=== PATIENT | male | born 1945 | race Caucasian/White ===

== ENCOUNTER → 2017-06-14 | Outpatient (CLI) | payer OTHER ==
[2016-04-10 12:03] VITALS: BP 137/71
--- NOTE | 2017-06-14 12:33 | RAD ---
HISTORY: Dyspnea Study: Chest two-view Comparison: April 10, 2016 Findings: The trachea is midline. The cardiac silhouette is unremarkable. The lungs are mildly hyperinflated but free of acute alveolar infiltrates. No pleural effusions are identified. The patient is status post median sternotomy and CABG.. The bony thorax is unremarkable. IMPRESSION: 1. Lungs mildly hyperinflated but clear Reported By:
--- NOTE | 2017-06-14 12:38 | RAD ---
HISTORY: Right hip pain, nontraumatic Study: Right hip two views, AP pelvis Comparison: None Findings: A single frontal view of the pelvis demonstrates the pelvic ring to be intact. No evidence for acut e cortical disruption or dislocation of the hip can be observed. Frog leg views of the hip fails to demonstrate evidence for fracture or significant joint abnormality. a penile prosthesis is incident ally noted. Impression: 1. Negative exam. Reported By:
== END ==
LOC: RAD 11:30
PROVIDERS: ATTEND Nurse Practitioner Family
DX: M25.551 Pain in right hip (principal); R06.09 Other forms of dyspnea; J44.9 Chronic obstructive pulmonary disease, unspecified; J43.8 Other emphysema
CPT/HCPCS: 71020; 73501

== ENCOUNTER → 2017-07-13 | Outpatient (CLI) | payer OTHER ==
[2016-04-10 12:03] VITALS: BP 137/71
--- NOTE | 2017-07-14 15:27 | MRI ---
HISTORY: Low back pain Study: MRI lumbar spine without contrast Comparison: January 25, 2016 Technique: Multiplanar multi-sequence MRI of the lumbar spine was obtained. Sagittal T1, sagittal T2 , and stir weighted images, axial T1, and axial T2 images were obtained. Findings: The lumbar spine demonstrates normal alignment with the expected signal characteristics of the bone m arrow. There is a compression fracture of L1 with signal characteristics suggesting that it is not r ecent. It is not significantly changed from the prior examination. No new compression fractures are i dentified. The conus of the cord terminates normally. T12 -- L1: No evidence for compressive disc disease. The neural foramina are patent. The joints are n ormal. L1 -- L2: No evidence for compressive disc disease. The neural foramina are patent. The joints are no rmal. L2 -- L3: No evidence for compressive disc disease. The neural foramina are patent. Mild facet arthro michael is present. L3 -- L4: There is some disc degeneration with minimal disc bulging which is not significantly compre ssive upon the thecal sac. There is mild foraminal narrowing on the right. The left neural foramen is patent. The joints are normal. L4 -- L5: There is disc degeneration with mild broad-based disc bulging which contributes along with pedicular shortening and spondylitic change and facet arthropathy to lateral recess narrowing bilater ally worse on the left than the right. L5 -- S1: There is disc degeneration with minimal disc bulging which contributes along with spondylit ic change to mild foraminal narrowing bilaterally. The joints are normal. IMPRESSION: as above Reported By:
== END | disposition home or self-care (01) ==
LOC: RAD 15:23
PROVIDERS: ATTEND Nurse Practitioner Family
DX: M54.5 Low back pain (principal); M62.81 Muscle weakness (generalized); G58.8 Other specified mononeuropathies; M51.37 Other intervertebral disc degeneration, lumbosacral region
CPT/HCPCS: 72148

== ENCOUNTER 2018-07-09 16:37 | Observation (INO) ==
[2018-07-09 17:40] LABS: ABG BASE EXCESS 1.8 mmol/L (-2.0-2.0); ABG HCO3 29.5 mmol/L (22-26)
[2018-07-09 17:42] LABS: ABG ALLEN TEST POS
--- NOTE | 2018-07-09 18:01 | RAD ---
Indication: Shortness of breath Exam: Portable chest Comparison: 06/14/2017 Findings: The heart is normal. The pulmonary vessels are normal. Postop changes are seen along the me diastinum and sternum. There is overlying EKG lead artifact. No consolidation or effusion is seen. Impression: Stable chronic changes with no acute abnormality seen. Reported By:
[2018-07-09 18:10] LABS: BASOPHILS % (AUTO) 0.4 % (0.2-1.0); EOSINOPHILS # (AUTO) 0.4 x10^3/uL (0.0-0.2); EOSINOPHILS % (AUTO) 4.9 % (0.9-2.9); HEMATOCRIT 35.3 % (42.0-54.0); LYMPHOCYTES # (AUTO) 1.9 X10^3/uL (1.3-2.9); LYMPHOCYTES % (AUTO) 21.2 % (21.0-51.0); MEAN CORPUSCULAR HEMOGLOBIN 31.9 pg (27.0-34.0); MEAN CORPUSCULAR HGB CONC 34.1 g/dL (33.0-35.0); MEAN CORPUSCULAR VOLUME 93.6 fL (80.0-100.0); MEAN PLATELET VOLUME 8.1 fL (7.4-11.0); MONOCYTES # (AUTO) 0.8 x10^3/uL (0.3-0.8); MONOCYTES % (AUTO) 9.4 % (0.0-13.0); NEUTROPHILS # (AUTO) 5.7 x10^3/uL (2.2-4.8); NEUTROPHILS % (AUTO) 64.1 % (42.0-75.0); PLATELET COUNT 236 X10^3/uL (150.0-450.0); RED BLOOD COUNT 3.77 X10^6/uL (4.7-6.0); RED CELL DISTRIBUTION WIDTH 13.8 % (11.6-16.5); WHITE BLOOD COUNT 8.9 X10^3/uL (3.6-10.0)
[2018-07-09 18:25] LABS: BLOOD UREA NITROGEN 22 mg/dL (7-18); CALCIUM 8.3 mg/dL (8.5-10.1); CARBON DIOXIDE 28.7 mmol/L (21-32); CHLORIDE 103 mmol/L (98-107); CREATININE 1.64 mg/dL (0.70-1.30); SODIUM 136 mmol/L (136-145); TROPONIN I < 0.02 ng/mL (0-1.5); eGFR NON BLACK RACES 44 (>60)
[2018-07-09 18:29] LABS: ALANINE AMINOTRANSFERASE 21 Units/L (12-78); ALBUMIN 3.4 g/dL (3.4-5.0); ALKALINE PHOSPHATASE 83 Units/L (46-116); ASPARTATE AMINO TRANSFERASE 19 Units/L (15-37); CKMB % 1.8 % (<4); CREATINE KINASE 94 Units/L (39-308); CREATINE KINASE MB 1.7 ng/mL (0-4.0); TOTAL PROTEIN 7.7 g/dL (6.4-8.2)
--- NOTE | 2018-07-09 18:44 | DR.H&P ---
H&P - History & Physical for Day of: H&P Date: 07/09/18 - Chief Complaint Chief Complaint: SOB, WEAKNESS - History of Present Illness History of Present Illness: 73 WM DIRECT ADMIT FROM DR SINGH OFFICE AFTER PRESENTING WITH CO INCREASED WEAKNESS AND SOB. PT VERY DIAPHORETIC IN OFFICE WITH AUDIBLE RALES. PT O2 AT 90%, UNSTEADY GAIT. PT HAD PMH OF CHF, COPD, CAD, HTN, OA, DAVID. PT HAS BEEN USING JET NEBS WITHOUT IMPROVEMENT. PT ADMITTED TO ICU FOR RESP DISTRESS. - Past Medical History Past Medical History: Anxiety, Arthritis, Asthma, COPD, Coronary Artery Disease , Migraines, GERD, Hypertension - Past Surgical History Surgical History: Appendectomy, CABG/Valve Surgery, Neurosurgery - Family History Family Medical History: DC, Coronary Artery Disease, Heart Failure, Hypertension - Social History Does patient currently use any type of tobacco product: No Have you used tobacco products in the last 12 months: No Type of Tobacco Use: None Does any household member use tobacco: No Alcohol Use: None Drug Use: None - Medications Home Medications: cortisone Allergy (Verified 07/09/18 18:01) CONTINUE taking the following medications alprazolam [Xanax] 1 mg PO BID 07/09/18 [History] aspirin 325 mg PO QDAY 07/09/18 [History] atorvastatin 40 mg PO QDAY 07/09/18 [History] budesonide-formoterol [Symbicort] 2 puff INHALATION BID 07/09/18 [History] cyclobenzaprine 10 mg PO TID 07/09/18 [History] fentanyl 1 patch TRANSDERMAL Q72H 07/09/18 [History] gabapentin 800 mg PO TID 07/09/18 [History] linaclotide [Linzess] 145 mg PO DAILY 07/09/18 [History] lisinopril 5 mg PO QDAY 07/09/18 [History] memantine 5 mg PO BID 07/09/18 [History] metoprolol succinate 25 mg PO BID 07/09/18 [History] olanzapine 5 mg PO QDAY 07/09/18 [History] oxybutynin chloride 10 mg PO QDAY 07/09/18 [History] oxycodone-acetaminophen 1 tab PO Q4-6H PRN 07/09/18 [History] pantoprazole [Protonix] 40 mg PO QDAY 07/09/18 [History] tamsulosin 0.4 mg PO QDAY 07/09/18 [History] trazodone 100 mg PO QHS 07/09/18 [History] venlafaxine 150 mg PO QDAY 07/09/18 [History] - Review of Systems Constitutional: Weakness Eyes: No Symptoms Reported Respiratory: Shortness of Breath, SOB with Excertion, Wheezing Cardiovascular: Palpitations, Edema, Light Headedness Gastrointestinal: Nausea, Constipation Genitourinary: Retention Musculoskeletal: Back Pain, Leg Pain Neurological: Weakness - Physical Exam Vital Signs: Temperature 98.2 F Pulse Rate [Right Brachial] 85 Respiratory Rate 12 Blood Pressure [Left Arm] 121/62 Blood Pressure [Right Arm] 124/67 Blood Pressure 137/71 O2 Sat by Pulse Oximetry 96 Oriented: Normal Eyes: Normal Ear: Normal Nose: Normal Throat: Normal Respiratory: Rales Throughout (FINE RALES ), RLL Diminished, LLL Diminished Cardiovascular: Tachycardia, Edema : Normal Auscultation: Bowel Sounds: Normal Palpation: Normal Tenderness: Normal Skin: Diaphoresis Musculoskeletal: Right, Left, Leg, Back:Lumbar, Swelling, Sensory Deficit, Instability Psychiatric: Anxiety Affect: Anxious Speech Pattern: Delayed, Slurred - Assessment/Plan (1) Respiratory distress Status: Acute Plan: ADMIT, ICU. ADMISSION LABS CE, EKG, CXR. ABD ON ADMISSION, RESP CONSULT , SUPPLEMENTAL O2. VERIFY HOME MEDS, GENTLE HYDRATION, SINGH CATH STRICT I & OS (2) CHF exacerbation Status: Acute (3) COPD exacerbation Status: Acute (4) CAD (coronary artery disease) Status: Chronic (5) DDD (degenerative disc disease) Status: Chronic (6) Anxiety Status: Chronic - Allergies Allergies/Adverse Reactions: Allergies Allergy/AdvReac Type Severity Reaction Status Date / Time cortisone Allergy Verified 07/09/18 18:01
[2018-07-09 19:36] LABS: BILIRUBIN,URINE NEGATIVE (NEGATIVE); BLOOD/HEMOGLOBIN,URINE 3+ (NEGATIVE); GLUCOSE, URINE NEGATIVE (NEGATIVE); KETONES,URINE NEGATIVE (NEGATIVE); LEUKOCYTE ESTERASE ,URINE 1+ (NEGATIVE); NITRITES,URINE NEGATIVE (NEGATIVE); PROTEIN,URINE 1+ (NEGATIVE); UROBILINOGEN,URINE NORMAL (NORMAL)
[2018-07-09 19:40] LABS: APPEARANCE,URINE CLOUDY (CLEAR); COLOR,URINE YELLOW (YELLOW)
[2018-07-09 19:45] LABS: RBC,URINE 30-50 /HPF (NONE SEEN); SQUAMOUS EPITHELIAL CELL,UR FEW /HPF (NEGATIVE)
[2018-07-09 19:46] LABS: BACTERIA,URINE 2+ /HPF (NEGATIVE)
[2018-07-09] MEDS: PULMICORT NEB TX 0.5 MG NEB SCH (20:12)
[2018-07-09] MEDS: SOLU-Medrol 125 MG VIAL IVP SCH (20:44)
[2018-07-09] MEDS: NS 1000 ML 1,000 ML IV SCH (20:49)
[2018-07-09] MEDS: ROCEPHIN VIAL 1 GRAM 1 G in NS 100 ML IV + SPIKE MINIBAG* 100 ML IV SCH (23:00)
[2018-07-10] MEDS: COLACE CAP 100 MG PO SCH ×2 (02:01→21:08)
[2018-07-10] MEDS: MILK OF MAGNESIA PO SCH ×4 (02:02→21:24)
[2018-07-10] MEDS: SOLU-Medrol 125 MG VIAL IVP SCH ×2 (02:03→05:09)
[2018-07-10 06:31] LABS: BASOPHILS # (AUTO) 0.1 X10^3/uL (0.0-0.1); BASOPHILS % (AUTO) 0.9 % (0.2-1.0); EOSINOPHILS # (AUTO) 0.3 x10^3/uL (0.0-0.2); EOSINOPHILS % (AUTO) 3.9 % (0.9-2.9); HEMATOCRIT 34.2 % (42.0-54.0); HEMOGLOBIN 11.9 g/dL (13.5-18.0); LYMPHOCYTES # (AUTO) 1.4 X10^3/uL (1.3-2.9); LYMPHOCYTES % (AUTO) 16.5 % (21.0-51.0); MEAN CORPUSCULAR HEMOGLOBIN 32.4 pg (27.0-34.0); MEAN CORPUSCULAR HGB CONC 34.8 g/dL (33.0-35.0); MEAN PLATELET VOLUME 8.1 fL (7.4-11.0); MONOCYTES # (AUTO) 0.7 x10^3/uL (0.3-0.8); MONOCYTES % (AUTO) 7.9 % (0.0-13.0); NEUTROPHILS # (AUTO) 6.1 x10^3/uL (2.2-4.8); NEUTROPHILS % (AUTO) 70.8 % (42.0-75.0); PLATELET COUNT 217 X10^3/uL (150.0-450.0); RED BLOOD COUNT 3.68 X10^6/uL (4.7-6.0); RED CELL DISTRIBUTION WIDTH 13.6 % (11.6-16.5); WHITE BLOOD COUNT 8.7 X10^3/uL (3.6-10.0)
[2018-07-10 06:52] LABS: ALANINE AMINOTRANSFERASE 19 Units/L (12-78); ALBUMIN 3.2 g/dL (3.4-5.0); ALKALINE PHOSPHATASE 78 Units/L (46-116); ASPARTATE AMINO TRANSFERASE 20 Units/L (15-37); BLOOD UREA NITROGEN 21 mg/dL (7-18); CALCIUM 8.2 mg/dL (8.5-10.1); CARBON DIOXIDE 31.7 mmol/L (21-32); CHLORIDE 102 mmol/L (98-107); COR CA(FOR HYPOALB) 8.8 mg/dL (8.5-10.1); SODIUM 139 mmol/L (136-145); TOTAL PROTEIN 7.6 g/dL (6.4-8.2); eGFR NON BLACK RACES > 60 (>60)
[2018-07-10] MEDS ORDERED: PATIENT'S HOME MEDICATION (Oxycodone-Acetaminophen [Oxycodone-Acetaminophen] 1 TAB) PO PRN (08:38)
[2018-07-10] MEDS: PULMICORT NEB TX 0.5 MG NEB SCH (08:55)
[2018-07-10] MEDS ORDERED: PATIENT'S HOME MEDICATION (Memantine [Memantine] 5 MG) PO SCH (09:00)
[2018-07-10 09:04] LABS: ABG BASE EXCESS 3.9 mmol/L (-2.0-2.0)
[2018-07-10 09:06] LABS: ABG ALLEN TEST POS; ABG HCO3 30.5 mmol/L (22-26)
[2018-07-10] MEDS ORDERED: PERCOCET TAB 5/325 MG PO PRN (09:36)
[2018-07-10] MEDS: ECOTRIN TAB 325 MG PO SCH (09:54)
[2018-07-10] MEDS: FLOMAX PO SCH (09:54)
[2018-07-10] MEDS: XANAX PO SCH ×2 (09:55→21:09)
[2018-07-10] MEDS: PROTONIX TAB 40 MG PO SCH (09:55)
[2018-07-10] MEDS: ZyPREXA TAB 5 MG PO SCH (09:55)
[2018-07-10] MEDS: TOPROL XL PO SCH ×2 (09:55→21:09)
[2018-07-10] MEDS: ZESTRIL TAB 5 MG PO SCH ×2 (09:55→09:56)
[2018-07-10] MEDS: EFFEXOR XR 150 MG CAP PO SCH (09:55)
[2018-07-10] MEDS: NAMENDA TAB 10 MG PO SCH ×2 (09:59→21:09)
[2018-07-10] MEDS: NEURONTIN CAP 400 MG PO SCH ×3 (09:59→21:09)
[2018-07-10] MEDS: DESYREL PO SCH ×2 (09:59→21:08)
[2018-07-10] MEDS: LIPITOR TAB 40 MG PO SCH ×2 (10:00→21:08)
[2018-07-10] MEDS: XOPENEX 1.25 MG/3 ML NEBULE NEB SCH (14:00)
[2018-07-10 14:43] VITALS: BMI 40.6
--- NOTE | 2018-07-10 17:39 | PCM.PROG ---
Progress Note - Progress Note for Day of Date of Exam: 07/10/18 - Subjective Subjective: 73 wm admitted on 07/09 with resp distress. Pt placed on bipap after admission. pt currently on nasal canula sating in 90's. pt reports feeling some better this am. pt asking for diet tray. Pt currently receiving Iv atbx and resp therapy, sputum culture ordered. pt encouraged to increase po fluid intake for sputum production. pt co lower back pain, BP stable. Plan to continue resp therapy. - Past Medical Family Social History Past Med/Fam/Surg Hx: No changes since H&P Allergies: Allergies cortisone Allergy (Verified 07/09/18 18:01) - Review of Systems ROS: No change since H&P - Vital Signs and I&O's Vital Signs: Temperature 98.9 F Pulse Rate [Right Brachial] 86 Pulse Rate 100 Respiratory Rate 22 Blood Pressure [Left Arm] 121/62 Blood Pressure [Right Arm] 108/53 Blood Pressure 137/71 O2 Sat by Pulse Oximetry 100 Intake and Output: Intake & Output 07/08/18 07/09/18 07/10/18 07/11/18 11:59 11:59 11:59 11:59 Intake Total 305 / 305 Output Total 1175 / 1175 800 / 800 Balance -870 / -870 -800 / -800 - Physical Exam Oriented: Normal Eyes: Normal Ear: Normal Nose: Normal Throat: Normal Respiratory: Diminished, Wheezes Cardiovascular: Tachycardia, Edema : Normal Auscultation: Bowel Sounds: Normal Tenderness: Normal Skin: Diaphoresis Musculoskeletal: Right, Left, Leg, Back:Lumbar, Swelling, Sensory Deficit, Instability Psychiatric: Anxiety Affect: Anxious Speech Pattern: Clear, Appropriate - Laboratory and Diagnostics Result Diagrams: 07/10/18 05:22 07/10/18 05:22 Labs: 07/10/18 14:13 Sputum - Expectorated Sputum - Final 07/09/18 18:30 Urine,Catheterized Urine Culture - Preliminary Laboratory WBC 8.7 X10^3/uL (3.6-10.0) 07/10/18 05:22 RBC 3.68 X10^6/uL (4.7-6.0) L 07/10/18 05:22 Hgb 11.9 g/dL (13.5-18.0) L 07/10/18 05:22 Hct 34.2 % (42.0-54.0) L 07/10/18 05:22 MCV 93.0 fL (80.0-100.0) 07/10/18 05:22 MCH 32.4 pg (27.0-34.0) 07/10/18 05:22 MCHC 34.8 g/dL (33.0-35.0) 07/10/18 05:22 RDW 13.6 % (11.6-16.5) 07/10/18 05:22 Plt Count 217 X10^3/uL (150.0-450.0) 07/10/18 05:22 MPV 8.1 fL (7.4-11.0) 07/10/18 05:22 Neut % (Auto) 70.8 % (42.0-75.0) 07/10/18 05:22 Lymph % (Auto) 16.5 % (21.0-51.0) L 07/10/18 05:22 Parke % (Auto) 7.9 % (0.0-13.0) 07/10/18 05:22 Eos % (Auto) 3.9 % (0.9-2.9) H 07/10/18 05:22 Baso % (Auto) 0.9 % (0.2-1.0) 07/10/18 05:22 Neut # (Auto) 6.1 x10^3/uL (2.2-4.8) H 07/10/18 05:22 Lymph # (Auto) 1.4 X10^3/uL (1.3-2.9) 07/10/18 05:22 [place]ke # (Auto) 0.7 x10^3/uL (0.3-0.8) 07/10/18 05:22 Eos # (Auto) 0.3 x10^3/uL (0.0-0.2) H 07/10/18 05:22 Baso # (Auto) 0.1 X10^3/uL (0.0-0.1) 07/10/18 05:22 Absolute Nucleated RBC 0.1 /100WBC 07/10/18 05:22 Sample Site Lr 07/10/18 08:55 ABG pH 7.360 (7.35-7.45) 07/10/18 08:55 ABG pCO2 54.0 mmHg (35.0-45.0) H* 07/10/18 08:55 ABG pO2 82.0 mmHg (80.0-100.0) 07/10/18 08:55 ABG HCO3 30.5 mmol/L (22-26) H* 07/10/18 08:55 ABG O2 Saturation 96.0 % (90-100) 07/10/18 08:55 ABG Base Excess 3.9 mmol/L (-2.0-2.0) H 07/10/18 08:55 Abdirashid Test Pos 07/10/18 08:55 A-a Gradient 50.0 mmHg 07/10/18 08:55 FiO2 28.000 07/10/18 08:55 Blood Gas Comments Pt darrel rx well 07/10/18 08:55 Sodium 139 mmol/L (136-145) 07/10/18 05:22 Corrected Sodium TNP 07/10/18 05:22 Potassium 4.6 mmol/L (3.5-5.1) 07/10/18 05:22 Chloride 102 mmol/L (98-107) 07/10/18 05:22 Carbon Dioxide 31.7 mmol/L (21-32) 07/10/18 05:22 BUN 21 mg/dL (7-18) H 07/10/18 05:22 Creatinine 1.20 mg/dL (0.70-1.30) 07/10/18 05:22 Est GFR (MDRD) Af Amer > 60 (>60) 07/10/18 05:22 Est GFR (MDRD) Non-Af > 60 (>60) 07/10/18 05:22 Glucose 79 mg/dL (65-99) 07/10/18 05:22 Calcium 8.2 mg/dL (8.5-10.1) L 07/10/18 05:22 Corrected Calcium 8.8 mg/dL (8.5-10.1) 07/10/18 05:22 Magnesium 2.4 mg/dL (1.7-2.9) 07/09/18 17:45 Total Bilirubin 0.50 mg/dL (0.2-1.0) 07/10/18 05:22 AST 20 Units/L (15-37) 07/10/18 05:22 ALT 19 Units/L (12-78) 07/10/18 05:22 Alkaline Phosphatase 78 Units/L (46-116) 07/10/18 05:22 Creatine Kinase 94 Units/L (39-308) 07/09/18 17:45 CK-MB (CK-2) 1.7 ng/mL (0-4.0) 07/09/18 17:45 CK/CKMB % Calc 1.8 % (<4) 07/09/18 17:45 Troponin I < 0.02 ng/mL (0-1.5) 07/09/18 17:45 Total Protein 7.6 g/dL (6.4-8.2) 07/10/18 05:22 Albumin 3.2 g/dL (3.4-5.0) L 07/10/18 05:22 Globulin 4.4 g/dL (2.5-4.5) 07/10/18 05:22 Albumin/Globulin Ratio 0.7 Ratio (1.1-2.1) L 07/10/18 05:22 Specimen Type Catherized urine 07/09/18 18:30 Urine Color Yellow (YELLOW) 07/09/18 18:30 Urine Appearance Cloudy (CLEAR) 07/09/18 18:30 Urine pH 6.0 (5.0 - 8.0) 07/09/18 18:30 Ur Specific [place] 1.015 (1.000-1.030) 07/09/18 18:30 Urine Protein 1+ (NEGATIVE) 07/09/18 18:30 Urine Glucose (UA) Negative (NEGATIVE) 07/09/18 18:30 Urine Ketones Negative (NEGATIVE) 07/09/18 18:30 Urine Occult Blood 3+ (NEGATIVE) 07/09/18 18:30 Urine Nitrite Negative (NEGATIVE) 07/09/18 18:30 Urine Bilirubin Negative (NEGATIVE) 07/09/18 18:30 Urine Urobilinogen Normal (NORMAL) 07/09/18 18:30 Ur Leukocyte Esterase 1+ (NEGATIVE) 07/09/18 18:30 Urine RBC 30-50 /HPF (NONE SEEN) 07/09/18 18:30 Urine WBC 10-20 /HPF (NONE SEEN) 07/09/18 18:30 Ur Squamous Epith Cells Few /HPF (NEGATIVE) 08/20/18 18:30 Urine Bacteria 2+ /HPF (NEGATIVE) 07/09/18 18:30 Ur Culture Indicated? Yes/culture set up 07/09/18 18:30 - Plan (1) Respiratory distress Status: Acute Plan: AM LABS CE, EKG, CXR. ABg ON ADMISSION AND REPEAT ABG THIS AM. RESP CONSULT FOR SPUTUM SPECIMEN, SUPPLEMENTAL O2. IV ATBX, GENTLE HYDRATION, SINGH CATH STRICT I & OS (2) CHF exacerbation Status: Acute (3) COPD exacerbation Status: Acute (4) CAD (coronary artery disease) Status: Chronic (5) DDD (degenerative disc disease) Status: Chronic (6) Anxiety Status: Chronic
[2018-07-10] MEDS: NS 1000 ML 1,000 ML IV SCH (18:02)
[2018-07-10] MEDS: LOVENOX INJ 40 MG SYR SC SCH (18:55)
[2018-07-10] MEDS: ROCEPHIN VIAL 1 GRAM 1 G in NS 100 ML IV + SPIKE MINIBAG* 100 ML IV SCH (21:09)
[2018-07-11] MEDS: XOPENEX 1.25 MG/3 ML NEBULE NEB SCH ×3 (02:10→14:35)
[2018-07-11] MEDS: PULMICORT NEB TX 0.5 MG NEB SCH ×2 (02:10→09:00)
[2018-07-11] MEDS: NEURONTIN CAP 400 MG PO SCH ×2 (06:01→14:41)
[2018-07-11 06:21] LABS: BASOPHILS % (AUTO) 0.4 % (0.2-1.0); EOSINOPHILS # (AUTO) 0.2 x10^3/uL (0.0-0.2); HEMATOCRIT 34.5 % (42.0-54.0); HEMOGLOBIN 11.9 g/dL (13.5-18.0); LYMPHOCYTES % (AUTO) 17.9 % (21.0-51.0); MEAN CORPUSCULAR HEMOGLOBIN 32.2 pg (27.0-34.0); MEAN CORPUSCULAR HGB CONC 34.6 g/dL (33.0-35.0); MEAN CORPUSCULAR VOLUME 93.2 fL (80.0-100.0); MONOCYTES # (AUTO) 0.5 x10^3/uL (0.3-0.8); MONOCYTES % (AUTO) 9.8 % (0.0-13.0); NEUTROPHILS # (AUTO) 3.8 x10^3/uL (2.2-4.8); NEUTROPHILS % (AUTO) 68.9 % (42.0-75.0); PLATELET COUNT 197 X10^3/uL (150.0-450.0); RED CELL DISTRIBUTION WIDTH 13.6 % (11.6-16.5); WHITE BLOOD COUNT 5.5 X10^3/uL (3.6-10.0)
[2018-07-11 06:58] LABS: ALANINE AMINOTRANSFERASE 10 Units/L (12-78); ALKALINE PHOSPHATASE 74 Units/L (46-116); ASPARTATE AMINO TRANSFERASE 21 Units/L (15-37); BLOOD UREA NITROGEN 16 mg/dL (7-18); CALCIUM 8.2 mg/dL (8.5-10.1); CARBON DIOXIDE 27.6 mmol/L (21-32); CHLORIDE 100 mmol/L (98-107); CREATININE 0.97 mg/dL (0.70-1.30); SODIUM 134 mmol/L (136-145); TOTAL PROTEIN 7.5 g/dL (6.4-8.2); eGFR NON BLACK RACES > 60 (>60)
[2018-07-11] MEDS: FLOMAX PO SCH (08:44)
[2018-07-11] MEDS: NAMENDA TAB 10 MG PO SCH (08:45)
[2018-07-11] MEDS: XANAX PO SCH (08:45)
[2018-07-11] MEDS: EFFEXOR XR 150 MG CAP PO SCH (08:45)
[2018-07-11] MEDS: ECOTRIN TAB 325 MG PO SCH (08:45)
[2018-07-11] MEDS: TOPROL XL PO SCH (08:45)
[2018-07-11] MEDS: ZyPREXA TAB 5 MG PO SCH (08:45)
[2018-07-11] MEDS: PROTONIX TAB 40 MG PO SCH (08:45)
[2018-07-11] MEDS: ZESTRIL TAB 5 MG PO SCH (08:45)
[2018-07-11] MEDS: LOVENOX INJ 40 MG SYR SC SCH (08:46)
[2018-07-11] MEDS: MILK OF MAGNESIA PO SCH (09:54)
[2018-07-11 17:45] VITALS: BP 109/55
--- NOTE | 2018-07-29 17:42 | PCM.DCPLAN ---
Discharge Summary - Admission Date Date of Admission: 07/09/18 - Discharge Date Discharge Date: 07/11/18 - Admission Diagnoses (1) COPD exacerbation Status: Acute (2) Chest pain Status: Acute (3) DDD (degenerative disc disease) Status: Chronic (4) Fibromyalgia Status: Chronic - Discharge Diagnoses Discharge Diagnosis: SAME ADMISSION DIAGNOSIS - Discharge Medications Discharge Medications: Home Medication List alprazolam [Xanax] 1 mg PO BID 07/09/18 [History] aspirin 325 mg PO QDAY 07/09/18 [History] atorvastatin 40 mg PO QDAY 07/09/18 [History] budesonide-formoterol [Symbicort] 2 puff INHALATION BID 07/09/18 [History] cyclobenzaprine 10 mg PO TID 07/09/18 [History] fentanyl 1 patch TRANSDERMAL Q72H 07/09/18 [History] gabapentin 800 mg PO TID 07/09/18 [History] linaclotide [Linzess] 145 mg PO DAILY 07/09/18 [History] lisinopril 5 mg PO QDAY 07/09/18 [History] memantine 5 mg PO BID 07/09/18 [History] metoprolol succinate 25 mg PO BID 07/09/18 [History] olanzapine 5 mg PO QDAY 07/09/18 [History] oxybutynin chloride 10 mg PO QDAY 07/09/18 [History] oxycodone-acetaminophen 1 tab PO Q4-6H PRN 07/09/18 [History] pantoprazole [Protonix] 40 mg PO QDAY 07/09/18 [History] tamsulosin 0.4 mg PO QDAY 07/09/18 [History] trazodone 100 mg PO QHS 07/09/18 [History] venlafaxine 150 mg PO QDAY 07/09/18 [History] levofloxacin [Levaquin] 500 mg PO QDAY #7 tab 07/11/18 [Rx] Prescriptions: levofloxacin [Levaquin] [facility]ONNELL - Hospital Course Vital Signs: Temperature 97.8 F Pulse Rate [Right Brachial] 72 Pulse Rate 68 Respiratory Rate 17 Blood Pressure [Left Arm] 121/62 Blood Pressure [Right Arm] 109/55 Blood Pressure 137/71 O2 Sat by Pulse Oximetry 98 Latest Lab Results: Laboratory Last Values WBC 5.5 X10^3/uL (3.6-10.0) 07/11/18 05:30 RBC 3.70 X10^6/uL (4.7-6.0) L 07/11/18 05:30 Hgb 11.9 g/dL (13.5-18.0) L 07/11/18 05:30 Hct 34.5 % (42.0-54.0) L 07/11/18 05:30 MCV 93.2 fL (80.0-100.0) 07/11/18 05:30 MCH 32.2 pg (27.0-34.0) 07/11/18 05:30 MCHC 34.6 g/dL (33.0-35.0) 07/11/18 05:30 RDW 13.6 % (11.6-16.5) 07/11/18 05:30 Plt Count 197 X10^3/uL (150.0-450.0) 07/11/18 05:30 MPV 8.0 fL (7.4-11.0) 07/11/18 05:30 Neut % (Auto) 68.9 % (42.0-75.0) 07/11/18 05:30 Lymph % (Auto) 17.9 % (21.0-51.0) L 07/11/18 05:30 [place] % (Auto) 9.8 % (0.0-13.0) 07/11/18 05:30 Eos % (Auto) 3.0 % (0.9-2.9) H 07/11/18 05:30 Baso % (Auto) 0.4 % (0.2-1.0) 07/11/18 05:30 Neut # (Auto) 3.8 x10^3/uL (2.2-4.8) 07/11/18 05:30 Lymph # (Auto) 1.0 X10^3/uL (1.3-2.9) L 07/11/18 05:30 Bond # (Auto) 0.5 x10^3/uL (0.3-0.8) 07/11/18 05:30 Eos # (Auto) 0.2 x10^3/uL (0.0-0.2) 07/11/18 05:30 Baso # (Auto) 0.0 X10^3/uL (0.0-0.1) 07/11/18 05:30 Absolute Nucleated RBC 0.0 /100WBC 07/11/18 05:30 Sample Site Lr 07/10/18 08:55 ABG pH 7.360 (7.35-7.45) 07/10/18 08:55 ABG pCO2 54.0 mmHg (35.0-45.0) H* 07/10/18 08:55 ABG pO2 82.0 mmHg (80.0-100.0) 07/10/18 08:55 ABG HCO3 30.5 mmol/L (22-26) H* 07/10/18 08:55 ABG O2 Saturation 96.0 % (90-100) 07/10/18 08:55 ABG Base Excess 3.9 mmol/L (-2.0-2.0) H 07/10/18 08:55 Abdirashid Test Pos 07/10/18 08:55 A-a Gradient 50.0 mmHg 07/10/18 08:55 FiO2 28.000 07/10/18 08:55 Blood Gas Comments Pt darrel rx well 07/10/18 08:55 Sodium 134 mmol/L (136-145) L 07/11/18 05:30 Corrected Sodium TNP 07/11/18 05:30 Potassium 4.4 mmol/L (3.5-5.1) 07/11/18 05:30 Chloride 100 mmol/L (98-107) 07/11/18 05:30 Carbon Dioxide 27.6 mmol/L (21-32) 07/11/18 05:30 BUN 16 mg/dL (7-18) 07/11/18 05:30 Creatinine 0.97 mg/dL (0.70-1.30) 07/11/18 05:30 Est GFR (MDRD) Af Amer > 60 (>60) 07/11/18 05:30 Est GFR (MDRD) Non-Af > 60 (>60) 07/11/18 05:30 Glucose 105 mg/dL (65-99) H 07/11/18 05:30 Calcium 8.2 mg/dL (8.5-10.1) L 07/11/18 05:30 Corrected Calcium 9.0 mg/dL (8.5-10.1) 07/11/18 05:30 Magnesium 2.4 mg/dL (1.7-2.9) 07/09/18 17:45 Total Bilirubin 0.50 mg/dL (0.2-1.0) 07/11/18 05:30 AST 21 Units/L (15-37) 07/11/18 05:30 ALT 10 Units/L (12-78) L 07/11/18 05:30 Alkaline Phosphatase 74 Units/L (46-116) 07/11/18 05:30 Creatine Kinase 94 Units/L (39-308) 07/09/18 17:45 CK-MB (CK-2) 1.7 ng/mL (0-4.0) 07/09/18 17:45 CK/CKMB % Calc 1.8 % (<4) 07/09/18 17:45 Troponin I < 0.02 ng/mL (0-1.5) 07/09/18 17:45 Total Protein 7.5 g/dL (6.4-8.2) 07/11/18 05:30 Albumin 3.0 g/dL (3.4-5.0) L 07/11/18 05:30 Globulin 4.5 g/dL (2.5-4.5) 07/11/18 05:30 Albumin/Globulin Ratio 0.7 Ratio (1.1-2.1) L 07/11/18 05:30 Specimen Type Catherized urine 07/09/18 18:30 Urine Color Yellow (YELLOW) 07/09/18 18:30 Urine Appearance Cloudy (CLEAR) 07/09/18 18:30 Urine pH 6.0 (5.0 - 8.0) 07/09/18 18:30 Ur Specific [place] 1.015 (1.000-1.030) 07/09/18 18:30 Urine Protein 1+ (NEGATIVE) 07/09/18 18:30 Urine Glucose (UA) Negative (NEGATIVE) 07/09/18 18:30 Urine Ketones Negative (NEGATIVE) 07/09/18 18:30 Urine Occult Blood 3+ (NEGATIVE) 07/09/18 18:30 Urine Nitrite Negative (NEGATIVE) 07/09/18 18:30 Urine Bilirubin Negative (NEGATIVE) 07/09/18 18:30 Urine Urobilinogen Normal (NORMAL) 07/09/18 18:30 Ur Leukocyte Esterase 1+ (NEGATIVE) 07/09/18 18:30 Urine RBC 30-50 /HPF (NONE SEEN) 07/09/18 18:30 Urine WBC 10-20 /HPF (NONE SEEN) 07/09/18 18:30 Ur Squamous Epith Cells Few /HPF (NEGATIVE) 07/09/18 18:30 Urine Bacteria 2+ /HPF (NEGATIVE) 07/09/18 18:30 Ur Culture Indicated? Yes/culture set up 07/09/18 18:30 Hospital Course: 73 wm admitted on 07/09 with resp distress. Pt placed on bipap after admission. JPatient was successfully weaned off. OI2 sats maintained. Patient ddid receive steroids, antibiotics, neb treatments. Did have improvement of symptoms. Had complaint of back pain which improved as well. patient was discharged home to be followed on op basis. - Discharge Plan Disposition: 01 HOME, SELF-CARE Condition: Stable Prescriptions: levofloxacin [Levaquin] 500 mg PO QDAY #7 tab - Follow ups/Referrals Follow ups/Referrals: LUIS GARCIA [Primary Care Provider] - 07/17/18 1:15 pm - Instructions Instructions: Chronic Obstructive Pulmonary Disease Exacerbation, [id number] , Urinary Tract Infection, Adult, [id number], Nonspecific Chest Pain, Easy-to- Read, Hypertension, [id number] Additional Instructions: resume home meds increase po hydration rest, continue supplemental o2 and resp therapy levaquin 500mg po daily x 7 days f/u dr garcia in one week Forms: Patient Portal
== END 2018-07-11 16:30 | disposition home or self-care (01) ==
LOC: MED/SURG → ICU 18:50
PROVIDERS: ADMIT Internal Medicine; ATTEND Internal Medicine
DX: I25.10 Atherosclerotic heart disease of native coronary artery without angina pectoris; R94.4 Abnormal results of kidney function studies; M54.5 Low back pain; R53.1 Weakness; I50.9 Heart failure, unspecified; B95.62 Methicillin resistant Staphylococcus aureus infection as the cause of diseases classified elsewhere; F41.8 Other specified anxiety disorders; B96.29 Other Escherichia coli [E. coli] as the cause of diseases classified elsewhere; E87.5 Hyperkalemia; N39.0 Urinary tract infection, site not specified; R26.89 Other abnormalities of gait and mobility; K21.9 Gastro-esophageal reflux disease without esophagitis; R06.02 Shortness of breath; J44.1 Chronic obstructive pulmonary disease with (acute) exacerbation
CPT/HCPCS: 36415; 36600; 71010; 71045; 80053; 81001; 82550; 82553; 82803; 83735; 84484; 85025; 87070; 87077; 87086; 87088; 87186; 87205; 93005; 93010; 94640; 94660; 94760; A4222; A4618; A7030; G0378; J0696; J1650; J7030; J7050; J7626

== ENCOUNTER 2018-08-29 11:16 | Inpatient (IN) ==
--- NOTE | 2018-08-29 12:13 | DR.GENAD ---
HPI Time Seen Time Seen by Provider: 08/29/18 11:54 PCP Primary Care Physician: garcia Complaint/Symptoms Chief Complaint Doctors Comments: Frequent falls today x two, shortness of breath, history of COPD. Chief Complaint:: family stated he has been forgetting things since last week, dizzy for 4 days and for the past 3 days he has been running a fever. pt stated he wears o2 at home but has been out for a long time cause they cant get anymore Source History Provided: Patient Mode of Arrival Mode of Arrival: Ambulatory Timing Onset of Chief Complaint: 08/20/18 PMH PMH Past Medical History: Yes Past Medical History: Anxiety, Arthritis, Asthma, COPD, Coronary Artery Disease, Migraines, GERD and Hypertension Past Surgical History: Yes Surgical History: Appendectomy, CABG/Valve Surgery and Neurosurgery Family History History of Family Medical Conditions: Yes Family Medical History: [place], Coronary Artery Disease, Heart Failure and Hypertension Social History Does patient currently use any type of tobacco product: No Have you used tobacco products in the last 12 months: No Type of Tobacco Use: None Does any household member use tobacco: No Alcohol Use: None Do you use any recreational Drugs:: No Lives With: Family Lives Where: Home infectious screening In the last 2 months have you had wt loss of >10#?: NO Have you had fever, night sweats or hemotysis?: No Have you traveled outside the country in the last 6 months?: No Isolation: Standard PE Vital Signs Vitals: Temperature 99.6 F Pulse Rate 100 Respiratory Rate 18 Blood Pressure [Left Arm] 121/62 Blood Pressure [Right Arm] 109/55 Blood Pressure 165/125 O2 Sat by Pulse Oximetry 92 General Limitations: No Limitations General Appearance: Alert and In No Apparent Distress Eyes Eye exam: Normal Appearance, PERRL and EOMI ENT ENT Exam: Normal Exam and Normal Oropharynx External Ear Exam: Normal External Inspection and Auricular Hematoma TM/Canal Exam: Bilateral: Normal Nose Exam: Normal Nose Exam and Sinus Tenderness Mouth Exam: Normal Inspection Throat Exam: Normal Inspection Neck Neck Exam: Normal Inspection and Full ROM Respiratory Respiratory Exam: Normal Lung Sounds Bilat; negative Accessory Muscle Use Respiratory Exam: Bilateral: Clear to Auscultation Cardiovascular Cardiovascular Exam: Regular Rate and Normal Rhythm Abdominal Exam Abdominal Exam: Normal Inspection, Normal Bowel Sounds and Hypoactive Bowel Sounds; negative Hyperactive Bowel Sounds Psychiatric Psychiatric Exam: Normal Affect and Normal Mood COURSE Treatment Treatment: NS, CT Chest no PE Consultation Called: 16:35 Consultation Comments: Patient discussed with who agreed to admit for observation Dx hyponatremia, UTI ROR Labs Reviewed Laboratory Results Reviewed?: Yes Result Diagrams: 08/29/18 12:15 08/29/18 12:15 Laboratory: WBC 15.4 X10^3/uL (3.6-10.0) H 08/29/18 12:15 RBC 4.16 X10^6/uL (4.7-6.0) L 08/29/18 12:15 Hgb 13.0 g/dL (13.5-18.0) L 08/29/18 12:15 Hct 38.0 % (42.0-54.0) L 08/29/18 12:15 MCV 91.3 fL (80.0-100.0) 08/29/18 12:15 MCH 31.2 pg (27.0-34.0) 08/29/18 12:15 MCHC 34.2 g/dL (33.0-35.0) 08/29/18 12:15 RDW 13.0 % (11.6-16.5) 08/29/18 12:15 Plt Count 199 X10^3/uL (150.0-450.0) 08/29/18 12:15 MPV 7.8 fL (7.4-11.0) 08/29/18 12:15 Neut % (Auto) 82.3 % (42.0-75.0) H 08/29/18 12:15 Lymph % (Auto) 7.5 % (21.0-51.0) L 08/29/18 12:15 [place] % (Auto) 9.7 % (0.0-13.0) 08/29/18 12:15 Eos % (Auto) 0.2 % (0.9-2.9) L 08/29/18 12:15 Baso % (Auto) 0.3 % (0.2-1.0) 08/29/18 12:15 Neut # (Auto) 12.6 x10^3/uL (2.2-4.8) H 08/29/18 12:15 Lymph # (Auto) 1.2 X10^3/uL (1.3-2.9) L 08/29/18 12:15 [place] # (Auto) 1.5 x10^3/uL (0.3-0.8) H 08/29/18 12:15 Eos # (Auto) 0.0 x10^3/uL (0.0-0.2) 08/29/18 12:15 Baso # (Auto) 0.1 X10^3/uL (0.0-0.1) 08/29/18 12:15 Absolute Nucleated RBC 0.1 /100WBC 08/29/18 12:15 D-Dimer 1740 ng/mL (0-400) H* 08/29/18 12:15 Sodium 131 mmol/L (136-145) L 08/29/18 12:15 Corrected Sodium TNP 08/29/18 12:15 Potassium 4.7 mmol/L (3.5-5.1) 08/29/18 12:15 Chloride 96 mmol/L (98-107) L 08/29/18 12:15 Carbon Dioxide 27.2 mmol/L (21-32) 08/29/18 12:15 BUN 23 mg/dL (7-18) H 08/29/18 12:15 Creatinine 1.76 mg/dL (0.70-1.30) H 08/29/18 12:15 Est GFR (MDRD) Af Amer 49 (>60) L 08/29/18 12:15 Est GFR (MDRD) Non-Af 41 (>60) L 08/29/18 12:15 Glucose 94 mg/dL (65-99) 08/29/18 12:15 Calcium 8.2 mg/dL (8.5-10.1) L 08/29/18 12:15 Corrected Calcium 8.8 mg/dL (8.5-10.1) 08/29/18 12:15 Total Bilirubin 1.10 mg/dL (0.2-1.0) H 08/29/18 12:15 AST 15 Units/L (15-37) 08/29/18 12:15 ALT 13 Units/L (12-78) 08/29/18 12:15 Alkaline Phosphatase 97 Units/L (46-116) 08/29/18 12:15 C-Reactive Protein 156.40 mg/L (0-3.0) H 08/29/18 12:15 Total Protein 8.2 g/dL (6.4-8.2) 08/29/18 12:15 Albumin 3.2 g/dL (3.4-5.0) L 08/29/18 12:15 Globulin 5.0 g/dL (2.5-4.5) H 08/29/18 12:15 Albumin/Globulin Ratio 0.6 Ratio (1.1-2.1) L 08/29/18 12:15 Specimen Type Clean catch urine 08/29/18 14:28 Urine Color Dark yellow (YELLOW) 08/29/18 14:28 Urine Appearance Cloudy (CLEAR) 08/29/18 14:28 Urine pH 6.0 (5.0 - 8.0) 08/29/18 14:28 Ur Specific [place] 1.015 (1.000-1.030) 08/29/18 14:28 Urine Protein 2+ (NEGATIVE) 08/29/18 14:28 Urine Glucose (UA) Negative (NEGATIVE) 08/29/18 14:28 Urine Ketones Negative (NEGATIVE) 08/29/18 14:28 Urine Occult Blood 2+ (NEGATIVE) 08/29/18 14:28 Urine Nitrite Negative (NEGATIVE) 08/29/18 14:28 Urine Bilirubin Negative (NEGATIVE) 08/29/18 14:28 Urine Urobilinogen 1+ (NORMAL) 08/29/18 14:28 Ur Leukocyte Esterase 3+ (NEGATIVE) 08/29/18 14:28 Urine RBC 3-5 /HPF (NONE SEEN) 08/29/18 14:28 Urine WBC Tntc /HPF (NONE SEEN) 08/29/18 14:28 Ur Squamous Epith Cells Rare /HPF (NEGATIVE) 08/29/18 14:28 Urine Bacteria 2+ /HPF (NEGATIVE) 08/29/18 14:28 Ur Culture Indicated? Yes/culture set up 08/29/18 14:28 Other Results Comments: CTA: No evidence of thoracic aortic aneurysm or pulmonary embolus. Therre are changes of CABG. Mild cylindrical bronchiectasis without consolidation,pleural fluid, adenopathy or pulmonary nodule. Tiny calcified gallstone.
[2018-08-29] MEDS: NS 1000 ML 1,000 ML IV SCH (12:26)
[2018-08-29 12:27] LABS: BASOPHILS # (AUTO) 0.1 X10^3/uL (0.0-0.1); BASOPHILS % (AUTO) 0.3 % (0.2-1.0); EOSINOPHILS % (AUTO) 0.2 % (0.9-2.9); LYMPHOCYTES # (AUTO) 1.2 X10^3/uL (1.3-2.9); LYMPHOCYTES % (AUTO) 7.5 % (21.0-51.0); MEAN CORPUSCULAR HEMOGLOBIN 31.2 pg (27.0-34.0); MEAN CORPUSCULAR HGB CONC 34.2 g/dL (33.0-35.0); MEAN CORPUSCULAR VOLUME 91.3 fL (80.0-100.0); MEAN PLATELET VOLUME 7.8 fL (7.4-11.0); MONOCYTES # (AUTO) 1.5 x10^3/uL (0.3-0.8); MONOCYTES % (AUTO) 9.7 % (0.0-13.0); NEUTROPHILS # (AUTO) 12.6 x10^3/uL (2.2-4.8); NEUTROPHILS % (AUTO) 82.3 % (42.0-75.0); PLATELET COUNT 199 X10^3/uL (150.0-450.0); RED BLOOD COUNT 4.16 X10^6/uL (4.7-6.0); WHITE BLOOD COUNT 15.4 X10^3/uL (3.6-10.0)
[2018-08-29 12:35] LABS: ALANINE AMINOTRANSFERASE 13 Units/L (12-78); ALBUMIN 3.2 g/dL (3.4-5.0); ALKALINE PHOSPHATASE 97 Units/L (46-116); ASPARTATE AMINO TRANSFERASE 15 Units/L (15-37); BLOOD UREA NITROGEN 23 mg/dL (7-18); CALCIUM 8.2 mg/dL (8.5-10.1); CARBON DIOXIDE 27.2 mmol/L (21-32); CHLORIDE 96 mmol/L (98-107); COR CA(FOR HYPOALB) 8.8 mg/dL (8.5-10.1); CREATININE 1.76 mg/dL (0.70-1.30); SODIUM 131 mmol/L (136-145); TOTAL PROTEIN 8.2 g/dL (6.4-8.2); eGFR NON BLACK RACES 41 (>60)
--- NOTE | 2018-08-29 13:22 | CT ---
HISTORY: Dizziness, frequent falls Study: CT head without contrast Comparison: 03/28/2014 Findings: the ventricles are normal in size shape and position. There is decreased attenuation in the perivent ricular white matter suggestive of small vessel vascular disease. Mild age-related cortical atrophy i s present. There is no evidence for recent or remote CVA, hemorrhage, mass lesion, or extra-axial flu id collection. The visualized sinuses are clear. The calvarium is intact. IMPRESSION: No acute intracranial abnormality Small vessel disease Mild age-related cortical atrophy Reported By:
--- NOTE | 2018-08-29 15:22 | CT ---
HISTORY: Dyspnea with elevated D-dimer. Study: CTA chest Comparison: Chest x-ray done 07/09/2018. No prior chest CTs available for comparison. Technique: Multiple axial images of the chest were obtained from the thoracic inlet to the upper abdo men during the administration of IV contrast. In addition to standard multi planar reconstructions, M IP reconstructions were performed in axial, coronal and sagittal planes. Dose reduction techniques ut ilized automatic exposure control. Findings: The mediastinum does not demonstrate significant pathological lymphadenopathy. There is no pericardi al effusion observed. The thoracic aorta is normal in its contour without evidence for aneurysmal di latation. There are changes of CABG. There is opacification of the left atrial appendage which is sma ll. The central pulmonary arterial system does not demonstrate central filling defects to suggest pu lmonary emboli. Evaluation of the lung parenchyma reveals mild bilateral cylindrical bronchiectasis. There is no cons olidation or pleural fluid seen.. No pulmonary nodule or mass can be identified. The bony thorax is unremarkable in its appearance. A tiny calcified gallstone is present. Liver and adrenal glands are normal.. IMPRESSION: Evidence of thoracic aortic aneurysm or pulmonary embolus. There are changes of CABG. Mild cylindrical bronchiectasis without consolidation, pleural fluid, adenopathy or pulmonary nodule. Tiny calcified gallstone. Reported By:
[2018-08-29 15:31] LABS: BILIRUBIN,URINE NEGATIVE (NEGATIVE); BLOOD/HEMOGLOBIN,URINE 2+ (NEGATIVE); GLUCOSE, URINE NEGATIVE (NEGATIVE); KETONES,URINE NEGATIVE (NEGATIVE); LEUKOCYTE ESTERASE ,URINE 3+ (NEGATIVE); NITRITES,URINE NEGATIVE (NEGATIVE); PROTEIN,URINE 2+ (NEGATIVE); UROBILINOGEN,URINE 1+ (NORMAL)
[2018-08-29 15:47] LABS: APPEARANCE,URINE CLOUDY (CLEAR); BACTERIA,URINE 2+ /HPF (NEGATIVE); COLOR,URINE DARK YELLOW (YELLOW); SQUAMOUS EPITHELIAL CELL,UR RARE /HPF (NEGATIVE)
--- NOTE | 2018-08-29 16:50 | DR.GENAD ---
HPI Time Seen Time Seen by Provider: 08/29/18 11:54 PCP Primary Care Physician: jose Complaint/Symptoms Chief Complaint:: family stated he has been forgetting things since last week, dizzy for 4 days and for the past 3 days he has been running a fever. pt stated he wears o2 at home but has been out for a long time cause they cant get anymore Source History Provided: Patient Mode of Arrival Mode of Arrival: Ambulatory Timing Onset of Chief Complaint: 08/20/18 PMH PMH Past Medical History: Yes Past Medical History: Anxiety, Arthritis, Asthma, COPD, Coronary Artery Disease, Migraines, GERD and Hypertension Past Surgical History: Yes Surgical History: Appendectomy, CABG/Valve Surgery and Neurosurgery Family History History of Family Medical Conditions: Yes Family Medical History: [place], Coronary Artery Disease, Heart Failure and Hypertension Social History Does patient currently use any type of tobacco product: No Have you used tobacco products in the last 12 months: No Type of Tobacco Use: None Does any household member use tobacco: No Alcohol Use: None Do you use any recreational Drugs:: No Lives With: Family Lives Where: Home infectious screening In the last 2 months have you had wt loss of >10#?: NO Have you had fever, night sweats or hemotysis?: No Have you traveled outside the country in the last 6 months?: No Isolation: Standard ROS Review of Systems Neurological: Depressed PE Vital Signs Vitals: Temperature 98.4 F Pulse Rate [Right Brachial] 82 Pulse Rate 92 Respiratory Rate 20 Blood Pressure [Left Arm] 121/62 Blood Pressure [Right Arm] 102/56 Blood Pressure 165/125 O2 Sat by Pulse Oximetry 94 General General Appearance: Alert and In No Apparent Distress Head Head Exam: Normal Inspection, Atraumatic and Normocephalic Eyes Eye exam: Normal Appearance, PERRL and EOMI ENT ENT Exam: Normal Exam, Normal Oropharynx and Normal External Ear Exam External Ear Exam: Normal External Inspection and Auricular Hematoma TM/Canal Exam: Bilateral: Normal Nose Exam: Normal Nose Exam Mouth Exam: Normal Inspection Throat Exam: Normal Inspection Neck Neck Exam: Normal Inspection Chest Chest Inspection: Normal Inspection and Symmetric Chest Wall Rise Respiratory Respiratory Exam: Normal Lung Sounds Bilat Respiratory Exam: Bilateral: Clear to Auscultation Cardiovascular Cardiovascular Exam: Regular Rate and Normal Rhythm Abdominal Exam Abdominal Exam: Normal Inspection, Normal Bowel Sounds and Soft Abdominal Tenderness: RUQ Extremities Extremities Exam: Normal Inspection and Full ROM Back Back Exam: Normal Inspection; negative (R) CVA Tenderness and (L) CVA Tenderness Neurologic Neurological Exam: Alert, Oriented X3 and CN II-XII Intact Psychiatric Psychiatric Exam: Normal Affect and Normal Mood Skin Skin Exam: Warm, Dry, Intact and Normal Color ROR Labs Reviewed Laboratory Results Reviewed?: Yes Result Diagrams: 08/31/18 04:15 08/31/18 04:15 Laboratory: 08/30/18 17:55 Urine,Catheterized Urine Culture - Preliminary 08/29/18 14:28 Urine,Clean Catch Urine Culture - Final Enterococcus Faecalis WBC 9.4 X10^3/uL (3.6-10.0) 08/31/18 04:15 RBC 3.77 X10^6/uL (4.7-6.0) L 08/31/18 04:15 Hgb 11.8 g/dL (13.5-18.0) L 08/31/18 04:15 Hct 34.7 % (42.0-54.0) L 08/31/18 04:15 MCV 92.0 fL (80.0-100.0) 08/31/18 04:15 MCH 31.4 pg (27.0-34.0) 08/31/18 04:15 MCHC 34.1 g/dL (33.0-35.0) 08/31/18 04:15 RDW 12.8 % (11.6-16.5) 08/31/18 04:15 Plt Count 135 X10^3/uL (150.0-450.0) L 08/31/18 04:15 MPV 9.4 fL (7.4-11.0) 08/31/18 04:15 Neut % (Auto) 62.7 % (42.0-75.0) 08/31/18 04:15 Lymph % (Auto) 15.7 % (21.0-51.0) L 08/31/18 04:15 [place] % (Auto) 17.8 % (0.0-13.0) H 08/31/18 04:15 Eos % (Auto) 3.2 % (0.9-2.9) H 08/31/18 04:15 Baso % (Auto) 0.6 % (0.2-1.0) 08/31/18 04:15 Neut # (Auto) 5.9 x10^3/uL (2.2-4.8) H 08/31/18 04:15 Lymph # (Auto) 1.5 X10^3/uL (1.3-2.9) 08/31/18 04:15 [place] # (Auto) 1.7 x10^3/uL (0.3-0.8) H 08/31/18 04:15 Eos # (Auto) 0.3 x10^3/uL (0.0-0.2) H 08/31/18 04:15 Baso # (Auto) 0.1 X10^3/uL (0.0-0.1) 08/31/18 04:15 Absolute Nucleated RBC 0.3 /100WBC 08/31/18 04:15 D-Dimer 1740 ng/mL (0-400) H* 08/29/18 12:15 Sodium 134 mmol/L (136-145) L 08/31/18 04:15 Corrected Sodium TNP 08/31/18 04:15 Potassium 3.8 mmol/L (3.5-5.1) 08/31/18 04:15 Chloride 102 mmol/L (98-107) 08/31/18 04:15 Carbon Dioxide 25.4 mmol/L (21-32) 08/31/18 04:15 BUN 21 mg/dL (7-18) H 08/31/18 04:15 Creatinine 1.38 mg/dL (0.70-1.30) H 08/31/18 04:15 Est GFR (MDRD) Af Amer > 60 (>60) 08/31/18 04:15 Est GFR (MDRD) Non-Af 54 (>60) L 08/31/18 04:15 Glucose 105 mg/dL (65-99) H 08/31/18 04:15 Calcium 7.5 mg/dL (8.5-10.1) L 08/31/18 04:15 Corrected Calcium 8.9 mg/dL (8.5-10.1) 08/31/18 04:15 Total Bilirubin 0.40 mg/dL (0.2-1.0) 08/31/18 04:15 AST 29 Units/L (15-37) 08/31/18 04:15 ALT 15 Units/L (12-78) 08/31/18 04:15 Alkaline Phosphatase 85 Units/L (46-116) 08/31/18 04:15 C-Reactive Protein 156.40 mg/L (0-3.0) H 08/29/18 12:15 Total Protein 6.9 g/dL (6.4-8.2) 08/31/18 04:15 Albumin 2.3 g/dL (3.4-5.0) L 08/31/18 04:15 Globulin 4.6 g/dL (2.5-4.5) H 08/31/18 04:15 Albumin/Globulin Ratio 0.5 Ratio (1.1-2.1) L 08/31/18 04:15 Specimen Type Catherized urine 08/30/18 17:55 Urine Color Dark yellow (YELLOW) 08/30/18 17:55 Urine Appearance Cloudy (CLEAR) 08/30/18 17:55 Urine pH 5.0 (5.0 - 8.0) 08/30/18 17:55 Ur Specific [place] 1.020 (1.000-1.030) 08/30/18 17:55 Urine Protein 2+ (NEGATIVE) 08/30/18 17:55 Urine Glucose (UA) Negative (NEGATIVE) 08/30/18 17:55 Urine Ketones Negative (NEGATIVE) 08/30/18 17:55 Urine Occult Blood 2+ (NEGATIVE) 08/30/18 17:55 Urine Nitrite Negative (NEGATIVE) 08/30/18 17:55 Urine Bilirubin Negative (NEGATIVE) 08/30/18 17:55 Urine Urobilinogen 1+ (NORMAL) 08/30/18 17:55 Ur Leukocyte Esterase 3+ (NEGATIVE) 08/30/18 17:55 Urine RBC 5-10 /HPF (NONE SEEN) 08/30/18 17:55 Urine WBC Tntc /HPF (NONE SEEN) 08/30/18 17:55 Ur Squamous Epith Cells Few /HPF (NEGATIVE) 08/30/18 17:55 Urine Bacteria 1+ /HPF (NEGATIVE) 08/30/18 17:55 Ur Culture Indicated? Yes/culture set up 08/30/18 17:55 Influenza Type A (PCR) Negative (NEGATIVE) 08/29/18 19:33 Influenza Type B (PCR) Negative (NEGATIVE) 08/29/18 19:33 Other Results Comments: CTA: No evidence of thoracic aortic aneurysm or pulmonary embolus. There are changes of CABG. Mild cylindrical bronchiectasis without consolidation, pleural fluid, adenopathy or pulmonary nodule. Tiny calcified gallstone. Diagnosis Discharge Problem: Acute hyponatremia, Acute UTI ADDITIONAL NOTES Additional Notes Additional Notes: Patient admitted to hospital.
[2018-08-29] MEDS ORDERED: ROBITUSSIN DM PO PRN (16:55)
[2018-08-29] MEDS ORDERED: ZOFRAN TAB 4 MG SL PRN (16:55)
[2018-08-29] MEDS ORDERED: PATIENT'S HOME MEDICATION (Oxycodone-Acetaminophen [Oxycodone-Acetaminophen] 1 TAB) PO PRN (18:28)
[2018-08-29] MEDS ORDERED: LEVAQUIN TAB 500 MG PO SCH (18:28)
[2018-08-29] MEDS ORDERED: SYMBICORT INH 160/4.5 mcg IN SCH (21:00)
[2018-08-29] MEDS: PULMICORT NEB TX 0.5 MG NEB SCH (21:14)
[2018-08-29] MEDS: PROVENTIL NEB TX 0.083% 2.5MG/ 3ML NEB SCH (21:14)
[2018-08-29] MEDS: DESYREL PO SCH ×2 (21:42→21:45)
[2018-08-29] MEDS: ECOTRIN TAB 325 MG PO SCH (21:42)
[2018-08-29] MEDS: EFFEXOR XR 150 MG CAP PO SCH (21:43)
[2018-08-29] MEDS: FLOMAX PO SCH (21:43)
[2018-08-29] MEDS: PROTONIX TAB 40 MG PO SCH (21:43)
[2018-08-29] MEDS: ZyPREXA TAB 5 MG PO SCH (21:44)
[2018-08-29] MEDS: ZESTRIL TAB 5 MG PO SCH ×2 (21:44→21:48)
[2018-08-29] MEDS: XANAX PO SCH ×2 (21:45→21:47)
[2018-08-29] MEDS: CIPRO IV 400 MG PREMIX* 400 MG/200 ML IV.SOLN. IV SCH (21:45)
[2018-08-29] MEDS: TOPROL XL PO SCH (21:46)
[2018-08-29] MEDS: PEPCID TAB 20 MG PO SCH (21:46)
[2018-08-29] MEDS: NAMENDA TAB 10 MG PO SCH (21:46)
[2018-08-29] MEDS: NEURONTIN CAP 400 MG PO SCH (21:47)
[2018-08-29] MEDS: FLEXERIL TAB 10 MG PO SCH (21:47)
[2018-08-30] MEDS: NS 1000 ML 1,000 ML IV SCH ×4 (04:44→22:22)
[2018-08-30] MEDS: FLEXERIL TAB 10 MG PO SCH ×3 (05:17→21:21)
[2018-08-30] MEDS: NEURONTIN CAP 400 MG PO SCH ×3 (05:17→21:21)
--- NOTE | 2018-08-30 05:59 | RAD ---
HISTORY: Shortness of breath Study: Chest AP portable Comparison: 07/09/18, CTA chest 08/29/2018 Findings: The patient is status post median sternotomy and CABG. The heart is within normal limits in size. The alfa are normal. The lung kemp are clear. No pleural effusions are identified. The bony thorax is unremarkable. IMPRESSION: No significant abnormality identified Reported By:
[2018-08-30 06:59] VITALS: BMI 37.5
[2018-08-30 07:00] LABS: BASOPHILS % (AUTO) 0.3 % (0.2-1.0); EOSINOPHILS # (AUTO) 0.1 x10^3/uL (0.0-0.2); EOSINOPHILS % (AUTO) 0.4 % (0.9-2.9); HEMATOCRIT 34.2 % (42.0-54.0); HEMOGLOBIN 11.8 g/dL (13.5-18.0); LYMPHOCYTES # (AUTO) 1.2 X10^3/uL (1.3-2.9); LYMPHOCYTES % (AUTO) 8.1 % (21.0-51.0); MEAN CORPUSCULAR HEMOGLOBIN 31.5 pg (27.0-34.0); MEAN CORPUSCULAR HGB CONC 34.4 g/dL (33.0-35.0); MEAN CORPUSCULAR VOLUME 91.6 fL (80.0-100.0); MEAN PLATELET VOLUME 8.7 fL (7.4-11.0); MONOCYTES # (AUTO) 1.5 x10^3/uL (0.3-0.8); MONOCYTES % (AUTO) 10.5 % (0.0-13.0); NEUTROPHILS # (AUTO) 11.7 x10^3/uL (2.2-4.8); NEUTROPHILS % (AUTO) 80.7 % (42.0-75.0); PLATELET COUNT 170 X10^3/uL (150.0-450.0); RED BLOOD COUNT 3.73 X10^6/uL (4.7-6.0); WHITE BLOOD COUNT 14.5 X10^3/uL (3.6-10.0)
[2018-08-30 07:11] LABS: ALANINE AMINOTRANSFERASE 13 Units/L (12-78); ALBUMIN 2.7 g/dL (3.4-5.0); ALKALINE PHOSPHATASE 85 Units/L (46-116); ASPARTATE AMINO TRANSFERASE 18 Units/L (15-37); BLOOD UREA NITROGEN 21 mg/dL (7-18); CALCIUM 7.9 mg/dL (8.5-10.1); CARBON DIOXIDE 24.9 mmol/L (21-32); CHLORIDE 98 mmol/L (98-107); COR CA(FOR HYPOALB) 8.9 mg/dL (8.5-10.1); CREATININE 1.52 mg/dL (0.70-1.30); SODIUM 132 mmol/L (136-145); TOTAL PROTEIN 7.5 g/dL (6.4-8.2); eGFR NON BLACK RACES 48 (>60)
[2018-08-30] MEDS: CIPRO IV 400 MG PREMIX* 400 MG/200 ML IV.SOLN. IV SCH (08:35)
[2018-08-30] MEDS: XANAX PO SCH ×2 (08:35→20:42)
[2018-08-30] MEDS: FLOMAX PO SCH (08:36)
[2018-08-30] MEDS: OXYBUTYNIN CHLORIDE ER PO SCH (08:36)
[2018-08-30] MEDS: PROTONIX TAB 40 MG PO SCH (08:36)
[2018-08-30] MEDS: TOPROL XL PO SCH ×2 (08:36→21:31)
[2018-08-30] MEDS: NAMENDA TAB 10 MG PO SCH ×2 (08:36→20:32)
[2018-08-30] MEDS: ZyPREXA TAB 5 MG PO SCH (08:37)
[2018-08-30] MEDS: LINZESS PO SCH (08:37)
[2018-08-30] MEDS: EFFEXOR XR 150 MG CAP PO SCH (08:37)
[2018-08-30] MEDS: PEPCID TAB 20 MG PO SCH ×2 (08:37→20:42)
[2018-08-30] MEDS: ZESTRIL TAB 5 MG PO SCH (08:37)
[2018-08-30] MEDS: ECOTRIN TAB 325 MG PO SCH (08:37)
[2018-08-30] MEDS: PULMICORT NEB TX 0.5 MG NEB SCH ×2 (09:25→20:55)
[2018-08-30] MEDS: PROVENTIL NEB TX 0.083% 2.5MG/ 3ML NEB SCH ×2 (09:25→20:55)
[2018-08-30] MEDS: ROCEPHIN VIAL 1 GRAM IVP SCH (12:58)
[2018-08-30] MEDS: LOVENOX INJ 40 MG SYR SC SCH (15:39)
--- NOTE | 2018-08-30 17:32 | DR.H&P ---
H&P - History & Physical for Day of: H&P Date: 08/29/18 - Chief Complaint Chief Complaint: WEAKNESS, FEVER, FALLS - History of Present Illness History of Present Illness: PT IS 73WM ER ADMISSION WITH CO GENERALIZED WEAKNESS, MULTIPLE FALLS THIS WEEK DUE TO "LEGS GIVING OUT" LOW GRADE FEVER. PT HAS BEEN ON ANTIBIOTICS FOR UTI, BACTRIM DS FOR OVER A WEEK. PT HAD LOW NA IN ER 131 BUN 23, CREAT 1.76. PT HAS PMH OF CAD, CHF, COPD, OA, BPH, HTN. PT ADMITTED ADMITTED OR HYDRATION, ELECTROLYTE REPLACEMENT, IV ATBX FOR UTI, RESP THERAPY - Past Medical History Past Medical History: Coronary Artery Disease, Hypertension, Anxiety, COPD, Asthma, GERD, Arthritis, Migraines - Past Surgical History Surgical History: Appendectomy, CABG/Valve Surgery, Neurosurgery - Family History Family Medical History: [place], Coronary Artery Disease, Heart Failure, Hypertension - Social History Does patient currently use any type of tobacco product: No Have you used tobacco products in the last 12 months: No Type of Tobacco Use: None Does any household member use tobacco: No Alcohol Use: None Drug Use: None - Medications Home Medications: cortisone Allergy (Verified 08/29/18 11:17) CONTINUE taking the following medications cephalexin 500 mg PO BID 08/29/18 [History] - Review of Systems Constitutional: Fever, Weakness ENT: No Symptoms Reported Respiratory: Shortness of Breath Cardiovascular: Edema Gastrointestinal: Nausea Genitourinary: Incontinence, Retention Musculoskeletal: Back Pain, Leg Pain Skin: No Symptoms Reported Neurological: Weakness - Physical Exam Vital Signs: Temperature 99.8 F Pulse Rate [Right Brachial] 82 Pulse Rate 92 Respiratory Rate 20 Blood Pressure [Left Arm] 121/62 Blood Pressure [Right Arm] 129/91 Blood Pressure 165/125 O2 Sat by Pulse Oximetry 97 Oriented: Normal Eyes: Normal Ear: Normal Nose: Normal Throat: Normal Respiratory: RLL Diminished, LLL Diminished Cardiovascular: Normal, Edema : Normal Auscultation: Bowel Sounds: Normal Palpation: Normal Tenderness: Suprapubic, Moderate Skin: Normal Musculoskeletal: Right, Left, Hip, Back:Thoracic, Back:Lumbar, Motor Deficit, Sensory Deficit, Instability Psychiatric: Normal Mood Description: Calm Speech Pattern: Clear, Appropriate - Assessment/Plan (1) Acute UTI Status: Acute Plan: ADMIT, URINE CULTURE. IV ATBX, ELECTROLYTE REPLACEMENT. VERIFY HOME MEDS, REPEAT AM LABS. CT CHEST ON ADMISSION SEE EMR FOR REPORT. SUPPLEMENTAL O2, BP AND CARDIAC MONITORING. STRICT I & OS, URINE AND BLOOD CULTURE (2) Acute hyponatremia Status: Acute (3) History of CVA (cerebrovascular accident) Status: Chronic (4) CAD (coronary artery disease) Status: Chronic (5) BPH (benign prostatic hyperplasia) Status: Chronic (6) COPD (chronic obstructive pulmonary disease) Status: Chronic - Allergies Allergies/Adverse Reactions: Allergies Allergy/AdvReac Type Severity Reaction Status Date / Time cortisone Allergy Verified 08/29/18 11:17
--- NOTE | 2018-08-30 17:41 | PCM.PROG ---
Progress Note - Progress Note for Day of Date of Exam: 08/30/18 - Subjective Subjective: 73 WM ER ADMISSION WITH UTI HYPONATREMIA AND WEAKNESS WITH REPORTED MULTIPLE FALLS THIS WEEK. PT CO BILATERAL HIP PAIN AND "KNOTS" ON HIPS POST FALL, LBP. PT CO DECREASED URINE OUTPT. PT CURRENTLY ON IV ATBX, RESUMED HOME MEDICATION AND RESP THERAPY. NA 132 THIS AM, BUN IMPROVING 21, CREAT 1.52 - Past Medical Family Social History Past Med/Fam/Surg Hx: No changes since H&P Allergies: Allergies cortisone Allergy (Verified 08/29/18 11:17) - Review of Systems ROS: No change since H&P - Vital Signs and I&O's Vital Signs: Temperature 99.8 F Pulse Rate [Right Brachial] 82 Pulse Rate 92 Respiratory Rate 20 Blood Pressure [Left Arm] 121/62 Blood Pressure [Right Arm] 129/91 Blood Pressure 165/125 O2 Sat by Pulse Oximetry 97 Intake and Output: Intake & Output 08/28/18 08/29/18 08/30/18 08/31/18 11:59 11:59 11:59 11:59 Intake Total 1240 / 1240 1929 1930 Output Total 200 / 200 Balance 1040 / 1040 1929 - Physical Exam Oriented: Normal Eyes: Normal Ear: Normal Nose: Normal Throat: Normal Respiratory: Diminished Cardiovascular: Normal, Edema : Normal Auscultation: Bowel Sounds: Normal Tenderness: Suprapubic, Moderate Skin: Normal Musculoskeletal: Right, Left, Hip, Back:Thoracic, Back:Lumbar, Motor Deficit, Sensory Deficit, Instability Psychiatric: Normal Mood Description: Calm Speech Pattern: Clear, Appropriate - Laboratory and Diagnostics Result Diagrams: 08/30/18 05:21 08/30/18 05:21 Labs: 08/29/18 14:28 Urine,Clean Catch Urine Culture - Preliminary Laboratory WBC 14.5 X10^3/uL (3.6-10.0) H 08/30/18 05:21 RBC 3.73 X10^6/uL (4.7-6.0) L 08/30/18 05:21 Hgb 11.8 g/dL (13.5-18.0) L 08/30/18 05:21 Hct 34.2 % (42.0-54.0) L 08/30/18 05:21 MCV 91.6 fL (80.0-100.0) 08/30/18 05:21 MCH 31.5 pg (27.0-34.0) 08/30/18 05:21 MCHC 34.4 g/dL (33.0-35.0) 08/30/18 05:21 RDW 13.0 % (11.6-16.5) 08/30/18 05:21 Plt Count 170 X10^3/uL (150.0-450.0) 08/30/18 05:21 MPV 8.7 fL (7.4-11.0) 08/30/18 05:21 Neut % (Auto) 80.7 % (42.0-75.0) H 08/30/18 05:21 Lymph % (Auto) 8.1 % (21.0-51.0) L 08/30/18 05:21 [place] % (Auto) 10.5 % (0.0-13.0) 08/30/18 05:21 Eos % (Auto) 0.4 % (0.9-2.9) L 08/30/18 05:21 Baso % (Auto) 0.3 % (0.2-1.0) 08/30/18 05:21 Neut # (Auto) 11.7 x10^3/uL (2.2-4.8) H 08/30/18 05:21 Lymph # (Auto) 1.2 X10^3/uL (1.3-2.9) L 08/30/18 05:21 [place] # (Auto) 1.5 x10^3/uL (0.3-0.8) H 08/30/18 05:21 Eos # (Auto) 0.1 x10^3/uL (0.0-0.2) 08/30/18 05:21 Baso # (Auto) 0.0 X10^3/uL (0.0-0.1) 08/30/18 05:21 Absolute Nucleated RBC 0.0 /100WBC 08/30/18 05:21 D-Dimer 1740 ng/mL (0-400) H* 08/29/18 12:15 Sodium 132 mmol/L (136-145) L 08/30/18 05:21 Corrected Sodium TNP 08/30/18 05:21 Potassium 4.2 mmol/L (3.5-5.1) 08/30/18 05:21 Chloride 98 mmol/L (98-107) 08/30/18 05:21 Carbon Dioxide 24.9 mmol/L (21-32) 08/30/18 05:21 BUN 21 mg/dL (7-18) H 08/30/18 05:21 Creatinine 1.52 mg/dL (0.70-1.30) H 08/30/18 05:21 Est GFR (MDRD) Af Amer 58 (>60) L 08/30/18 05:21 Est GFR (MDRD) Non-Af 48 (>60) L 08/30/18 05:21 Glucose 86 mg/dL (65-99) 08/30/18 05:21 Calcium 7.9 mg/dL (8.5-10.1) L 08/30/18 05:21 Corrected Calcium 8.9 mg/dL (8.5-10.1) 08/30/18 05:21 Total Bilirubin 1.20 mg/dL (0.2-1.0) H 08/30/18 05:21 AST 18 Units/L (15-37) 08/30/18 05:21 ALT 13 Units/L (12-78) 08/30/18 05:21 Alkaline Phosphatase 85 Units/L (46-116) 08/30/18 05:21 C-Reactive Protein 156.40 mg/L (0-3.0) H 08/29/18 12:15 Total Protein 7.5 g/dL (6.4-8.2) 08/30/18 05:21 Albumin 2.7 g/dL (3.4-5.0) L 08/30/18 05:21 Globulin 4.8 g/dL (2.5-4.5) H 08/30/18 05:21 Albumin/Globulin Ratio 0.6 Ratio (1.1-2.1) L 08/30/18 05:21 Specimen Type Clean catch urine 08/29/18 14:28 Urine Color Dark yellow (YELLOW) 08/29/18 14:28 Urine Appearance Cloudy (CLEAR) 08/29/18 14:28 Urine pH 6.0 (5.0 - 8.0) 08/29/18 14:28 Ur Specific [place] 1.015 (1.000-1.030) 08/29/18 14:28 Urine Protein 2+ (NEGATIVE) 08/29/18 14:28 Urine Glucose (UA) Negative (NEGATIVE) 08/29/18 14:28 Urine Ketones Negative (NEGATIVE) 08/29/18 14:28 Urine Occult Blood 2+ (NEGATIVE) 08/29/18 14:28 Urine Nitrite Negative (NEGATIVE) 08/29/18 14:28 Urine Bilirubin Negative (NEGATIVE) 08/29/18 14:28 Urine Urobilinogen 1+ (NORMAL) 08/29/18 14:28 Ur Leukocyte Esterase 3+ (NEGATIVE) 08/29/18 14:28 Urine RBC 3-5 /HPF (NONE SEEN) 08/29/18 14:28 Urine WBC Tntc /HPF (NONE SEEN) 08/29/18 14:28 Ur Squamous Epith Cells Rare /HPF (NEGATIVE) 08/29/18 14:28 Urine Bacteria 2+ /HPF (NEGATIVE) 08/29/18 14:28 Ur Culture Indicated? Yes/culture set up 08/29/18 14:28 Influenza Type A (PCR) Negative (NEGATIVE) 08/29/18 19:33 Influenza Type B (PCR) Negative (NEGATIVE) 08/29/18 19:33 - Plan (1) Acute UTI Status: Acute Plan: URINE CULTURE COLLECTED ON ADMISSION. IV ATBX, ELECTROLYTE REPLACEMENT. REPEAT AM LABS, BLOOD CULTURES X2. CT CHEST ON ADMISSION SEE EMR FOR REPORT. SUPPLEMENTAL O2, BP AND CARDIAC MONITORING. STRICT I & OS, URINE AND BLOOD CULTURE (2) Acute hyponatremia Status: Acute (3) History of CVA (cerebrovascular accident) Status: Chronic (4) CAD (coronary artery disease) Status: Chronic (5) BPH (benign prostatic hyperplasia) Status: Chronic (6) COPD (chronic obstructive pulmonary disease) Status: Chronic (7) Hip pain Status: Acute Plan: HX RECENT FALLS, BILATERAL HIP XRAY, L SPINE XRAY. PT CURRENTLY ON PAIN CONTROL, PT CONSULT
[2018-08-30 18:17] LABS: BILIRUBIN,URINE NEGATIVE (NEGATIVE); BLOOD/HEMOGLOBIN,URINE 2+ (NEGATIVE); GLUCOSE, URINE NEGATIVE (NEGATIVE); KETONES,URINE NEGATIVE (NEGATIVE); LEUKOCYTE ESTERASE ,URINE 3+ (NEGATIVE); NITRITES,URINE NEGATIVE (NEGATIVE); PROTEIN,URINE 2+ (NEGATIVE); UROBILINOGEN,URINE 1+ (NORMAL)
[2018-08-30 18:25] LABS: APPEARANCE,URINE CLOUDY (CLEAR); COLOR,URINE DARK YELLOW (YELLOW)
[2018-08-30 18:26] LABS: BACTERIA,URINE 1+ /HPF (NEGATIVE); SQUAMOUS EPITHELIAL CELL,UR FEW /HPF (NEGATIVE)
[2018-08-30] MEDS: DESYREL PO SCH (20:31)
[2018-08-31 05:58] LABS: BASOPHILS # (AUTO) 0.1 X10^3/uL (0.0-0.1); BASOPHILS % (AUTO) 0.6 % (0.2-1.0); EOSINOPHILS # (AUTO) 0.3 x10^3/uL (0.0-0.2); EOSINOPHILS % (AUTO) 3.2 % (0.9-2.9); HEMATOCRIT 34.7 % (42.0-54.0); HEMOGLOBIN 11.8 g/dL (13.5-18.0); LYMPHOCYTES # (AUTO) 1.5 X10^3/uL (1.3-2.9); LYMPHOCYTES % (AUTO) 15.7 % (21.0-51.0); MEAN CORPUSCULAR HEMOGLOBIN 31.4 pg (27.0-34.0); MEAN CORPUSCULAR HGB CONC 34.1 g/dL (33.0-35.0); MEAN PLATELET VOLUME 9.4 fL (7.4-11.0); MONOCYTES # (AUTO) 1.7 x10^3/uL (0.3-0.8); MONOCYTES % (AUTO) 17.8 % (0.0-13.0); NEUTROPHILS # (AUTO) 5.9 x10^3/uL (2.2-4.8); NEUTROPHILS % (AUTO) 62.7 % (42.0-75.0); PLATELET COUNT 135 X10^3/uL (150.0-450.0); RED BLOOD COUNT 3.77 X10^6/uL (4.7-6.0); RED CELL DISTRIBUTION WIDTH 12.8 % (11.6-16.5); WHITE BLOOD COUNT 9.4 X10^3/uL (3.6-10.0)
[2018-08-31] MEDS: NEURONTIN CAP 400 MG PO SCH ×3 (05:58→21:12)
[2018-08-31] MEDS: FLEXERIL TAB 10 MG PO SCH ×3 (05:58→21:11)
[2018-08-31 06:18] LABS: ALANINE AMINOTRANSFERASE 15 Units/L (12-78); ALBUMIN 2.3 g/dL (3.4-5.0); ALKALINE PHOSPHATASE 85 Units/L (46-116); ASPARTATE AMINO TRANSFERASE 29 Units/L (15-37); BLOOD UREA NITROGEN 21 mg/dL (7-18); CALCIUM 7.5 mg/dL (8.5-10.1); CARBON DIOXIDE 25.4 mmol/L (21-32); CHLORIDE 102 mmol/L (98-107); COR CA(FOR HYPOALB) 8.9 mg/dL (8.5-10.1); CREATININE 1.38 mg/dL (0.70-1.30); SODIUM 134 mmol/L (136-145); TOTAL PROTEIN 6.9 g/dL (6.4-8.2); eGFR NON BLACK RACES 54 (>60)
--- NOTE | 2018-08-31 07:36 | RAD ---
HISTORY: Bilateral hip pain. No trauma. Study: Bilateral two-view hips Comparison: 06/14/2017. Technique: AP pelvis and bilateral frogleg lateral images of the hips are provided. Findings: No evidence fracture or dislocation is seen. Both femoral heads are well seen within the acetabular r egions bilaterally. No radiographic AVN is seen. IMPRESSION: Normal bilateral hips. Reported By:
--- NOTE | 2018-08-31 07:37 | RAD ---
Examination: Lumbar spine, two views History: Back pain, no history trauma Findings: AP and cross-table lateral views demonstrate normal curvature and segmentation. Disc narrow ing is noted at multiple levels. There is depression of the superior endplate of L1. No bone destruct ion or sacroiliac pathology is identified. Impression: 1. Multilevel degenerative disc disease. 2. Contour deformity of superior endplate of L1 consistent with fracture, age and cause undetermined. Reported By:
[2018-08-31] MEDS: EFFEXOR XR 150 MG CAP PO SCH (08:47)
[2018-08-31] MEDS: TOPROL XL PO SCH ×2 (08:47→21:12)
[2018-08-31] MEDS: XANAX PO SCH ×2 (08:47→21:11)
[2018-08-31] MEDS: ECOTRIN TAB 325 MG PO SCH (08:47)
[2018-08-31] MEDS: NAMENDA TAB 10 MG PO SCH ×2 (08:48→21:11)
[2018-08-31] MEDS: LOVENOX INJ 40 MG SYR SC SCH (08:48)
[2018-08-31] MEDS: LINZESS PO SCH (08:48)
[2018-08-31] MEDS: FLOMAX PO SCH (08:48)
[2018-08-31] MEDS: OXYBUTYNIN CHLORIDE ER PO SCH (08:48)
[2018-08-31] MEDS: ZESTRIL TAB 5 MG PO SCH (08:48)
[2018-08-31] MEDS: ZyPREXA TAB 5 MG PO SCH (08:48)
[2018-08-31] MEDS: PROTONIX TAB 40 MG PO SCH (08:48)
[2018-08-31] MEDS: PEPCID TAB 20 MG PO SCH ×2 (08:48→21:11)
[2018-08-31] MEDS: ROCEPHIN VIAL 1 GRAM IVP SCH (08:49)
[2018-08-31] MEDS: PROVENTIL NEB TX 0.083% 2.5MG/ 3ML NEB SCH ×2 (09:50→22:10)
[2018-08-31] MEDS: PULMICORT NEB TX 0.5 MG NEB SCH ×2 (09:50→22:10)
[2018-08-31] MEDS: VIBRAMYCIN 100 MG in D5W 250 ML IV 250 ML IV SCH ×2 (10:47→21:13)
--- NOTE | 2018-08-31 15:00 | PCM.PROG ---
Progress Note - Progress Note for Day of Date of Exam: 08/31/18 - Subjective Subjective: 73 WM ER ADMISSION WITH UTI HYPONATREMIA AND WEAKNESS WITH REPORTED MULTIPLE FALLS THIS WEEK. PT CO BILATERAL HIP PAIN AND "KNOTS" ON HIPS POST FALL, LBP. L SPINE SERIES REVEALED COMPRESSION FRACTURE, PT CONSULTED, PAIN CONTROL. PT NA 134 THIS, PT REPORTS BM WITH CONSTIPATION, SINGH PLACED YESTERDAY EVENING DUE TO URINARY RETENTION WITH 400CC AFTER VOIDING WITH SINGH PLACEMENT. WBC IMPROVED TO 9.4, URINE CULTURE ENTEROCOCCUS. BUN 21, CREAT 1.38. WILL CONTINUE IV ATBX, REPEAT AM LABS, PT, HYDRATION - Past Medical Family Social History Past Med/Fam/Surg Hx: No changes since H&P Allergies: Allergies cortisone Allergy (Verified 08/29/18 11:17) - Review of Systems ROS: No change since H&P - Vital Signs and I&O's Vital Signs: Temperature 98.2 F Pulse Rate [Right Brachial] 88 Pulse Rate 92 Respiratory Rate 20 Blood Pressure [Left Arm] 121/62 Blood Pressure [Right Arm] 116/59 Blood Pressure 165/125 O2 Sat by Pulse Oximetry 97 Intake and Output: Intake & Output 08/29/18 08/30/18 08/31/18 09/01/18 11:59 11:59 11:59 11:59 Intake Total 1240 / 1240 3250 / 3250 Output Total 200 / 200 1550 / 1550 Balance 1040 / 1040 1700 / 1700 - Physical Exam Oriented: Normal Eyes: Normal Ear: Normal Nose: Normal Throat: Normal Respiratory: Diminished Cardiovascular: Normal, Edema : Normal Auscultation: Bowel Sounds: Normal Tenderness: Suprapubic, Moderate Skin: Normal Musculoskeletal: Right, Left, Hip, Back:Thoracic, Back:Lumbar, Motor Deficit, Sensory Deficit, Instability Psychiatric: Normal Mood Description: Calm Speech Pattern: Clear, Appropriate - Laboratory and Diagnostics Result Diagrams: 08/31/18 04:15 08/31/18 04:15 Labs: 08/30/18 17:55 Urine,Catheterized Urine Culture - Preliminary 08/29/18 14:28 Urine,Clean Catch Urine Culture - Final Enterococcus Faecalis Laboratory WBC 9.4 X10^3/uL (3.6-10.0) 08/31/18 04:15 RBC 3.77 X10^6/uL (4.7-6.0) L 08/31/18 04:15 Hgb 11.8 g/dL (13.5-18.0) L 08/31/18 04:15 Hct 34.7 % (42.0-54.0) L 08/31/18 04:15 MCV 92.0 fL (80.0-100.0) 08/31/18 04:15 MCH 31.4 pg (27.0-34.0) 08/31/18 04:15 MCHC 34.1 g/dL (33.0-35.0) 08/31/18 04:15 RDW 12.8 % (11.6-16.5) 08/31/18 04:15 Plt Count 135 X10^3/uL (150.0-450.0) L 08/31/18 04:15 MPV 9.4 fL (7.4-11.0) 08/31/18 04:15 Neut % (Auto) 62.7 % (42.0-75.0) 08/31/18 04:15 Lymph % (Auto) 15.7 % (21.0-51.0) L 08/31/18 04:15 [place] % (Auto) 17.8 % (0.0-13.0) H 08/31/18 04:15 Eos % (Auto) 3.2 % (0.9-2.9) H 08/31/18 04:15 Baso % (Auto) 0.6 % (0.2-1.0) 08/31/18 04:15 Neut # (Auto) 5.9 x10^3/uL (2.2-4.8) H 08/31/18 04:15 Lymph # (Auto) 1.5 X10^3/uL (1.3-2.9) 08/31/18 04:15 [place] # (Auto) 1.7 x10^3/uL (0.3-0.8) H 08/31/18 04:15 Eos # (Auto) 0.3 x10^3/uL (0.0-0.2) H 08/31/18 04:15 Baso # (Auto) 0.1 X10^3/uL (0.0-0.1) 08/31/18 04:15 Absolute Nucleated RBC 0.3 /100WBC 08/31/18 04:15 D-Dimer 1740 ng/mL (0-400) H* 08/29/18 12:15 Sodium 134 mmol/L (136-145) L 08/31/18 04:15 Corrected Sodium TNP 08/31/18 04:15 Potassium 3.8 mmol/L (3.5-5.1) 08/31/18 04:15 Chloride 102 mmol/L (98-107) 08/31/18 04:15 Carbon Dioxide 25.4 mmol/L (21-32) 08/31/18 04:15 BUN 21 mg/dL (7-18) H 08/31/18 04:15 Creatinine 1.38 mg/dL (0.70-1.30) H 08/31/18 04:15 Est GFR (MDRD) Af Amer > 60 (>60) 08/31/18 04:15 Est GFR (MDRD) Non-Af 54 (>60) L 08/31/18 04:15 Glucose 105 mg/dL (65-99) H 08/31/18 04:15 Calcium 7.5 mg/dL (8.5-10.1) L 08/31/18 04:15 Corrected Calcium 8.9 mg/dL (8.5-10.1) 08/31/18 04:15 Total Bilirubin 0.40 mg/dL (0.2-1.0) 08/31/18 04:15 AST 29 Units/L (15-37) 08/31/18 04:15 ALT 15 Units/L (12-78) 08/31/18 04:15 Alkaline Phosphatase 85 Units/L (46-116) 08/31/18 04:15 C-Reactive Protein 156.40 mg/L (0-3.0) H 08/29/18 12:15 Total Protein 6.9 g/dL (6.4-8.2) 08/31/18 04:15 Albumin 2.3 g/dL (3.4-5.0) L 08/31/18 04:15 Globulin 4.6 g/dL (2.5-4.5) H 08/31/18 04:15 Albumin/Globulin Ratio 0.5 Ratio (1.1-2.1) L 08/31/18 04:15 Specimen Type Catherized urine 08/30/18 17:55 Urine Color Dark yellow (YELLOW) 08/30/18 17:55 Urine Appearance Cloudy (CLEAR) 08/30/18 17:55 Urine pH 5.0 (5.0 - 8.0) 08/30/18 17:55 Ur Specific [place] 1.020 (1.000-1.030) 08/30/18 17:55 Urine Protein 2+ (NEGATIVE) 08/30/18 17:55 Urine Glucose (UA) Negative (NEGATIVE) 08/30/18 17:55 Urine Ketones Negative (NEGATIVE) 08/30/18 17:55 Urine Occult Blood 2+ (NEGATIVE) 08/30/18 17:55 Urine Nitrite Negative (NEGATIVE) 08/30/18 17:55 Urine Bilirubin Negative (NEGATIVE) 08/30/18 17:55 Urine Urobilinogen 1+ (NORMAL) 08/30/18 17:55 Ur Leukocyte Esterase 3+ (NEGATIVE) 08/30/18 17:55 Urine RBC 5-10 /HPF (NONE SEEN) 08/30/18 17:55 Urine WBC Tntc /HPF (NONE SEEN) 08/30/18 17:55 Ur Squamous Epith Cells Few /HPF (NEGATIVE) 08/30/18 17:55 Urine Bacteria 1+ /HPF (NEGATIVE) 08/30/18 17:55 Ur Culture Indicated? Yes/culture set up 08/30/18 17:55 Influenza Type A (PCR) Negative (NEGATIVE) 08/29/18 19:33 Influenza Type B (PCR) Negative (NEGATIVE) 08/29/18 19:33 - Plan (1) Acute UTI Status: Acute Plan: URINE CULTURE COLLECTED ON ADMISSION +ENTEROCOCCUS. IV ATBX, ELECTROLYTE REPLACEMENT. REPEAT AM LABS, BLOOD CULTURES X2 NEGATIVE AT THIS TIME. CT CHEST ON ADMISSION SEE EMR FOR REPORT. SUPPLEMENTAL O2, BP AND CARDIAC MONITORING. STRICT I & OS, SINGH CATH CARE (2) Acute hyponatremia Status: Acute (3) History of CVA (cerebrovascular accident) Status: Chronic (4) CAD (coronary artery disease) Status: Chronic (5) BPH (benign prostatic hyperplasia) Status: Chronic (6) COPD (chronic obstructive pulmonary disease) Status: Chronic (7) Hip pain Status: Acute Plan: HX RECENT FALLS, BILATERAL HIP XRAY, L SPINE XRAY. PT CURRENTLY ON PAIN CONTROL, PT CONSULT (8) Lumbar compression fracture Status: Acute Plan: PT, PAIN CONTROL
[2018-08-31] MEDS: NS 1000 ML 1,000 ML IV SCH (20:00)
[2018-08-31] MEDS: DESYREL PO SCH (21:14)
[2018-09-01] MEDS: FLEXERIL TAB 10 MG PO SCH ×3 (05:52→21:18)
[2018-09-01] MEDS: NEURONTIN CAP 400 MG PO SCH ×2 (05:52→21:18)
[2018-09-01 06:07] LABS: BASOPHILS % (AUTO) 0.4 % (0.2-1.0); EOSINOPHILS # (AUTO) 0.4 x10^3/uL (0.0-0.2); EOSINOPHILS % (AUTO) 7.6 % (0.9-2.9); HEMOGLOBIN 10.6 g/dL (13.5-18.0); MEAN CORPUSCULAR HEMOGLOBIN 31.2 pg (27.0-34.0); MEAN CORPUSCULAR HGB CONC 34.1 g/dL (33.0-35.0); MEAN CORPUSCULAR VOLUME 91.5 fL (80.0-100.0); MEAN PLATELET VOLUME 8.5 fL (7.4-11.0); MONOCYTES # (AUTO) 0.7 x10^3/uL (0.3-0.8); MONOCYTES % (AUTO) 12.3 % (0.0-13.0); NEUTROPHILS # (AUTO) 3.3 x10^3/uL (2.2-4.8); NEUTROPHILS % (AUTO) 61.7 % (42.0-75.0); PLATELET COUNT 174 X10^3/uL (150.0-450.0); RED BLOOD COUNT 3.39 X10^6/uL (4.7-6.0); RED CELL DISTRIBUTION WIDTH 13.1 % (11.6-16.5); WHITE BLOOD COUNT 5.3 X10^3/uL (3.6-10.0)
[2018-09-01 06:21] LABS: ALANINE AMINOTRANSFERASE 19 Units/L (12-78); ALBUMIN 2.2 g/dL (3.4-5.0); ALKALINE PHOSPHATASE 86 Units/L (46-116); ASPARTATE AMINO TRANSFERASE 27 Units/L (15-37); BLOOD UREA NITROGEN 14 mg/dL (7-18); CALCIUM 7.5 mg/dL (8.5-10.1); CARBON DIOXIDE 24.2 mmol/L (21-32); CHLORIDE 105 mmol/L (98-107); COR CA(FOR HYPOALB) 8.9 mg/dL (8.5-10.1); CREATININE 1.02 mg/dL (0.70-1.30); SODIUM 136 mmol/L (136-145); TOTAL PROTEIN 6.6 g/dL (6.4-8.2); eGFR NON BLACK RACES > 60 (>60)
[2018-09-01] MEDS: VIBRAMYCIN 100 MG in D5W 250 ML IV 250 ML IV SCH ×2 (08:59→21:19)
[2018-09-01] MEDS: PEPCID TAB 20 MG PO SCH ×2 (09:00→21:18)
[2018-09-01] MEDS: EFFEXOR XR 150 MG CAP PO SCH (09:00)
[2018-09-01] MEDS: NAMENDA TAB 10 MG PO SCH ×2 (09:00→21:18)
[2018-09-01] MEDS: ROCEPHIN VIAL 1 GRAM IVP SCH (09:01)
[2018-09-01] MEDS: PROTONIX TAB 40 MG PO SCH (09:01)
[2018-09-01] MEDS: LINZESS PO SCH (09:01)
[2018-09-01] MEDS: ZyPREXA TAB 5 MG PO SCH (09:01)
[2018-09-01] MEDS: ZESTRIL TAB 5 MG PO SCH (09:01)
[2018-09-01] MEDS: TOPROL XL PO SCH ×2 (09:01→21:18)
[2018-09-01] MEDS: XANAX PO SCH (09:01)
[2018-09-01] MEDS: FLOMAX PO SCH (09:01)
[2018-09-01] MEDS: ECOTRIN TAB 325 MG PO SCH (09:01)
[2018-09-01] MEDS: LOVENOX INJ 40 MG SYR SC SCH (09:11)
[2018-09-01] MEDS: PULMICORT NEB TX 0.5 MG NEB SCH ×2 (09:53→21:00)
[2018-09-01] MEDS: PROVENTIL NEB TX 0.083% 2.5MG/ 3ML NEB SCH ×2 (09:53→21:00)
--- NOTE | 2018-09-01 11:51 | PCM.PROG ---
Progress Note - Progress Note for Day of Date of Exam: 09/01/18 - Subjective Subjective: 73 WM ER ADMISSION WITH UTI HYPONATREMIA AND WEAKNESS WITH REPORTED MULTIPLE FALLS THIS WEEK. L SPINE SERIES REVEALED COMPRESSUION [place], URINE CULTURE ENTEROCOCCUS. BUN 14, CREAT 1.02. SPOUSE REPORTS PT TALKING "OUT OF HIS HEAD AT NIGHT" SPOUSE CONCERNED SHE CANNOT CARE FOR HIM RIGHT NOW DUE TO HIS INCREASED WEAKNESS AND FALLS ASKING FOR REHAB PLACEMENT. WILL CONTINUE IV ATBX, REPEAT AM LABS, PT, HYDRATION, DECREASE GABAPENTIN AND XANAX PRN ONLY - Past Medical Family Social History Past Med/Fam/Surg Hx: No changes since H&P Allergies: Allergies cortisone Allergy (Verified 08/29/18 11:17) - Review of Systems ROS: No change since H&P - Vital Signs and I&O's Vital Signs: Temperature 97.6 F Pulse Rate [Right Brachial] 66 Pulse Rate 87 Respiratory Rate 20 Blood Pressure [Left Arm] 118/57 Blood Pressure [Right Arm] 100/49 Blood Pressure 165/125 O2 Sat by Pulse Oximetry 92 Intake and Output: Intake & Output 08/29/18 08/30/18 08/31/18 09/01/18 11:59 11:59 11:59 11:59 Intake Total 1240 / 1240 3250 / 3250 1740 / 1740 Output Total 200 / 200 1550 / 1550 2175 / 2175 Balance 1040 / 1040 1700 / 1700 -435 / -435 - Physical Exam Oriented: Normal Eyes: Normal Ear: Normal Nose: Normal Throat: Normal Respiratory: Diminished Cardiovascular: Normal, Edema : Normal Auscultation: Bowel Sounds: Normal Tenderness: Suprapubic, Moderate Skin: Normal Musculoskeletal: Right, Left, Hip, Back:Thoracic, Back:Lumbar, Motor Deficit, Sensory Deficit, Instability Psychiatric: Normal Mood Description: Calm Speech Pattern: Clear, Appropriate - Laboratory and Diagnostics Result Diagrams: 09/01/18 05:33 09/01/18 05:33 Labs: 08/30/18 17:55 Urine,Catheterized Urine Culture - Final Enterococcus Faecalis 08/30/18 18:07 Blood Blood Culture - Preliminary 08/30/18 17:57 Blood Blood Culture - Preliminary 08/29/18 14:28 Urine,Clean Catch Urine Culture - Final Enterococcus Faecalis Laboratory WBC 5.3 X10^3/uL (3.6-10.0) 09/01/18 05:33 RBC 3.39 X10^6/uL (4.7-6.0) L 09/01/18 05:33 Hgb 10.6 g/dL (13.5-18.0) L 09/01/18 05:33 Hct 31.0 % (42.0-54.0) L 09/01/18 05:33 MCV 91.5 fL (80.0-100.0) 09/01/18 05:33 MCH 31.2 pg (27.0-34.0) 09/01/18 05:33 MCHC 34.1 g/dL (33.0-35.0) 09/01/18 05:33 RDW 13.1 % (11.6-16.5) 09/01/18 05:33 Plt Count 174 X10^3/uL (150.0-450.0) 09/01/18 05:33 MPV 8.5 fL (7.4-11.0) 09/01/18 05:33 Neut % (Auto) 61.7 % (42.0-75.0) 09/01/18 05:33 Lymph % (Auto) 18.0 % (21.0-51.0) L 09/01/18 05:33 [place] % (Auto) 12.3 % (0.0-13.0) 09/01/18 05:33 Eos % (Auto) 7.6 % (0.9-2.9) H 09/01/18 05:33 Baso % (Auto) 0.4 % (0.2-1.0) 09/01/18 05:33 Neut # (Auto) 3.3 x10^3/uL (2.2-4.8) 09/01/18 05:33 Lymph # (Auto) 1.0 X10^3/uL (1.3-2.9) L 09/01/18 05:33 [place] # (Auto) 0.7 x10^3/uL (0.3-0.8) 09/01/18 05:33 Eos # (Auto) 0.4 x10^3/uL (0.0-0.2) H 09/01/18 05:33 Baso # (Auto) 0.0 X10^3/uL (0.0-0.1) 09/01/18 05:33 Absolute Nucleated RBC 0.0 /100WBC 09/01/18 05:33 D-Dimer 1740 ng/mL (0-400) H* 08/29/18 12:15 Sodium 136 mmol/L (136-145) 09/01/18 05:33 Corrected Sodium TNP 09/01/18 05:33 Potassium 4.0 mmol/L (3.5-5.1) 09/01/18 05:33 Chloride 105 mmol/L (98-107) 09/01/18 05:33 Carbon Dioxide 24.2 mmol/L (21-32) 09/01/18 05:33 BUN 14 mg/dL (7-18) 09/01/18 05:33 Creatinine 1.02 mg/dL (0.70-1.30) 09/01/18 05:33 Est GFR (MDRD) Af Amer > 60 (>60) 09/01/18 05:33 Est GFR (MDRD) Non-Af > 60 (>60) 09/01/18 05:33 Glucose 96 mg/dL (65-99) 09/01/18 05:33 Calcium 7.5 mg/dL (8.5-10.1) L 09/01/18 05:33 Corrected Calcium 8.9 mg/dL (8.5-10.1) 09/01/18 05:33 Total Bilirubin 0.30 mg/dL (0.2-1.0) 09/01/18 05:33 AST 27 Units/L (15-37) 09/01/18 05:33 ALT 19 Units/L (12-78) 09/01/18 05:33 Alkaline Phosphatase 86 Units/L (46-116) 09/01/18 05:33 C-Reactive Protein 156.40 mg/L (0-3.0) H 08/29/18 12:15 Total Protein 6.6 g/dL (6.4-8.2) 09/01/18 05:33 Albumin 2.2 g/dL (3.4-5.0) L 09/01/18 05:33 Globulin 4.4 g/dL (2.5-4.5) 09/01/18 05:33 Albumin/Globulin Ratio 0.5 Ratio (1.1-2.1) L 09/01/18 05:33 Specimen Type Catherized urine 08/30/18 17:55 Urine Color Dark yellow (YELLOW) 08/30/18 17:55 Urine Appearance Cloudy (CLEAR) 08/30/18 17:55 Urine pH 5.0 (5.0 - 8.0) 08/30/18 17:55 Ur Specific [place] 1.020 (1.000-1.030) 08/30/18 17:55 Urine Protein 2+ (NEGATIVE) 08/30/18 17:55 Urine Glucose (UA) Negative (NEGATIVE) 08/30/18 17:55 Urine Ketones Negative (NEGATIVE) 08/30/18 17:55 Urine Occult Blood 2+ (NEGATIVE) 08/30/18 17:55 Urine Nitrite Negative (NEGATIVE) 08/30/18 17:55 Urine Bilirubin Negative (NEGATIVE) 08/30/18 17:55 Urine Urobilinogen 1+ (NORMAL) 08/30/18 17:55 Ur Leukocyte Esterase 3+ (NEGATIVE) 08/30/18 17:55 Urine RBC 5-10 /HPF (NONE SEEN) 08/30/18 17:55 Urine WBC Tntc /HPF (NONE SEEN) 08/30/18 17:55 Ur Squamous Epith Cells Few /HPF (NEGATIVE) 08/30/18 17:55 Urine Bacteria 1+ /HPF (NEGATIVE) 08/30/18 17:55 Ur Culture Indicated? Yes/culture set up 08/30/18 17:55 Influenza Type A (PCR) Negative (NEGATIVE) 08/29/18 19:33 Influenza Type B (PCR) Negative (NEGATIVE) 08/29/18 19:33 - Plan (1) Acute UTI Status: Acute Plan: URINE CULTURE COLLECTED ON ADMISSION +ENTEROCOCCUS. IV ATBX, ELECTROLYTE REPLACEMENT. REPEAT AM LABS, BLOOD CULTURES X2 NEGATIVE AT THIS TIME. CT CHEST ON ADMISSION SEE EMR FOR REPORT. SUPPLEMENTAL O2, BP AND CARDIAC MONITORING. STRICT I & OS, SINGH CATH CARE (2) Acute hyponatremia Status: Acute (3) History of CVA (cerebrovascular accident) Status: Chronic (4) CAD (coronary artery disease) Status: Chronic (5) BPH (benign prostatic hyperplasia) Status: Chronic (6) COPD (chronic obstructive pulmonary disease) Status: Chronic (7) Hip pain Status: Acute Plan: HX RECENT FALLS, BILATERAL HIP XRAY, L SPINE XRAY. PT CURRENTLY ON PAIN CONTROL, PT CONSULT (8) Lumbar compression fracture Status: Acute Plan: PT, PAIN CONTROL (9) Weakness Status: Acute Plan: CT HEAD ON ADMISSION W/O ACUTE FINDINGS. ADJUST SEDATIVE MEDICATION, PHYSICAL THERAPY. TREAT ACUTE UTI, CONSULT CASE MANAGEMENT FOR REHAB PLACEMENT
[2018-09-01] MEDS: DESYREL PO SCH (21:17)
[2018-09-01] MEDS: XANAX PO PRN (21:17)
[2018-09-01] MEDS ORDERED: HALDOL INJ IVP ONE (22:23)
[2018-09-02] MEDS: FLEXERIL TAB 10 MG PO SCH ×3 (06:00→21:19)
[2018-09-02] MEDS: PERCOCET TAB 5/325 MG PO PRN (06:00)
[2018-09-02] MEDS: NEURONTIN CAP 400 MG PO SCH ×2 (08:08→21:19)
[2018-09-02] MEDS: FLOMAX PO SCH (08:08)
[2018-09-02] MEDS: VIBRAMYCIN 100 MG in D5W 250 ML IV 250 ML IV SCH ×2 (08:08→21:20)
[2018-09-02] MEDS: TOPROL XL PO SCH ×2 (08:08→21:20)
[2018-09-02] MEDS: EFFEXOR XR 150 MG CAP PO SCH (08:08)
[2018-09-02] MEDS: PROTONIX TAB 40 MG PO SCH (08:08)
[2018-09-02] MEDS: PEPCID TAB 20 MG PO SCH ×2 (08:08→21:18)
[2018-09-02] MEDS: NAMENDA TAB 10 MG PO SCH ×2 (08:08→21:19)
[2018-09-02] MEDS: ZyPREXA TAB 5 MG PO SCH (08:09)
[2018-09-02] MEDS: XANAX PO PRN (08:09)
[2018-09-02] MEDS: ZESTRIL TAB 5 MG PO SCH (08:09)
[2018-09-02] MEDS: LINZESS PO SCH (08:09)
[2018-09-02] MEDS: ROCEPHIN VIAL 1 GRAM IVP SCH (08:09)
[2018-09-02] MEDS: ECOTRIN TAB 325 MG PO SCH (08:09)
[2018-09-02] MEDS: LOVENOX INJ 40 MG SYR SC SCH (08:10)
[2018-09-02] MEDS: PROVENTIL NEB TX 0.083% 2.5MG/ 3ML NEB SCH ×2 (08:19→20:30)
[2018-09-02] MEDS: PULMICORT NEB TX 0.5 MG NEB SCH ×2 (08:19→20:30)
--- NOTE | 2018-09-02 12:43 | CT ---
Exam: Head CT without contrast History: 73-year-old male with dizziness. Frequent falls Comparison: Previous head CT from 08/29/2018 Technique: Axial imaging was performed from the vertex to the base the skull without intravenous cont rast being administered. Sagittal and coronal reformations were generated. Automated exposure control techniques were used for this exam. Findings: Mild age related atrophic changes are present. However there is no evidence of intracranial hemorrhag e, extracerebral fluid collections, or intracranial mass. Ventricles are symmetric in size and positi on with no mass effect seen. Patchy low density is present in a periventricular deep white matter dis tribution, most likely related to chronic small vessel ischemia. On the bone windows, no acute abnorm ality is seen. Visualized aspect of the paranasal sinuses and mastoid air cells are clear Impression: No acute intracranial abnormality is seen on this exam. Chronic changes as noted above Reported By:
[2018-09-02] MEDS ORDERED: BUTT CREAM (COMPOUND) TOP PRN (16:20)
[2018-09-02] MEDS: DESYREL PO SCH (21:20)
[2018-09-03 05:21] LABS: BASOPHILS % (AUTO) 0.4 % (0.2-1.0); EOSINOPHILS # (AUTO) 0.4 x10^3/uL (0.0-0.2); EOSINOPHILS % (AUTO) 6.1 % (0.9-2.9); HEMATOCRIT 34.3 % (42.0-54.0); HEMOGLOBIN 11.6 g/dL (13.5-18.0); LYMPHOCYTES # (AUTO) 1.3 X10^3/uL (1.3-2.9); LYMPHOCYTES % (AUTO) 17.7 % (21.0-51.0); MEAN CORPUSCULAR HEMOGLOBIN 30.9 pg (27.0-34.0); MEAN CORPUSCULAR HGB CONC 33.9 g/dL (33.0-35.0); MONOCYTES # (AUTO) 0.6 x10^3/uL (0.3-0.8); MONOCYTES % (AUTO) 8.2 % (0.0-13.0); NEUTROPHILS # (AUTO) 4.8 x10^3/uL (2.2-4.8); NEUTROPHILS % (AUTO) 67.6 % (42.0-75.0); PLATELET COUNT 240 X10^3/uL (150.0-450.0); RED BLOOD COUNT 3.77 X10^6/uL (4.7-6.0); WHITE BLOOD COUNT 7.1 X10^3/uL (3.6-10.0)
[2018-09-03 05:30] LABS: ALANINE AMINOTRANSFERASE 19 Units/L (12-78); ALBUMIN 2.5 g/dL (3.4-5.0); ALKALINE PHOSPHATASE 85 Units/L (46-116); ASPARTATE AMINO TRANSFERASE 21 Units/L (15-37); BLOOD UREA NITROGEN 17 mg/dL (7-18); CALCIUM 8.2 mg/dL (8.5-10.1); CARBON DIOXIDE 26.7 mmol/L (21-32); CHLORIDE 105 mmol/L (98-107); COR CA(FOR HYPOALB) 9.4 mg/dL (8.5-10.1); CREATININE 0.99 mg/dL (0.70-1.30); SODIUM 141 mmol/L (136-145); TOTAL PROTEIN 7.3 g/dL (6.4-8.2); eGFR NON BLACK RACES > 60 (>60)
[2018-09-03] MEDS: FLEXERIL TAB 10 MG PO SCH ×3 (05:53→21:24)
[2018-09-03 06:13] LABS: ERYTHROCYTE SEDIMENTATION RATE 104 MM/HOUR (0-15)
[2018-09-03] MEDS: PROVENTIL NEB TX 0.083% 2.5MG/ 3ML NEB SCH ×2 (08:33→20:36)
[2018-09-03] MEDS: PULMICORT NEB TX 0.5 MG NEB SCH ×2 (08:33→20:36)
[2018-09-03] MEDS: LOVENOX INJ 40 MG SYR SC SCH (09:26)
[2018-09-03] MEDS: VIBRAMYCIN 100 MG in D5W 250 ML IV 250 ML IV SCH ×2 (09:27→20:20)
[2018-09-03] MEDS: EFFEXOR XR 150 MG CAP PO SCH (09:27)
[2018-09-03] MEDS: PEPCID TAB 20 MG PO SCH ×2 (09:28→20:20)
[2018-09-03] MEDS: NAMENDA TAB 10 MG PO SCH ×2 (09:28→20:24)
[2018-09-03] MEDS: LINZESS PO SCH (09:28)
[2018-09-03] MEDS: PROTONIX TAB 40 MG PO SCH (09:28)
[2018-09-03] MEDS: TOPROL XL PO SCH ×2 (09:28→20:20)
[2018-09-03] MEDS: FLOMAX PO SCH (09:28)
[2018-09-03] MEDS: ZESTRIL TAB 5 MG PO SCH (09:28)
[2018-09-03] MEDS: NEURONTIN CAP 400 MG PO SCH ×2 (09:28→20:20)
[2018-09-03] MEDS: ZyPREXA TAB 5 MG PO SCH (09:29)
[2018-09-03] MEDS: ECOTRIN TAB 325 MG PO SCH (09:29)
[2018-09-03] MEDS: ROCEPHIN VIAL 1 GRAM IVP SCH (09:29)
[2018-09-03] MEDS: PERCOCET TAB 5/325 MG PO PRN ×2 (10:23→19:04)
[2018-09-03 10:34] LABS: BILIRUBIN,URINE NEGATIVE (NEGATIVE); BLOOD/HEMOGLOBIN,URINE NEGATIVE (NEGATIVE); GLUCOSE, URINE NEGATIVE (NEGATIVE); KETONES,URINE NEGATIVE (NEGATIVE); LEUKOCYTE ESTERASE ,URINE NEGATIVE (NEGATIVE); NITRITES,URINE NEGATIVE (NEGATIVE); PROTEIN,URINE NEGATIVE (NEGATIVE); UROBILINOGEN,URINE 2+ (NORMAL)
[2018-09-03 11:03] LABS: COLOR,URINE YELLOW (YELLOW)
[2018-09-03 11:04] LABS: AMORPHOUS SEDIMENT,UR TRACE /HPF (NEGATIVE); APPEARANCE,URINE CLEAR (CLEAR); BACTERIA,URINE NEGATIVE /HPF (NEGATIVE); RBC,URINE NONE SEEN /HPF (NONE SEEN); SQUAMOUS EPITHELIAL CELL,UR RARE /HPF (NEGATIVE)
--- NOTE | 2018-09-03 17:25 | PCM.PROG ---
Progress Note - Progress Note for Day of Date of Exam: 09/03/18 - Subjective Subjective: 73 WM ER ADMISSION WITH UTI HYPONATREMIA AND WEAKNESS WITH REPORTED MULTIPLE FALLS THIS WEEK. L SPINE SERIES REVEALED COMPRESSUION FRACTURE, URINE CULTURE ENTEROCOCCUS. SPOUSE REPORTS PT TALKING "OUT OF HIS HEAD AT NIGHT" SPOUSE CONCERNED SHE CANNOT CARE FOR HIM RIGHT NOW DUE TO HIS INCREASED WEAKNESS AND FALLS ASKING FOR REHAB PLACEMENT. REPEAT CT HEAD W/O ACUTE FINDINGS. CASE MANAGEMENT CONSULT FOR REHAB. WILL CONTINUE IV ATBX, REPEAT AM LABS, PHYSICAL THERAPY. PT AWAKE AND ALERT THIS AM, PT STATES HE FEELS BETTER, "I FEEL LIKE CAN GO HOME" - Past Medical Family Social History Past Med/Fam/Surg Hx: No changes since H&P Allergies: Allergies cortisone Allergy (Verified 08/29/18 11:17) - Review of Systems ROS: No change since H&P - Vital Signs and I&O's Vital Signs: Temperature 97.9 F Pulse Rate [Right Brachial] 75 Pulse Rate 63 Respiratory Rate 18 Blood Pressure [Left Arm] 119/64 Blood Pressure [Right Arm] 100/49 Blood Pressure 165/125 O2 Sat by Pulse Oximetry 95 Intake and Output: Intake & Output 09/01/18 09/02/18 09/03/18 09/04/18 11:59 11:59 11:59 11:59 Intake Total 1740 / 1740 1317 / 1317 590 / 590 1040 / 1040 Output Total 2175 / 2175 1425 / 1425 400 / 400 600 / 600 Balance -435 / -435 -108 / -108 190 / 190 440 / 440 - Physical Exam Oriented: Normal Eyes: Normal Ear: Normal Nose: Normal Throat: Normal Respiratory: Diminished Cardiovascular: Normal, Edema : Normal Auscultation: Bowel Sounds: Normal Tenderness: Suprapubic, Moderate Skin: Normal Musculoskeletal: Right, Left, Hip, Back:Thoracic, Back:Lumbar, Motor Deficit, Sensory Deficit, Instability Psychiatric: Normal Mood Description: Calm Speech Pattern: Unclear - Laboratory and Diagnostics Result Diagrams: 09/03/18 04:10 09/03/18 04:10 Labs: 08/30/18 17:55 Urine,Catheterized Urine Culture - Final Enterococcus Faecalis 08/30/18 18:07 Blood Blood Culture - Preliminary 08/30/18 17:57 Blood Blood Culture - Preliminary 08/29/18 14:28 Urine,Clean Catch Urine Culture - Final Enterococcus Faecalis Laboratory WBC 7.1 X10^3/uL (3.6-10.0) 09/03/18 04:10 RBC 3.77 X10^6/uL (4.7-6.0) L 09/03/18 04:10 Hgb 11.6 g/dL (13.5-18.0) L 09/03/18 04:10 Hct 34.3 % (42.0-54.0) L 09/03/18 04:10 MCV 91.0 fL (80.0-100.0) 09/03/18 04:10 MCH 30.9 pg (27.0-34.0) 09/03/18 04:10 MCHC 33.9 g/dL (33.0-35.0) 09/03/18 04:10 RDW 13.0 % (11.6-16.5) 09/03/18 04:10 Plt Count 240 X10^3/uL (150.0-450.0) 09/03/18 04:10 MPV 8.0 fL (7.4-11.0) 09/03/18 04:10 Neut % (Auto) 67.6 % (42.0-75.0) 09/03/18 04:10 Lymph % (Auto) 17.7 % (21.0-51.0) L 09/03/18 04:10 [place] % (Auto) 8.2 % (0.0-13.0) 09/03/18 04:10 Eos % (Auto) 6.1 % (0.9-2.9) H 09/03/18 04:10 Baso % (Auto) 0.4 % (0.2-1.0) 09/03/18 04:10 Neut # (Auto) 4.8 x10^3/uL (2.2-4.8) 09/03/18 04:10 Lymph # (Auto) 1.3 X10^3/uL (1.3-2.9) 09/03/18 04:10 [place] # (Auto) 0.6 x10^3/uL (0.3-0.8) 09/03/18 04:10 Eos # (Auto) 0.4 x10^3/uL (0.0-0.2) H 09/03/18 04:10 Baso # (Auto) 0.0 X10^3/uL (0.0-0.1) 09/03/18 04:10 Absolute Nucleated RBC 0.1 /100WBC 09/03/18 04:10 ESR 104 MM/HOUR (0-15) H 09/03/18 04:10 D-Dimer 1740 ng/mL (0-400) H* 08/29/18 12:15 Sodium 141 mmol/L (136-145) 09/03/18 04:10 Corrected Sodium TNP 09/03/18 04:10 Potassium 4.5 mmol/L (3.5-5.1) 09/03/18 04:10 Chloride 105 mmol/L (98-107) 09/03/18 04:10 Carbon Dioxide 26.7 mmol/L (21-32) 09/03/18 04:10 BUN 17 mg/dL (7-18) 09/03/18 04:10 Creatinine 0.99 mg/dL (0.70-1.30) 09/03/18 04:10 Est GFR (MDRD) Af Amer > 60 (>60) 09/03/18 04:10 Est GFR (MDRD) Non-Af > 60 (>60) 09/03/18 04:10 Glucose 85 mg/dL (65-99) 09/03/18 04:10 Calcium 8.2 mg/dL (8.5-10.1) L 09/03/18 04:10 Corrected Calcium 9.4 mg/dL (8.5-10.1) 09/03/18 04:10 Total Bilirubin 0.30 mg/dL (0.2-1.0) 09/03/18 04:10 AST 21 Units/L (15-37) 09/03/18 04:10 ALT 19 Units/L (12-78) 09/03/18 04:10 Alkaline Phosphatase 85 Units/L (46-116) 09/03/18 04:10 C-Reactive Protein 76.90 mg/L (0-3.0) H 09/03/18 04:10 Total Protein 7.3 g/dL (6.4-8.2) 09/03/18 04:10 Albumin 2.5 g/dL (3.4-5.0) L 09/03/18 04:10 Globulin 4.8 g/dL (2.5-4.5) H 09/03/18 04:10 Albumin/Globulin Ratio 0.5 Ratio (1.1-2.1) L 09/03/18 04:10 Specimen Type Clean catch urine 09/03/18 10:22 Urine Color Yellow (YELLOW) 09/03/18 10:22 Urine Appearance Clear (CLEAR) 09/03/18 10:22 Urine pH 7.0 (5.0 - 8.0) 09/03/18 10:22 Ur Specific [place] 1.010 (1.000-1.030) 09/03/18 10:22 Urine Protein Negative (NEGATIVE) 09/03/18 10:22 Urine Glucose (UA) Negative (NEGATIVE) 09/03/18 10: Urine Ketones Negative (NEGATIVE) 09/03/18 10: Urine Occult Blood Negative (NEGATIVE) 09/03/18 10:22 Urine Nitrite Negative (NEGATIVE) 09/03/18 10:22 Urine Bilirubin Negative (NEGATIVE) 09/03/18 10:22 Urine Urobilinogen 2+ (NORMAL) 09/03/18 10:22 Ur Leukocyte Esterase Negative (NEGATIVE) 09/03/18 10:22 Urine RBC None seen /HPF (NONE SEEN) 09/03/18 10:22 Urine WBC None seen /HPF (NONE SEEN) 09/03/18 10:22 Ur Squamous Epith Cells Rare /HPF (NEGATIVE) 09/03/18 10:22 Amorphous Sediment Trace /HPF (NEGATIVE) 09/03/18 10:22 Urine Bacteria Negative /HPF (NEGATIVE) 09/03/18 10:22 Ur Culture Indicated? No/not indicated 09/03/18 10:22 Influenza Type A (PCR) Negative (NEGATIVE) 08/29/18 19:33 Influenza Type B (PCR) Negative (NEGATIVE) 08/29/18 19:33 - Plan (1) Acute UTI Status: Acute Plan: URINE CULTURE COLLECTED ON ADMISSION +ENTEROCOCCUS. IV ATBX, ELECTROLYTE REPLACEMENT. REPEAT AM LABS, BLOOD CULTURES X2 NEGATIVE AT THIS TIME. CT CHEST ON ADMISSION SEE EMR FOR REPORT. SUPPLEMENTAL O2, BP AND CARDIAC MONITORING. STRICT I & OS, SINGH CATH CARE (2) Acute hyponatremia Status: Acute (3) History of CVA (cerebrovascular accident) Status: Chronic (4) CAD (coronary artery disease) Status: Chronic (5) BPH (benign prostatic hyperplasia) Status: Chronic (6) COPD (chronic obstructive pulmonary disease) Status: Chronic (7) Hip pain Status: Acute Plan: HX RECENT FALLS, BILATERAL HIP XRAY, L SPINE XRAY. PT CURRENTLY ON PAIN CONTROL, PT CONSULT (8) Lumbar compression fracture Status: Acute Plan: PT, PAIN CONTROL (9) Weakness Status: Acute Plan: CT HEAD ON ADMISSION W/O ACUTE FINDINGS. ADJUST SEDATIVE MEDICATION, PHYSICAL THERAPY. TREAT ACUTE UTI, CONSULT CASE MANAGEMENT FOR REHAB PLACEMENT
[2018-09-03] MEDS: NS 1000 ML 1,000 ML IV SCH (19:03)
[2018-09-03] MEDS: DESYREL PO SCH (20:20)
[2018-09-04 05:05] LABS: BASOPHILS % (AUTO) 0.5 % (0.2-1.0); EOSINOPHILS # (AUTO) 0.4 x10^3/uL (0.0-0.2); HEMATOCRIT 34.4 % (42.0-54.0); HEMOGLOBIN 11.5 g/dL (13.5-18.0); LYMPHOCYTES # (AUTO) 1.2 X10^3/uL (1.3-2.9); LYMPHOCYTES % (AUTO) 14.1 % (21.0-51.0); MEAN CORPUSCULAR HEMOGLOBIN 30.6 pg (27.0-34.0); MEAN CORPUSCULAR HGB CONC 33.6 g/dL (33.0-35.0); MEAN PLATELET VOLUME 7.6 fL (7.4-11.0); MONOCYTES # (AUTO) 0.7 x10^3/uL (0.3-0.8); MONOCYTES % (AUTO) 8.5 % (0.0-13.0); NEUTROPHILS # (AUTO) 6.3 x10^3/uL (2.2-4.8); NEUTROPHILS % (AUTO) 71.9 % (42.0-75.0); PLATELET COUNT 257 X10^3/uL (150.0-450.0); RED BLOOD COUNT 3.78 X10^6/uL (4.7-6.0); RED CELL DISTRIBUTION WIDTH 13.1 % (11.6-16.5); WHITE BLOOD COUNT 8.8 X10^3/uL (3.6-10.0)
[2018-09-04] MEDS: FLEXERIL TAB 10 MG PO SCH (05:11)
[2018-09-04 05:18] LABS: ALANINE AMINOTRANSFERASE 19 Units/L (12-78); ALBUMIN 2.5 g/dL (3.4-5.0); ALKALINE PHOSPHATASE 82 Units/L (46-116); ASPARTATE AMINO TRANSFERASE 18 Units/L (15-37); BLOOD UREA NITROGEN 15 mg/dL (7-18); CALCIUM 8.5 mg/dL (8.5-10.1); CARBON DIOXIDE 27.5 mmol/L (21-32); CHLORIDE 105 mmol/L (98-107); COR CA(FOR HYPOALB) 9.7 mg/dL (8.5-10.1); CREATININE 0.96 mg/dL (0.70-1.30); SODIUM 140 mmol/L (136-145); TOTAL PROTEIN 7.5 g/dL (6.4-8.2); eGFR NON BLACK RACES > 60 (>60)
[2018-09-04] MEDS: LOVENOX INJ 40 MG SYR SC SCH (08:35)
[2018-09-04] MEDS: VIBRAMYCIN 100 MG in D5W 250 ML IV 250 ML IV SCH (08:35)
[2018-09-04] MEDS: NEURONTIN CAP 400 MG PO SCH (08:36)
[2018-09-04] MEDS: NAMENDA TAB 10 MG PO SCH (08:36)
[2018-09-04] MEDS: ZyPREXA TAB 5 MG PO SCH (08:36)
[2018-09-04] MEDS: LINZESS PO SCH (08:36)
[2018-09-04] MEDS: PEPCID TAB 20 MG PO SCH (08:36)
[2018-09-04] MEDS: FLOMAX PO SCH (08:36)
[2018-09-04] MEDS: ZESTRIL TAB 5 MG PO SCH (08:36)
[2018-09-04] MEDS: PROTONIX TAB 40 MG PO SCH (08:36)
[2018-09-04] MEDS: EFFEXOR XR 150 MG CAP PO SCH (08:36)
[2018-09-04] MEDS: ECOTRIN TAB 325 MG PO SCH (08:37)
[2018-09-04] MEDS: TOPROL XL PO SCH (08:37)
[2018-09-04] MEDS: ROCEPHIN VIAL 1 GRAM IVP SCH (08:38)
[2018-09-04] MEDS: PULMICORT NEB TX 0.5 MG NEB SCH (08:54)
[2018-09-04] MEDS: PROVENTIL NEB TX 0.083% 2.5MG/ 3ML NEB SCH (08:54)
[2018-09-04] MEDS ORDERED: MILK OF MAGNESIA PO SCH ×2 (11:00→21:00)
[2018-09-04] MEDS: PERCOCET TAB 5/325 MG PO PRN (12:33)
[2018-09-04 12:50] VITALS: BP 138/65
[2018-09-04] MEDS ORDERED: COLACE CAP 100 MG PO SCH (21:00)
[2018-09-04] MEDS ORDERED: MIRALAX POWDER (1 DOSE 17 G) PO SCH (21:00)
--- NOTE | 2018-09-19 13:20 | PCM.DCPLAN ---
Discharge Summary - Admission Date Date of Admission: 08/31/18 - Discharge Date Discharge Date: 09/04/18 - Admission Diagnoses (1) Acute UTI Status: Acute (2) Acute hyponatremia Status: Acute (3) CHF exacerbation Status: Acute (4) COPD exacerbation Status: Acute (5) Lumbar compression fracture Status: Acute (6) BPH (benign prostatic hyperplasia) Status: Chronic - Discharge Diagnoses Discharge Diagnosis: same as admission diagnosis - Discharge Medications Discharge Medications: Home Medication List cephalexin 500 mg PO BID 08/29/18 [History] Prescriptions: - Hospital Course Vital Signs: Temperature 97.5 F Pulse Rate [Right Brachial] 96 Pulse Rate 87 Respiratory Rate 20 Blood Pressure [Left Arm] 138/65 Blood Pressure [Right Arm] 100/49 Blood Pressure 165/125 O2 Sat by Pulse Oximetry 90 Latest Lab Results: Laboratory Last Values WBC 8.8 X10^3/uL (3.6-10.0) 09/04/18 04:14 RBC 3.78 X10^6/uL (4.7-6.0) L 09/04/18 04:14 Hgb 11.5 g/dL (13.5-18.0) L 09/04/18 04:14 Hct 34.4 % (42.0-54.0) L 09/04/18 04:14 MCV 91.0 fL (80.0-100.0) 09/04/18 04:14 MCH 30.6 pg (27.0-34.0) 09/04/18 04:14 MCHC 33.6 g/dL (33.0-35.0) 09/04/18 04:14 RDW 13.1 % (11.6-16.5) 09/04/18 04:14 Plt Count 257 X10^3/uL (150.0-450.0) 09/04/18 04:14 MPV 7.6 fL (7.4-11.0) 09/04/18 04:14 Neut % (Auto) 71.9 % (42.0-75.0) 09/04/18 04:14 Lymph % (Auto) 14.1 % (21.0-51.0) L 09/04/18 04:14 [place] % (Auto) 8.5 % (0.0-13.0) 09/04/18 04:14 Eos % (Auto) 5.0 % (0.9-2.9) H 09/04/18 04:14 Baso % (Auto) 0.5 % (0.2-1.0) 09/04/18 04:14 Neut # (Auto) 6.3 x10^3/uL (2.2-4.8) H 09/04/18 04:14 Lymph # (Auto) 1.2 X10^3/uL (1.3-2.9) L 09/04/18 04:14 [place] # (Auto) 0.7 x10^3/uL (0.3-0.8) 09/04/18 04:14 Eos # (Auto) 0.4 x10^3/uL (0.0-0.2) H 09/04/18 04:14 Baso # (Auto) 0.0 X10^3/uL (0.0-0.1) 09/04/18 04:14 Absolute Nucleated RBC 0.0 /100WBC 09/04/18 04:14 ESR 104 MM/HOUR (0-15) H 09/03/18 04:10 D-Dimer 1740 ng/mL (0-400) H* 08/29/18 12:15 Sodium 140 mmol/L (136-145) 09/04/18 04:14 Corrected Sodium TNP 09/04/18 04:14 Potassium 4.2 mmol/L (3.5-5.1) 09/04/18 04:14 Chloride 105 mmol/L (98-107) 09/04/18 04:14 Carbon Dioxide 27.5 mmol/L (21-32) 09/04/18 04:14 BUN 15 mg/dL (7-18) 09/04/18 04:14 Creatinine 0.96 mg/dL (0.70-1.30) 09/04/18 04:14 Est GFR (MDRD) Af Amer > 60 (>60) 09/04/18 04:14 Est GFR (MDRD) Non-Af > 60 (>60) 09/04/18 04:14 Glucose 91 mg/dL (65-99) 09/04/18 04:14 Calcium 8.5 mg/dL (8.5-10.1) 09/04/18 04:14 Corrected Calcium 9.7 mg/dL (8.5-10.1) 09/04/18 04:14 Total Bilirubin 0.30 mg/dL (0.2-1.0) 09/04/18 04:14 AST 18 Units/L (15-37) 09/04/18 04:14 ALT 19 Units/L (12-78) 09/04/18 04:14 Alkaline Phosphatase 82 Units/L (46-116) 09/04/18 04:14 C-Reactive Protein 76.90 mg/L (0-3.0) H 09/03/18 04:10 Total Protein 7.5 g/dL (6.4-8.2) 09/04/18 04:14 Albumin 2.5 g/dL (3.4-5.0) L 09/04/18 04:14 Globulin 5.0 g/dL (2.5-4.5) H 09/04/18 04:14 Albumin/Globulin Ratio 0.5 Ratio (1.1-2.1) L 09/04/18 04:14 Specimen Type Clean catch urine 09/03/18 10:22 Urine Color Yellow (YELLOW) 09/03/18 10:22 Urine Appearance Clear (CLEAR) 09/03/18 10:22 Urine pH 7.0 (5.0 - 8.0) 09/03/18 10:22 Ur Specific [place] 1.010 (1.000-1.030) 09/03/18 10:22 Urine Protein Negative (NEGATIVE) 09/03/18 10:22 Urine Glucose (UA) Negative (NEGATIVE) 09/03/18 10:22 Urine Ketones Negative (NEGATIVE) 09/03/18 10:22 Urine Occult Blood Negative (NEGATIVE) 09/03/18 10:22 Urine Nitrite Negative (NEGATIVE) 09/03/18 10:22 Urine Bilirubin Negative (NEGATIVE) 09/03/18 10:22 Urine Urobilinogen 2+ (NORMAL) 09/03/18 10:22 Ur Leukocyte Esterase Negative (NEGATIVE) 09/03/18 10:22 Urine RBC None seen /HPF (NONE SEEN) 09/03/18 10:22 Urine WBC None seen /HPF (NONE SEEN) 09/03/18 10:22 Ur Squamous Epith Cells Rare /HPF (NEGATIVE) 09/03/18 10:22 Amorphous Sediment Trace /HPF (NEGATIVE) 09/03/18 10:22 Urine Bacteria Negative /HPF (NEGATIVE) 09/03/18 10:22 Ur Culture Indicated? No/not indicated 09/03/18 10:22 Influenza Type A (PCR) Negative (NEGATIVE) 08/29/18 19:33 Influenza Type B (PCR) Negative (NEGATIVE) 08/29/18 19:33 Hospital Course: 73 WM ER ADMISSION WITH UTI, HYPONATREMIA AND WEAKNESS WITH REPORTED MULTIPLE FALLS. L SPINE SERIES REVEALED COMPRESSION FRACTURE, URINE CULTURE ENTEROCOCCUS. SPOUSE REPORTS PT TALKING "OUT OF HIS HEAD AT NIGHT" SPOUSE CONCERNED SHE CANNOT CARE FOR HIM RIGHT NOW DUE TO HIS INCREASED WEAKNESS AND FALLS ASKING FOR REHAB PLACEMENT. REPEAT CT HEAD W/O ACUTE FINDINGS. PATIENT WAS GIVEN IV ANTIBIOTICS. PATIENT WAS DISCHARGED TO SWING BED FOR CONTINUED PHYSICAL THERAPY. - Discharge Plan Disposition: 62 XFER/DISC TO [facility] Condition: Stable - Follow ups/Referrals Follow ups/Referrals: LUIS MEDRANO [Primary Care Provider] - 1 WEEK - Instructions
== END 2018-09-04 11:30 | disposition swing bed (61) | DRG 690 ==
LOC: MED/SURG 11:16 → ER 11:16 → MED/SURG 18:10
PROVIDERS: ADMIT Internal Medicine; ATTEND Internal Medicine
DX: J44.9 Chronic obstructive pulmonary disease, unspecified; I10 Essential (primary) hypertension; N39.0 Urinary tract infection, site not specified; B95.2 Enterococcus as the cause of diseases classified elsewhere; M25.552 Pain in left hip; R79.82 Elevated C-reactive protein (CRP); F41.8 Other specified anxiety disorders; N40.1 Benign prostatic hyperplasia with lower urinary tract symptoms; I25.10 Atherosclerotic heart disease of native coronary artery without angina pectoris; M25.551 Pain in right hip; E87.1 Hypo-osmolality and hyponatremia; I25.2 Old myocardial infarction; K21.9 Gastro-esophageal reflux disease without esophagitis; R26.89 Other abnormalities of gait and mobility; W18.39XA Other fall on same level, initial encounter; R06.02 Shortness of breath; M48.56XA Collapsed vertebra, not elsewhere classified, lumbar region, initial encounter for fracture
CPT/HCPCS: 36415; 70450; 71010; 71045; 71275; 72100; 73521; 80053; 81001; 85025; 85378; 85652; 86140; 87040; 87086; 87088; 87186; 87502; 92507; 92523; 94640; 94669; 94760; 96365; 96367; 96374; 97110; 97116; 97163; 97166; 97530; 97535; 99231; 99283; 99284; A4222; G0378; J0696; J0744; J1630; J1650; J3490; J7030; J7060; J7613; J7626

== ENCOUNTER 2018-09-04 11:30 | Inpatient (IN) ==
[2018-09-04] MEDS ORDERED: BUTT CREAM (COMPOUND) TOP PRN (13:27)
[2018-09-04] MEDS ORDERED: XANAX PO PRN (13:27)
[2018-09-04] MEDS ORDERED: ZOFRAN TAB 4 MG SL PRN (13:27)
[2018-09-04] MEDS: FLEXERIL TAB 10 MG PO SCH ×2 (14:17→21:23)
[2018-09-04 15:17] VITALS: BMI 36.9
--- NOTE | 2018-09-04 17:21 | DR.UPDATE ---
H&P Update History and Physical Update: History and Physical reviewed and patient examined. 08/31/2018 Changes noted: NO
[2018-09-04] MEDS: MIRALAX POWDER (1 DOSE 17 G) PO SCH (20:41)
[2018-09-04] MEDS: NEURONTIN CAP 400 MG PO SCH (20:42)
[2018-09-04] MEDS: PEPCID TAB 20 MG PO SCH (20:42)
[2018-09-04] MEDS: MILK OF MAGNESIA PO SCH (20:42)
[2018-09-04] MEDS: NAMENDA TAB 10 MG PO SCH (20:42)
[2018-09-04] MEDS: COLACE CAP 100 MG PO SCH (20:42)
[2018-09-04] MEDS: TOPROL XL PO SCH (20:43)
[2018-09-04] MEDS: DESYREL PO SCH (20:43)
[2018-09-04] MEDS: PULMICORT NEB TX 0.5 MG NEB SCH (21:08)
[2018-09-04] MEDS: PROVENTIL NEB TX 0.083% 2.5MG/ 3ML NEB SCH (21:09)
[2018-09-05] MEDS: FLEXERIL TAB 10 MG PO SCH ×3 (05:15→22:07)
[2018-09-05] MEDS: MILK OF MAGNESIA PO SCH ×2 (08:23→20:48)
[2018-09-05] MEDS: PEPCID TAB 20 MG PO SCH ×2 (08:23→20:48)
[2018-09-05] MEDS: ZyPREXA TAB 5 MG PO SCH (08:24)
[2018-09-05] MEDS: FLOMAX PO SCH (08:24)
[2018-09-05] MEDS: ROCEPHIN VIAL 1 GRAM IVP SCH ×2 (08:24→11:20)
[2018-09-05] MEDS: TOPROL XL PO SCH ×2 (08:25→20:48)
[2018-09-05] MEDS: ECOTRIN TAB 325 MG PO SCH (08:25)
[2018-09-05] MEDS: LINZESS PO SCH (08:25)
[2018-09-05] MEDS: NAMENDA TAB 10 MG PO SCH ×2 (08:25→20:47)
[2018-09-05] MEDS: ZESTRIL TAB 5 MG PO SCH (08:25)
[2018-09-05] MEDS: LOVENOX INJ 40 MG SYR SC SCH (08:26)
[2018-09-05] MEDS: NEURONTIN CAP 400 MG PO SCH ×2 (08:26→20:57)
[2018-09-05] MEDS: EFFEXOR XR 150 MG CAP PO SCH (08:26)
[2018-09-05] MEDS: PROTONIX TAB 40 MG PO SCH (08:26)
[2018-09-05] MEDS: PROVENTIL NEB TX 0.083% 2.5MG/ 3ML NEB SCH ×2 (09:07→20:22)
[2018-09-05] MEDS: PULMICORT NEB TX 0.5 MG NEB SCH ×2 (09:07→20:22)
[2018-09-05] MEDS: VIBRAMYCIN 100 MG in D5W 250 ML IV 250 ML IV SCH ×2 (11:06→20:49)
[2018-09-05] MEDS: PERCOCET TAB 5/325 MG PO PRN ×2 (15:11→20:56)
[2018-09-05] MEDS: COLACE CAP 100 MG PO SCH (20:46)
[2018-09-05] MEDS: DESYREL PO SCH (20:48)
[2018-09-05] MEDS: MIRALAX POWDER (1 DOSE 17 G) PO SCH (20:48)
[2018-09-06] MEDS: FLEXERIL TAB 10 MG PO SCH ×3 (05:44→21:59)
[2018-09-06] MEDS: MILK OF MAGNESIA PO SCH ×2 (08:10→21:58)
[2018-09-06] MEDS: EFFEXOR XR 150 MG CAP PO SCH (08:10)
[2018-09-06] MEDS: ZESTRIL TAB 5 MG PO SCH (08:10)
[2018-09-06] MEDS: ECOTRIN TAB 325 MG PO SCH (08:11)
[2018-09-06] MEDS: TOPROL XL PO SCH ×2 (08:11→21:59)
[2018-09-06] MEDS: FLOMAX PO SCH (08:11)
[2018-09-06] MEDS: PEPCID TAB 20 MG PO SCH ×2 (08:11→21:58)
[2018-09-06] MEDS: ZyPREXA TAB 5 MG PO SCH (08:11)
[2018-09-06] MEDS: NEURONTIN CAP 400 MG PO SCH ×2 (08:11→21:58)
[2018-09-06] MEDS: NAMENDA TAB 10 MG PO SCH ×2 (08:11→21:58)
[2018-09-06] MEDS: LINZESS PO SCH (08:11)
[2018-09-06] MEDS: PROTONIX TAB 40 MG PO SCH (08:11)
[2018-09-06] MEDS: VIBRAMYCIN 100 MG in D5W 250 ML IV 250 ML IV SCH ×2 (08:12→21:59)
[2018-09-06] MEDS: LOVENOX INJ 40 MG SYR SC SCH (08:16)
[2018-09-06] MEDS: PROVENTIL NEB TX 0.083% 2.5MG/ 3ML NEB SCH ×2 (09:50→20:30)
[2018-09-06] MEDS: PULMICORT NEB TX 0.5 MG NEB SCH ×2 (09:50→20:30)
[2018-09-06] MEDS: COLACE CAP 100 MG PO SCH (21:57)
[2018-09-06] MEDS: DESYREL PO SCH (21:57)
[2018-09-06] MEDS: MIRALAX POWDER (1 DOSE 17 G) PO SCH (21:58)
[2018-09-07] MEDS: PERCOCET TAB 5/325 MG PO PRN ×3 (00:28→17:08)
[2018-09-07] MEDS: FLEXERIL TAB 10 MG PO SCH ×3 (05:32→21:00)
[2018-09-07 05:49] LABS: BASOPHILS % (AUTO) 0.6 % (0.2-1.0); EOSINOPHILS # (AUTO) 0.4 x10^3/uL (0.0-0.2); HEMATOCRIT 35.2 % (42.0-54.0); LYMPHOCYTES # (AUTO) 1.6 X10^3/uL (1.3-2.9); LYMPHOCYTES % (AUTO) 22.7 % (21.0-51.0); MEAN CORPUSCULAR HEMOGLOBIN 31.2 pg (27.0-34.0); MEAN CORPUSCULAR VOLUME 91.8 fL (80.0-100.0); MEAN PLATELET VOLUME 7.8 fL (7.4-11.0); MONOCYTES # (AUTO) 0.8 x10^3/uL (0.3-0.8); MONOCYTES % (AUTO) 10.7 % (0.0-13.0); NEUTROPHILS # (AUTO) 4.3 x10^3/uL (2.2-4.8); PLATELET COUNT 333 X10^3/uL (150.0-450.0); RED BLOOD COUNT 3.84 X10^6/uL (4.7-6.0); RED CELL DISTRIBUTION WIDTH 12.9 % (11.6-16.5); WHITE BLOOD COUNT 7.1 X10^3/uL (3.6-10.0)
[2018-09-07 06:11] LABS: ALANINE AMINOTRANSFERASE 23 Units/L (12-78); ALBUMIN 2.8 g/dL (3.4-5.0); ALKALINE PHOSPHATASE 90 Units/L (46-116); ASPARTATE AMINO TRANSFERASE 19 Units/L (15-37); BLOOD UREA NITROGEN 18 mg/dL (7-18); CALCIUM 8.5 mg/dL (8.5-10.1); CHLORIDE 100 mmol/L (98-107); COR CA(FOR HYPOALB) 9.5 mg/dL (8.5-10.1); CREATININE 1.07 mg/dL (0.70-1.30); SODIUM 136 mmol/L (136-145); TOTAL PROTEIN 8.2 g/dL (6.4-8.2); eGFR NON BLACK RACES > 60 (>60)
[2018-09-07] MEDS: VIBRAMYCIN 100 MG in D5W 250 ML IV 250 ML IV SCH ×2 (08:44→20:55)
[2018-09-07] MEDS: LOVENOX INJ 40 MG SYR SC SCH (08:45)
[2018-09-07] MEDS: MILK OF MAGNESIA PO SCH ×2 (08:45→20:50)
[2018-09-07] MEDS: PEPCID TAB 20 MG PO SCH ×2 (08:45→20:51)
[2018-09-07] MEDS: PROTONIX TAB 40 MG PO SCH (08:45)
[2018-09-07] MEDS: ZESTRIL TAB 5 MG PO SCH (08:45)
[2018-09-07] MEDS: NEURONTIN CAP 400 MG PO SCH ×2 (08:45→20:51)
[2018-09-07] MEDS: ECOTRIN TAB 325 MG PO SCH (08:45)
[2018-09-07] MEDS: ZyPREXA TAB 5 MG PO SCH (08:45)
[2018-09-07] MEDS: TOPROL XL PO SCH ×2 (08:45→20:51)
[2018-09-07] MEDS: FLOMAX PO SCH (08:45)
[2018-09-07] MEDS: NAMENDA TAB 10 MG PO SCH ×2 (08:45→20:50)
[2018-09-07] MEDS: EFFEXOR XR 150 MG CAP PO SCH (08:45)
[2018-09-07] MEDS: LINZESS PO SCH (08:46)
[2018-09-07] MEDS: PULMICORT NEB TX 0.5 MG NEB SCH ×2 (09:25→21:26)
[2018-09-07] MEDS: PROVENTIL NEB TX 0.083% 2.5MG/ 3ML NEB SCH ×2 (09:25→21:26)
--- NOTE | 2018-09-07 14:18 | PCM.PROG ---
Progress Note - Progress Note for Day of Date of Exam: 09/07/18 - Subjective Subjective: 73 WM SWING BED STATUS ON 09/04 FOR REHAB THERAPY FOLLOWING ACUTE ILLNESS AND NEW ONSET FALLS RESULTING IN L SPINE COMPRESSION FRACTURE. PT CURRENTLY ON IV ATBX FOR UTI, WILL D/C AFTER 10 DAYS. PT COOPERATING WELL WITH PHYSICAL THERAPY, WILL CONTINUE CURRENT MEDICAITON REGIMEN - Past Medical Family Social History Past Med/Fam/Surg Hx: No changes since H&P Allergies: Allergies cortisone Allergy (Verified 08/29/18 11:17) - Review of Systems ROS: No change since H&P - Vital Signs and I&O's Vital Signs: Temperature 99.1 F Pulse Rate [Left Radial] 76 Pulse Rate 84 Respiratory Rate 20 Blood Pressure [Left Arm] 130/65 Blood Pressure [Right Arm] 126/77 Blood Pressure 138/65 O2 Sat by Pulse Oximetry 94 Intake and Output: Intake & Output 09/05/18 09/06/18 09/07/18 09/08/18 11:59 11:59 11:59 11:59 Intake Total 1060 / 1060 1270 / 1270 1680 / 1680 Output Total 1375 / 1375 1550 / 1550 Balance -315 / -315 -280 / -280 1680 / 1680 - Physical Exam Oriented: Normal Eyes: Normal Ear: Normal Nose: Normal Throat: Normal Respiratory: Diminished, Wheezes Cardiovascular: Normal : Normal Auscultation: Bowel Sounds: Normal Palpation: Normal Tenderness: Normal Skin: Normal Musculoskeletal: Right, Left, Back:Thoracic, Back:Lumbar, Instability, Crepitance Psychiatric: Anxiety Affect: Anxious Speech Pattern: Clear, Appropriate - Laboratory and Diagnostics Result Diagrams: 09/07/18 04:37 09/07/18 04:37 Labs: Laboratory WBC 7.1 X10^3/uL (3.6-10.0) 09/07/18 04:37 RBC 3.84 X10^6/uL (4.7-6.0) L 09/07/18 04:37 Hgb 12.0 g/dL (13.5-18.0) L 09/07/18 04:37 Hct 35.2 % (42.0-54.0) L 09/07/18 04:37 MCV 91.8 fL (80.0-100.0) 09/07/18 04:37 MCH 31.2 pg (27.0-34.0) 09/07/18 04:37 MCHC 34.0 g/dL (33.0-35.0) 09/07/18 04:37 RDW 12.9 % (11.6-16.5) 09/07/18 04:37 Plt Count 333 X10^3/uL (150.0-450.0) 09/07/18 04:37 MPV 7.8 fL (7.4-11.0) 09/07/18 04:37 Neut % (Auto) 61.0 % (42.0-75.0) 09/07/18 04:37 Lymph % (Auto) 22.7 % (21.0-51.0) 09/07/18 04:37 [place] % (Auto) 10.7 % (0.0-13.0) 09/07/18 04:37 Eos % (Auto) 5.0 % (0.9-2.9) H 09/07/18 04:37 Baso % (Auto) 0.6 % (0.2-1.0) 09/07/18 04:37 Neut # (Auto) 4.3 x10^3/uL (2.2-4.8) 09/07/18 04:37 Lymph # (Auto) 1.6 X10^3/uL (1.3-2.9) 09/07/18 04:37 [place] # (Auto) 0.8 x10^3/uL (0.3-0.8) 09/07/18 04:37 Eos # (Auto) 0.4 x10^3/uL (0.0-0.2) H 09/07/18 04:37 Baso # (Auto) 0.0 X10^3/uL (0.0-0.1) 09/07/18 04:37 Absolute Nucleated RBC 0.0 /100WBC 09/07/18 04:37 Sodium 136 mmol/L (136-145) 09/07/18 04:37 Corrected Sodium TNP 09/07/18 04:37 Potassium 4.3 mmol/L (3.5-5.1) 09/07/18 04:37 Chloride 100 mmol/L (98-107) 09/07/18 04:37 Carbon Dioxide 28.0 mmol/L (21-32) 09/07/18 04:37 BUN 18 mg/dL (7-18) 09/07/18 04:37 Creatinine 1.07 mg/dL (0.70-1.30) 09/07/18 04:37 Est GFR (MDRD) Af Amer > 60 (>60) 09/07/18 04:37 Est GFR (MDRD) Non-Af > 60 (>60) 09/07/18 04:37 Glucose 106 mg/dL (65-99) H 09/07/18 04:37 Calcium 8.5 mg/dL (8.5-10.1) 09/07/18 04:37 Corrected Calcium 9.5 mg/dL (8.5-10.1) 09/07/18 04:37 Total Bilirubin 0.30 mg/dL (0.2-1.0) 09/07/18 04:37 AST 19 Units/L (15-37) 09/07/18 04:37 ALT 23 Units/L (12-78) 09/07/18 04:37 Alkaline Phosphatase 90 Units/L (46-116) 09/07/18 04:37 Total Protein 8.2 g/dL (6.4-8.2) 09/07/18 04:37 Albumin 2.8 g/dL (3.4-5.0) L 09/07/18 04:37 Globulin 5.4 g/dL (2.5-4.5) H 09/07/18 04:37 Albumin/Globulin Ratio 0.5 Ratio (1.1-2.1) L 09/07/18 04:37 - Plan (1) Weakness Status: Acute Plan: CONTINUE PT. REPEAT LABS ON ROUTINE BASIS. BP CONTROL (2) CAD (coronary artery disease) Status: Chronic (3) BPH (benign prostatic hyperplasia) Status: Chronic (4) DDD (degenerative disc disease) Status: Chronic (5) Anxiety Status: Chronic (6) COPD (chronic obstructive pulmonary disease) Status: Chronic (7) Acute UTI Status: Acute (8) Lumbar compression fracture Status: Acute
[2018-09-07] MEDS: COLACE CAP 100 MG PO SCH (20:49)
[2018-09-07] MEDS: DESYREL PO SCH (20:49)
[2018-09-07] MEDS: MIRALAX POWDER (1 DOSE 17 G) PO SCH (20:50)
[2018-09-08] MEDS: FLEXERIL TAB 10 MG PO SCH ×3 (05:45→21:31)
[2018-09-08] MEDS: PROVENTIL NEB TX 0.083% 2.5MG/ 3ML NEB SCH ×2 (09:33→20:46)
[2018-09-08] MEDS: PULMICORT NEB TX 0.5 MG NEB SCH ×2 (09:33→20:46)
[2018-09-08] MEDS: MILK OF MAGNESIA PO SCH ×2 (10:29→20:37)
[2018-09-08] MEDS: PERCOCET TAB 5/325 MG PO PRN ×2 (10:29→17:25)
[2018-09-08] MEDS: NAMENDA TAB 10 MG PO SCH ×2 (10:30→20:38)
[2018-09-08] MEDS: ZESTRIL TAB 5 MG PO SCH (10:30)
[2018-09-08] MEDS: NEURONTIN CAP 400 MG PO SCH ×2 (10:31→20:38)
[2018-09-08] MEDS: EFFEXOR XR 150 MG CAP PO SCH (10:31)
[2018-09-08] MEDS: ECOTRIN TAB 325 MG PO SCH (10:31)
[2018-09-08] MEDS: VIBRAMYCIN 100 MG in D5W 250 ML IV 250 ML IV SCH ×2 (10:31→21:31)
[2018-09-08] MEDS: PROTONIX TAB 40 MG PO SCH (10:31)
[2018-09-08] MEDS: FLOMAX PO SCH (10:31)
[2018-09-08] MEDS: LINZESS PO SCH (10:31)
[2018-09-08] MEDS: PEPCID TAB 20 MG PO SCH ×2 (10:31→20:38)
[2018-09-08] MEDS: TOPROL XL PO SCH ×2 (10:31→20:38)
[2018-09-08] MEDS: ZyPREXA TAB 5 MG PO SCH (10:31)
[2018-09-08] MEDS: LOVENOX INJ 40 MG SYR SC SCH (10:32)
[2018-09-08] MEDS: COLACE CAP 100 MG PO SCH (20:37)
[2018-09-08] MEDS: DESYREL PO SCH (20:38)
[2018-09-08] MEDS: MIRALAX POWDER (1 DOSE 17 G) PO SCH (20:44)
[2018-09-09] MEDS: FLEXERIL TAB 10 MG PO SCH ×3 (05:25→21:09)
[2018-09-09] MEDS: MILK OF MAGNESIA PO SCH ×2 (09:11→20:43)
[2018-09-09] MEDS: LOVENOX INJ 40 MG SYR SC SCH (09:11)
[2018-09-09] MEDS: VIBRAMYCIN 100 MG in D5W 250 ML IV 250 ML IV SCH ×2 (09:11→20:43)
[2018-09-09] MEDS: PEPCID TAB 20 MG PO SCH ×2 (09:12→20:43)
[2018-09-09] MEDS: TOPROL XL PO SCH ×2 (09:12→20:44)
[2018-09-09] MEDS: ZyPREXA TAB 5 MG PO SCH (09:12)
[2018-09-09] MEDS: NAMENDA TAB 10 MG PO SCH ×2 (09:12→20:44)
[2018-09-09] MEDS: NEURONTIN CAP 400 MG PO SCH ×2 (09:12→21:09)
[2018-09-09] MEDS: FLOMAX PO SCH (09:12)
[2018-09-09] MEDS: ECOTRIN TAB 325 MG PO SCH (09:13)
[2018-09-09] MEDS: ZESTRIL TAB 5 MG PO SCH (09:13)
[2018-09-09] MEDS: EFFEXOR XR 150 MG CAP PO SCH (09:13)
[2018-09-09] MEDS: LINZESS PO SCH (09:13)
[2018-09-09] MEDS: PROTONIX TAB 40 MG PO SCH (09:13)
[2018-09-09] MEDS: PROVENTIL NEB TX 0.083% 2.5MG/ 3ML NEB SCH ×2 (09:32→20:08)
[2018-09-09] MEDS: PULMICORT NEB TX 0.5 MG NEB SCH ×2 (09:32→20:08)
[2018-09-09] MEDS: PERCOCET TAB 5/325 MG PO PRN ×2 (10:32→20:51)
[2018-09-09] MEDS: COLACE CAP 100 MG PO SCH (20:43)
[2018-09-09] MEDS: DESYREL PO SCH (20:44)
[2018-09-09] MEDS: MIRALAX POWDER (1 DOSE 17 G) PO SCH (21:09)
[2018-09-10 05:20] LABS: BASOPHILS % (AUTO) 0.4 % (0.2-1.0); EOSINOPHILS # (AUTO) 0.4 x10^3/uL (0.0-0.2); EOSINOPHILS % (AUTO) 4.9 % (0.9-2.9); HEMATOCRIT 32.9 % (42.0-54.0); HEMOGLOBIN 11.2 g/dL (13.5-18.0); LYMPHOCYTES # (AUTO) 1.8 X10^3/uL (1.3-2.9); LYMPHOCYTES % (AUTO) 23.7 % (21.0-51.0); MEAN CORPUSCULAR HEMOGLOBIN 30.8 pg (27.0-34.0); MEAN CORPUSCULAR HGB CONC 34.2 g/dL (33.0-35.0); MEAN CORPUSCULAR VOLUME 90.3 fL (80.0-100.0); MEAN PLATELET VOLUME 7.7 fL (7.4-11.0); MONOCYTES # (AUTO) 0.6 x10^3/uL (0.3-0.8); MONOCYTES % (AUTO) 8.3 % (0.0-13.0); NEUTROPHILS # (AUTO) 4.6 x10^3/uL (2.2-4.8); NEUTROPHILS % (AUTO) 62.7 % (42.0-75.0); PLATELET COUNT 312 X10^3/uL (150.0-450.0); RED BLOOD COUNT 3.65 X10^6/uL (4.7-6.0); WHITE BLOOD COUNT 7.4 X10^3/uL (3.6-10.0)
[2018-09-10] MEDS: FLEXERIL TAB 10 MG PO SCH ×3 (05:27→21:05)
[2018-09-10 05:31] LABS: ALANINE AMINOTRANSFERASE 25 Units/L (12-78); ALBUMIN 2.8 g/dL (3.4-5.0); ALKALINE PHOSPHATASE 97 Units/L (46-116); ASPARTATE AMINO TRANSFERASE 17 Units/L (15-37); BLOOD UREA NITROGEN 21 mg/dL (7-18); CALCIUM 8.5 mg/dL (8.5-10.1); CARBON DIOXIDE 31.7 mmol/L (21-32); CHLORIDE 101 mmol/L (98-107); COR CA(FOR HYPOALB) 9.5 mg/dL (8.5-10.1); CREATININE 1.18 mg/dL (0.70-1.30); SODIUM 138 mmol/L (136-145); TOTAL PROTEIN 7.7 g/dL (6.4-8.2); eGFR NON BLACK RACES > 60 (>60)
--- NOTE | 2018-09-10 08:52 | PCM.PROG ---
Progress Note - Progress Note for Day of Date of Exam: 09/10/18 - Subjective Subjective: 73 WM SWING BED STATUS ON 09/04 FOR REHAB THERAPY FOLLOWING ACUTE ILLNESS AND NEW ONSET FALLS RESULTING IN L SPINE COMPRESSION FRACTURE. ROUTINE LABS. PT COOPERATING WELL WITH PHYSICAL THERAPY, WILL CONTINUE CURRENT MEDICAITON REGIMEN - Past Medical Family Social History Past Med/Fam/Surg Hx: No changes since H&P Allergies: Allergies cortisone Allergy (Verified 08/29/18 11:17) - Review of Systems ROS: No change since H&P - Vital Signs and I&O's Vital Signs: Temperature 98.1 F Pulse Rate [Left Radial] 80 Pulse Rate 79 Respiratory Rate 18 Blood Pressure [Left Arm] 114/54 Blood Pressure [Right Arm] 126/77 Blood Pressure 138/65 O2 Sat by Pulse Oximetry 94 Intake and Output: Intake & Output 09/07/18 09/08/18 09/09/18 09/10/18 11:59 11:59 11:59 11:59 Intake Total 1680 / 1680 2230 / 2230 2099 / 2099 2130 / 2130 Output Total 1999 757 / 757 Balance 1680 / 1680 230 / 230 2099 / 2099 1373 / 1373 - Physical Exam Oriented: Normal Eyes: Normal Ear: Normal Nose: Normal Throat: Normal Respiratory: Diminished, Wheezes Cardiovascular: Normal : Normal Auscultation: Bowel Sounds: Normal Tenderness: Normal Skin: Normal Musculoskeletal: Right, Left, Back:Thoracic, Back:Lumbar, Instability, Crepitance Psychiatric: Anxiety Affect: Anxious Speech Pattern: Clear, Appropriate - Laboratory and Diagnostics Result Diagrams: 09/10/18 04:35 09/10/18 04:35 Labs: Laboratory WBC 7.4 X10^3/uL (3.6-10.0) 09/10/18 04:35 RBC 3.65 X10^6/uL (4.7-6.0) L 09/10/18 04:35 Hgb 11.2 g/dL (13.5-18.0) L 09/10/18 04:35 Hct 32.9 % (42.0-54.0) L 09/10/18 04:35 MCV 90.3 fL (80.0-100.0) 09/10/18 04:35 MCH 30.8 pg (27.0-34.0) 09/10/18 04:35 MCHC 34.2 g/dL (33.0-35.0) 09/10/18 04:35 RDW 13.0 % (11.6-16.5) 09/10/18 04:35 Plt Count 312 X10^3/uL (150.0-450.0) 09/10/18 04:35 MPV 7.7 fL (7.4-11.0) 09/10/18 04:35 Neut % (Auto) 62.7 % (42.0-75.0) 09/10/18 04:35 Lymph % (Auto) 23.7 % (21.0-51.0) 09/10/18 04:35 [place] % (Auto) 8.3 % (0.0-13.0) 09/10/18 04:35 Eos % (Auto) 4.9 % (0.9-2.9) H 09/10/18 04:35 Baso % (Auto) 0.4 % (0.2-1.0) 09/10/18 04:35 Neut # (Auto) 4.6 x10^3/uL (2.2-4.8) 09/10/18 04:35 Lymph # (Auto) 1.8 X10^3/uL (1.3-2.9) 09/10/18 04:35 [place] # (Auto) 0.6 x10^3/uL (0.3-0.8) 09/10/18 04:35 Eos # (Auto) 0.4 x10^3/uL (0.0-0.2) H 09/10/18 04:35 Baso # (Auto) 0.0 X10^3/uL (0.0-0.1) 09/10/18 04:35 Absolute Nucleated RBC 0.1 /100WBC 09/10/18 04:35 Sodium 138 mmol/L (136-145) 09/10/18 04:35 Corrected Sodium TNP 09/10/18 04:35 Potassium 4.8 mmol/L (3.5-5.1) 09/10/18 04:35 Chloride 101 mmol/L (98-107) 09/10/18 04:35 Carbon Dioxide 31.7 mmol/L (21-32) 09/10/18 04:35 BUN 21 mg/dL (7-18) H 09/10/18 04:35 Creatinine 1.18 mg/dL (0.70-1.30) 09/10/18 04:35 Est GFR (MDRD) Af Amer > 60 (>60) 09/10/18 04:35 Est GFR (MDRD) Non-Af > 60 (>60) 09/10/18 04:35 Glucose 96 mg/dL (65-99) 09/10/18 04:35 Calcium 8.5 mg/dL (8.5-10.1) 09/10/18 04:35 Corrected Calcium 9.5 mg/dL (8.5-10.1) 09/10/18 04:35 Total Bilirubin 0.20 mg/dL (0.2-1.0) 09/10/18 04:35 AST 17 Units/L (15-37) 09/10/18 04:35 ALT 25 Units/L (12-78) 09/10/18 04:35 Alkaline Phosphatase 97 Units/L (46-116) 09/10/18 04:35 Total Protein 7.7 g/dL (6.4-8.2) 09/10/18 04:35 Albumin 2.8 g/dL (3.4-5.0) L 09/10/18 04:35 Globulin 4.9 g/dL (2.5-4.5) H 09/10/18 04:35 Albumin/Globulin Ratio 0.6 Ratio (1.1-2.1) L 09/10/18 04:35 - Plan (1) Weakness Status: Acute Plan: CONTINUE PT. REPEAT LABS ON ROUTINE BASIS. BP CONTROL (2) CAD (coronary artery disease) Status: Chronic (3) BPH (benign prostatic hyperplasia) Status: Chronic (4) DDD (degenerative disc disease) Status: Chronic (5) Anxiety Status: Chronic (6) COPD (chronic obstructive pulmonary disease) Status: Chronic (7) Acute UTI Status: Acute Plan: COMPLETED ROUND IV ATBX (8) Lumbar compression fracture Status: Acute
[2018-09-10] MEDS: PEPCID TAB 20 MG PO SCH ×2 (09:38→21:06)
[2018-09-10] MEDS: ZyPREXA TAB 5 MG PO SCH (09:38)
[2018-09-10] MEDS: VIBRAMYCIN 100 MG in D5W 250 ML IV 250 ML IV SCH ×2 (09:38→21:05)
[2018-09-10] MEDS: ZESTRIL TAB 5 MG PO SCH (09:38)
[2018-09-10] MEDS: NEURONTIN CAP 400 MG PO SCH ×2 (09:39→21:06)
[2018-09-10] MEDS: FLOMAX PO SCH (09:39)
[2018-09-10] MEDS: EFFEXOR XR 150 MG CAP PO SCH (09:39)
[2018-09-10] MEDS: ECOTRIN TAB 325 MG PO SCH (09:39)
[2018-09-10] MEDS: PROTONIX TAB 40 MG PO SCH (09:39)
[2018-09-10] MEDS: LINZESS PO SCH (09:39)
[2018-09-10] MEDS: NAMENDA TAB 10 MG PO SCH ×2 (09:39→21:06)
[2018-09-10] MEDS: TOPROL XL PO SCH ×2 (09:39→21:06)
[2018-09-10] MEDS: MILK OF MAGNESIA PO SCH ×2 (09:40→21:06)
[2018-09-10] MEDS: PERCOCET TAB 5/325 MG PO PRN ×2 (09:46→14:12)
[2018-09-10] MEDS: PULMICORT NEB TX 0.5 MG NEB SCH ×2 (10:00→20:10)
[2018-09-10] MEDS: PROVENTIL NEB TX 0.083% 2.5MG/ 3ML NEB SCH ×2 (10:00→20:10)
[2018-09-10] MEDS: LOVENOX INJ 40 MG SYR SC SCH (10:27)
[2018-09-10] MEDS: COLACE CAP 100 MG PO SCH (21:05)
[2018-09-10] MEDS: DESYREL PO SCH (21:06)
[2018-09-10] MEDS: MIRALAX POWDER (1 DOSE 17 G) PO SCH (21:09)
[2018-09-11] MEDS: FLEXERIL TAB 10 MG PO SCH ×3 (05:19→21:04)
[2018-09-11] MEDS: LOVENOX INJ 40 MG SYR SC SCH (08:44)
[2018-09-11] MEDS: PEPCID TAB 20 MG PO SCH ×2 (08:45→20:42)
[2018-09-11] MEDS: FLOMAX PO SCH (08:45)
[2018-09-11] MEDS: NAMENDA TAB 10 MG PO SCH ×2 (08:45→20:41)
[2018-09-11] MEDS: TOPROL XL PO SCH ×2 (08:45→20:43)
[2018-09-11] MEDS: MILK OF MAGNESIA PO SCH ×2 (08:45→20:41)
[2018-09-11] MEDS: EFFEXOR XR 150 MG CAP PO SCH (08:45)
[2018-09-11] MEDS: NEURONTIN CAP 400 MG PO SCH ×2 (08:45→20:46)
[2018-09-11] MEDS: ECOTRIN TAB 325 MG PO SCH (08:45)
[2018-09-11] MEDS: ZESTRIL TAB 5 MG PO SCH (08:45)
[2018-09-11] MEDS: PROTONIX TAB 40 MG PO SCH (08:45)
[2018-09-11] MEDS: ZyPREXA TAB 5 MG PO SCH (08:46)
[2018-09-11] MEDS: LINZESS PO SCH (08:46)
[2018-09-11] MEDS: PERCOCET TAB 5/325 MG PO PRN ×2 (08:46→13:22)
[2018-09-11] MEDS ORDERED: CONSULT PHARMACY - ANTIBIOTIC XX SCH (09:00)
[2018-09-11] MEDS: PULMICORT NEB TX 0.5 MG NEB SCH ×2 (09:45→20:20)
[2018-09-11] MEDS: PROVENTIL NEB TX 0.083% 2.5MG/ 3ML NEB SCH ×2 (09:45→20:20)
[2018-09-11] MEDS: VIBRAMYCIN 100 MG in D5W 250 ML IV 250 ML IV SCH (10:12)
[2018-09-11] MEDS: VIBRAMYCIN PO SCH ×2 (10:17→20:41)
[2018-09-11] MEDS: COLACE CAP 100 MG PO SCH (20:41)
[2018-09-11] MEDS: DESYREL PO SCH (20:42)
[2018-09-11] MEDS: MIRALAX POWDER (1 DOSE 17 G) PO SCH (20:46)
[2018-09-12] MEDS: FLEXERIL TAB 10 MG PO SCH ×3 (05:22→21:09)
[2018-09-12] MEDS: PROVENTIL NEB TX 0.083% 2.5MG/ 3ML NEB SCH ×2 (08:36→20:46)
[2018-09-12] MEDS: PULMICORT NEB TX 0.5 MG NEB SCH ×2 (08:37→20:46)
[2018-09-12] MEDS: NAMENDA TAB 10 MG PO SCH ×2 (09:16→21:10)
[2018-09-12] MEDS: EFFEXOR XR 150 MG CAP PO SCH (09:16)
[2018-09-12] MEDS: MILK OF MAGNESIA PO SCH ×2 (09:16→21:09)
[2018-09-12] MEDS: PERCOCET TAB 5/325 MG PO PRN ×2 (09:16→14:32)
[2018-09-12] MEDS: NEURONTIN CAP 400 MG PO SCH ×2 (09:16→21:09)
[2018-09-12] MEDS: PEPCID TAB 20 MG PO SCH ×2 (09:16→21:09)
[2018-09-12] MEDS: PROTONIX TAB 40 MG PO SCH (09:17)
[2018-09-12] MEDS: ECOTRIN TAB 325 MG PO SCH (09:17)
[2018-09-12] MEDS: LOVENOX INJ 40 MG SYR SC SCH (09:17)
[2018-09-12] MEDS: FLOMAX PO SCH (09:17)
[2018-09-12] MEDS: LINZESS PO SCH (09:17)
[2018-09-12] MEDS: ZyPREXA TAB 5 MG PO SCH (09:17)
[2018-09-12] MEDS: VIBRAMYCIN PO SCH ×2 (09:17→21:09)
[2018-09-12] MEDS: TOPROL XL PO SCH ×2 (09:20→21:09)
[2018-09-12] MEDS: ZESTRIL TAB 5 MG PO SCH (09:20)
[2018-09-12] MEDS: COLACE CAP 100 MG PO SCH (21:09)
[2018-09-12] MEDS: MIRALAX POWDER (1 DOSE 17 G) PO SCH (21:09)
[2018-09-12] MEDS: DESYREL PO SCH (21:10)
[2018-09-13] MEDS: PERCOCET TAB 5/325 MG PO PRN ×2 (05:15→09:05)
[2018-09-13] MEDS: FLEXERIL TAB 10 MG PO SCH (05:15)
[2018-09-13 06:51] LABS: BASOPHILS % (AUTO) 0.5 % (0.2-1.0); EOSINOPHILS # (AUTO) 0.3 x10^3/uL (0.0-0.2); EOSINOPHILS % (AUTO) 3.5 % (0.9-2.9); HEMATOCRIT 33.5 % (42.0-54.0); HEMOGLOBIN 11.5 g/dL (13.5-18.0); LYMPHOCYTES # (AUTO) 1.4 X10^3/uL (1.3-2.9); LYMPHOCYTES % (AUTO) 15.9 % (21.0-51.0); MEAN CORPUSCULAR HEMOGLOBIN 31.2 pg (27.0-34.0); MEAN CORPUSCULAR HGB CONC 34.3 g/dL (33.0-35.0); MEAN CORPUSCULAR VOLUME 91.2 fL (80.0-100.0); MEAN PLATELET VOLUME 7.8 fL (7.4-11.0); MONOCYTES # (AUTO) 0.7 x10^3/uL (0.3-0.8); MONOCYTES % (AUTO) 7.8 % (0.0-13.0); NEUTROPHILS # (AUTO) 6.2 x10^3/uL (2.2-4.8); NEUTROPHILS % (AUTO) 72.3 % (42.0-75.0); PLATELET COUNT 310 X10^3/uL (150.0-450.0); RED BLOOD COUNT 3.67 X10^6/uL (4.7-6.0); RED CELL DISTRIBUTION WIDTH 13.1 % (11.6-16.5); WHITE BLOOD COUNT 8.6 X10^3/uL (3.6-10.0)
[2018-09-13 07:04] LABS: ALANINE AMINOTRANSFERASE 23 Units/L (12-78); ALKALINE PHOSPHATASE 105 Units/L (46-116); ASPARTATE AMINO TRANSFERASE 18 Units/L (15-37); BLOOD UREA NITROGEN 22 mg/dL (7-18); CALCIUM 8.4 mg/dL (8.5-10.1); CARBON DIOXIDE 28.1 mmol/L (21-32); CHLORIDE 101 mmol/L (98-107); COR CA(FOR HYPOALB) 9.2 mg/dL (8.5-10.1); COR NA(FOR HYPERGLY) 138 mmol/L (136-145); CREATININE 1.08 mg/dL (0.70-1.30); SODIUM 137 mmol/L (136-145); TOTAL PROTEIN 7.8 g/dL (6.4-8.2); eGFR NON BLACK RACES > 60 (>60)
[2018-09-13 08:54] VITALS: BP 132/60
[2018-09-13] MEDS: LOVENOX INJ 40 MG SYR SC SCH (09:03)
[2018-09-13] MEDS: LINZESS PO SCH (09:03)
[2018-09-13] MEDS: ECOTRIN TAB 325 MG PO SCH (09:03)
[2018-09-13] MEDS: EFFEXOR XR 150 MG CAP PO SCH (09:03)
[2018-09-13] MEDS: FLOMAX PO SCH (09:03)
[2018-09-13] MEDS: PROTONIX TAB 40 MG PO SCH (09:04)
[2018-09-13] MEDS: NEURONTIN CAP 400 MG PO SCH (09:04)
[2018-09-13] MEDS: MILK OF MAGNESIA PO SCH (09:04)
[2018-09-13] MEDS: TOPROL XL PO SCH (09:04)
[2018-09-13] MEDS: VIBRAMYCIN PO SCH (09:04)
[2018-09-13] MEDS: PEPCID TAB 20 MG PO SCH (09:04)
[2018-09-13] MEDS: NAMENDA TAB 10 MG PO SCH (09:04)
[2018-09-13] MEDS: ZESTRIL TAB 5 MG PO SCH (09:05)
[2018-09-13] MEDS: ZyPREXA TAB 5 MG PO SCH (09:05)
--- NOTE | 2018-09-21 05:48 | PCM.DCPLAN ---
Discharge Summary - Admission Date Date of Admission: 09/04/18 - Discharge Date Discharge Date: 09/13/18 - Admission Diagnoses (1) Acute UTI Status: Acute (2) Acute hyponatremia Status: Acute (3) Lumbar compression fracture Status: Acute (4) Weakness Status: Acute (5) BPH (benign prostatic hyperplasia) Status: Chronic (6) CAD (coronary artery disease) Status: Chronic (7) COPD (chronic obstructive pulmonary disease) Status: Chronic (8) DDD (degenerative disc disease) Status: Chronic - Discharge Diagnoses Discharge Diagnosis: SAME ADMISSION DIAGNOSIS - Discharge Medications Discharge Medications: Home Medication List doxycycline hyclate [Vibramycin] 100 mg PO BID 10 Days #20 cap 09/13/18 [Rx] Prescriptions: doxycycline hyclate [Vibramycin] LUIS MEDRANO - Hospital Course Vital Signs: Temperature 98.5 F Pulse Rate [Left Radial] 96 Pulse Rate 88 Respiratory Rate 18 Blood Pressure [Left Arm] 132/60 Blood Pressure [Right Arm] 139/78 Blood Pressure 138/65 O2 Sat by Pulse Oximetry 94 Latest Lab Results: Laboratory Last Values WBC 8.6 X10^3/uL (3.6-10.0) 09/13/18 06:25 RBC 3.67 X10^6/uL (4.7-6.0) L 09/13/18 06:25 Hgb 11.5 g/dL (13.5-18.0) L 09/13/18 06:25 Hct 33.5 % (42.0-54.0) L 09/13/18 06:25 MCV 91.2 fL (80.0-100.0) 09/13/18 06:25 MCH 31.2 pg (27.0-34.0) 09/13/18 06:25 MCHC 34.3 g/dL (33.0-35.0) 09/13/18 06:25 RDW 13.1 % (11.6-16.5) 09/13/18 06:25 Plt Count 310 X10^3/uL (150.0-450.0) 09/13/18 06:25 MPV 7.8 fL (7.4-11.0) 09/13/18 06:25 Neut % (Auto) 72.3 % (42.0-75.0) 09/13/18 06:25 Lymph % (Auto) 15.9 % (21.0-51.0) L 09/13/18 06:25 [place] % (Auto) 7.8 % (0.0-13.0) 09/13/18 06:25 Eos % (Auto) 3.5 % (0.9-2.9) H 09/13/18 06:25 Baso % (Auto) 0.5 % (0.2-1.0) 09/13/18 06:25 Neut # (Auto) 6.2 x10^3/uL (2.2-4.8) H 09/13/18 06:25 Lymph # (Auto) 1.4 X10^3/uL (1.3-2.9) 09/13/18 06:25 [place] # (Auto) 0.7 x10^3/uL (0.3-0.8) 09/13/18 06:25 Eos # (Auto) 0.3 x10^3/uL (0.0-0.2) H 09/13/18 06:25 Baso # (Auto) 0.0 X10^3/uL (0.0-0.1) 09/13/18 06:25 Absolute Nucleated RBC 0.1 /100WBC 09/13/18 06:25 Sodium 137 mmol/L (136-145) 09/13/18 06:25 Corrected Sodium 138 mmol/L (136-145) 09/13/18 06:25 Potassium 4.6 mmol/L (3.5-5.1) 09/13/18 06:25 Chloride 101 mmol/L (98-107) 09/13/18 06:25 Carbon Dioxide 28.1 mmol/L (21-32) 09/13/18 06:25 BUN 22 mg/dL (7-18) H 09/13/18 06:25 Creatinine 1.08 mg/dL (0.70-1.30) 09/13/18 06:25 Est GFR (MDRD) Af Amer > 60 (>60) 09/13/18 06:25 Est GFR (MDRD) Non-Af > 60 (>60) 09/13/18 06:25 Glucose 130 mg/dL (65-99) H 09/13/18 06:25 Calcium 8.4 mg/dL (8.5-10.1) L 09/13/18 06:25 Corrected Calcium 9.2 mg/dL (8.5-10.1) 09/13/18 06:25 Total Bilirubin 0.20 mg/dL (0.2-1.0) 09/13/18 06:25 AST 18 Units/L (15-37) 09/13/18 06:25 ALT 23 Units/L (12-78) 09/13/18 06:25 Alkaline Phosphatase 105 Units/L (46-116) 09/13/18 06:25 Total Protein 7.8 g/dL (6.4-8.2) 09/13/18 06:25 Albumin 3.0 g/dL (3.4-5.0) L 09/13/18 06:25 Globulin 4.8 g/dL (2.5-4.5) H 09/13/18 06:25 Albumin/Globulin Ratio 0.6 Ratio (1.1-2.1) L 09/13/18 06:25 Hospital Course: 73 WM ADMITTED TO SWING BED STATUS ON 09/04 FOR REHAB THERAPY FOLLOWING ACUTE ILLNESS AND NEW ONSET FALLS RESULTING IN L SPINE COMPRESSION FRACTURE. ROUTINE LABS WERE MONITORED. PT COOPERATED WELL WITH PHYSICAL THERAPY. PATIENT HAD IMPROVEMENT IN WEAKNESS AND SYMPTOMS AND WAS DISCHARGED HOME TO BE FOLLOWED ON AN OP BASIS. - Discharge Plan Disposition: HOME HEALTH SERVICE Condition: Stable Prescriptions: doxycycline hyclate [Vibramycin] 100 mg PO BID 10 Days #20 cap - Follow ups/Referrals Follow ups/Referrals: [facility] [Other] LUIS MEDRANO [Primary Care Provider] - 09/19/18 10:45 am - Instructions Instructions: Stroke Prevention, [id number], Chronic Obstructive Pulmonary Disease, [id number], Hypertension, [id number], Asthma, Adult, [id number], Heart Failure, [id number] Forms: Patient Portal
== END 2018-09-13 12:42 | disposition home health service (06) | DRG 949 ==
LOC: MED/SURG 11:30
PROVIDERS: ADMIT Internal Medicine; ATTEND Internal Medicine
DX: K21.9 Gastro-esophageal reflux disease without esophagitis; J44.9 Chronic obstructive pulmonary disease, unspecified; R26.89 Other abnormalities of gait and mobility; F41.8 Other specified anxiety disorders; R79.82 Elevated C-reactive protein (CRP); I10 Essential (primary) hypertension; E87.1 Hypo-osmolality and hyponatremia; I25.2 Old myocardial infarction; M48.56XA Collapsed vertebra, not elsewhere classified, lumbar region, initial encounter for fracture; N40.1 Benign prostatic hyperplasia with lower urinary tract symptoms; W18.39XA Other fall on same level, initial encounter; N39.0 Urinary tract infection, site not specified; B95.2 Enterococcus as the cause of diseases classified elsewhere; R48.8 Other symbolic dysfunctions; R06.2 Wheezing; Z51.89 Encounter for other specified aftercare; M25.552 Pain in left hip; M25.551 Pain in right hip; I25.10 Atherosclerotic heart disease of native coronary artery without angina pectoris
CPT/HCPCS: 36415; 80053; 85025; 92507; 92523; 94640; 94669; 97110; 97116; 97162; 97166; 97530; 97535; A4222; J0696; J1650; J3490; J7060; J7613; J7626

== ENCOUNTER 2019-05-30 17:15 | Observation (INO) ==
[2019-05-30 18:06] LABS: BASOPHILS # (AUTO) 0.1 X10^3/uL (0.0-0.1); EOSINOPHILS # (AUTO) 0.3 x10^3/uL (0.0-0.2); EOSINOPHILS % (AUTO) 2.2 % (0.9-2.9); HEMATOCRIT 44.5 % (42.0-54.0); LYMPHOCYTES # (AUTO) 1.8 X10^3/uL (1.3-2.9); LYMPHOCYTES % (AUTO) 15.3 % (21.0-51.0); MEAN CORPUSCULAR HGB CONC 33.7 g/dL (33.0-35.0); MEAN CORPUSCULAR VOLUME 91.9 fL (80.0-100.0); MEAN PLATELET VOLUME 7.6 fL (7.4-11.0); MONOCYTES % (AUTO) 8.5 % (0.0-13.0); NEUTROPHILS # (AUTO) 8.8 x10^3/uL (2.2-4.8); PLATELET COUNT 274 X10^3/uL (150.0-450.0); RED BLOOD COUNT 4.84 X10^6/uL (4.7-6.0); RED CELL DISTRIBUTION WIDTH 14.2 % (11.6-16.5)
--- NOTE | 2019-05-30 18:13 | RAD ---
Chest PA and lateral Indication: Dyspnea. CHF. Findings: Heart size is prominent sternotomy change noted. There is no pneumothorax or effusion. No consolidation seen. Impression: Cardiomegaly and COPD change without other acute chest process. Reported By:
[2019-05-30 18:22] LABS: BLOOD UREA NITROGEN 15 mg/dL (7-18); CALCIUM 8.5 mg/dL (8.5-10.1); CARBON DIOXIDE 20.5 mmol/L (21-32); CHLORIDE 98 mmol/L (98-107); CREATININE 1.14 mg/dL (0.70-1.30); SODIUM 130 mmol/L (136-145); TROPONIN I < 0.02 ng/mL (0-1.5); eGFR NON BLACK RACES > 60 (>60)
--- NOTE | 2019-05-30 18:22 | DR.H&P ---
H&P - History & Physical for Day of: H&P Date: 05/30/19 - Chief Complaint Chief Complaint: PALPITATIONS, WEAKNESS, SOB - History of Present Illness History of Present Illness: 74 WM DIRECT ADMIT FROM DR SINGH OFFICE AFTER PRESENTING WITH CO HEAR RACING FOR SEVERAL DAYS, INCREASED SOB, WEAKNESS AND MUSCLE CRAMPS. PT HAD EKG IN OFFICE HEART RATE 140'S. PT HAS PMH OF CHF, COPD, CVD, OA, DAVID, BPH. PT ADMITTED FOR EVALUATION AND TREATMENT OF ACUTE ILLNESS - Past Medical History Past Medical History: Coronary Artery Disease, Hypertension, Anxiety, COPD, Asthma, GERD, Arthritis, Migraines - Past Surgical History Surgical History: Appendectomy, CABG/Valve Surgery, Neurosurgery - Family History Family Medical History: [place], Coronary Artery Disease, Heart Failure, Hypertension - Social History Does patient currently use any type of tobacco product: No Have you used tobacco products in the last 12 months: No Type of Tobacco Use: None Does any household member use tobacco: No Alcohol Use: None Drug Use: None - Medications Home Medications: cortisone Allergy (Verified 08/29/18 11:17) - Review of Systems Constitutional: Weakness Eyes: No Symptoms Reported ENT: No Symptoms Reported Respiratory: Shortness of Breath, SOB with Excertion Cardiovascular: Palpitations, Edema, Light Headedness Gastrointestinal: Constipation Genitourinary: No Symptoms Reported Musculoskeletal: Back Pain, Leg Pain Skin: No Symptoms Reported Neurological: Weakness - Physical Exam Vital Signs: Blood Pressure [Left Arm] 132/60 Blood Pressure [Right Arm] 139/78 Blood Pressure 132/60 Oriented: Normal Eyes: Normal Ear: Normal Nose: Normal Throat: Dry Respiratory: RLL Diminished, LLL Diminished Cardiovascular: Tachycardia, Edema Auscultation: Bowel Sounds: Normal Palpation: Normal Tenderness: Normal Skin: Decreased Turgur Musculoskeletal: Back:Lumbar Psychiatric: Anxiety Affect: Anxious Speech Pattern: Clear, Appropriate - Assessment/Plan (1) Tachycardia Status: Acute Plan: ADMIT ICU. SERIAL CE AND EKG, ADMISSION LABS. CBC CMP UA MAG, CXR ON ADMISSION. ABG, RESP CONSULT, RESUME HOME MEDICATION, BB THERAPY. SUPPLEMENTAL O2, SINGH CATH FOR STRICT I & OS (2) SOB (shortness of breath) Status: Acute (3) History of CVA (cerebrovascular accident) Status: Chronic (4) CAD (coronary artery disease) Status: Chronic (5) BPH (benign prostatic hyperplasia) Status: Chronic (6) DDD (degenerative disc disease) Status: Chronic (7) Anxiety Status: Chronic (8) Weakness Status: Acute - Allergies Allergies/Adverse Reactions: Allergies Allergy/AdvReac Type Severity Reaction Status Date / Time cortisone Allergy Verified 08/29/18 11:17
[2019-05-30 18:24] LABS: ABG BASE EXCESS 2.1 mmol/L (-2.0-2.0); ABG HCO3 27.3 mmol/L (22-26)
[2019-05-30 18:25] LABS: ABG ALLEN TEST POS
[2019-05-30 18:35] LABS: BILIRUBIN,URINE NEGATIVE (NEGATIVE); BLOOD/HEMOGLOBIN,URINE 1+ (NEGATIVE); GLUCOSE, URINE NEGATIVE (NEGATIVE); KETONES,URINE NEGATIVE (NEGATIVE); LEUKOCYTE ESTERASE ,URINE 1+ (NEGATIVE); NITRITES,URINE NEGATIVE (NEGATIVE); PROTEIN,URINE NEGATIVE (NEGATIVE); UROBILINOGEN,URINE NORMAL (NORMAL)
[2019-05-30 18:36] LABS: ALANINE AMINOTRANSFERASE 23 Units/L (12-78); ALBUMIN 3.5 g/dL (3.4-5.0); ALKALINE PHOSPHATASE 99 Units/L (46-116); ASPARTATE AMINO TRANSFERASE 22 Units/L (15-37); CREATINE KINASE 134 Units/L (39-308); MAGNESIUM 1.8 mg/dL (1.7-2.9); TOTAL PROTEIN 8.2 g/dL (6.4-8.2)
[2019-05-30 18:43] LABS: AMORPHOUS SEDIMENT,UR 1+ /HPF (NEGATIVE); APPEARANCE,URINE HAZY (CLEAR); BACTERIA,URINE TRACE /HPF (NEGATIVE); COLOR,URINE PALE YELLOW (YELLOW); RBC,URINE 0-2 /HPF (NONE SEEN); SQUAMOUS EPITHELIAL CELL,UR RARE /HPF (NEGATIVE)
[2019-05-30 18:44] VITALS: BMI 42.5
[2019-05-30] MEDS ORDERED: LOPRESSOR INJ 5 MG AMP IVP ONE (18:44)
[2019-05-30 18:57] LABS: CKMB % 0.5 % (<4); CREATINE KINASE MB 0.6 ng/mL (0-4.0)
[2019-05-30 19:10] LABS: FREE T4 (FREE THYROXINE) 0.91 ng/dL (0.76-1.46); TSH (3RD GENERATION) 2.02 uIU/mL (0.358-3.74)
[2019-05-30] MEDS: PULMICORT NEB TX 0.5 MG NEB SCH (20:10)
[2019-05-30] MEDS: DESYREL PO SCH (21:08)
[2019-05-30] MEDS: TOPROL XL PO SCH (21:11)
[2019-05-30] MEDS: NAMENDA TAB 10 MG PO SCH (21:11)
[2019-05-30] MEDS: XANAX PO SCH (21:12)
[2019-05-31 00:27] LABS: CKMB % 1.4 % (<4); CREATINE KINASE 113 Units/L (39-308); CREATINE KINASE MB 1.6 ng/mL (0-4.0); TROPONIN I < 0.02 ng/mL (0-1.5)
[2019-05-31] MEDS: XOPENEX 1.25 MG/3 ML NEBULE NEB SCH ×4 (00:42→16:50)
[2019-05-31 05:45] LABS: BASOPHILS % (AUTO) 0.6 % (0.2-1.0); EOSINOPHILS # (AUTO) 0.3 x10^3/uL (0.0-0.2); EOSINOPHILS % (AUTO) 4.2 % (0.9-2.9); HEMATOCRIT 41.4 % (42.0-54.0); LYMPHOCYTES # (AUTO) 1.6 X10^3/uL (1.3-2.9); LYMPHOCYTES % (AUTO) 23.3 % (21.0-51.0); MEAN CORPUSCULAR HEMOGLOBIN 31.4 pg (27.0-34.0); MEAN CORPUSCULAR HGB CONC 33.8 g/dL (33.0-35.0); MEAN CORPUSCULAR VOLUME 92.9 fL (80.0-100.0); MEAN PLATELET VOLUME 7.9 fL (7.4-11.0); MONOCYTES # (AUTO) 0.7 x10^3/uL (0.3-0.8); MONOCYTES % (AUTO) 9.8 % (0.0-13.0); NEUTROPHILS # (AUTO) 4.3 x10^3/uL (2.2-4.8); NEUTROPHILS % (AUTO) 62.1 % (42.0-75.0); PLATELET COUNT 224 X10^3/uL (150.0-450.0); RED BLOOD COUNT 4.46 X10^6/uL (4.7-6.0); RED CELL DISTRIBUTION WIDTH 13.8 % (11.6-16.5); WHITE BLOOD COUNT 6.9 X10^3/uL (3.6-10.0)
[2019-05-31 06:22] LABS: ALANINE AMINOTRANSFERASE 23 Units/L (12-78); ALBUMIN 3.1 g/dL (3.4-5.0); ALKALINE PHOSPHATASE 82 Units/L (46-116); ASPARTATE AMINO TRANSFERASE 19 Units/L (15-37); BLOOD UREA NITROGEN 14 mg/dL (7-18); CALCIUM 8.3 mg/dL (8.5-10.1); CARBON DIOXIDE 31.3 mmol/L (21-32); CHLORIDE 101 mmol/L (98-107); CKMB % 1.2 % (<4); COR NA(FOR HYPERGLY) 138 mmol/L (136-145); CREATINE KINASE 100 Units/L (39-308); CREATINE KINASE MB 1.2 ng/mL (0-4.0); CREATININE 1.08 mg/dL (0.70-1.30); SODIUM 138 mmol/L (136-145); TOTAL PROTEIN 7.5 g/dL (6.4-8.2); TROPONIN I < 0.02 ng/mL (0-1.5); eGFR NON BLACK RACES > 60 (>60)
[2019-05-31] MEDS: PULMICORT NEB TX 0.5 MG NEB SCH ×2 (08:28→20:55)
[2019-05-31] MEDS ORDERED: PHARMACY CONSULT - DOSE _____ XX SCH (09:00)
[2019-05-31] MEDS: LIPITOR TAB 40 MG PO SCH (09:17)
[2019-05-31] MEDS: PROTONIX TAB 40 MG PO SCH (09:17)
[2019-05-31] MEDS: NAMENDA TAB 10 MG PO SCH ×2 (09:17→20:24)
[2019-05-31] MEDS: FLOMAX PO SCH (09:17)
[2019-05-31] MEDS: ZESTRIL TAB 5 MG PO SCH (09:18)
[2019-05-31] MEDS: XANAX PO SCH ×2 (09:18→20:25)
[2019-05-31] MEDS: TOPROL XL PO SCH ×2 (09:18→20:25)
[2019-05-31] MEDS: LOVENOX INJ 40 MG SYR SC SCH (10:01)
[2019-05-31] MEDS: PERCOCET TAB 5/325 MG PO PRN ×3 (10:01→22:39)
[2019-05-31] MEDS: SOLU-Medrol 125 MG VIAL IVP SCH ×3 (11:28→22:41)
--- NOTE | 2019-05-31 12:32 | CT ---
CT ANGIOGRAPHY OF THE CHEST Clinical indication: Shortness of breath, CHF Technique: Contrast-enhanced CT angiogram of the chest is performed in the axial plane from the thoracic inlet through the upper abdomen. The axial sequences are reconstructed with multi planer reformats. Volume rendered MIP reconstructions are also generated. Comparison: Chest x-ray 05/30/2019 Findings: The pulmonary artery tree appears well opacified with no central intraluminal filling defects fulfilling criteria for an acute pulmonary thromboembolism. Mild atherosclerotic changes are associated with the thoracic aorta, without dissection. The ascending segment of the thoracic aorta is ectatic measuring up to 3.94 cm. There are dense calcifications of the [place] coronary arteries, in a patient who is status post coronary bypass. There is evidence of left ventricular hypertrophy. There is no pericardial effusion. No pleural effusions are identified. There are no enlarged lymph nodes of the mediastinum, hilar, or axillary regions of the chest. The lungs are well expanded. There are no consolidating pulmonary infiltrates. There is no evidence of pulmonary edema. Scattered array of parenchymal and pleural based nodules measuring 1-4 mm are seen throughout the right and left lung, the majority of which appear calcified and most likely indicate prior granulomatous disease. No suspicious spiculated pulmonary nodules or lung masses are demonstrated. Upper lobe predominant paraseptal and centrilobular emphysematous changes are observed. There is, in the right apex, a sub solid ground-glass opacity which surrounds a more solid-appearing nodular scar-like opacity which measures 4.6 mm on image 18 series 4, with the entire ground-glass focus measuring up to 0.8 x 1.8 cm. The imaged portions of the upper abdomen demonstrate no emergent findings. Fatty infiltration of the pancreas is observed. Review of bone windows demonstrates no aggressive lytic or blastic bony lesions or acute osseous abnormalities. Impression: Moderate emphysema No acute pulmonary infiltrates, edema or pleural effusions identified Scattered array of parenchymal and pleural based sub cm nodules, the majority of which are calcified, most likely attributable to old granulomatous disease A separate sub solid ground-glass opacity encompassing a nodular scar component is seen within the right upper lobe measuring 1.8 cm. A follow-up CT of the chest is recommended within 3 months to confirm stability. Ectatic ascending thoracic aorta measuring up to 3.9 cm. Attention on this finding on follow-up is suggested. Other chronic postsurgical and incidental findings as discussed above. Reported By:
--- NOTE | 2019-05-31 13:56 | PCM.PROG ---
Progress Note - Progress Note for Day of Date of Exam: 05/31/19 - Subjective Subjective: 74 WM DIRECT ADMIT ON 05/30 WITH TACHYCARDIA AND INCREASED LOWER EXTREMITY EDEMA AND SOB. PT HAS PMH OF CHF. CHEST XRAY WITHOUT ACUTE CHF FINDINGS, HOWEVER PT HAS CONTINUES SOB THIS AM WITH BILATERAL DIFFUSE LE EDEMA. 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 CE NEGATIVE. 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 PLAN TO OBTAIN CTA CHEST R/O PE, ADD SOLU MEDROL IV FOR COPD MANAGEMENT. REPEAT AM LABS, CONTINUE STRICT I & OS, DUO NEBS AND SUPPLEMENTAL O2 - Past Medical Family Social History Past Med/Fam/Surg Hx: No changes since H&P Allergies: Allergies cortisone Allergy (Verified 08/29/18 11:17) - Review of Systems ROS: No change since H&P - Vital Signs and I&O's Vital Signs: Temperature 98.4 F Pulse Rate 93 Respiratory Rate 26 Blood Pressure [Left Arm] 132/60 Blood Pressure [Right Arm] 139/78 Blood Pressure 145/66 O2 Sat by Pulse Oximetry 97 Intake and Output: Intake & Output 05/29/19 05/30/19 05/31/19 06/01/19 11:59 11:59 11:59 11:59 Intake Total 1173 / 1173 Output Total 2600 / 2600 Balance -1427 / -1427 - Physical Exam Oriented: Normal Eyes: Normal Ear: Normal Nose: Normal Throat: Dry Respiratory: Diminished, Wheezes Cardiovascular: Tachycardia, Edema Auscultation: Bowel Sounds: Normal Tenderness: Normal Skin: Decreased Turgur Musculoskeletal: Back:Lumbar Psychiatric: Anxiety Affect: Anxious Speech Pattern: Clear, Appropriate - Laboratory and Diagnostics Result Diagrams: 05/31/19 05:25 05/31/19 05:25 Labs: 05/30/19 18:26 Urine,Catheterized Urine Culture - Preliminary Laboratory WBC 6.9 X10^3/uL (3.6-10.0) 05/31/19 05:25 RBC 4.46 X10^6/uL (4.7-6.0) L 05/31/19 05:25 Hgb 14.0 g/dL (13.5-18.0) 05/31/19 05:25 Hct 41.4 % (42.0-54.0) L 05/31/19 05:25 MCV 92.9 fL (80.0-100.0) 05/31/19 05:25 MCH 31.4 pg (27.0-34.0) 05/31/19 05:25 MCHC 33.8 g/dL (33.0-35.0) 05/31/19 05:25 RDW 13.8 % (11.6-16.5) 05/31/19 05:25 Plt Count 224 X10^3/uL (150.0-450.0) 05/31/19 05:25 MPV 7.9 fL (7.4-11.0) 05/31/19 05:25 Neut % (Auto) 62.1 % (42.0-75.0) 05/31/19 05:25 Lymph % (Auto) 23.3 % (21.0-51.0) 05/31/19 05:25 [place] % (Auto) 9.8 % (0.0-13.0) 05/31/19 05:25 Eos % (Auto) 4.2 % (0.9-2.9) H 05/31/19 05:25 Baso % (Auto) 0.6 % (0.2-1.0) 05/31/19 05:25 Neut # (Auto) 4.3 x10^3/uL (2.2-4.8) 05/31/19 05:25 Lymph # (Auto) 1.6 X10^3/uL (1.3-2.9) 05/31/19 05:25 [place] # (Auto) 0.7 x10^3/uL (0.3-0.8) 05/31/19 05:25 Eos # (Auto) 0.3 x10^3/uL (0.0-0.2) H 05/31/19 05:25 Baso # (Auto) 0.0 X10^3/uL (0.0-0.1) 05/31/19 05:25 Absolute Nucleated RBC 0.1 /100WBC 05/31/19 05:25 Sample Site Rr 05/30/19 18:15 ABG pH 7.400 (7.35-7.45) 05/30/19 18:15 ABG pCO2 44.0 mmHg (35.0-45.0) 05/30/19 18:15 ABG pO2 79.0 mmHg (80.0-100.0) L 05/30/19 18:15 ABG HCO3 27.3 mmol/L (22-26) H 05/30/19 18:15 ABG O2 Saturation 96.0 % (90-100) 05/30/19 18:15 ABG Base Excess 2.1 mmol/L (-2.0-2.0) H 05/30/19 18:15 Abdirashid Test Pos 05/30/19 18:15 A-a Gradient 16.0 mmHg 05/30/19 18:15 FiO2 21.0 05/30/19 18:15 Blood Gas Comments Pt darrel [email or web address] 05/30/19 18:15 Sodium 138 mmol/L (136-145) 05/31/19 05:25 Corrected Sodium 138 mmol/L (136-145) 05/31/19 05:25 Potassium 4.7 mmol/L (3.5-5.1) 05/31/19 05:25 Chloride 101 mmol/L (98-107) 05/31/19 05:25 Carbon Dioxide 31.3 mmol/L (21-32) 05/31/19 05:25 BUN 14 mg/dL (7-18) 05/31/19 05:25 Creatinine 1.08 mg/dL (0.70-1.30) 05/31/19 05:25 Est GFR (MDRD) Af Amer > 60 (>60) 05/31/19 05:25 Est GFR (MDRD) Non-Af > 60 (>60) 05/31/19 05:25 Glucose 113 mg/dL (65-99) H 05/31/19 05:25 Calcium 8.3 mg/dL (8.5-10.1) L 05/31/19 05:25 Corrected Calcium 9.0 mg/dL (8.5-10.1) 05/31/19 05:25 Magnesium 1.8 mg/dL (1.7-2.9) 05/30/19 17:56 Total Bilirubin 0.40 mg/dL (0.2-1.0) 05/31/19 05:25 AST 19 Units/L (15-37) 05/31/19 05:25 ALT 23 Units/L (12-78) 05/31/19 05:25 Alkaline Phosphatase 82 Units/L (46-116) 05/31/19 05:25 Creatine Kinase 100 Units/L (39-308) 05/31/19 05:25 CK-MB (CK-2) 1.2 ng/mL (0-4.0) 05/31/19 05:25 CK/CKMB % Calc 1.2 % (<4) 05/31/19 05:25 Troponin I < 0.02 ng/mL (0-1.5) 05/31/19 05:25 B-Natriuretic Peptide 21.2 pg/mL (0-79) 05/30/19 17:56 Total Protein 7.5 g/dL (6.4-8.2) 05/31/19 05:25 Albumin 3.1 g/dL (3.4-5.0) L 05/31/19 05:25 Globulin 4.4 g/dL (2.5-4.5) 05/31/19 05:25 Albumin/Globulin Ratio 0.7 Ratio (1.1-2.1) L 05/31/19 05:25 Free T4 0.91 ng/dL (0.76-1.46) 05/30/19 17:56 TSH 3rd Generation 2.020 uIU/mL (0.358-3.74) 05/30/19 17:56 Specimen Type Catherized urine 05/30/19 18:26 Urine Color Pale yellow (YELLOW) 05/30/19 18:26 Urine Appearance Hazy (CLEAR) 05/30/19 18:26 Urine pH 5.0 (5.0 - 8.0) 05/30/19 18:26 Ur Specific [place] 1.015 (1.000-1.030) 05/30/19 18:26 Urine Protein Negative (NEGATIVE) 05/30/19 18:26 Urine Glucose (UA) Negative (NEGATIVE) 05/30/19 18:26 Urine Ketones Negative (NEGATIVE) 05/30/19 18:26 Urine Occult Blood 1+ (NEGATIVE) 05/30/19 18:26 Urine Nitrite Negative (NEGATIVE) 05/30/19 18:26 Urine Bilirubin Negative (NEGATIVE) 05/30/19 18:26 Urine Urobilinogen Normal (NORMAL) 05/30/19 18:26 Ur Leukocyte Esterase 1+ (NEGATIVE) 05/30/19 18:26 Urine RBC 0-2 /HPF (NONE SEEN) 05/30/19 18:26 Urine WBC 10-20 /HPF (NONE SEEN) 05/30/19 18:26 Ur Squamous Epith Cells Rare /HPF (NEGATIVE) 05/30/19 18:26 Amorphous Sediment 1+ /HPF (NEGATIVE) 05/30/19 18:26 Urine Bacteria Trace /HPF (NEGATIVE) 05/30/19 18:26 Ur Culture Indicated? Yes/culture set up 05/30/19 18:26 - Plan (1) COPD exacerbation Status: Acute Plan: DUE NEBS. SUPPLEMENTAL O2. IV SOLU MEDROL. IV ROCEPHIN (2) Tachycardia Status: Acute Plan: ICU. SERIAL CE AND EKG ON ADMISION. ABG, RESP CONSULT, RESUME HOME MEDICATION, BB THERAPY. SUPPLEMENTAL O2, SINGH CATH FOR STRICT I & OS (3) SOB (shortness of breath) Status: Acute Plan: CTA CHEST R/O PE. LOVENOX PROPHALAXIS THERAPY (4) History of CVA (cerebrovascular accident) Status: Chronic (5) CAD (coronary artery disease) Status: Chronic (6) BPH (benign prostatic hyperplasia) Status: Chronic (7) DDD (degenerative disc disease) Status: Chronic (8) Anxiety Status: Chronic (9) Weakness Status: Acute
[2019-05-31] MEDS ORDERED: SALINE 3% 15 ML NEB TX NEB ONE (14:35)
[2019-05-31] MEDS: ROCEPHIN VIAL 1 GRAM IVP SCH (14:44)
[2019-05-31] MEDS: NS 1000 ML 1,000 ML IV SCH (14:45)
[2019-05-31] MEDS: DESYREL PO SCH (20:24)
[2019-05-31] MEDS: NEURONTIN CAP 400 MG PO PRN (20:28)
[2019-05-31] MEDS: COLACE CAP 100 MG PO SCH (22:44)
[2019-06-01] MEDS: XOPENEX 1.25 MG/3 ML NEBULE NEB SCH ×4 (00:25→17:27)
[2019-06-01 05:06] LABS: BASOPHILS % (AUTO) 0.2 % (0.2-1.0); HEMATOCRIT 40.7 % (42.0-54.0); HEMOGLOBIN 13.6 g/dL (13.5-18.0); LYMPHOCYTES # (AUTO) 0.6 X10^3/uL (1.3-2.9); LYMPHOCYTES % (AUTO) 5.7 % (21.0-51.0); MEAN CORPUSCULAR HGB CONC 33.4 g/dL (33.0-35.0); MEAN CORPUSCULAR VOLUME 92.9 fL (80.0-100.0); MEAN PLATELET VOLUME 8.3 fL (7.4-11.0); MONOCYTES # (AUTO) 0.1 x10^3/uL (0.3-0.8); MONOCYTES % (AUTO) 1.2 % (0.0-13.0); NEUTROPHILS % (AUTO) 92.9 % (42.0-75.0); PLATELET COUNT 243 X10^3/uL (150.0-450.0); RED BLOOD COUNT 4.38 X10^6/uL (4.7-6.0); RED CELL DISTRIBUTION WIDTH 13.4 % (11.6-16.5); WHITE BLOOD COUNT 10.8 X10^3/uL (3.6-10.0)
[2019-06-01 05:29] LABS: ALANINE AMINOTRANSFERASE 21 Units/L (12-78); ALBUMIN 3.1 g/dL (3.4-5.0); ALKALINE PHOSPHATASE 83 Units/L (46-116); ASPARTATE AMINO TRANSFERASE 15 Units/L (15-37); BLOOD UREA NITROGEN 18 mg/dL (7-18); CALCIUM 8.9 mg/dL (8.5-10.1); CARBON DIOXIDE 27.2 mmol/L (21-32); CHLORIDE 98 mmol/L (98-107); COR CA(FOR HYPOALB) 9.6 mg/dL (8.5-10.1); COR NA(FOR HYPERGLY) 136 mmol/L (136-145); CREATININE 1.18 mg/dL (0.70-1.30); SODIUM 133 mmol/L (136-145); TOTAL PROTEIN 7.6 g/dL (6.4-8.2); eGFR NON BLACK RACES > 60 (>60)
[2019-06-01 06:39] LABS: BAND NEUTROPHILS % 8 % (0-10); PLATELET MORPHOLOGY COMMENT NORMAL (NORMAL)
[2019-06-01] MEDS: ZESTRIL TAB 5 MG PO SCH (08:57)
[2019-06-01] MEDS: XANAX PO SCH ×2 (08:57→21:32)
[2019-06-01] MEDS: FLOMAX PO SCH (08:57)
[2019-06-01] MEDS: LIPITOR TAB 40 MG PO SCH (08:57)
[2019-06-01] MEDS: PROTONIX TAB 40 MG PO SCH (08:57)
[2019-06-01] MEDS: NAMENDA TAB 10 MG PO SCH ×2 (08:58→21:32)
[2019-06-01] MEDS: ROCEPHIN VIAL 1 GRAM IVP SCH (08:59)
[2019-06-01] MEDS: LOVENOX INJ 40 MG SYR SC SCH (08:59)
[2019-06-01] MEDS: TOPROL XL PO SCH ×2 (09:06→21:32)
[2019-06-01] MEDS: NEURONTIN CAP 400 MG PO PRN (09:10)
[2019-06-01] MEDS: PULMICORT NEB TX 0.5 MG NEB SCH ×2 (09:54→20:14)
--- NOTE | 2019-06-01 11:13 | PCM.PROG ---
Progress Note - Progress Note for Day of Date of Exam: 06/01/19 - Subjective Subjective: 74 WM DIRECT ADMIT ON 05/30 WITH TACHYCARDIA AND INCREASED LOWER EXTREMITY EDEMA AND SOB. PT IS CURRENTLY ON RESP THERAPY, SUPPLEMENTAL O2, ADDED SOLU MEDROL ON 05/31 WITH REPORTS OF IMPROVING SOB THIS AM. PT CONTINUES WITH BILATERAL PITTING LOWER EXTREMITY EDEMA. LASIX IV BID X 2 DOSE STARTED THIS AM. PT GLUCOSE ELEVATED ON CMP THIS W/O HX DM. A1C ORDERED WITH SSI, INFORMED PT STEROIDS IS PROBABLE CAUSE OF ELEVATION IN BLOOD SUGAR. PT DENIES BM SINCE ADMISSION, ENCOURAGED PO HYDRATION AND BOWEL REGIMEN. WILL REPEAT AM LABS AND CXR - Past Medical Family Social History Past Med/Fam/Surg Hx: No changes since H&P Allergies: Allergies cortisone Allergy (Verified 08/29/18 11:17) - Review of Systems ROS: No change since H&P - Vital Signs and I&O's Vital Signs: Temperature 98.6 F Pulse Rate 86 Respiratory Rate 20 Blood Pressure [Left Arm] 132/60 Blood Pressure [Right Arm] 139/78 Blood Pressure 143/67 O2 Sat by Pulse Oximetry 98 Intake and Output: Intake & Output 05/29/19 05/30/19 05/31/19 06/01/19 11:59 11:59 11:59 11:59 Intake Total 1972 / 1972 1712 / 1712 Output Total 2600 / 2600 4600 / 4600 Balance -627 / -627 -2888 / -2888 - Physical Exam Oriented: Normal Eyes: Normal Ear: Normal Nose: Normal Throat: Dry Respiratory: Diminished, Wheezes Cardiovascular: Tachycardia, Edema Auscultation: Bowel Sounds: Normal Tenderness: Normal Skin: Decreased Turgur Musculoskeletal: Back:Lumbar Psychiatric: Anxiety Affect: Anxious Speech Pattern: Clear, Appropriate - Laboratory and Diagnostics Result Diagrams: 06/01/19 04:15 06/01/19 04:15 Labs: 05/30/19 18:26 Urine,Catheterized Urine Culture - Preliminary Laboratory WBC 10.8 X10^3/uL (3.6-10.0) H 06/01/19 04:15 RBC 4.38 X10^6/uL (4.7-6.0) L 06/01/19 04:15 Hgb 13.6 g/dL (13.5-18.0) 06/01/19 04:15 Hct 40.7 % (42.0-54.0) L 06/01/19 04:15 MCV 92.9 fL (80.0-100.0) 06/01/19 04:15 MCH 31.0 pg (27.0-34.0) 06/01/19 04:15 MCHC 33.4 g/dL (33.0-35.0) 06/01/19 04:15 RDW 13.4 % (11.6-16.5) 06/01/19 04:15 Plt Count 243 X10^3/uL (150.0-450.0) 06/01/19 04:15 Plt Count Comment Adequate (ADEQUATE) 06/01/19 04:15 MPV 8.3 fL (7.4-11.0) 06/01/19 04:15 Neut % (Auto) 92.9 % (42.0-75.0) H 06/01/19 04:15 Lymph % (Auto) 5.7 % (21.0-51.0) L 06/01/19 04:15 [place] % (Auto) 1.2 % (0.0-13.0) 06/01/19 04:15 Eos % (Auto) 0.0 % (0.9-2.9) L 06/01/19 04:15 Baso % (Auto) 0.2 % (0.2-1.0) 06/01/19 04:15 Neut # (Auto) 10.0 x10^3/uL (2.2-4.8) H 06/01/19 04:15 Lymph # (Auto) 0.6 X10^3/uL (1.3-2.9) L 06/01/19 04:15 [place] # (Auto) 0.1 x10^3/uL (0.3-0.8) L 06/01/19 04:15 Eos # (Auto) 0.0 x10^3/uL (0.0-0.2) 06/01/19 04:15 Baso # (Auto) 0.0 X10^3/uL (0.0-0.1) 06/01/19 04:15 Absolute Nucleated RBC 0.0 /100WBC 06/01/19 04:15 Total Counted 100 06/01/19 04:15 Neutrophils % (Manual) 82 % (39-76) H 06/01/19 04:15 Band Neutrophils % 8 % (0-10) 06/01/19 04:15 Lymphocytes % (Manual) 9 % (13-43) L 06/01/19 04:15 Monocytes % (Manual) 1 % (4-9) L 06/01/19 04:15 Plt Morphology Comment Normal (NORMAL) 06/01/19 04:15 RBC Morphology Normal (NORMAL) 06/01/19 04:15 Sample Site Rr 05/30/19 18:15 ABG pH 7.400 (7.35-7.45) 05/30/19 18:15 ABG pCO2 44.0 mmHg (35.0-45.0) 05/30/19 18:15 ABG pO2 79.0 mmHg (80.0-100.0) L 05/30/19 18:15 ABG HCO3 27.3 mmol/L (22-26) H 05/30/19 18:15 ABG O2 Saturation 96.0 % (90-100) 05/30/19 18:15 ABG Base Excess 2.1 mmol/L (-2.0-2.0) H 05/30/19 18:15 Abdirashid Test Pos 05/30/19 18:15 A-a Gradient 16.0 mmHg 05/30/19 18:15 FiO2 21.0 05/30/19 18:15 Blood Gas Comments Pt darrel well.cdn 05/30/19 18:15 Sodium 133 mmol/L (136-145) L 06/01/19 04:15 Corrected Sodium 136 mmol/L (136-145) 06/01/19 04:15 Potassium 4.7 mmol/L (3.5-5.1) 06/01/19 04:15 Chloride 98 mmol/L (98-107) 06/01/19 04:15 Carbon Dioxide 27.2 mmol/L (21-32) 06/01/19 04:15 BUN 18 mg/dL (7-18) 06/01/19 04:15 Creatinine 1.18 mg/dL (0.70-1.30) 06/01/19 04:15 Est GFR (MDRD) Af Amer > 60 (>60) 06/01/19 04:15 Est GFR (MDRD) Non-Af > 60 (>60) 06/01/19 04:15 Glucose 235 mg/dL (65-99) H 06/01/19 04:15 Hemoglobin A1c 5.6 % 06/01/19 10:25 Calcium 8.9 mg/dL (8.5-10.1) 06/01/19 04:15 Corrected Calcium 9.6 mg/dL (8.5-10.1) 06/01/19 04:15 Magnesium 1.8 mg/dL (1.7-2.9) 05/30/19 17:56 Total Bilirubin 0.30 mg/dL (0.2-1.0) 06/01/19 04:15 AST 15 Units/L (15-37) 06/01/19 04:15 ALT 21 Units/L (12-78) 06/01/19 04:15 Alkaline Phosphatase 83 Units/L (46-116) 06/01/19 04:15 Creatine Kinase 100 Units/L (39-308) 05/31/19 05:25 CK-MB (CK-2) 1.2 ng/mL (0-4.0) 05/31/19 05:25 CK/CKMB % Calc 1.2 % (<4) 05/31/19 05:25 Troponin I < 0.02 ng/mL (0-1.5) 05/31/19 05:25 B-Natriuretic Peptide 21.2 pg/mL (0-79) 05/30/19 17:56 Total Protein 7.6 g/dL (6.4-8.2) 06/01/19 04:15 Albumin 3.1 g/dL (3.4-5.0) L 06/01/19 04:15 Globulin 4.5 g/dL (2.5-4.5) 06/01/19 04:15 Albumin/Globulin Ratio 0.7 Ratio (1.1-2.1) L 06/01/19 04:15 Free T4 0.91 ng/dL (0.76-1.46) 05/30/19 17:56 TSH 3rd Generation 2.020 uIU/mL (0.358-3.74) 05/30/19 17:56 Specimen Type Catherized urine 05/30/19 18:26 Urine Color Pale yellow (YELLOW) 05/30/19 18:26 Urine Appearance Hazy (CLEAR) 05/30/19 18:26 Urine pH 5.0 (5.0 - 8.0) 05/30/19 18:26 Ur Specific [place] 1.015 (1.000-1.030) 05/30/19 18:26 Urine Protein Negative (NEGATIVE) 05/30/19 18:26 Urine Glucose (UA) Negative (NEGATIVE) 05/30/19 18:26 Urine Ketones Negative (NEGATIVE) 05/30/19 18:26 Urine Occult Blood 1+ (NEGATIVE) 05/30/19 18:26 Urine Nitrite Negative (NEGATIVE) 05/30/19 18:26 Urine Bilirubin Negative (NEGATIVE) 05/30/19 18:26 Urine Urobilinogen Normal (NORMAL) 05/30/19 18:26 Ur Leukocyte Esterase 1+ (NEGATIVE) 05/30/19 18:26 Urine RBC 0-2 /HPF (NONE SEEN) 05/30/19 18:26 Urine WBC 10-20 /HPF (NONE SEEN) 05/30/19 18:26 Ur Squamous Epith Cells Rare /HPF (NEGATIVE) 05/30/19 18:26 Amorphous Sediment 1+ /HPF (NEGATIVE) 05/30/19 18:26 Urine Bacteria Trace /HPF (NEGATIVE) 05/30/19 18:26 Ur Culture Indicated? Yes/culture set up 05/30/19 18:26 - Plan (1) COPD exacerbation Status: Acute Plan: DUE NEBS. SUPPLEMENTAL O2. IV SOLU MEDROL. IV ROCEPHIN (2) Tachycardia Status: Acute Plan: ICU. SERIAL CE AND EKG ON ADMISION. ABG, RESP CONSULT, RESUME HOME MEDICATION, BB THERAPY. SUPPLEMENTAL O2, SINGH CATH FOR STRICT I & OS (3) SOB (shortness of breath) Status: Acute Plan: CTA CHEST R/O PE NEGATIVE, RESULTS REVIEWED WITH PT. LOVENOX PROPHALAXIS THERAPY (4) History of CVA (cerebrovascular accident) Status: Chronic (5) CAD (coronary artery disease) Status: Chronic (6) BPH (benign prostatic hyperplasia) Status: Chronic (7) DDD (degenerative disc disease) Status: Chronic (8) Anxiety Status: Chronic (9) Weakness Status: Acute (10) CHF exacerbation Status: Acute Plan: IV LASIX, STRICT I & OS. AM CXR, CARDIAC MONITORING
[2019-06-01] MEDS: HumuLIN R SUBCUT PRN ×4 (12:10→21:40)
[2019-06-01] MEDS ORDERED: LASIX IVP ONE (12:12)
[2019-06-01] MEDS: MILK OF MAGNESIA PO SCH ×2 (12:16→21:32)
[2019-06-01] MEDS: LASIX IVP SCH ×2 (12:16→21:34)
[2019-06-01] MEDS: PERCOCET TAB 5/325 MG PO PRN ×2 (12:23→22:13)
[2019-06-01] MEDS ORDERED: SNACK - Diabetic Appropriate PO SCH (20:00)
[2019-06-01] MEDS: COLACE CAP 100 MG PO SCH (21:30)
[2019-06-01] MEDS: DESYREL PO SCH (21:31)
[2019-06-02] MEDS: XOPENEX 1.25 MG/3 ML NEBULE NEB SCH ×4 (00:36→17:00)
[2019-06-02 05:27] LABS: BASOPHILS % (AUTO) 0.2 % (0.2-1.0); EOSINOPHILS # (AUTO) 0.1 x10^3/uL (0.0-0.2); EOSINOPHILS % (AUTO) 0.4 % (0.9-2.9); HEMATOCRIT 41.9 % (42.0-54.0); HEMOGLOBIN 14.1 g/dL (13.5-18.0); LYMPHOCYTES # (AUTO) 1.3 X10^3/uL (1.3-2.9); LYMPHOCYTES % (AUTO) 10.9 % (21.0-51.0); MEAN CORPUSCULAR HEMOGLOBIN 30.9 pg (27.0-34.0); MEAN CORPUSCULAR HGB CONC 33.7 g/dL (33.0-35.0); MEAN CORPUSCULAR VOLUME 91.6 fL (80.0-100.0); MEAN PLATELET VOLUME 7.7 fL (7.4-11.0); MONOCYTES # (AUTO) 0.9 x10^3/uL (0.3-0.8); MONOCYTES % (AUTO) 7.9 % (0.0-13.0); NEUTROPHILS # (AUTO) 9.7 x10^3/uL (2.2-4.8); NEUTROPHILS % (AUTO) 80.6 % (42.0-75.0); PLATELET COUNT 269 X10^3/uL (150.0-450.0); RED BLOOD COUNT 4.58 X10^6/uL (4.7-6.0); RED CELL DISTRIBUTION WIDTH 13.5 % (11.6-16.5)
[2019-06-02 05:45] LABS: ALANINE AMINOTRANSFERASE 20 Units/L (12-78); ALBUMIN 3.1 g/dL (3.4-5.0); ALKALINE PHOSPHATASE 88 Units/L (46-116); ASPARTATE AMINO TRANSFERASE 14 Units/L (15-37); BLOOD UREA NITROGEN 30 mg/dL (7-18); CALCIUM 8.8 mg/dL (8.5-10.1); CARBON DIOXIDE 35.3 mmol/L (21-32); CHLORIDE 97 mmol/L (98-107); COR CA(FOR HYPOALB) 9.5 mg/dL (8.5-10.1); COR NA(FOR HYPERGLY) 136 mmol/L (136-145); CREATININE 1.23 mg/dL (0.70-1.30); SODIUM 135 mmol/L (136-145); TOTAL PROTEIN 7.7 g/dL (6.4-8.2); eGFR NON BLACK RACES > 60 (>60)
[2019-06-02] MEDS: NS 1000 ML 1,000 ML IV SCH (07:24)
[2019-06-02] MEDS: PULMICORT NEB TX 0.5 MG NEB SCH (08:55)
[2019-06-02] MEDS: TOPROL XL PO SCH (09:26)
[2019-06-02] MEDS: ROCEPHIN VIAL 1 GRAM IVP SCH (09:26)
[2019-06-02] MEDS: MILK OF MAGNESIA PO SCH (09:26)
[2019-06-02] MEDS: NEURONTIN CAP 400 MG PO PRN (09:26)
[2019-06-02] MEDS: PROTONIX TAB 40 MG PO SCH (09:27)
[2019-06-02] MEDS: XANAX PO SCH (09:27)
[2019-06-02] MEDS: FLOMAX PO SCH (09:27)
[2019-06-02] MEDS: ZESTRIL TAB 5 MG PO SCH (09:27)
[2019-06-02] MEDS: NAMENDA TAB 10 MG PO SCH (09:27)
[2019-06-02] MEDS: LIPITOR TAB 40 MG PO SCH (09:27)
[2019-06-02] MEDS: LOVENOX INJ 40 MG SYR SC SCH (09:30)
[2019-06-02 16:48] VITALS: BP 126/58
== END 2019-06-02 18:00 | disposition home or self-care (01) ==
LOC: ICU → MED/SURG 06-01 17:04
PROVIDERS: ADMIT Internal Medicine; ATTEND Internal Medicine
DX: R00.0 Tachycardia, unspecified; K21.9 Gastro-esophageal reflux disease without esophagitis; I25.10 Atherosclerotic heart disease of native coronary artery without angina pectoris; R53.1 Weakness; Z86.73 Personal history of transient ischemic attack (TIA), and cerebral infarction without residual deficits; R60.0 Localized edema; I50.9 Heart failure, unspecified; F41.8 Other specified anxiety disorders; J44.1 Chronic obstructive pulmonary disease with (acute) exacerbation; R25.2 Cramp and spasm; N40.0 Benign prostatic hyperplasia without lower urinary tract symptoms; R73.09 Other abnormal glucose; R06.02 Shortness of breath; R26.89 Other abnormalities of gait and mobility
CPT/HCPCS: 36415; 36600; 71020; 71046; 71275; 80053; 81001; 82550; 82553; 82803; 83036; 83735; 83880; 84439; 84443; 84484; 85025; 87086; 93005; 94640; 96367; 96372; 96374; 97162; A4222; G0378; J0696; J1650; J1815; J1940; J2930; J3490; J7030; J7626

== ENCOUNTER 2020-07-30 14:48 | Observation (INO) ==
--- NOTE | 2020-07-30 18:14 | DR.H&P ---
H&P - History & Physical for Day of: H&P Date: 07/30/20 - Chief Complaint Chief Complaint: syncope, legs swelling, weakness - History of Present Illness History of Present Illness: PT IS 75 WM DIRECT ADMIT FROM DR SINGH OFFICE WITH CO MULTIPLE FALLS DUE TO SYNCOPE. PT STATES HE HAS "BLACKED OUT" FELL AND HIT KNEE, HAS SCATTERED BRUISES TO ARMS AND LEGS. PT HAD INCREASED LOWER LEG SWELLING AND SOB EVEN AT REST. PT DENIES ANY CCC, FEVER, OR FLU LIKE SYMPTOMS. PT HAS PMH OF HTN, HX CVA, COPD, CHF, OA, BPH. PT ADMITTED FOR TREATMENT OF ACUTE ILLNESS. - Past Medical History Past Medical History: Coronary Artery Disease, Hypertension, Anxiety, COPD, Asthma, GERD, Arthritis, Migraines - Past Surgical History Surgical History: Appendectomy, CABG/Valve Surgery, Neurosurgery, Other - Family History Family Medical History: [place], Coronary Artery Disease, Heart Failure, Hypertension - Social History Does patient currently use any type of tobacco product: No Have you used tobacco products in the last 12 months: No Type of Tobacco Use: None Does any household member use tobacco: No Alcohol Use: None Drug Use: None - Medications Home Medications: cortisone Allergy (Verified 08/29/18 11:17) - Review of Systems Constitutional: Fever, Weakness, Malaise Eyes: No Symptoms Reported Respiratory: SOB with Excertion. denies: Cough Cardiovascular: Edema. denies: Chest Pain Genitourinary: Frequency, Retention Musculoskeletal: Back Pain, Leg Pain Skin: Bruising Neurological: Weakness - Physical Exam Vital Signs: Temperature 99.7 F Pulse Rate [Left Brachial] 121 Respiratory Rate 20 Blood Pressure [Left Arm] 132/60 Blood Pressure [Right Arm] 144/69 Blood Pressure 126/58 O2 Sat by Pulse Oximetry 90 Oriented: Normal Eyes: Normal Ear: Normal Nose: Normal Throat: Normal Respiratory: Diminished Throughout Cardiovascular: Edema : Normal Auscultation: Bowel Sounds: Normal Palpation: Normal Tenderness: Normal Skin: Decreased Turgur Musculoskeletal: Right, Left, Leg, Swelling, Tender Psychiatric: Anxiety Affect: Anxious Speech Pattern: Clear, Appropriate - Assessment/Plan (1) Syncope Status: Acute Plan: ADMIT, CT HEAD. ADMISSION LABS CBC CMP UA, CARDIAC ENZYMES, EKG ON ADMISSION. SINGH CATH, STRICT I&OS. RESP CONSULT, DUO NEBS. IV LASIX (2) CHF exacerbation Status: Acute (3) BPH (benign prostatic hyperplasia) Status: Chronic (4) CAD (coronary artery disease) Status: Chronic (5) DDD (degenerative disc disease) Status: Chronic (6) History of CVA (cerebrovascular accident) Status: Chronic - Allergies Allergies/Adverse Reactions: Allergies Allergy/AdvReac Type Severity Reaction Status Date / Time cortisone Allergy Verified 08/29/18 11:17
[2020-07-30] MEDS: XANAX PO SCH (18:15)
[2020-07-30 18:39] LABS: BASOPHILS # (AUTO) 0.1 X10^3/uL (0.0-0.1); BASOPHILS % (AUTO) 0.4 % (0.2-1.0); EOSINOPHILS # (AUTO) 0.4 x10^3/uL (0.0-0.2); EOSINOPHILS % (AUTO) 2.7 % (0.9-2.9); HEMATOCRIT 35.5 % (42.0-54.0); HEMOGLOBIN 11.8 g/dL (13.5-18.0); LYMPHOCYTES # (AUTO) 1.8 X10^3/uL (1.3-2.9); LYMPHOCYTES % (AUTO) 12.2 % (21.0-51.0); MEAN CORPUSCULAR HEMOGLOBIN 28.6 pg (27.0-34.0); MEAN CORPUSCULAR HGB CONC 33.4 g/dL (33.0-35.0); MEAN CORPUSCULAR VOLUME 85.5 fL (80.0-100.0); MEAN PLATELET VOLUME 8.1 fL (7.4-11.0); MONOCYTES # (AUTO) 0.9 x10^3/uL (0.3-0.8); NEUTROPHILS # (AUTO) 11.5 x10^3/uL (2.2-4.8); NEUTROPHILS % (AUTO) 78.7 % (42.0-75.0); PLATELET COUNT 231 X10^3/uL (150.0-450.0); RED BLOOD COUNT 4.15 X10^6/uL (4.7-6.0); RED CELL DISTRIBUTION WIDTH 14.1 % (11.6-16.5); WHITE BLOOD COUNT 14.6 X10^3/uL (3.6-10.0)
[2020-07-30 18:53] LABS: BLOOD UREA NITROGEN 23 mg/dL (7-18); CALCIUM 8.5 mg/dL (8.5-10.1); CARBON DIOXIDE 29.9 mmol/L (21-32); CHLORIDE 99 mmol/L (98-107); CREATININE 1.08 mg/dL (0.70-1.30); SODIUM 134 mmol/L (136-145); TROPONIN I < 0.02 ng/mL (0-1.5); eGFR NON BLACK RACES > 60 (>60)
[2020-07-30 18:58] LABS: ALANINE AMINOTRANSFERASE 18 Units/L (12-78); ALBUMIN 3.2 g/dL (3.4-5.0); ALKALINE PHOSPHATASE 123 Units/L (46-116); ASPARTATE AMINO TRANSFERASE 16 Units/L (15-37); CKMB % 2.9 % (<4); COR CA(FOR HYPOALB) 9.1 mg/dL (8.5-10.1); CREATINE KINASE 35 Units/L (39-308); CREATINE KINASE MB < 1.0 ng/mL (0-4.0); TOTAL PROTEIN 7.9 g/dL (6.4-8.2)
[2020-07-30 19:56] LABS: BILIRUBIN,URINE NEGATIVE (NEGATIVE); BLOOD/HEMOGLOBIN,URINE 2+ (NEGATIVE); GLUCOSE, URINE NEGATIVE (NEGATIVE); KETONES,URINE NEGATIVE (NEGATIVE); LEUKOCYTE ESTERASE ,URINE 3+ (NEGATIVE); NITRITES,URINE POSITIVE (NEGATIVE); PROTEIN,URINE NEGATIVE (NEGATIVE); UROBILINOGEN,URINE NORMAL (NORMAL)
[2020-07-30 20:02] LABS: APPEARANCE,URINE HAZY (CLEAR); COLOR,URINE YELLOW (YELLOW)
[2020-07-30 20:03] LABS: BACTERIA,URINE 2+ /HPF (NEGATIVE); RBC,URINE 0-2 /HPF (0-3); SQUAMOUS EPITHELIAL CELL,UR FEW /HPF (NEGATIVE)
[2020-07-30] MEDS: COREG TAB 3.125 MG PO SCH (20:41)
[2020-07-30] MEDS: CHECK PATCH XX SCH (20:41)
[2020-07-30] MEDS: DESYREL PO SCH (20:41)
[2020-07-30] MEDS: PERCOCET TAB 5/325 MG PO PRN (20:42)
[2020-07-30] MEDS: PROVENTIL NEB TX 0.083% 2.5MG/ 3ML NEB SCH (21:30)
[2020-07-31] MEDS: PROVENTIL NEB TX 0.083% 2.5MG/ 3ML NEB SCH ×6 (01:30→21:05)
[2020-07-31 06:17] LABS: BASOPHILS # (AUTO) 0.1 X10^3/uL (0.0-0.1); BASOPHILS % (AUTO) 1.2 % (0.2-1.0); EOSINOPHILS # (AUTO) 0.5 x10^3/uL (0.0-0.2); HEMOGLOBIN 11.9 g/dL (13.5-18.0); LYMPHOCYTES # (AUTO) 1.9 X10^3/uL (1.3-2.9); LYMPHOCYTES % (AUTO) 22.3 % (21.0-51.0); MEAN CORPUSCULAR HEMOGLOBIN 28.8 pg (27.0-34.0); MEAN CORPUSCULAR HGB CONC 33.1 g/dL (33.0-35.0); MEAN CORPUSCULAR VOLUME 86.9 fL (80.0-100.0); MONOCYTES # (AUTO) 0.9 x10^3/uL (0.3-0.8); MONOCYTES % (AUTO) 10.4 % (0.0-13.0); NEUTROPHILS # (AUTO) 5.2 x10^3/uL (2.2-4.8); NEUTROPHILS % (AUTO) 60.1 % (42.0-75.0); PLATELET COUNT 202 X10^3/uL (150.0-450.0); RED BLOOD COUNT 4.14 X10^6/uL (4.7-6.0); RED CELL DISTRIBUTION WIDTH 14.3 % (11.6-16.5); WHITE BLOOD COUNT 8.6 X10^3/uL (3.6-10.0)
[2020-07-31 06:24] LABS: ALANINE AMINOTRANSFERASE 17 Units/L (12-78); ALBUMIN 2.9 g/dL (3.4-5.0); ALKALINE PHOSPHATASE 121 Units/L (46-116); ASPARTATE AMINO TRANSFERASE 20 Units/L (15-37); BLOOD UREA NITROGEN 21 mg/dL (7-18); CALCIUM 8.7 mg/dL (8.5-10.1); CARBON DIOXIDE 30.6 mmol/L (21-32); CHLORIDE 103 mmol/L (98-107); CHOL/HDL RATIO 2.1 (0.0-5.0); CHOLESTEROL 74 mg/dL (0-200); COR CA(FOR HYPOALB) 9.6 mg/dL (8.5-10.1); COR NA(FOR HYPERGLY) 139 mmol/L (136-145); HDL CHOLESTEROL 35 mg/dL (40-60); SODIUM 138 mmol/L (136-145); TOTAL PROTEIN 7.5 g/dL (6.4-8.2); TRIGLYCERIDES 79 mg/dL (0-150); eGFR NON BLACK RACES > 60 (>60)
--- NOTE | 2020-07-31 06:30 | RAD ---
HISTORYCOPD, CHFSTUDYCHEST, 1 [id number] view of the chestFINDINGSCardiac and mediastinal contours within normal limits. Status post median sternotomy and CABG. The lungs appear clear. No pleural effusion or pneumothorax.IMPRESSIONNo acute pulmonary process.Electronically signed by: Gregory aWlter (Jul 31, 2020 06:29:23)
[2020-07-31 08:38] VITALS: BMI 39.9
[2020-07-31] MEDS: LASIX IVP SCH ×2 (08:44→20:00)
[2020-07-31] MEDS: EFFEXOR XR 150 MG CAP 24-HR PO SCH (08:45)
[2020-07-31] MEDS: COREG TAB 3.125 MG PO SCH ×2 (08:45→21:09)
[2020-07-31] MEDS: XANAX PO SCH (08:47)
[2020-07-31] MEDS: LIPITOR TAB 40 MG PO SCH (08:47)
[2020-07-31] MEDS: FLOMAX PO SCH (08:47)
[2020-07-31] MEDS: PROTONIX TAB 40 MG PO SCH (08:48)
[2020-07-31] MEDS: ZESTRIL TAB 5 MG PO SCH (08:48)
[2020-07-31] MEDS ORDERED: NS 500 ML IV 500 ML IV ONE (09:50)
[2020-07-31] MEDS: ROCEPHIN VIAL 1 GRAM 1 G in NS 100 ML IV + SPIKE MINIBAG* 100 ML IV SCH (10:00)
[2020-07-31] MEDS: NS 500 ML IV 500 ML IV SCH (10:00)
[2020-07-31] MEDS: CHECK PATCH XX SCH ×2 (10:05→21:07)
[2020-07-31 10:36] LABS: BILIRUBIN,URINE NEGATIVE (NEGATIVE); BLOOD/HEMOGLOBIN,URINE 1+ (NEGATIVE); GLUCOSE, URINE NEGATIVE (NEGATIVE); KETONES,URINE NEGATIVE (NEGATIVE); LEUKOCYTE ESTERASE ,URINE 3+ (NEGATIVE); NITRITES,URINE POSITIVE (NEGATIVE); PROTEIN,URINE NEGATIVE (NEGATIVE); UROBILINOGEN,URINE NORMAL (NORMAL)
[2020-07-31 10:45] LABS: APPEARANCE,URINE HAZY (CLEAR); COLOR,URINE PALE YELLOW (YELLOW)
[2020-07-31 10:46] LABS: BACTERIA,URINE 1+ /HPF (NEGATIVE); SQUAMOUS EPITHELIAL CELL,UR NEGATIVE /HPF (NEGATIVE)
--- NOTE | 2020-07-31 11:22 | RAD ---
HISTORYABD DISTENTION, CONSTIPATION Relevant Clinical InformationSTUDYKUBCOMPARISONNoneFINDINGSThere is a large amount of colonic and rectal stool no obstr uction or ileus is seen. Evaluation for renal calcifications is suboptimal due to the degree of overl meera stool.IMPRESSIONLarge amount of colonic stool without evidence of ileus.Electronically signed by : JASON ANNE (Jul 31, 2020 11:21:48)
[2020-07-31] MEDS: LOVENOX INJ 40 MG SYR SC SCH (11:30)
[2020-07-31 11:38] LABS: CKMB % 2.6 % (<4); CREATINE KINASE 39 Units/L (39-308); CREATINE KINASE MB < 1.0 ng/mL (0-4.0); TROPONIN I < 0.02 ng/mL (0-1.5)
--- NOTE | 2020-07-31 12:01 | CT ---
HISTORYSYNCOPESTUDYBRAIN W/O CONCOMPARISONCT brain from 09/02/18TECHNIQUEMultiple axial images of the head were performed from the skullbase to the vertex using standard departmental protocol. Sagittal and coronal reformatted images were performed. Dose reduction techniques including Automated Exposure Control (AEC) and adjustment of mA and kV were utilized.FINDINGSThe lateral ventricles and basilar cisterns are patent. No parenchymal mass or hematoma. No extra-axial collection. Leary-white differentiation appears acutely preserved. The globes are intact. Paranasal sinuses and mastoid air cells are clear. The calvarium is intact. Age-appropriate volume loss.IMPRESSIONNo acute intracranial abnormality.Electronically signed by: Gregory Walter (Jul 31, 2020 12:01:32)
[2020-07-31] MEDS: NYSTATIN POWDER TOP SCH ×2 (16:14→21:09)
[2020-07-31] MEDS: COLACE CAP 100 MG PO SCH (16:15)
[2020-07-31] MEDS: MILK OF MAGNESIA PO SCH (16:15)
[2020-07-31 17:37] LABS: CKMB % 2.6 % (<4); CREATINE KINASE 38 Units/L (39-308); CREATINE KINASE MB < 1.0 ng/mL (0-4.0); TROPONIN I < 0.02 ng/mL (0-1.5)
[2020-07-31] MEDS: PERCOCET TAB 5/325 MG PO PRN (19:19)
[2020-07-31] MEDS: NEURONTIN CAP 400 MG PO PRN (21:00)
[2020-07-31] MEDS: DESYREL PO SCH (21:09)
[2020-07-31 23:34] LABS: CKMB % 2.4 % (<4); CREATINE KINASE 42 Units/L (39-308); CREATINE KINASE MB < 1.0 ng/mL (0-4.0); TROPONIN I < 0.02 ng/mL (0-1.5)
[2020-08-01] MEDS: PROVENTIL NEB TX 0.083% 2.5MG/ 3ML NEB SCH ×3 (01:15→08:50)
[2020-08-01] MEDS: MILK OF MAGNESIA PO SCH (03:35)
[2020-08-01] MEDS: COLACE CAP 100 MG PO SCH (03:35)
[2020-08-01] MEDS: NEURONTIN CAP 400 MG PO PRN ×2 (05:09→13:04)
[2020-08-01 07:02] LABS: BASOPHILS % (AUTO) 0.5 % (0.2-1.0); EOSINOPHILS # (AUTO) 0.6 x10^3/uL (0.0-0.2); EOSINOPHILS % (AUTO) 7.5 % (0.9-2.9); HEMATOCRIT 37.6 % (42.0-54.0); HEMOGLOBIN 12.6 g/dL (13.5-18.0); LYMPHOCYTES # (AUTO) 1.9 X10^3/uL (1.3-2.9); LYMPHOCYTES % (AUTO) 23.6 % (21.0-51.0); MEAN CORPUSCULAR HEMOGLOBIN 29.5 pg (27.0-34.0); MEAN CORPUSCULAR HGB CONC 33.6 g/dL (33.0-35.0); MEAN CORPUSCULAR VOLUME 87.9 fL (80.0-100.0); MEAN PLATELET VOLUME 8.4 fL (7.4-11.0); MONOCYTES # (AUTO) 0.7 x10^3/uL (0.3-0.8); NEUTROPHILS # (AUTO) 4.8 x10^3/uL (2.2-4.8); NEUTROPHILS % (AUTO) 59.4 % (42.0-75.0); PLATELET COUNT 233 X10^3/uL (150.0-450.0); RED BLOOD COUNT 4.28 X10^6/uL (4.7-6.0); RED CELL DISTRIBUTION WIDTH 14.2 % (11.6-16.5); WHITE BLOOD COUNT 8.1 X10^3/uL (3.6-10.0)
[2020-08-01 07:18] LABS: ALANINE AMINOTRANSFERASE 21 Units/L (12-78); ALBUMIN 3.1 g/dL (3.4-5.0); ALKALINE PHOSPHATASE 137 Units/L (46-116); ASPARTATE AMINO TRANSFERASE 19 Units/L (15-37); BLOOD UREA NITROGEN 18 mg/dL (7-18); CALCIUM 8.7 mg/dL (8.5-10.1); CARBON DIOXIDE 35.1 mmol/L (21-32); CHLORIDE 99 mmol/L (98-107); COR CA(FOR HYPOALB) 9.4 mg/dL (8.5-10.1); COR NA(FOR HYPERGLY) 140 mmol/L (136-145); CREATININE 1.18 mg/dL (0.70-1.30); SODIUM 138 mmol/L (136-145); TOTAL PROTEIN 8.1 g/dL (6.4-8.2); eGFR NON BLACK RACES > 60 (>60)
[2020-08-01] MEDS: COREG TAB 3.125 MG PO SCH (08:50)
[2020-08-01] MEDS: EFFEXOR XR 150 MG CAP 24-HR PO SCH (08:50)
[2020-08-01] MEDS: NYSTATIN POWDER TOP SCH (08:51)
[2020-08-01] MEDS: LIPITOR TAB 40 MG PO SCH (08:51)
[2020-08-01] MEDS: FLOMAX PO SCH (08:51)
[2020-08-01] MEDS: ZESTRIL TAB 5 MG PO SCH (08:51)
[2020-08-01] MEDS: XANAX PO SCH (08:52)
[2020-08-01] MEDS: PROTONIX TAB 40 MG PO SCH (08:53)
[2020-08-01] MEDS: LOVENOX INJ 40 MG SYR SC SCH (08:53)
[2020-08-01] MEDS: ROCEPHIN VIAL 1 GRAM 1 G in NS 100 ML IV + SPIKE MINIBAG* 100 ML IV SCH (08:53)
[2020-08-01] MEDS: CHECK PATCH XX SCH (09:12)
[2020-08-01] MEDS: LASIX IVP SCH (09:13)
[2020-08-01] MEDS: NS 500 ML IV 500 ML IV SCH (10:54)
[2020-08-01 14:28] VITALS: BP 106/76
== END 2020-08-01 14:27 | disposition home or self-care (01) ==
LOC: MED/SURG
PROVIDERS: ADMIT Internal Medicine; ATTEND Internal Medicine
DX: M50.30 Other cervical disc degeneration, unspecified cervical region; R53.1 Weakness; I25.10 Atherosclerotic heart disease of native coronary artery without angina pectoris; R55 Syncope and collapse; K21.9 Gastro-esophageal reflux disease without esophagitis; I50.9 Heart failure, unspecified; N39.0 Urinary tract infection, site not specified; M51.36 Other intervertebral disc degeneration, lumbar region; B96.4 Proteus (mirabilis) (morganii) as the cause of diseases classified elsewhere; J44.9 Chronic obstructive pulmonary disease, unspecified; R06.02 Shortness of breath; R29.6 Repeated falls; N40.0 Benign prostatic hyperplasia without lower urinary tract symptoms; R94.31 Abnormal electrocardiogram [ECG] [EKG]; I11.0 Hypertensive heart disease with heart failure; R26.89 Other abnormalities of gait and mobility; R60.0 Localized edema; Z86.73 Personal history of transient ischemic attack (TIA), and cerebral infarction without residual deficits

== ENCOUNTER 2021-08-05 18:28 | Observation (INO) ==
[2021-08-05 19:05] VITALS: BMI 36.4
[2021-08-05] MEDS ORDERED: TYLENOL 500 MG TAB EXTRA STRENGTH PO ONE ×2 (19:08→19:19)
[2021-08-05] MEDS ORDERED: NS 1000 ML 1,000 ML IV ONE (19:14)
[2021-08-05] MEDS ORDERED: NS 1000 ML 1,000 ML ONE ×2 (19:23→23:52)
--- NOTE | 2021-08-05 19:34 | DR.GENAD ---
HPI <Nathan Mandujano - Last Filed: 08/05/21 19:49> Time Seen Time Seen by Provider: 08/05/21 18:44 PCP Primary Care Physician: MARCELA Complaint/Symptoms Chief Complaint Doctors Comments: 76 y/o male brought in for evaluation by EMS. Pt was fine yesterday, in his usual state of health, had his chronic Lacey changed by RN. Developed a fever today, with increased weakness (usually wheelchair bound), with degree of confusion. Not a good historian. Pt "not sure" of what is going on. Per daughter, he was coughing a bit while they were awaiting EMS to show up. Denies any pain, dyspnea, N/V/D. + some discomfort of the bladder region, Lacey burning ore than usual. Did receive Covid vaccinations. Chief Complaint:: AMS, FEVER, BLADDER PAIN Self Treatment fo Chief Complaint: PER EMS, PT SLEEPING MOST OF DAY, HAS FEVER, NOW 89, HE IS CONFUSED AT TIMES, C/O BLADDER PAIN, BURNING. COVID-19 Coronavirus risk:travel/contact w/high risk person: No Has patient experienced Coronavirus symptoms: Yes Coronavirus symptoms experienced: Fever and Coughing Nurses notes reviewed Nurses Notes Review: Yes Source History Provided: Patient and EMS Mode of Arrival Mode of Arrival: Stretcher Timing Onset of Chief Complaint: 08/05/21 Came on: Gradually Duration Duration: Constant How lon Duration: Days Severity Severity: Moderate Modifying Factors Worsens:: nothing Improves:: nothing PMH <Nathan Boylevivi - Last Filed: 08/05/21 19:49> PMH Past Medical History: Yes Past Medical History: COPD and Coronary Artery Disease Past Medical History Comment: BACK PROBLEMS. NON AMBULATORY Past Surgical History: Yes Surgical History: CABG/Valve Surgery Past Surgical History Comment: BACK SURGERY, HERNIA Family History History of Family Medical Conditions: Yes Family Medical History: [place], Coronary Artery Disease, Heart Failure and Hypertension Social History Does patient currently use any type of tobacco product: No Have you used tobacco products in the last 12 months: No Type of Tobacco Use: None Alcohol Use: None Do you use any recreational Drugs:: No Lives With: Family Lives Where: Home Infectious screening In the last 2 months have you had wt loss of >10#?: NO Have you had fever, night sweats or hemotysis?: No Have you traveled outside the country in the last 6 months?: No Isolation: Standard ROS <Nathan Boylevivi - Last Filed: 08/05/21 19:49> Review of Systems Constitutional: Fever, Malaise and Weakness Eyes: No Symptoms Reported ENTM: No Symptoms Reported Respiratoy: Non-Productive Cough; negative Short of Breath Cardiovascular: No Symptoms Reported Gastrointestinal/Abdominal: No Symptoms Reported; negative Diarrhea, Nausea and Vomiting Genitourinary: Dysuria Neurological: Weakness; negative Headache Musculoskeletal: No Symptoms Reported Integumentary: No Symptoms Reported Hematologic/Lymphatic: No Symptoms Reported Endocrine: No Symptoms Reported Psychiatric: No Symptoms Reported All Other Systems: Reviewed and Negative PE <Nathan Grovivi - Last Filed: 08/05/21 19:49> Vital Signs Vitals: Temperature 98 F Pulse Rate [Left] 124 Pulse Rate 134 Respiratory Rate 24 Blood Pressure [Left Arm] 132/60 Blood Pressure [Right Arm] 156/81 Blood Pressure 141/84 O2 Sat by Pulse Oximetry 99 General Limitations: No Limitations General Appearance: Alert and In No Apparent Distress Head Head Exam: Normal Inspection, Atraumatic and Normocephalic Eyes Eye exam: Normal Appearance and PERRL; negative Conjunctival Injection ENT ENT Exam: Normal Exam Neck Neck Exam: Normal Inspection and Full ROM; negative Meningismus Chest Chest Inspection: Normal Inspection Respiratory Respiratory Exam: Normal Lung Sounds Bilat; negative Accessory Muscle Use and Respiratory Distress Respiratory Exam: Bilateral: Clear to Auscultation Cardiovascular Cardiovascular Exam: Regular Rate, Normal Rhythm and Normal Heart Sounds Abdominal Exam Abdominal Exam: Normal Inspection and Normal Bowel Sounds; negative Tenderness Extremities Extremities Exam: Normal Inspection; negative Edema Back Back Exam: Normal Inspection and Full ROM Neurologic Neurological Exam: Alert, CN II-XII Intact and Motor Sensory Deficit (+ bilateral lower extremity weakness (chronic)) Psychiatric Psychiatric Exam: Normal Affect Skin Skin Exam: Warm and Dry <Sahara Metz - Last Filed: 08/05/21 23:37> Vital Signs Vitals: Temperature 98 F Pulse Rate [Left] 124 Pulse Rate 134 Respiratory Rate 24 Blood Pressure [Left Arm] 132/60 Blood Pressure [Right Arm] 156/81 Blood Pressure 141/84 O2 Sat by Pulse Oximetry 99 MDM <Nathanvika Mandujano - Last Filed: 08/05/21 19:49> Differential Diagnosis Differential Diagnosis: UTI, urosepsis, pneumonia, viral illness, Covid, flu COURSE <Nathan Mandujano - Last Filed: 08/05/21 19:49> Treatment Treatment: 76 y/o male, ill today with fever, weakness, confusion. Is tachy with a fever. Given PO tylenol, IV fluids. W/u initiated. Pt will be signed over to my relief physician, Dr. Metz. <Sahara Metz - Last Filed: 08/05/21 23:37> Treatment Treatment: 2328 pt resting comfortably with oxygen in place and at bedside; discussed dx and need for admission Consultation Call Returned: 22:59 (Dr Mace accepts admission.) ROR <Nathan Boylevivi - Last Filed: 08/05/21 19:49> Labs Reviewed Result Diagrams: 08/05/21 19:40 08/05/21 19:40 Laboratory: WBC 10.1 X10^3/uL (3.6-10.0) H 08/05/21 19:40 RBC 4.58 X10^6/uL (4.7-6.0) L 08/05/21 19:40 Hgb 13.8 g/dL (13.5-18.0) 08/05/21 19:40 Hct 40.2 % (42.0-54.0) L 08/05/21 19:40 MCV 87.8 fL (80.0-100.0) 08/05/21 19:40 MCH 30.2 pg (27.0-34.0) 08/05/21 19:40 MCHC 34.4 g/dL (33.0-35.0) 08/05/21 19:40 RDW 14.2 % (11.6-16.5) 08/05/21 19:40 Plt Count 229 X10^3/uL (150.0-450.0) 08/05/21 19:40 MPV 7.8 fL (7.4-11.0) 08/05/21 19:40 Neut % (Auto) 82.4 % (42.0-75.0) H 08/05/21 19:40 Lymph % (Auto) 8.6 % (21.0-51.0) L 08/05/21 19:40 [place] % (Auto) 7.7 % (0.0-13.0) 08/05/21 19:40 Eos % (Auto) 0.8 % (0.9-2.9) L 08/05/21 19:40 Baso % (Auto) 0.5 % (0.2-1.0) 08/05/21 19:40 Neut # (Auto) 8.3 x10^3/uL (2.2-4.8) H 08/05/21 19:40 Lymph # (Auto) 0.9 X10^3/uL (1.3-2.9) L 08/05/21 19:40 [place] # (Auto) 0.8 x10^3/uL (0.3-0.8) 08/05/21 19:40 Eos # (Auto) 0.1 x10^3/uL (0.0-0.2) 08/05/21 19:40 Baso # (Auto) 0.0 X10^3/uL (0.0-0.1) 08/05/21 19:40 Absolute Nucleated RBC 0.1 /100WBC 08/05/21 19:40 Sodium 128 mmol/L (136-145) L 08/05/21 19:40 Corrected Sodium 129 mmol/L (136-145) L 08/05/21 19:40 Potassium 3.7 mmol/L (3.5-5.1) 08/05/21 19:40 Chloride 92 mmol/L (98-107) L 08/05/21 19:40 Carbon Dioxide 28.0 mmol/L (21-32) 08/05/21 19:40 BUN 14 mg/dL (7-18) 08/05/21 19:40 Creatinine 1.18 mg/dL (0.70-1.30) 08/05/21 19:40 Est GFR (MDRD) Af Amer > 60 (>60) 08/05/21 19:40 Est GFR (MDRD) Non-Af > 60 (>60) 08/05/21 19:40 Glucose 130 mg/dL (65-99) H 08/05/21 19:40 Lactic Acid 0.9 mmol/L (0.4-2.0) 08/05/21 19:40 Calcium 8.4 mg/dL (8.5-10.1) L 08/05/21 19:40 Corrected Calcium 9.0 mg/dL (8.5-10.1) 08/05/21 19:40 Total Bilirubin 1.00 mg/dL (0.2-1.0) 08/05/21 19:40 AST 29 Units/L (15-37) 08/05/21 19:40 ALT 21 Units/L (12-78) 08/05/21 19:40 Alkaline Phosphatase 115 Units/L (46-116) 08/05/21 19:40 Creatine Kinase 35 Units/L (39-308) L 08/05/21 19:40 CK-MB (CK-2) < 1.0 ng/mL (0-4.0) 08/05/21 19:40 CK/CKMB % Calc 2.9 % (<4) 08/05/21 19:40 Troponin I < 0.02 ng/mL (0-1.5) 08/05/21 19:40 Total Protein 8.2 g/dL (6.4-8.2) 08/05/21 19:40 Albumin 3.2 g/dL (3.4-5.0) L 08/05/21 19:40 Globulin 5.0 g/dL (2.5-4.5) H 08/05/21 19:40 Albumin/Globulin Ratio 0.6 Ratio (1.1-2.1) L 08/05/21 19:40 Lipase 50 Units/L (73-393) L 08/05/21 19:40 Specimen Type Clean catch urine 08/05/21 20:05 Urine Color Yellow (YELLOW) 08/05/21 20:05 Urine Appearance Cloudy (CLEAR) 08/05/21 20:05 Urine pH 6.0 (5.0 - 8.0) 08/05/21 20:05 Ur Specific [place] 1.015 (1.000-1.030) 08/05/21 20:05 Urine Protein 2+ (NEGATIVE) 08/05/21 20:05 Urine Glucose (UA) Negative (NEGATIVE) 08/05/21 20:05 Urine Ketones 2+ (NEGATIVE) 08/05/21 20:05 Urine Occult Blood 5+ (NEGATIVE) 08/05/21 20:05 Urine Nitrite Positive (NEGATIVE) 08/05/21 20:05 Urine Bilirubin Negative (NEGATIVE) 08/05/21 20:05 Urine Urobilinogen 2+ (NORMAL) 08/05/21 20:05 Ur Leukocyte Esterase 3+ (NEGATIVE) 08/05/21 20:05 Urine RBC 30-50 /HPF (0-3) A 08/05/21 20:05 Urine WBC Tntc /HPF (0-5) A 08/05/21 20:05 Ur Squamous Epith Cells Rare /HPF (NEGATIVE) 08/05/21 20:05 Urine Bacteria 2+ /HPF (NEGATIVE) 08/05/21 20:05 Ur Culture Indicated? Yes/culture set up 08/05/21 20:05 Influenza Type A Ag Negative-presumptive (NEGATIVE) 08/05/21 19:30 Influenza Type B Ag Negative-presumptive (NEGATIVE) 08/05/21 19:30 SARS CoV-2 RNA Rapid RAJAN Negative (NEGATIVE) 08/05/21 19:30 XRAY XRAY Interpreted by: Both X-ray Results: No acute abnormalities EKG Rate: 134 [place]: Normal Rhythm: ST Block: None Hypertrophy: None ST: Nonsp <Sahara Metz - Last Filed: 08/05/21 23:37> Labs Reviewed Laboratory Results Reviewed?: Yes Laboratory: WBC 10.1 X10^3/uL (3.6-10.0) H 08/05/21 19:40 RBC 4.58 X10^6/uL (4.7-6.0) L 08/05/21 19:40 Hgb 13.8 g/dL (13.5-18.0) 08/05/21 19:40 Hct 40.2 % (42.0-54.0) L 08/05/21 19:40 MCV 87.8 fL (80.0-100.0) 08/05/21 19:40 MCH 30.2 pg (27.0-34.0) 08/05/21 19:40 MCHC 34.4 g/dL (33.0-35.0) 08/05/21 19:40 RDW 14.2 % (11.6-16.5) 08/05/21 19:40 Plt Count 229 X10^3/uL (150.0-450.0) 08/05/21 19:40 MPV 7.8 fL (7.4-11.0) 08/05/21 19:40 Neut % (Auto) 82.4 % (42.0-75.0) H 08/05/21 19:40 Lymph % (Auto) 8.6 % (21.0-51.0) L 08/05/21 19:40 [place] % (Auto) 7.7 % (0.0-13.0) 08/05/21 19:40 Eos % (Auto) 0.8 % (0.9-2.9) L 08/05/21 19:40 Baso % (Auto) 0.5 % (0.2-1.0) 08/05/21 19:40 Neut # (Auto) 8.3 x10^3/uL (2.2-4.8) H 08/05/21 19:40 Lymph # (Auto) 0.9 X10^3/uL (1.3-2.9) L 08/05/21 19:40 [place] # (Auto) 0.8 x10^3/uL (0.3-0.8) 08/05/21 19:40 Eos # (Auto) 0.1 x10^3/uL (0.0-0.2) 08/05/21 19:40 Baso # (Auto) 0.0 X10^3/uL (0.0-0.1) 08/05/21 19:40 Absolute Nucleated RBC 0.1 /100WBC 08/05/21 19:40 Sodium 128 mmol/L (136-145) L 08/05/21 19:40 Corrected Sodium 129 mmol/L (136-145) L 08/05/21 19:40 Potassium 3.7 mmol/L (3.5-5.1) 08/05/21 19:40 Chloride 92 mmol/L (98-107) L 08/05/21 19:40 Carbon Dioxide 28.0 mmol/L (21-32) 08/05/21 19:40 BUN 14 mg/dL (7-18) 08/05/21 19:40 Creatinine 1.18 mg/dL (0.70-1.30) 08/05/21 19:40 Est GFR (MDRD) Af Amer > 60 (>60) 08/05/21 19:40 Est GFR (MDRD) Non-Af > 60 (>60) 08/05/21 19:40 Glucose 130 mg/dL (65-99) H 08/05/21 19:40 Lactic Acid 0.9 mmol/L (0.4-2.0) 08/05/21 19:40 Calcium 8.4 mg/dL (8.5-10.1) L 08/05/21 19:40 Corrected Calcium 9.0 mg/dL (8.5-10.1) 08/05/21 19:40 Total Bilirubin 1.00 mg/dL (0.2-1.0) 08/05/21 19:40 AST 29 Units/L (15-37) 08/05/21 19:40 ALT 21 Units/L (12-78) 08/05/21 19:40 Alkaline Phosphatase 115 Units/L (46-116) 08/05/21 19:40 Creatine Kinase 35 Units/L (39-308) L 08/05/21 19:40 CK-MB (CK-2) < 1.0 ng/mL (0-4.0) 08/05/21 19:40 CK/CKMB % Calc 2.9 % (<4) 08/05/21 19:40 Troponin I < 0.02 ng/mL (0-1.5) 08/05/21 19:40 Total Protein 8.2 g/dL (6.4-8.2) 08/05/21 19:40 Albumin 3.2 g/dL (3.4-5.0) L 08/05/21 19:40 Globulin 5.0 g/dL (2.5-4.5) H 08/05/21 19:40 Albumin/Globulin Ratio 0.6 Ratio (1.1-2.1) L 08/05/21 19:40 Lipase 50 Units/L (73-393) L 08/05/21 19:40 Specimen Type Clean catch urine 08/05/21 20:05 Urine Color Yellow (YELLOW) 08/05/21 20:05 Urine Appearance Cloudy (CLEAR) 08/05/21 20:05 Urine pH 6.0 (5.0 - 8.0) 08/05/21 20:05 Ur Specific [place] 1.015 (1.000-1.030) 08/05/21 20:05 Urine Protein 2+ (NEGATIVE) 08/05/21 20:05 Urine Glucose (UA) Negative (NEGATIVE) 08/05/21 20:05 Urine Ketones 2+ (NEGATIVE) 08/05/21 20:05 Urine Occult Blood 5+ (NEGATIVE) 08/05/21 20:05 Urine Nitrite Positive (NEGATIVE) 08/05/21 20:05 Urine Bilirubin Negative (NEGATIVE) 08/05/21 20:05 Urine Urobilinogen 2+ (NORMAL) 08/05/21 20:05 Ur Leukocyte Esterase 3+ (NEGATIVE) 08/05/21 20:05 Urine RBC 30-50 /HPF (0-3) A 08/05/21 20:05 Urine WBC Tntc /HPF (0-5) A 08/05/21 20:05 Ur Squamous Epith Cells Rare /HPF (NEGATIVE) 08/05/21 20:05 Urine Bacteria 2+ /HPF (NEGATIVE) 08/05/21 20:05 Ur Culture Indicated? Yes/culture set up 08/05/21 20:05 Influenza Type A Ag Negative-presumptive (NEGATIVE) 08/05/21 19:30 Influenza Type B Ag Negative-presumptive (NEGATIVE) 08/05/21 19:30 SARS CoV-2 RNA Rapid RAJAN Negative (NEGATIVE) 08/05/21 19:30 Opioid <Nathan Mandujano - Last Filed: 08/05/21 19:49> Opioid Risk Tool Age (Adrián box if 16-45): No History of Preadolescent Sexual Abuse: No Total: 0 Total Score Risk Category: Low Risk Copyright: Joseph NEIL predicting aberrant behaviors <Sahara Metz - Last Filed: 08/05/21 23:37> Opioid Risk Tool Total: 0 Total Score Risk Category: Low Risk <Nathan Mandujano - Last Filed: 08/05/21 19:49> Diagnosis Discharge Problem: Acute UTI, Acute hyponatremia Instructions Forms: Precautions for COVID19 [facility] Patient Portal Social Distancing
--- NOTE | 2021-08-05 19:39 | RAD ---
CHEST, 1 VIEWHISTORY: FEVER, CONFUSIONStudy: Single view of the chest.Comparison:NoneFindings:The cardiomediastinal silhouette is normal.No focal consolidations, pleural effusions or pneumothorax. Osseous structures demonstrate no acute abnormality.IMPRESSION:1. No acute cardiopulmonary process.Electronically signed by: THIERRY VILLAR (Aug 05, 2021 19:36:37)
[2021-08-05 20:02] LABS: HEMOGLOBIN 13.8 g/dL (13.5-18.0); MEAN CORPUSCULAR HEMOGLOBIN 30.2 pg (27.0-34.0); WHITE BLOOD COUNT 10.1 X10^3/uL (3.6-10.0)
[2021-08-05 20:06] LABS: BASOPHILS % (AUTO) 0.5 % (0.2-1.0); EOSINOPHILS # (AUTO) 0.1 x10^3/uL (0.0-0.2); EOSINOPHILS % (AUTO) 0.8 % (0.9-2.9); HEMATOCRIT 40.2 % (42.0-54.0); LYMPHOCYTES # (AUTO) 0.9 X10^3/uL (1.3-2.9); LYMPHOCYTES % (AUTO) 8.6 % (21.0-51.0); MEAN CORPUSCULAR HGB CONC 34.4 g/dL (33.0-35.0); MEAN CORPUSCULAR VOLUME 87.8 fL (80.0-100.0); MEAN PLATELET VOLUME 7.8 fL (7.4-11.0); MONOCYTES # (AUTO) 0.8 x10^3/uL (0.3-0.8); MONOCYTES % (AUTO) 7.7 % (0.0-13.0); NEUTROPHILS # (AUTO) 8.3 x10^3/uL (2.2-4.8); NEUTROPHILS % (AUTO) 82.4 % (42.0-75.0); PLATELET COUNT 229 X10^3/uL (150.0-450.0); RED BLOOD COUNT 4.58 X10^6/uL (4.7-6.0); RED CELL DISTRIBUTION WIDTH 14.2 % (11.6-16.5)
[2021-08-05 20:12] LABS: LACTIC ACID 0.9 mmol/L (0.4-2.0)
[2021-08-05 20:26] LABS: ALANINE AMINOTRANSFERASE 21 Units/L (12-78); ALBUMIN 3.2 g/dL (3.4-5.0); ALKALINE PHOSPHATASE 115 Units/L (46-116); ASPARTATE AMINO TRANSFERASE 29 Units/L (15-37); BLOOD UREA NITROGEN 14 mg/dL (7-18); CALCIUM 8.4 mg/dL (8.5-10.1); CHLORIDE 92 mmol/L (98-107); COR NA(FOR HYPERGLY) 129 mmol/L (136-145); CREATINE KINASE 35 Units/L (39-308); CREATINE KINASE MB < 1.0 ng/mL (0-4.0); CREATININE 1.18 mg/dL (0.70-1.30); SODIUM 128 mmol/L (136-145); TOTAL PROTEIN 8.2 g/dL (6.4-8.2); eGFR NON BLACK RACES > 60 (>60)
[2021-08-05 20:27] LABS: CKMB % 2.9 % (<4); LIPASE 50 Units/L (73-393); TROPONIN I < 0.02 ng/mL (0-1.5)
[2021-08-05 20:34] LABS: BILIRUBIN,URINE NEGATIVE (NEGATIVE); BLOOD/HEMOGLOBIN,URINE 5+ (NEGATIVE); GLUCOSE, URINE NEGATIVE (NEGATIVE); KETONES,URINE 2+ (NEGATIVE); LEUKOCYTE ESTERASE ,URINE 3+ (NEGATIVE); NITRITES,URINE POSITIVE (NEGATIVE); PROTEIN,URINE 2+ (NEGATIVE); UROBILINOGEN,URINE 2+ (NORMAL)
[2021-08-05 20:43] LABS: APPEARANCE,URINE CLOUDY (CLEAR); COLOR,URINE YELLOW (YELLOW)
[2021-08-05 20:44] LABS: BACTERIA,URINE 2+ /HPF (NEGATIVE); RBC,URINE 30-50 /HPF (0-3); SQUAMOUS EPITHELIAL CELL,UR RARE /HPF (NEGATIVE)
[2021-08-05] MEDS ORDERED: ROCEPHIN VIAL 1 GRAM 1 G in NS 100 ML IV + SPIKE MINIBAG* 100 ML IV STA (21:21)
[2021-08-05] MEDS ORDERED: ROCEPHIN 1 GRAM IV PREMIX 1 G/50 ML IV.SOLN. IV ONE (21:36)
[2021-08-05 22:48] VITALS: BP 156/81
[2021-08-05] MEDS ORDERED: ZOFRAN INJ 4 MG VIAL IVP PRN (22:56)
[2021-08-05] MEDS ORDERED: TYLENOL 325 MG TAB PO PRN (22:56)
[2021-08-05] MEDS ORDERED: ROCEPHIN VIAL 1 GRAM 1 G in NS 100 ML IV + SPIKE MINIBAG* 100 ML IV SCH (22:58)
[2021-08-05] MEDS ORDERED: NS 1000 ML 1,000 ML IV SCH (23:00)
== END 2021-08-06 01:30 | disposition left against medical advice (07) ==
LOC: ER 18:28 → U 18:28
PROVIDERS: ADMIT Obstetrics & Gynecology Obstetrics; ATTEND Obstetrics & Gynecology Obstetrics
DX: R41.0 Disorientation, unspecified; E87.1 Hypo-osmolality and hyponatremia; I25.10 Atherosclerotic heart disease of native coronary artery without angina pectoris; N39.0 Urinary tract infection, site not specified; B96.29 Other Escherichia coli [E. coli] as the cause of diseases classified elsewhere; J44.9 Chronic obstructive pulmonary disease, unspecified; Z20.822 Contact with and (suspected) exposure to COVID-19; R50.9 Fever, unspecified

== ENCOUNTER 2021-08-06 21:34 | Observation (INO) ==
[2021-08-06] MEDS ORDERED: NS 1000 ML 1,000 ML IV ONE ×2 (21:49)
[2021-08-06] MEDS ORDERED: NS 1000 ML 2,000 ML ONE (22:04)
--- NOTE | 2021-08-06 22:18 | DR.AMS ---
HPI Time Seen Time Seen by Provider: 08/06/21 21:47 PCP Primary Care Physician: jose HPI Comment HPI Comment: pt sign out AMA after being admitted yesterday, pt had UTI Complaint Chief Complaint:: EMS called out for unresponsive. EMS gave a total of 4 mg narcan via nose. Report by EMS, pt now more responsive. Reviewed Nurses Notes Reviewed: Yes Source History Provided: EMS Timing Onset of Chief Complaint: 08/06/21 PMH PMH Past Medical History: Yes Past Medical History: COPD and Coronary Artery Disease Past Medical History Comment: chronic indwelling urinary catheter Past Surgical History: Yes Surgical History: CABG/Valve Surgery Family History History of Family Medical Conditions: Yes Family Medical History: [place], Coronary Artery Disease, Heart Failure and Hypertension Social History Alcohol Use: None Do you use any recreational Drugs:: No Lives Where: Home Infectious screening Have you traveled outside the country in the last 6 months?: No Isolation: Standard ROS Review of Systems Unable to Obtain Due To: Altered mental status PE Vitals Vital Signs: Temp Pulse Pulse Resp BP BP BP 08/07/21 00:30 90 24 97/53 08/06/21 23:38 24 89/45 08/06/21 23:00 91 H 20 94/54 08/06/21 22:00 97.6 F 85 22 89/45 08/06/21 21:55 96.8 F L 88 38 H 94/54 08/06/21 00:10 156/81 09/13/18 08:00 132/60 Pulse Ox 08/07/21 00:30 100 08/06/21 23:38 98 08/06/21 23:00 98 08/06/21 22:00 98 08/06/21 21:55 100 08/06/21 00:10 09/13/18 08:00 General Limitations: Language Barrier General Appearance: Other (more alert , answer questions, improved after second dose of narcan) Head Head Exam: Normal Inspection Eyes Eye exam: Normal Appearance ENT ENT Exam: Normal Exam External Ear Exam: Normal External Inspection Nose Exam: Normal Nose Exam Mouth Exam: Normal Inspection Throat Exam: Normal Inspection Neck Neck Exam: Normal Inspection Chest Chest Inspection: Normal Inspection Respiratory Respiratory Exam: Normal Lung Sounds Bilat Cardiovascular Cardiovascular Exam: Regular Rate and Normal Rhythm Abdominal Exam Abdominal Exam: Normal Inspection, Normal Bowel Sounds and Soft Extremities Extremities Exam: Normal Inspection Back Back Exam: Normal Inspection Neurological Neurological Exam: Alert, Oriented X3 and CN II-XII Intact; negative Motor Sensory Deficit Patient Oriented To: Person and Place Speech: Fluid Speech Psychological Psychiatric Exam: Normal Affect and Normal Mood Skin Skin Exam: Warm, Dry, Intact and Normal Color Other Exam Other Exam: stern, otherwise normal MDM Additional Information Obtained Additional Information Obtained From: Old Records Differential Diagnosis Metabolic: Dehydration, Delirium tr., DKA, Hypercalcemia, Hypernatremia, HHNC, Hypoglycemia, Hyponatremia, Hypoxemia and Post-ictal Structural: C-spine Injury, Closed Head Injury, CVA, Mass Lesion and SAH Toxicologic: Drug Overdose, ETOH Intoxification and Medication Toxicity Infectious: Meningitis, Sepsis and UTI Environmental: Hyperthermia and Hypothermia COURSE Treatment Treatment: AMS, over medicated, UTI, will eval for sepsis, IVFs, no need for narcan at this point, will give rocephin for UTI Reevaluation 1st: Unchanged (EKG abnormal but no chest pain, spoke with Mace, will admit for AMS and UTI and hypotension, ekg changes could be due to hypotension, will monitor) 2nd: Improved (gas and EKG improved, staff unable to get blood, placed emergent femoral line) 3rd: Unchanged (soft BP, no signs of septic shock, central line placed will admit) Critical Care Notes Total Time (mins): 35 Critical Diagnosis: AMS, hypotension, UTI Critical Interventions: fluid resusitation and antibiotics ROR Labs Reviewed Laboratory Results Reviewed?: Yes Result Diagrams: 08/07/21 00:20 08/07/21 00:20 Laboratory: WBC 10.2 X10^3/uL (3.6-10.0) H 08/07/21 00:20 RBC 3.97 X10^6/uL (4.7-6.0) L 08/07/21 00:20 Hgb 11.6 g/dL (13.5-18.0) L D 08/07/21 00:20 Hct 34.7 % (42.0-54.0) L 08/07/21 00:20 MCV 87.5 fL (80.0-100.0) 08/07/21 00:20 MCH 29.4 pg (27.0-34.0) 08/07/21 00:20 MCHC 33.6 g/dL (33.0-35.0) 08/07/21 00:20 RDW 14.0 % (11.6-16.5) 08/07/21 00:20 Plt Count 212 X10^3/uL (150.0-450.0) 08/07/21 00:20 MPV 7.8 fL (7.4-11.0) 08/07/21 00:20 Neut % (Auto) 75.3 % (42.0-75.0) H 08/07/21 00:20 Lymph % (Auto) 10.8 % (21.0-51.0) L 08/07/21 00:20 [place] % (Auto) 12.8 % (0.0-13.0) 08/07/21 00:20 Eos % (Auto) 0.4 % (0.9-2.9) L 08/07/21 00:20 Baso % (Auto) 0.7 % (0.2-1.0) 08/07/21 00:20 Neut # (Auto) 7.7 x10^3/uL (2.2-4.8) H 08/07/21 00:20 Lymph # (Auto) 1.1 X10^3/uL (1.3-2.9) L 08/07/21 00:20 [place] # (Auto) 1.3 x10^3/uL (0.3-0.8) H 08/07/21 00:20 Eos # (Auto) 0.0 x10^3/uL (0.0-0.2) 08/07/21 00:20 Baso # (Auto) 0.1 X10^3/uL (0.0-0.1) 08/07/21 00:20 Absolute Nucleated RBC 0.0 /100WBC 08/07/21 00:20 [facility] 08/06/21 22:43 ABG pH 7.440 (7.35-7.45) 08/06/21 22:43 ABG pCO2 36.0 mmHg (35.0-45.0) 08/06/21 22:43 ABG pO2 65.0 mmHg (80.0-100.0) L 08/06/21 22:43 ABG HCO3 24.5 mmol/L (22-26) 08/06/21 22:43 ABG O2 Saturation 93.0 % (90-100) 08/06/21 22:43 ABG Base Excess 0.6 mmol/L (-2.0-2.0) 08/06/21 22:43 Abdirashid Test Pos 08/06/21 22:43 A-a Gradient 40.0 mmHg 08/06/21 22:43 FiO2 21.0 08/06/21 22:43 Blood Gas Comments [facility] 08/06/21 22:43 Sodium 131 mmol/L (136-145) L 08/07/21 00:20 Corrected Sodium 132 mmol/L (136-145) L 08/07/21 00:20 Potassium 4.2 mmol/L (3.5-5.1) 08/07/21 00:20 Chloride 96 mmol/L (98-107) L 08/07/21 00:20 Carbon Dioxide 27.3 mmol/L (21-32) 08/07/21 00:20 BUN 23 mg/dL (7-18) H 08/07/21 00:20 Creatinine 2.22 mg/dL (0.70-1.30) H 08/07/21 00:20 Est GFR (MDRD) Af Amer 37 (>60) L 08/07/21 00:20 Est GFR (MDRD) Non-Af 31 (>60) L 08/07/21 00:20 Glucose 156 mg/dL (65-99) H 08/07/21 00:20 Lactic Acid 1.6 mmol/L (0.4-2.0) 08/07/21 00:20 Calcium 7.5 mg/dL (8.5-10.1) L 08/07/21 00:20 Corrected Calcium 8.7 mg/dL (8.5-10.1) 08/07/21 00:20 Total Bilirubin 0.60 mg/dL (0.2-1.0) 08/07/21 00:20 AST 43 Units/L (15-37) H 08/07/21 00:20 ALT 20 Units/L (12-78) 08/07/21 00:20 Alkaline Phosphatase 79 Units/L (46-116) 08/07/21 00:20 Total Protein 6.8 g/dL (6.4-8.2) 08/07/21 00:20 Albumin 2.5 g/dL (3.4-5.0) L 08/07/21 00:20 Globulin 4.3 g/dL (2.5-4.5) 08/07/21 00:20 Albumin/Globulin Ratio 0.6 Ratio (1.1-2.1) L 08/07/21 00:20 renal insuf, wbc is stable Other Results Comments: repeat EKG sinus [address] wave changes XRAY XRAY Interpreted by: Radiologist X-ray Results: cxr NAP EKG Compared to prior EKG Dated: 08/05/21 Rate: 89 [place]: Normal Rhythm: NSR (low voltage, repol abnormalities, change from yesterday, more pronounced) ST: Nonsp Opioid Opioid Risk Tool Age (Adrián box if 16-45): No History of Preadolescent Sexual Abuse: No Total: 0 Total Score Risk Category: Low Risk Copyright: Joseph NEIL predicting aberrant behaviors Procedures Central Line Central Line Lumen: triple Central Line Procedure: betadine prep, sterile drapes applied and sterile dressing applied Central Line Postion: femoral (R) Anesthesia: Lidocaine cc's of anesthesia: 2 Complications: none Central Line Post Position: sutured and good blood return Progress: no complications, a couple of previous failed fem sticks for blood, central line on first, modified seldinger technique Diagnosis Discharge Problem: Acute UTI, Weakness, Acute hypotension, Acute renal insufficiency Overdose of analgesic Qualifiers: Encounter type: initial encounter Injury intent: accidental or unintentional Qualified Code(s): T39.91XA - Poisoning by unspecified nonopioid analgesic, antipyretic and antirheumatic, accidental (unintentional), initial encounter Altered mental status Qualifiers: Altered mental status type: unspecified Qualified Code(s): R41.82 - Altered mental status, unspecified
[2021-08-06] MEDS ORDERED: ROCEPHIN VIAL 1 GRAM ONE (22:37)
[2021-08-06] MEDS: ROCEPHIN VIAL 1 GRAM 1 G in NS 100 ML IV + SPIKE MINIBAG* 100 ML IV SCH ×2 (22:43→23:00)
[2021-08-06 22:44] LABS: ABG BASE EXCESS 0.6 mmol/L (-2.0-2.0); ABG HCO3 24.5 mmol/L (22-26)
[2021-08-06 22:45] LABS: ABG ALLEN TEST POS
--- NOTE | 2021-08-06 23:17 | RAD ---
PROCEDURE: Chest X-ray 1 View .HISTORY: SEPSIS .TECHNIQUE: AP view .COMPARISON: 08/05/2021.TECHNICAL QUALITY: Satisfactory .FINDINGS:Normal size heart .Mediastinum and hilar regions show no masses or lymphadenopathy .Normal central vascularity .No pulmonary consolidation, masses, pleural fluid, or pneumothorax .No acute bony abnormality .IMPRESSION:No active cardiopulmonary disease .Electronically signed by: Nikos Gray (Aug 06, 2021 23:14:49)
[2021-08-07 00:31] LABS: BASOPHILS # (AUTO) 0.1 X10^3/uL (0.0-0.1); BASOPHILS % (AUTO) 0.7 % (0.2-1.0); EOSINOPHILS % (AUTO) 0.4 % (0.9-2.9); HEMATOCRIT 34.7 % (42.0-54.0); HEMOGLOBIN 11.6 g/dL (13.5-18.0); LYMPHOCYTES # (AUTO) 1.1 X10^3/uL (1.3-2.9); LYMPHOCYTES % (AUTO) 10.8 % (21.0-51.0); MEAN CORPUSCULAR HEMOGLOBIN 29.4 pg (27.0-34.0); MEAN CORPUSCULAR HGB CONC 33.6 g/dL (33.0-35.0); MEAN CORPUSCULAR VOLUME 87.5 fL (80.0-100.0); MEAN PLATELET VOLUME 7.8 fL (7.4-11.0); MONOCYTES # (AUTO) 1.3 x10^3/uL (0.3-0.8); MONOCYTES % (AUTO) 12.8 % (0.0-13.0); NEUTROPHILS # (AUTO) 7.7 x10^3/uL (2.2-4.8); NEUTROPHILS % (AUTO) 75.3 % (42.0-75.0); PLATELET COUNT 212 X10^3/uL (150.0-450.0); RED BLOOD COUNT 3.97 X10^6/uL (4.7-6.0); WHITE BLOOD COUNT 10.2 X10^3/uL (3.6-10.0)
[2021-08-07 00:46] LABS: ALBUMIN 2.5 g/dL (3.4-5.0); CALCIUM 7.5 mg/dL (8.5-10.1); CARBON DIOXIDE 27.3 mmol/L (21-32); COR CA(FOR HYPOALB) 8.7 mg/dL (8.5-10.1); CREATININE 2.22 mg/dL (0.70-1.30); TOTAL PROTEIN 6.8 g/dL (6.4-8.2)
[2021-08-07 00:49] LABS: LACTIC ACID 1.6 mmol/L (0.4-2.0)
[2021-08-07 00:54] LABS: CKMB % 0.2 % (<4); CREATINE KINASE 488 Units/L (39-308); CREATINE KINASE MB < 1.0 ng/mL (0-4.0); TROPONIN I 0.18 ng/mL (0-1.5)
[2021-08-07] MEDS ORDERED: NS 500 ML IV 500 ML IV ONE (01:00)
[2021-08-07] MEDS ORDERED: NS 1000 ML 1,000 ML ONE (01:02)
[2021-08-07] MEDS: NS 1000 ML 1,000 ML IV SCH ×3 (01:35→19:04)
[2021-08-07 05:13] VITALS: BMI 38.2
[2021-08-07 06:35] LABS: CKMB % 0.2 % (<4); CREATINE KINASE 539 Units/L (39-308); CREATINE KINASE MB < 1.0 ng/mL (0-4.0); TROPONIN I 0.12 ng/mL (0-1.5)
[2021-08-07] MEDS ORDERED: CHOLECALCIFEROL 1000 UNIT PO SCH (09:00)
[2021-08-07] MEDS ORDERED: [UNRECOGNIZED DRUG - OTHER] PO SCH (09:00)
[2021-08-07] MEDS ORDERED: ROCEPHIN 1 GRAM IV PREMIX 1 G/50 ML IV.SOLN. IV ONE (09:08)
[2021-08-07] MEDS: PULMICORT NEB TX 0.5 MG NEB SCH ×2 (09:35→20:50)
[2021-08-07] MEDS: PROTONIX TAB 40 MG PO SCH (09:49)
[2021-08-07] MEDS: ROCEPHIN VIAL 1 GRAM 1 G in NS 100 ML IV + SPIKE MINIBAG* 100 ML IV SCH ×2 (09:49→20:25)
[2021-08-07] MEDS: VITAMIN D3 25 mcg (1,000 UNITS) PO SCH (10:37)
[2021-08-07 12:04] LABS: CKMB % 0.2 % (<4); CREATINE KINASE MB 1.7 ng/mL (0-4.0); TROPONIN I 0.07 ng/mL (0-1.5)
[2021-08-07 12:39] LABS: CALCIUM 7.4 mg/dL (8.5-10.1); CREATININE 1.99 mg/dL (0.70-1.30)
[2021-08-07] MEDS ORDERED: BUTT CREAM (COMPOUND) ONE (17:42)
[2021-08-07] MEDS: BUTT CREAM (COMPOUND) TOP PRN ×2 (17:44→18:03)
[2021-08-08] MEDS: NS 1000 ML 1,000 ML IV SCH ×4 (01:35→22:01)
[2021-08-08] MEDS: BUTT CREAM (COMPOUND) TOP PRN (06:14)
[2021-08-08 06:17] LABS: BASOPHILS % (AUTO) 0.4 % (0.2-1.0); EOSINOPHILS # (AUTO) 0.2 x10^3/uL (0.0-0.2); EOSINOPHILS % (AUTO) 3.1 % (0.9-2.9); HEMATOCRIT 32.9 % (42.0-54.0); HEMOGLOBIN 11.1 g/dL (13.5-18.0); LYMPHOCYTES # (AUTO) 0.9 X10^3/uL (1.3-2.9); LYMPHOCYTES % (AUTO) 12.3 % (21.0-51.0); MEAN CORPUSCULAR HEMOGLOBIN 29.5 pg (27.0-34.0); MEAN CORPUSCULAR HGB CONC 33.7 g/dL (33.0-35.0); MEAN CORPUSCULAR VOLUME 87.7 fL (80.0-100.0); MEAN PLATELET VOLUME 8.1 fL (7.4-11.0); MONOCYTES # (AUTO) 0.7 x10^3/uL (0.3-0.8); MONOCYTES % (AUTO) 9.8 % (0.0-13.0); NEUTROPHILS # (AUTO) 5.6 x10^3/uL (2.2-4.8); NEUTROPHILS % (AUTO) 74.4 % (42.0-75.0); PLATELET COUNT 176 X10^3/uL (150.0-450.0); RED BLOOD COUNT 3.76 X10^6/uL (4.7-6.0); RED CELL DISTRIBUTION WIDTH 14.1 % (11.6-16.5); WHITE BLOOD COUNT 7.6 X10^3/uL (3.6-10.0)
[2021-08-08 06:28] LABS: ALANINE AMINOTRANSFERASE 21 Units/L (12-78); ALBUMIN 2.2 g/dL (3.4-5.0); ALKALINE PHOSPHATASE 76 Units/L (46-116); ASPARTATE AMINO TRANSFERASE 51 Units/L (15-37); BLOOD UREA NITROGEN 19 mg/dL (7-18); CALCIUM 7.6 mg/dL (8.5-10.1); CARBON DIOXIDE 21.9 mmol/L (21-32); CHLORIDE 100 mmol/L (98-107); CREATININE 1.47 mg/dL (0.70-1.30); SODIUM 134 mmol/L (136-145); TOTAL PROTEIN 6.5 g/dL (6.4-8.2); eGFR NON BLACK RACES 50 (>60)
[2021-08-08] MEDS ORDERED: KLOR-CON PO PRN (06:51)
[2021-08-08] MEDS ORDERED: K-DUR TAB 20 MEQ PO PRN (06:51)
[2021-08-08] MEDS ORDERED: MICRO K EXTEN CAP 10 MEQ PO PRN (06:51)
[2021-08-08] MEDS ORDERED: K-RIDER 10 MEQ/NS 100 ML 10 MEQ/100 ML BAG IV PRN (06:51)
[2021-08-08] MEDS ORDERED: POTASSIUM CHLORIDE LIQ 20 MEQ UDC PO PRN (06:51)
[2021-08-08] MEDS ORDERED: POTASSIUM CHL 60 MEQ/NS 0.45% 500 ML IV PRN (06:51)
[2021-08-08] MEDS ORDERED: POTASSIUM CHL 40 MEQ/NS 0.45% 500 ML IV PRN (06:51)
[2021-08-08] MEDS: PULMICORT NEB TX 0.5 MG NEB SCH ×2 (08:00→20:00)
[2021-08-08] MEDS ORDERED: PROTONIX TAB 40 MG PO ONE (08:50)
[2021-08-08] MEDS: PROTONIX TAB 40 MG PO SCH (08:57)
[2021-08-08] MEDS: VITAMIN D3 25 mcg (1,000 UNITS) PO SCH (08:57)
[2021-08-08] MEDS: ROCEPHIN VIAL 1 GRAM 1 G in NS 100 ML IV + SPIKE MINIBAG* 100 ML IV SCH ×2 (08:58→21:11)
[2021-08-08] MEDS ORDERED: NEURONTIN CAP 400 MG PO SCH (14:00)
[2021-08-08] MEDS: MICRO K EXTEN CAP 10 MEQ PO SCH (14:18)
[2021-08-08] MEDS: ZANAFLEX PO PRN (17:30)
[2021-08-08] MEDS ORDERED: NS 100 ML IV 100 ML ONE (20:22)
[2021-08-08] MEDS: FLOMAX PO SCH (21:10)
[2021-08-08] MEDS: BUSPAR PO SCH (21:10)
[2021-08-08] MEDS: NEURONTIN CAP 400 MG PO SCH (21:11)
[2021-08-08] MEDS: NAMENDA TAB 10 MG PO SCH (21:11)
[2021-08-08] MEDS: LIPITOR TAB 40 MG PO SCH (21:11)
[2021-08-08] MEDS: LINZESS PO SCH (21:11)
[2021-08-09] MEDS: ZANAFLEX PO PRN (00:30)
[2021-08-09] MEDS: NS 1000 ML 1,000 ML IV SCH ×4 (05:02→22:31)
[2021-08-09 07:37] LABS: BASOPHILS % (AUTO) 0.4 % (0.2-1.0); EOSINOPHILS # (AUTO) 0.4 x10^3/uL (0.0-0.2); EOSINOPHILS % (AUTO) 5.1 % (0.9-2.9); HEMOGLOBIN 11.1 g/dL (13.5-18.0); LYMPHOCYTES # (AUTO) 0.8 X10^3/uL (1.3-2.9); MEAN CORPUSCULAR HEMOGLOBIN 29.4 pg (27.0-34.0); MEAN CORPUSCULAR HGB CONC 33.7 g/dL (33.0-35.0); MEAN CORPUSCULAR VOLUME 87.2 fL (80.0-100.0); MEAN PLATELET VOLUME 7.4 fL (7.4-11.0); MONOCYTES # (AUTO) 0.6 x10^3/uL (0.3-0.8); MONOCYTES % (AUTO) 7.4 % (0.0-13.0); NEUTROPHILS # (AUTO) 5.8 x10^3/uL (2.2-4.8); NEUTROPHILS % (AUTO) 76.1 % (42.0-75.0); PLATELET COUNT 201 X10^3/uL (150.0-450.0); RED BLOOD COUNT 3.78 X10^6/uL (4.7-6.0); RED CELL DISTRIBUTION WIDTH 14.1 % (11.6-16.5); WHITE BLOOD COUNT 7.7 X10^3/uL (3.6-10.0)
[2021-08-09 08:02] LABS: ALANINE AMINOTRANSFERASE 22 Units/L (12-78); ALBUMIN 2.3 g/dL (3.4-5.0); ALKALINE PHOSPHATASE 80 Units/L (46-116); ASPARTATE AMINO TRANSFERASE 43 Units/L (15-37); BLOOD UREA NITROGEN 13 mg/dL (7-18); CARBON DIOXIDE 22.7 mmol/L (21-32); CHLORIDE 105 mmol/L (98-107); COR CA(FOR HYPOALB) 9.4 mg/dL (8.5-10.1); CREATININE 1.07 mg/dL (0.70-1.30); SODIUM 136 mmol/L (136-145); TOTAL PROTEIN 6.8 g/dL (6.4-8.2); eGFR NON BLACK RACES > 60 (>60)
[2021-08-09] MEDS: PROVENTIL NEB TX 0.083% 2.5MG/ 3ML NEB SCH ×3 (08:30→21:55)
[2021-08-09] MEDS: PULMICORT NEB TX 0.5 MG NEB SCH ×2 (08:30→21:55)
[2021-08-09] MEDS ORDERED: SYMBICORT INH 160/4.5 mcg IN SCH (09:00)
[2021-08-09] MEDS ORDERED: ZESTRIL TAB 20 MG ONE (09:32)
[2021-08-09] MEDS: MICRO K EXTEN CAP 10 MEQ PO SCH (09:56)
[2021-08-09] MEDS: ECOTRIN TAB 325 MG PO SCH (09:56)
[2021-08-09] MEDS: LINZESS PO SCH ×2 (09:56→21:20)
[2021-08-09] MEDS: ZESTRIL TAB 20 MG PO SCH (09:57)
[2021-08-09] MEDS: PROTONIX TAB 40 MG PO SCH (09:57)
[2021-08-09] MEDS: NEURONTIN CAP 400 MG PO SCH ×2 (09:58→21:20)
[2021-08-09] MEDS: VITAMIN D3 25 mcg (1,000 UNITS) PO SCH (09:59)
[2021-08-09] MEDS ORDERED: LASIX IVP ONE (10:41)
[2021-08-09] MEDS: BUSPAR PO SCH ×2 (10:51→21:19)
[2021-08-09] MEDS: NAMENDA TAB 10 MG PO SCH ×2 (10:51→21:20)
[2021-08-09] MEDS: ZyPREXA TAB 5 MG PO SCH (10:51)
[2021-08-09] MEDS: ROCEPHIN 1 GRAM IV PREMIX 1 G/50 ML IV.SOLN. IV SCH (12:09)
[2021-08-09] MEDS: COLACE CAP 100 MG PO SCH (21:19)
[2021-08-09] MEDS: FLOMAX PO SCH (21:19)
[2021-08-09] MEDS: PERCOCET TAB 5/325 MG PO PRN (21:20)
[2021-08-09] MEDS: LIPITOR TAB 40 MG PO SCH (21:20)
[2021-08-10] MEDS: NS 1000 ML 1,000 ML IV SCH ×4 (05:58→20:48)
[2021-08-10 06:48] LABS: BASOPHILS # (AUTO) 0.1 X10^3/uL (0.0-0.1); BASOPHILS % (AUTO) 0.8 % (0.2-1.0); EOSINOPHILS # (AUTO) 0.6 x10^3/uL (0.0-0.2); EOSINOPHILS % (AUTO) 7.8 % (0.9-2.9); HEMATOCRIT 31.8 % (42.0-54.0); HEMOGLOBIN 10.8 g/dL (13.5-18.0); LYMPHOCYTES # (AUTO) 1.2 X10^3/uL (1.3-2.9); LYMPHOCYTES % (AUTO) 15.6 % (21.0-51.0); MEAN CORPUSCULAR HEMOGLOBIN 29.5 pg (27.0-34.0); MEAN CORPUSCULAR HGB CONC 33.8 g/dL (33.0-35.0); MEAN CORPUSCULAR VOLUME 87.3 fL (80.0-100.0); MONOCYTES # (AUTO) 0.6 x10^3/uL (0.3-0.8); MONOCYTES % (AUTO) 7.2 % (0.0-13.0); NEUTROPHILS # (AUTO) 5.4 x10^3/uL (2.2-4.8); NEUTROPHILS % (AUTO) 68.6 % (42.0-75.0); PLATELET COUNT 210 X10^3/uL (150.0-450.0); RED BLOOD COUNT 3.64 X10^6/uL (4.7-6.0); RED CELL DISTRIBUTION WIDTH 13.8 % (11.6-16.5); WHITE BLOOD COUNT 7.9 X10^3/uL (3.6-10.0)
[2021-08-10 07:03] LABS: ALANINE AMINOTRANSFERASE 27 Units/L (12-78); ALBUMIN 2.3 g/dL (3.4-5.0); ALKALINE PHOSPHATASE 77 Units/L (46-116); ASPARTATE AMINO TRANSFERASE 49 Units/L (15-37); BLOOD UREA NITROGEN 13 mg/dL (7-18); CALCIUM 7.8 mg/dL (8.5-10.1); CARBON DIOXIDE 24.9 mmol/L (21-32); CHLORIDE 105 mmol/L (98-107); COR CA(FOR HYPOALB) 9.2 mg/dL (8.5-10.1); CREATINE KINASE 95 Units/L (39-308); CREATININE 1.06 mg/dL (0.70-1.30); SODIUM 139 mmol/L (136-145); TOTAL PROTEIN 6.7 g/dL (6.4-8.2); eGFR NON BLACK RACES > 60 (>60)
[2021-08-10] MEDS: PULMICORT NEB TX 0.5 MG NEB SCH (08:15)
[2021-08-10] MEDS: PROVENTIL NEB TX 0.083% 2.5MG/ 3ML NEB SCH ×2 (08:15→11:35)
[2021-08-10] MEDS ORDERED: LASIX IVP ONE (09:36)
[2021-08-10] MEDS ORDERED: ZESTRIL TAB 20 MG ONE (09:41)
[2021-08-10] MEDS: MICRO K EXTEN CAP 10 MEQ PO SCH (10:45)
[2021-08-10] MEDS: NAMENDA TAB 10 MG PO SCH ×2 (10:45→20:48)
[2021-08-10] MEDS: LINZESS PO SCH ×2 (10:45→20:48)
[2021-08-10] MEDS: VITAMIN D3 25 mcg (1,000 UNITS) PO SCH (10:45)
[2021-08-10] MEDS: ZyPREXA TAB 5 MG PO SCH (10:45)
[2021-08-10] MEDS: ECOTRIN TAB 325 MG PO SCH (10:45)
[2021-08-10] MEDS: BUSPAR PO SCH ×2 (10:45→20:47)
[2021-08-10] MEDS: PROTONIX TAB 40 MG PO SCH (10:45)
[2021-08-10] MEDS: ROCEPHIN 1 GRAM IV PREMIX 1 G/50 ML IV.SOLN. IV SCH (10:45)
[2021-08-10] MEDS: ZESTRIL TAB 20 MG PO SCH (10:45)
[2021-08-10] MEDS: NEURONTIN CAP 400 MG PO SCH ×2 (10:45→20:48)
[2021-08-10] MEDS: PERCOCET TAB 5/325 MG PO PRN ×2 (11:20→20:58)
[2021-08-10] MEDS: COLACE CAP 100 MG PO SCH (20:48)
[2021-08-10] MEDS: FLOMAX PO SCH (20:48)
[2021-08-10] MEDS: LIPITOR TAB 40 MG PO SCH (20:48)
[2021-08-10] MEDS: ZANAFLEX PO PRN (23:50)
--- NOTE | 2021-08-11 05:55 | RAD ---
PROCEDURE: Chest X-ray 1 View .HISTORY: Congestive heart failure.TECHNIQUE: AP view .COMPARISON: 08/06/2021.TECHNICAL QUALITY: Satisfactory .FINDINGS:Normal size heart. Previous sternotomy.Mediastinum and hilar regions show no masses or lymphadenopathy .Normal central vascularity .No pulmonary consolidation, masses, pleural fluid, or pneumothorax .No acute bony abnormality .IMPRESSION:No active cardiopulmonary disease .Electronically signed by: Nikos Gray (Aug 11, 2021 05:53:40)
[2021-08-11 06:16] LABS: BASOPHILS % (AUTO) 0.6 % (0.2-1.0); EOSINOPHILS # (AUTO) 0.6 x10^3/uL (0.0-0.2); EOSINOPHILS % (AUTO) 7.5 % (0.9-2.9); HEMOGLOBIN 11.4 g/dL (13.5-18.0); LYMPHOCYTES % (AUTO) 13.9 % (21.0-51.0); MEAN CORPUSCULAR HEMOGLOBIN 29.9 pg (27.0-34.0); MEAN CORPUSCULAR HGB CONC 34.4 g/dL (33.0-35.0); MEAN CORPUSCULAR VOLUME 86.8 fL (80.0-100.0); MEAN PLATELET VOLUME 7.9 fL (7.4-11.0); MONOCYTES # (AUTO) 0.6 x10^3/uL (0.3-0.8); MONOCYTES % (AUTO) 7.6 % (0.0-13.0); NEUTROPHILS # (AUTO) 5.2 x10^3/uL (2.2-4.8); NEUTROPHILS % (AUTO) 70.4 % (42.0-75.0); PLATELET COUNT 253 X10^3/uL (150.0-450.0); WHITE BLOOD COUNT 7.4 X10^3/uL (3.6-10.0)
[2021-08-11 06:43] LABS: ALANINE AMINOTRANSFERASE 38 Units/L (12-78); ALBUMIN 2.5 g/dL (3.4-5.0); ALKALINE PHOSPHATASE 87 Units/L (46-116); ASPARTATE AMINO TRANSFERASE 60 Units/L (15-37); BLOOD UREA NITROGEN 13 mg/dL (7-18); CALCIUM 7.9 mg/dL (8.5-10.1); CARBON DIOXIDE 26.2 mmol/L (21-32); CHLORIDE 104 mmol/L (98-107); COR CA(FOR HYPOALB) 9.1 mg/dL (8.5-10.1); COR NA(FOR HYPERGLY) 141 mmol/L (136-145); CREATINE KINASE 61 Units/L (39-308); CREATININE 0.99 mg/dL (0.70-1.30); SODIUM 140 mmol/L (136-145); eGFR NON BLACK RACES > 60 (>60)
[2021-08-11 08:05] VITALS: BP 140/86
[2021-08-11] MEDS ORDERED: K-DUR TAB 20 MEQ PO SCH (09:00)
[2021-08-11] MEDS ORDERED: LASIX IVP SCH (09:00)
[2021-08-11] MEDS: PULMICORT NEB TX 0.5 MG NEB SCH (09:10)
[2021-08-11] MEDS: PROVENTIL NEB TX 0.083% 2.5MG/ 3ML NEB SCH (09:10)
[2021-08-11] MEDS: NS 1000 ML 1,000 ML IV SCH ×2 (09:52→09:58)
[2021-08-11] MEDS ORDERED: ZESTRIL TAB 20 MG ONE (09:54)
[2021-08-11] MEDS: NEURONTIN CAP 400 MG PO SCH (09:58)
[2021-08-11] MEDS: VITAMIN D3 25 mcg (1,000 UNITS) PO SCH (09:58)
[2021-08-11] MEDS: ECOTRIN TAB 325 MG PO SCH (09:59)
[2021-08-11] MEDS: PROTONIX TAB 40 MG PO SCH (09:59)
[2021-08-11] MEDS: ROCEPHIN 1 GRAM IV PREMIX 1 G/50 ML IV.SOLN. IV SCH (09:59)
[2021-08-11] MEDS: LINZESS PO SCH (10:00)
[2021-08-11] MEDS: ZESTRIL TAB 20 MG PO SCH (10:00)
[2021-08-11] MEDS: NAMENDA TAB 10 MG PO SCH (10:02)
[2021-08-11] MEDS: ZyPREXA TAB 5 MG PO SCH (10:03)
[2021-08-11] MEDS: BUSPAR PO SCH (10:05)
== END 2021-08-11 12:03 | disposition home health service (06) ==
LOC: OBS 21:34 → ER 21:34 → OBS 08-07 02:01
PROVIDERS: ADMIT Obstetrics & Gynecology Obstetrics; ATTEND Internal Medicine
DX: I11.0 Hypertensive heart disease with heart failure; B96.29 Other Escherichia coli [E. coli] as the cause of diseases classified elsewhere; N17.8 Other acute kidney failure; Z79.891 Long term (current) use of opiate analgesic; I50.9 Heart failure, unspecified; M50.30 Other cervical disc degeneration, unspecified cervical region; E86.0 Dehydration; M62.82 Rhabdomyolysis; N39.0 Urinary tract infection, site not specified; M51.36 Other intervertebral disc degeneration, lumbar region; I95.89 Other hypotension; E87.6 Hypokalemia; R94.31 Abnormal electrocardiogram [ECG] [EKG]; J44.9 Chronic obstructive pulmonary disease, unspecified; R41.82 Altered mental status, unspecified

== ENCOUNTER 2021-09-11 11:37 | Observation (INO) ==
[2021-09-11 11:54] VITALS: BMI 43.5
[2021-09-11] MEDS ORDERED: NS 1000 ML 1,000 ML ONE ×3 (11:54→18:09)
[2021-09-11] MEDS: NS 1000 ML 1,000 ML IV ONE ×2 (11:59→14:07)
[2021-09-11 12:53] LABS: BASOPHILS # (AUTO) 0.2 X10^3/uL (0.0-0.1); BASOPHILS % (AUTO) 1.7 % (0.2-1.0); EOSINOPHILS # (AUTO) 0.4 x10^3/uL (0.0-0.2); EOSINOPHILS % (AUTO) 4.1 % (0.9-2.9); HEMATOCRIT 32.4 % (42.0-54.0); LYMPHOCYTES % (AUTO) 10.7 % (21.0-51.0); MEAN PLATELET VOLUME 8.2 fL (7.4-11.0); MONOCYTES # (AUTO) 0.8 x10^3/uL (0.3-0.8); MONOCYTES % (AUTO) 7.7 % (0.0-13.0); NEUTROPHILS # (AUTO) 7.5 x10^3/uL (2.2-4.8); NEUTROPHILS % (AUTO) 75.8 % (42.0-75.0); PLATELET COUNT 207 X10^3/uL (150.0-450.0); RED BLOOD COUNT 3.68 X10^6/uL (4.7-6.0); RED CELL DISTRIBUTION WIDTH 14.4 % (11.6-16.5); WHITE BLOOD COUNT 9.8 X10^3/uL (3.6-10.0)
[2021-09-11 13:14] LABS: ALBUMIN 2.5 g/dL (3.4-5.0); CALCIUM 7.8 mg/dL (8.5-10.1); CREATININE 2.66 mg/dL (0.70-1.30); TOTAL PROTEIN 6.7 g/dL (6.4-8.2)
[2021-09-11 13:28] LABS: LACTIC ACID 1.9 mmol/L (0.4-2.0)
[2021-09-11] MEDS ORDERED: NS 1000 ML 1,000 ML IV ONE (14:06)
--- NOTE | 2021-09-11 15:23 | DR.AMS ---
HPI Time Seen Time Seen by Provider: 09/11/21 12:07 PCP Primary Care Physician: JAYESH HPI Comment HPI Comment: Difficult to know exactly what happened .it appears that pt may have been more drowsier or sleepier .Person staying with him called the ambulance .Pts oxygen sat was running in lower 80as patient was not wearing his oxygen .Pt apparently had taken additional percocet for pain .He takes it 4x per day .however when given dose of narcan.pt drowsiness improved .his bp was also low was started on IV fluids by EMS Complaint Cheif Complaint Doctors Comments: change in mentation Chief Complaint:: EMS CALLED OUT TO PATIENT PASSING OUT AND AMS.PT HAS A HISTORY OF SEPSIS. EMS ADMINISTERED NARCAN INTRANASAL D/T DECREASED RESPONSIVNESS AND FAMILY UNSURE OF HOW MANY PERCOCETS TAKEN. EMS STATES PATIENTS B/P WAS LOW WITH SYSTOLIC IN THE 70'S. NS BOLUS 500ML'S ADMINISTERED. UPON ENTERING ED PATIENT RESPONDING TO VERBAL STIMULI. UPON ASKING PAITENT QUESTIONS PATIENT STATES HE TOOK X2 PERCOCETS. COVID-19 Coronavirus risk:travel/contact w/high risk person: No Has patient experienced Coronavirus symptoms: No Reviewed Nurses Notes Reviewed: Yes Source History Provided: Patient and Family Member Mode of Arrival Mode of Arrival: EMS Timing Onset of Chief Complaint: 09/11/21 Symptoms: Improving Quality Quality: Decreased Alertness Severity Severity: Moderate Context Recent: Drug Use History Of: Indwelling Stern Associated Signs and Symptoms Associated Signs and Symptoms: Decreased Oral Intake PMH PMH Past Medical History: Yes Past Medical History: COPD and Coronary Artery Disease Past Surgical History: No Surgical History: Unknown Family History History of Family Medical Conditions: Yes Family Medical History: Diabetes Mellitus, Cancer and Hypertension Social History Does any household member use tobacco: No Alcohol Use: None Do you use any recreational Drugs:: No Lives With: Family Lives Where: Home Travel Risk Coronavirus risk:travel/contact w/high risk person: No Has patient experienced Coronavirus symptoms: No Infectious screening In the last 2 months have you had wt loss of >10#?: NO Have you had fever, night sweats or hemotysis?: No Have you traveled outside the country in the last 6 months?: No Isolation: Standard ROS Review of Systems Constitutional: Malaise and Fatigue Eyes: No Symptoms Reported ENTM: No Symptoms Reported Respiratoy: No Symptoms Reported and Other (on supplemental oxygen ) Cardiovascular: No Symptoms Reported Gastrointestinal/Abdominal: No Symptoms Reported Genitourinary: Other (stern cathetre in place apolinar to incontinece and decubitus ) Musculoskeletal: Back Pain Hematologic/Lymphatic: No Symptoms Reported Endocrine: No Symptoms Reported PE Vitals Vital Signs: Temp Pulse Resp BP BP BP Pulse Ox 09/11/21 15:45 72 12 101/53 96 09/11/21 15:30 71 15 116/56 95 09/11/21 15:15 70 11 L 123/60 96 09/11/21 15:01 70 16 113/53 09/11/21 15:00 70 18 92 L 09/11/21 14:46 68 16 146/65 96 09/11/21 14:45 70 26 H 97 09/11/21 14:31 72 21 119/71 97 09/11/21 14:30 73 25 H 96 09/11/21 14:15 67 20 111/60 94 L 09/11/21 14:00 69 16 103/55 09/11/21 13:45 71 26 H 97/50 09/11/21 13:30 97/51 09/11/21 13:16 73 19 128/59 09/11/21 13:15 75 25 H 09/11/21 13:00 73 19 116/56 95 09/11/21 12:46 75 27 H 100/56 91 L 09/11/21 12:45 75 31 H 09/11/21 12:42 72 28 H 100/50 09/11/21 12:30 72 14 95 09/11/21 12:15 75 20 93/51 95 09/11/21 12:01 75 21 86/52 94 L 09/11/21 12:00 75 24 94 L 09/11/21 11:58 76 22 95/53 93 L 09/11/21 11:57 77 18 90 L 09/11/21 11:38 98.0 F 79 23 95/56 100 08/11/21 08:00 140/86 09/13/18 08:00 132/60 General Limitations: No Limitations Head Head Exam: Normal Inspection, Atraumatic and Normocephalic Eyes Eye exam: PERRL and EOMI ENT ENT Exam: Mucous Membranes Dry TM/Canal Exam: Bilateral: Normal Neck Neck Exam: Normal Inspection Chest Chest Inspection: Normal Inspection and Symmetric Chest Wall Rise Respiratory Respiratory Exam: Normal Lung Sounds Bilat Cardiovascular Cardiovascular Exam: +S1 and +S2 Abdominal Exam Abdominal Exam: Normal Bowel Sounds and Soft Extremities Extremities Exam: Normal Inspection Back Back Exam: (R) CVA Tenderness Neurological Neurological Exam: Alert Other Exam Other Exam: upper and lower ext tone and power symmetrical reflexes 2+ MDM Additional Information Obtained Additional Information Obtained From: Old Records Differential Diagnosis Metabolic: Dehydration and Hypoxemia Toxicologic: Medication Toxicity COURSE Treatment Treatment: labs IV fluids change Stern catheter no urine noted so far in Stern catheter given over 2.5 litres of fluid but ser cr improved spoke with Dr Luevano agreed to admit patient for further management ROR Labs Reviewed Laboratory Results Reviewed?: Yes Result Diagrams: 09/11/21 12:36 09/11/21 15:10 Laboratory: WBC 9.8 X10^3/uL (3.6-10.0) 09/11/21 12:36 RBC 3.68 X10^6/uL (4.7-6.0) L 09/11/21 12:36 Hgb 11.0 g/dL (13.5-18.0) L 09/11/21 12:36 Hct 32.4 % (42.0-54.0) L 09/11/21 12:36 MCV 88.0 fL (80.0-100.0) 09/11/21 12:36 MCH 30.0 pg (27.0-34.0) 09/11/21 12:36 MCHC 34.0 g/dL (33.0-35.0) 09/11/21 12:36 RDW 14.4 % (11.6-16.5) 09/11/21 12:36 Plt Count 207 X10^3/uL (150.0-450.0) 09/11/21 12:36 MPV 8.2 fL (7.4-11.0) 09/11/21 12:36 Neut % (Auto) 75.8 % (42.0-75.0) H 09/11/21 12:36 Lymph % (Auto) 10.7 % (21.0-51.0) L 09/11/21 12:36 [place] % (Auto) 7.7 % (0.0-13.0) 09/11/21 12:36 Eos % (Auto) 4.1 % (0.9-2.9) H 09/11/21 12:36 Baso % (Auto) 1.7 % (0.2-1.0) H 09/11/21 12:36 Neut # (Auto) 7.5 x10^3/uL (2.2-4.8) H 09/11/21 12:36 Lymph # (Auto) 1.0 X10^3/uL (1.3-2.9) L 09/11/21 12:36 [place]ke # (Auto) 0.8 x10^3/uL (0.3-0.8) 09/11/21 12:36 Eos # (Auto) 0.4 x10^3/uL (0.0-0.2) H 09/11/21 12:36 Baso # (Auto) 0.2 X10^3/uL (0.0-0.1) H 09/11/21 12:36 Absolute Nucleated RBC 0.0 /100WBC 09/11/21 12:36 Sodium 136 mmol/L (136-145) 09/11/21 15:10 Corrected Sodium TNP 09/11/21 15:10 Potassium 4.3 mmol/L (3.5-5.1) 09/11/21 15:10 Chloride 103 mmol/L (98-107) 09/11/21 15:10 Carbon Dioxide 20.7 mmol/L (21-32) L 09/11/21 15:10 BUN 29 mg/dL (7-18) H 09/11/21 15:10 Creatinine 2.44 mg/dL (0.70-1.30) H 09/11/21 15:10 Est GFR (MDRD) Af Amer 33 (>60) L 09/11/21 15:10 Est GFR (MDRD) Non-Af 28 (>60) L 09/11/21 15:10 Glucose 91 mg/dL (65-99) 09/11/21 15:10 Lactic Acid 1.9 mmol/L (0.4-2.0) 09/11/21 12:36 Calcium 7.7 mg/dL (8.5-10.1) L 09/11/21 15:10 Corrected Calcium 9.0 mg/dL (8.5-10.1) 09/11/21 12:36 Total Bilirubin 0.60 mg/dL (0.2-1.0) 09/11/21 12:36 AST 26 Units/L (15-37) 09/11/21 12:36 ALT 14 Units/L (12-78) 09/11/21 12:36 Alkaline Phosphatase 87 Units/L (46-116) 09/11/21 12:36 Total Protein 6.7 g/dL (6.4-8.2) 09/11/21 12:36 Albumin 2.5 g/dL (3.4-5.0) L 09/11/21 12:36 Globulin 4.2 g/dL (2.5-4.5) 09/11/21 12:36 Albumin/Globulin Ratio 0.6 Ratio (1.1-2.1) L 09/11/21 12:36 Specimen Type Catherized urine 09/11/21 16:00 Urine Color Heike (YELLOW) 09/11/21 16:00 Urine Appearance Turbid (CLEAR) 09/11/21 16:00 Urine pH 6.0 (5.0 - 8.0) 09/11/21 16:00 Ur Specific [place] 1.015 (1.000-1.030) 09/11/21 16:00 Urine Protein 3+ (NEGATIVE) 09/11/21 16:00 Urine Glucose (UA) Negative (NEGATIVE) 09/11/21 16:00 Urine Ketones Negative (NEGATIVE) 09/11/21 16:00 Urine Occult Blood 5+ (NEGATIVE) 09/11/21 16:00 Urine Nitrite Positive (NEGATIVE) 09/11/21 16:00 Urine Bilirubin Negative (NEGATIVE) 09/11/21 16:00 Urine Urobilinogen 1+ (NORMAL) 09/11/21 16:00 Ur Leukocyte Esterase 3+ (NEGATIVE) 09/11/21 16:00 Urine RBC Tntc /HPF (0-3) A 09/11/21 16:00 Urine WBC Tntc /HPF (0-5) A 09/11/21 16:00 Ur Squamous Epith Cells Few /HPF (NEGATIVE) 09/11/21 16:00 Urine Bacteria 2+ /HPF (NEGATIVE) 09/11/21 16:00 Hyaline Casts Few /LPF (NEGATIVE) 09/11/21 16:00 Urine Mucus Moderate /HPF (NEGATIVE) 09/11/21 16:00 Ur Culture Indicated? Yes/culture set up 09/11/21 16:00 Urine Opiates Screen Negative (NEG=<300) 09/11/21 16:03 Urine Methadone Screen Negative (NEG=<300) 09/11/21 16:03 Ur Barbiturates Screen Negative (NEG=<200) 09/11/21 16:03 Ur Phencyclidine Scrn Negative (NEG=<25) 09/11/21 16:03 Ur Amphetamines Screen Negative (NEG=<1000) 09/11/21 16:03 U Benzodiazepines Scrn Positive (NEG=<200) 09/11/21 16:03 Urine Cocaine Screen Negative (NEG=<300) 09/11/21 16:03 U Marijuana (THC) Screen Negative (NEG=<50) 09/11/21 16:03 Opioid Opioid Risk Tool Age (Adrián box if 16-45): No History of Preadolescent Sexual Abuse: No Total: 0 Total Score Risk Category: Low Risk Copyright: Joseph NEIL predicting aberrant behaviors Diagnosis Discharge Problem: Acute hypotension, Hypoxia Acute renal failure Qualifiers: Acute renal failure type: unspecified Qualified Code(s): N17.9 - Acute kidney failure, unspecified Opioid overdose Qualifiers: Encounter type: initial encounter Instructions Forms: [facility] Patient Portal Social Distancing
[2021-09-11 15:40] LABS: BLOOD UREA NITROGEN 29 mg/dL (7-18); CALCIUM 7.7 mg/dL (8.5-10.1); CARBON DIOXIDE 20.7 mmol/L (21-32); CHLORIDE 103 mmol/L (98-107); CREATININE 2.44 mg/dL (0.70-1.30); SODIUM 136 mmol/L (136-145); eGFR NON BLACK RACES 28 (>60)
[2021-09-11 16:09] LABS: BILIRUBIN,URINE NEGATIVE (NEGATIVE); BLOOD/HEMOGLOBIN,URINE 5+ (NEGATIVE); GLUCOSE, URINE NEGATIVE (NEGATIVE); KETONES,URINE NEGATIVE (NEGATIVE); LEUKOCYTE ESTERASE ,URINE 3+ (NEGATIVE); NITRITES,URINE POSITIVE (NEGATIVE); PROTEIN,URINE 3+ (NEGATIVE); UROBILINOGEN,URINE 1+ (NORMAL)
[2021-09-11 16:11] LABS: COLOR,URINE AMBER (YELLOW)
[2021-09-11 16:12] LABS: APPEARANCE,URINE TURBID (CLEAR)
--- NOTE | 2021-09-11 16:18 | RAD ---
HISTORYPATIENT BROUGHT TO ER VIA AMBULANCE DUE TO AMS HX OF SEPSIS; COPD, CHFSTUDYCHEST, 1 VIEWCOMPARISONOne-view chest August 11, 2021FINDINGSThe lungs are adequately expanded. Airway is normal.No pneumothorax.No pleural effusion.No consolidation.Cardiomediastinal silhouette is normal in size and position. There are sternotomy wires from CABG surgery. Vascularity is normal lungs are clear.Osseous structures and soft tissues are unremarkable.IMPRESSIONPostsurgical chest status post CABG surgery but no acute cardiopulmonary findings and no significant change compared to the prior chest film August 11, 2021..Electronically signed by: JIM BOURNE (Sep 11, 2021 16:15:52)
[2021-09-11 16:23] LABS: BACTERIA,URINE 2+ /HPF (NEGATIVE); HYALINE CASTS, URINE FEW /LPF (NEGATIVE); MUCUS,URINE MODERATE /HPF (NEGATIVE); RBC,URINE TNTC /HPF (0-3); SQUAMOUS EPITHELIAL CELL,UR FEW /HPF (NEGATIVE)
[2021-09-11] MEDS ORDERED: NARCAN INJ IVP PRN (18:09)
[2021-09-11] MEDS: NS 1000 ML 1,000 ML IV SCH (18:12)
[2021-09-11] MEDS ORDERED: PULMICORT NEB TX 0.5 MG NEB ONE (19:22)
[2021-09-11] MEDS: FLOMAX PO SCH (20:27)
[2021-09-11] MEDS: LIPITOR TAB 40 MG PO SCH (20:27)
[2021-09-11] MEDS ORDERED: SYMBICORT INH 160/4.5 mcg IN SCH (21:00)
[2021-09-11] MEDS: PULMICORT NEB TX 0.5 MG NEB SCH (21:24)
[2021-09-11] MEDS: PROVENTIL NEB TX 0.083% 2.5MG/ 3ML NEB SCH (21:24)
[2021-09-11] MEDS: NEURONTIN CAP 400 MG PO SCH (22:00)
[2021-09-12] MEDS: NS 1000 ML 1,000 ML IV SCH ×4 (03:30→18:22)
[2021-09-12] MEDS: TYLENOL 325 MG TAB PO PRN ×2 (03:56→23:00)
[2021-09-12] MEDS: NEURONTIN CAP 400 MG PO SCH ×3 (05:17→21:17)
[2021-09-12 05:36] LABS: BASOPHILS % (AUTO) 0.4 % (0.2-1.0); EOSINOPHILS # (AUTO) 0.6 x10^3/uL (0.0-0.2); EOSINOPHILS % (AUTO) 7.2 % (0.9-2.9); HEMATOCRIT 31.1 % (42.0-54.0); HEMOGLOBIN 10.6 g/dL (13.5-18.0); LYMPHOCYTES % (AUTO) 12.8 % (21.0-51.0); MEAN CORPUSCULAR HEMOGLOBIN 29.8 pg (27.0-34.0); MEAN CORPUSCULAR HGB CONC 34.1 g/dL (33.0-35.0); MEAN CORPUSCULAR VOLUME 87.3 fL (80.0-100.0); MEAN PLATELET VOLUME 8.3 fL (7.4-11.0); MONOCYTES # (AUTO) 0.8 x10^3/uL (0.3-0.8); MONOCYTES % (AUTO) 10.7 % (0.0-13.0); NEUTROPHILS # (AUTO) 5.3 x10^3/uL (2.2-4.8); NEUTROPHILS % (AUTO) 68.9 % (42.0-75.0); PLATELET COUNT 176 X10^3/uL (150.0-450.0); RED BLOOD COUNT 3.56 X10^6/uL (4.7-6.0); RED CELL DISTRIBUTION WIDTH 14.6 % (11.6-16.5); WHITE BLOOD COUNT 7.7 X10^3/uL (3.6-10.0)
[2021-09-12 05:41] LABS: ALANINE AMINOTRANSFERASE 19 Units/L (12-78); ALBUMIN 2.4 g/dL (3.4-5.0); ALKALINE PHOSPHATASE 82 Units/L (46-116); ASPARTATE AMINO TRANSFERASE 37 Units/L (15-37); BLOOD UREA NITROGEN 23 mg/dL (7-18); CALCIUM 7.6 mg/dL (8.5-10.1); CARBON DIOXIDE 22.2 mmol/L (21-32); CHLORIDE 105 mmol/L (98-107); COR CA(FOR HYPOALB) 8.9 mg/dL (8.5-10.1); CREATININE 1.33 mg/dL (0.70-1.30); SODIUM 138 mmol/L (136-145); TOTAL PROTEIN 6.5 g/dL (6.4-8.2); eGFR NON BLACK RACES 56 (>60)
[2021-09-12] MEDS: PROVENTIL NEB TX 0.083% 2.5MG/ 3ML NEB SCH ×3 (08:10→16:52)
[2021-09-12] MEDS: PULMICORT NEB TX 0.5 MG NEB SCH ×2 (08:10→20:30)
[2021-09-12] MEDS ORDERED: ROCEPHIN VIAL 1 GRAM ONE (09:12)
[2021-09-12] MEDS: ROCEPHIN VIAL 1 GRAM 1 G in NS 100 ML IV + SPIKE MINIBAG* 100 ML IV SCH (09:35)
[2021-09-12] MEDS: FLOMAX PO SCH (09:35)
[2021-09-12] MEDS: LIPITOR TAB 40 MG PO SCH (09:35)
--- NOTE | 2021-09-12 14:02 | DR.H&P ---
H&P - History & Physical for Day of: H&P Date: 09/11/21 - Chief Complaint Chief Complaint: DECREASED RESPONSIVENESS - History of Present Illness History of Present Illness: IS A 76 YEAR OLD PATIENT OF OURS. HE PRESENTED TO THE ER VIA EMS. FAMILY REPORTS THAT PATIENT HAS HAD DECREASED RESPONSIVENESS AND WEAKNESS. SYMPTOMS STARTED EARLIER IN THE DAY. EMS REPORTS THAT ON ARRIVAL TO SCENE, HIS OXYGEN SATURATIONS WAS 80%. HE HAS HOME OXYGEN, BUT WAS NOT WEARING IT. HIS BLOOD PRESSURE WAS NOTED TO BE LOW, WITH SYSTOLIC IN THE 70s. FAMILY REPORTS THAT HE HAS CHRONIC PAIN AND THEY BELIEVE THAT HE MAY HAVE TAKEN TOO MUCH PAIN MEDICATION TODAY. EMS REPORTS GIVING PATIENT A 500ML NORMAL SALINE BOLUS AND A DOSE OF NARCAN ENROUTE TO THE HOSPITAL. THEY REPORT THAT PATIENT DID BECOME MORE ALERT AFTER NARCAN WAS ADMINSTERED. UPON ARRIVAL TO THE ER, PATIENT WAS ALERT AND ORIENTED, RESPONDING TO VERBAL STIMULI. PATIENT HAS AN INDWELLING CATHETER. EXAMINATION REVEALED EXCORIATION TO SCROTOM AND AN ULCER TO RIGHT SIDE OF PENIS. FAMILY REPORTS THAT HIS CATHETER HAD BEEN LEAKING. HIS VITALS ON ARRIVAL WERE: 97.8-99-21-99%-111/56. LABS WERE OBTAINED. ABNORMAL LAB VALUES INCLUDE THE FOLLOWING: RBC 3.68, HGB 11.0, HCT 32.4, BUN 29, CREAT ININE 2.66, GLUCOSE 123, CALCIUM 7.8, ALBUMIN 2.5. URINALYSIS REVEALED: WBC TNTC, RBC TNTC, BACTERIA 2+, LEUKOCYTES 2+, NITRITE POSITIVE, OCCULT BLOOD 5+. DRUG SCREEN POSITIVE FOR BENZODIAZEPINES. COVID, RSV, AND INFLUENZA NEGATIVE. BLOOD AND URINE CULTURES WERE SET UP. A CHEST XRAY WAS OBTAINED AND REVEALED: Postsurgical chest status post CABG surgery but no acute cardiopulmonary findings and no significant change compared to the prior chest film August 11, 2021. CATHETER WAS CHANGED BY NURSING STAFF. IN THE ER, HE WAS GIVEN A NORMAL SALINE BOLUS. HE WAS ADMITTED TO THE HOSPITAL FOR FURTHER EVALUATION AND TREATMENT OF ACUTE RENAL FAILURE, UTI, AMS, HYPOXIA, AND OPIOID OVERDOSE. HE WAS STARTED ON NORMAL SALINE AT 125 ML/HR, ROCEPHIN 1G IV DAILY, ALBUTEROL NEBS QID, PULMICORT NEBS BID, TYLENOL 650MG PO Q6H PRN PAIN, NEURONTIN 800MG PO TID, AND FLOMAX 0.4MG PO DAILY. OTHERWISE, WE PLAN TO FOLLOW UP WITH AM LABS AND CONTINUE TO MONITOR. TIME SPENT ON CLINICAL ASSESSMENT, REVIEWING LABS AND IMAGING, DECISION MAKING, AND DOCUMENTATION GREATER THAN 75 MINUTES. - Past Medical History Past Medical History: Anxiety, Arthritis, COPD, Coronary Artery Disease, CVA, Depression, Hypertension Additional Medical History: HIATAL HERNIA, BPH, DDD - Past Surgical History Surgical History: Appendectomy, CABG/Valve Surgery, Ortho Surgery - Family History Family Medical History: Diabetes Mellitus, Cancer, [place], Hypertension - Social History How many years tobacco product used: 27 Does any household member use tobacco: No Alcohol Use: None Drug Use: None - Medications Home Medications: No Known Drug Allergies Allergy (Verified 10/28/20 08:59) CONTINUE taking the following medications furosemide 20 mg PO DAILY 09/11/21 [History] linaclotide [Linzess] 290 mcg PO DAILY 09/11/21 [History] memantine 10 mg PO BID 09/11/21 [History] oxycodone-acetaminophen 1 tab PO QID PRN 09/11/21 [History] - Review of Systems Constitutional: Weakness Eyes: No Symptoms Reported ENT: No Symptoms Reported Respiratory: No Symptoms Reported Cardiovascular: No Symptoms Reported Gastrointestinal: No Symptoms Reported Genitourinary: No Symptoms Reported Musculoskeletal: No Symptoms Reported Skin: See HPI, Wound, Other (EXCORIATION TO SCOTUM ) Neurological: Weakness - Physical Exam Vital Signs: Temperature 97.8 F Pulse Rate [Right Radial] 99 Pulse Rate 82 Respiratory Rate 11 Blood Pressure [Left Arm] 132/60 Blood Pressure [Right Arm] 127/56 Blood Pressure 133/73 O2 Sat by Pulse Oximetry 99 Oriented: Normal Eyes: Normal Ear: Normal Nose: Normal Throat: Normal Respiratory: Diminished Throughout Cardiovascular: Normal : Normal Auscultation: Bowel Sounds: Normal Palpation: Normal Tenderness: Normal Skin: Red, Tender, Wound (PENILE ULCER, EXCORIATION TO SCROTUM ) Musculoskeletal: Normal Psychiatric: Normal Mood Description: Calm Affect: Normal Speech Pattern: Clear - Assessment/Plan (1) Acute renal failure Qualifiers: Acute renal failure type: unspecified Qualified Code(s): N17.9 - Acute kidney failure, unspecified Status: Acute Plan: ADMIT, NORMAL SALINE AT 125 ML/HR, ROCEPHIN 1G IV DAILY, ALBUTEROL NEBS QID, PULMICORT NEBS BID, TYLENOL 650MG PO Q6H PRN PAIN, NEURONTIN 800MG PO TID, AND FLOMAX 0.4MG PO DAILY. (2) Acute UTI Status: Acute (3) Hypoxia Status: Acute (4) Altered mental status Qualifiers: Altered mental status type: unspecified Qualified Code(s): R41.82 - Altered mental status, unspecified Status: Acute (5) Opioid overdose Qualifiers: Encounter type: initial encounter Status: Acute - Allergies Allergies/Adverse Reactions: Allergies Allergy/AdvReac Type Severity Reaction Status Date / Time No Known Drug Allergies Allergy Verified 10/28/20 08:59
[2021-09-12] MEDS: LOPRESSOR TAB 50 MG PO SCH (21:17)
[2021-09-13] MEDS: NS 1000 ML 1,000 ML IV SCH ×3 (01:14→21:03)
[2021-09-13 05:19] LABS: BASOPHILS % (AUTO) 0.5 % (0.2-1.0); EOSINOPHILS # (AUTO) 0.6 x10^3/uL (0.0-0.2); EOSINOPHILS % (AUTO) 9.5 % (0.9-2.9); HEMATOCRIT 30.2 % (42.0-54.0); HEMOGLOBIN 10.5 g/dL (13.5-18.0); LYMPHOCYTES # (AUTO) 1.3 X10^3/uL (1.3-2.9); LYMPHOCYTES % (AUTO) 20.7 % (21.0-51.0); MEAN CORPUSCULAR HGB CONC 34.6 g/dL (33.0-35.0); MEAN CORPUSCULAR VOLUME 86.9 fL (80.0-100.0); MEAN PLATELET VOLUME 8.6 fL (7.4-11.0); MONOCYTES # (AUTO) 0.6 x10^3/uL (0.3-0.8); MONOCYTES % (AUTO) 9.5 % (0.0-13.0); NEUTROPHILS # (AUTO) 3.7 x10^3/uL (2.2-4.8); NEUTROPHILS % (AUTO) 59.8 % (42.0-75.0); PLATELET COUNT 205 X10^3/uL (150.0-450.0); RED BLOOD COUNT 3.48 X10^6/uL (4.7-6.0); RED CELL DISTRIBUTION WIDTH 14.3 % (11.6-16.5); WHITE BLOOD COUNT 6.1 X10^3/uL (3.6-10.0)
[2021-09-13 05:20] LABS: ALANINE AMINOTRANSFERASE 19 Units/L (12-78); ALBUMIN 2.4 g/dL (3.4-5.0); ALKALINE PHOSPHATASE 89 Units/L (46-116); ASPARTATE AMINO TRANSFERASE 34 Units/L (15-37); BLOOD UREA NITROGEN 13 mg/dL (7-18); CALCIUM 8.1 mg/dL (8.5-10.1); CARBON DIOXIDE 25.1 mmol/L (21-32); CHLORIDE 106 mmol/L (98-107); COR CA(FOR HYPOALB) 9.4 mg/dL (8.5-10.1); COR NA(FOR HYPERGLY) 139 mmol/L (136-145); SODIUM 139 mmol/L (136-145); TOTAL PROTEIN 6.6 g/dL (6.4-8.2); eGFR NON BLACK RACES > 60 (>60)
[2021-09-13] MEDS: NEURONTIN CAP 400 MG PO SCH ×3 (05:56→21:04)
[2021-09-13] MEDS: LIPITOR TAB 40 MG PO SCH (08:33)
[2021-09-13] MEDS: FLOMAX PO SCH (08:33)
[2021-09-13] MEDS: ROCEPHIN VIAL 1 GRAM 1 G in NS 100 ML IV + SPIKE MINIBAG* 100 ML IV SCH (08:34)
[2021-09-13] MEDS: LOPRESSOR TAB 50 MG PO SCH ×2 (08:34→21:03)
[2021-09-13] MEDS: PULMICORT NEB TX 0.5 MG NEB SCH ×2 (09:10→20:10)
[2021-09-13] MEDS: LOVENOX INJ 40 MG SYR SC SCH (11:04)
[2021-09-13] MEDS: TYLENOL 325 MG TAB PO PRN (11:05)
--- NOTE | 2021-09-13 21:01 | PCM.PROG ---
Progress Note - Subjective Subjective: Patient is a 76 year old WM admitted as per HPI. Patient is alert and oriented. Patient states he has a stern cath due to urinary retention. States he sees Dr. Barros outpatient for this. No other concerns at present. - Past Medical Family Social History Past Med/Fam/Surg Hx: No changes since H&P Allergies: Allergies No Known Drug Allergies Allergy (Verified 10/28/20 08:59) - Review of Systems ROS: No change since H&P - Vital Signs and I&O's Vital Signs: Temperature 97.5 F Pulse Rate [Right Radial] 84 Pulse Rate 91 Respiratory Rate 20 Blood Pressure [Left Arm] 132/60 Blood Pressure [Right Arm] 168/77 Blood Pressure 133/73 O2 Sat by Pulse Oximetry 100 Intake and Output: Intake & Output 09/10/21 09/11/21 09/12/21 09/13/21 23:59 23:59 23:59 23:59 Intake Total 3600 / 3600 6588 / 6588 3590 / 3590 Output Total 450 / 450 5125 / 5125 3200 / 3200 Balance 3150 / 3150 1463 / 1463 390 / 390 - Physical Exam Oriented: Normal Eyes: Normal Ear: Normal Nose: Normal Throat: Normal Respiratory: Normal Cardiovascular: Normal : Other (chronic indwelling stern due to urinary retention) Auscultation: Bowel Sounds: Normal Palpation: Normal Tenderness: Normal Skin: Red, Tender, Wound (PENILE ULCER, EXCORIATION TO SCROTUM ) Musculoskeletal: Normal Psychiatric: Normal Mood Description: Calm Affect: Normal Speech Pattern: Clear, Appropriate - Laboratory and Diagnostics Result Diagrams: 09/13/21 03:50 09/13/21 03:50 Labs: 09/11/21 12:45 Blood Blood Culture - Preliminary 09/11/21 12:36 Blood Blood Culture - Preliminary 09/11/21 16:00 Urine,Catheterized Urine Culture - Preliminary Laboratory WBC 6.1 X10^3/uL (3.6-10.0) 09/13/21 03:50 RBC 3.48 X10^6/uL (4.7-6.0) L 09/13/21 03:50 Hgb 10.5 g/dL (13.5-18.0) L 09/13/21 03:50 Hct 30.2 % (42.0-54.0) L 09/13/21 03:50 MCV 86.9 fL (80.0-100.0) 09/13/21 03:50 MCH 30.0 pg (27.0-34.0) 09/13/21 03:50 MCHC 34.6 g/dL (33.0-35.0) 09/13/21 03:50 RDW 14.3 % (11.6-16.5) 09/13/21 03:50 Plt Count 205 X10^3/uL (150.0-450.0) 09/13/21 03:50 MPV 8.6 fL (7.4-11.0) 09/13/21 03:50 Neut % (Auto) 59.8 % (42.0-75.0) 09/13/21 03:50 Lymph % (Auto) 20.7 % (21.0-51.0) L 09/13/21 03:50 [place] % (Auto) 9.5 % (0.0-13.0) 09/13/21 03:50 Eos % (Auto) 9.5 % (0.9-2.9) H 09/13/21 03:50 Baso % (Auto) 0.5 % (0.2-1.0) 09/13/21 03:50 Neut # (Auto) 3.7 x10^3/uL (2.2-4.8) 09/13/21 03:50 Lymph # (Auto) 1.3 X10^3/uL (1.3-2.9) 09/13/21 03:50 [place]cdonald # (Auto) 0.6 x10^3/uL (0.3-0.8) 09/13/21 03:50 Eos # (Auto) 0.6 x10^3/uL (0.0-0.2) H 09/13/21 03:50 Baso # (Auto) 0.0 X10^3/uL (0.0-0.1) 09/13/21 03:50 Absolute Nucleated RBC 0.1 /100WBC 09/13/21 03:50 Sodium 139 mmol/L (136-145) 09/13/21 03:50 Corrected Sodium 139 mmol/L (136-145) 09/13/21 03:50 Potassium 4.0 mmol/L (3.5-5.1) 09/13/21 03:50 Chloride 106 mmol/L (98-107) 09/13/21 03:50 Carbon Dioxide 25.1 mmol/L (21-32) 09/13/21 03:50 BUN 13 mg/dL (7-18) 09/13/21 03:50 Creatinine 1.10 mg/dL (0.70-1.30) 09/13/21 03:50 Est GFR (MDRD) Af Amer > 60 (>60) 09/13/21 03:50 Est GFR (MDRD) Non-Af > 60 (>60) 09/13/21 03:50 Glucose 118 mg/dL (65-99) H 09/13/21 03:50 Lactic Acid 1.9 mmol/L (0.4-2.0) 09/11/21 12:36 Calcium 8.1 mg/dL (8.5-10.1) L 09/13/21 03:50 Corrected Calcium 9.4 mg/dL (8.5-10.1) 09/13/21 03:50 Total Bilirubin 0.30 mg/dL (0.2-1.0) 09/13/21 03:50 AST 34 Units/L (15-37) 09/13/21 03:50 ALT 19 Units/L (12-78) 09/13/21 03:50 Alkaline Phosphatase 89 Units/L (46-116) 09/13/21 03:50 Total Protein 6.6 g/dL (6.4-8.2) 09/13/21 03:50 Albumin 2.4 g/dL (3.4-5.0) L 09/13/21 03:50 Globulin 4.2 g/dL (2.5-4.5) 09/13/21 03:50 Albumin/Globulin Ratio 0.6 Ratio (1.1-2.1) L 09/13/21 03:50 Specimen Type Catherized urine 09/11/21 16:00 Urine Color Heike (YELLOW) 09/11/21 16:00 Urine Appearance Turbid (CLEAR) 09/11/21 16:00 Urine pH 6.0 (5.0 - 8.0) 09/11/21 16:00 Ur Specific [place] 1.015 (1.000-1.030) 09/11/21 16:00 Urine Protein 3+ (NEGATIVE) 09/11/21 16:00 Urine Glucose (UA) Negative (NEGATIVE) 09/11/21 16:00 Urine Ketones Negative (NEGATIVE) 09/11/21 16:00 Urine Occult Blood 5+ (NEGATIVE) 09/11/21 16:00 Urine Nitrite Positive (NEGATIVE) 09/11/21 16:00 Urine Bilirubin Negative (NEGATIVE) 09/11/21 16:00 Urine Urobilinogen 1+ (NORMAL) 09/11/21 16:00 Ur Leukocyte Esterase 3+ (NEGATIVE) 09/11/21 16:00 Urine RBC Tntc /HPF (0-3) A 09/11/21 16:00 Urine WBC Tntc /HPF (0-5) A 09/11/21 16:00 Ur Squamous Epith Cells Few /HPF (NEGATIVE) 09/11/21 16:00 Urine Bacteria 2+ /HPF (NEGATIVE) 09/11/21 16:00 Hyaline Casts Few /LPF (NEGATIVE) 09/11/21 16:00 Urine Mucus Moderate /HPF (NEGATIVE) 09/11/21 16:00 Ur Culture Indicated? Yes/culture set up 09/11/21 16:00 Urine Opiates Screen Negative (NEG=<300) 09/11/21 16:03 Urine Methadone Screen Negative (NEG=<300) 09/11/21 16:03 Ur Barbiturates Screen Negative (NEG=<200) 09/11/21 16:03 Ur Phencyclidine Scrn Negative (NEG=<25) 09/11/21 16:03 Ur Amphetamines Screen Negative (NEG=<1000) 09/11/21 16:03 U Benzodiazepines Scrn Positive (NEG=<200) 09/11/21 16:03 Urine Cocaine Screen Negative (NEG=<300) 09/11/21 16:03 U Marijuana (THC) Screen Negative (NEG=<50) 09/11/21 16:03 SARS-CoV-2 (PCR) Negative (NEGATIVE) 09/11/21 16:00 Influenza Type A (PCR) Negative (NEGATIVE) 09/11/21 16:00 Influenza Type B (PCR) Negative (NEGATIVE) 09/11/21 16:00 RSV (PCR) Negative (NEGATIVE) 09/11/21 16:00 - Plan (1) Acute UTI Status: Acute Plan: IV abx, culture pending (2) BPH (benign prostatic hyperplasia) Status: Chronic (3) Overdose of analgesic Status: Acute Qualifiers: Encounter type: initial encounter Injury intent: accidental or unintentional Qualified Code(s): T39.91XA - Poisoning by unspecified nonopioid analgesic, antipyretic and antirheumatic, accidental (unintentional), initial encounter (4) Acute renal insufficiency Status: Acute (5) Urinary retention with incomplete bladder emptying Status: Acute Plan: Follow up outpatiet with urology. Keep Stern
[2021-09-14] MEDS: NS 1000 ML 1,000 ML IV SCH ×3 (01:16→18:10)
[2021-09-14] MEDS: NEURONTIN CAP 400 MG PO SCH ×3 (05:07→21:49)
[2021-09-14 05:34] LABS: BASOPHILS % (AUTO) 0.7 % (0.2-1.0); EOSINOPHILS # (AUTO) 0.7 x10^3/uL (0.0-0.2); EOSINOPHILS % (AUTO) 9.2 % (0.9-2.9); HEMATOCRIT 31.7 % (42.0-54.0); HEMOGLOBIN 10.8 g/dL (13.5-18.0); LYMPHOCYTES # (AUTO) 1.6 X10^3/uL (1.3-2.9); MEAN CORPUSCULAR HEMOGLOBIN 29.5 pg (27.0-34.0); MEAN CORPUSCULAR VOLUME 86.8 fL (80.0-100.0); MEAN PLATELET VOLUME 7.6 fL (7.4-11.0); MONOCYTES # (AUTO) 0.7 x10^3/uL (0.3-0.8); MONOCYTES % (AUTO) 9.1 % (0.0-13.0); NEUTROPHILS # (AUTO) 4.3 x10^3/uL (2.2-4.8); PLATELET COUNT 230 X10^3/uL (150.0-450.0); RED BLOOD COUNT 3.65 X10^6/uL (4.7-6.0); RED CELL DISTRIBUTION WIDTH 14.7 % (11.6-16.5); WHITE BLOOD COUNT 7.3 X10^3/uL (3.6-10.0)
[2021-09-14 05:48] LABS: ALANINE AMINOTRANSFERASE 19 Units/L (12-78); ALBUMIN 2.4 g/dL (3.4-5.0); ALKALINE PHOSPHATASE 89 Units/L (46-116); ASPARTATE AMINO TRANSFERASE 31 Units/L (15-37); BLOOD UREA NITROGEN 9 mg/dL (7-18); CALCIUM 8.1 mg/dL (8.5-10.1); CARBON DIOXIDE 24.6 mmol/L (21-32); CHLORIDE 104 mmol/L (98-107); COR CA(FOR HYPOALB) 9.4 mg/dL (8.5-10.1); COR NA(FOR HYPERGLY) 139 mmol/L (136-145); CREATININE 0.84 mg/dL (0.70-1.30); SODIUM 138 mmol/L (136-145); TOTAL PROTEIN 6.9 g/dL (6.4-8.2); eGFR NON BLACK RACES > 60 (>60)
[2021-09-14] MEDS: PULMICORT NEB TX 0.5 MG NEB SCH ×2 (08:50→20:55)
[2021-09-14] MEDS: FLOMAX PO SCH (09:15)
[2021-09-14] MEDS: LIPITOR TAB 40 MG PO SCH (09:15)
[2021-09-14] MEDS: LOPRESSOR TAB 50 MG PO SCH ×2 (09:15→20:47)
[2021-09-14] MEDS: LOVENOX INJ 40 MG SYR SC SCH (09:29)
[2021-09-14] MEDS: ROCEPHIN VIAL 1 GRAM 1 G in NS 100 ML IV + SPIKE MINIBAG* 100 ML IV SCH (09:29)
[2021-09-14] MEDS: INVANZ INJ 1 GM VIAL 1 GM in NS 100 ML IV + SPIKE MINIBAG* 100 ML IV SCH (17:23)
[2021-09-14] MEDS ORDERED: PERCOCET TAB 5/325 MG PO PRN (17:29)
[2021-09-14] MEDS ORDERED: FLEXERIL TAB 10 MG PO SCH (18:00)
[2021-09-14] MEDS: FLEXERIL TAB 10 MG PO SCH (20:46)
[2021-09-15] MEDS: NS 1000 ML 1,000 ML IV SCH ×2 (03:36→05:53)
[2021-09-15] MEDS: NEURONTIN CAP 400 MG PO SCH ×2 (05:53→13:48)
[2021-09-15] MEDS: TYLENOL 325 MG TAB PO PRN (05:54)
[2021-09-15] MEDS: FLEXERIL TAB 10 MG PO SCH (08:51)
[2021-09-15] MEDS: LOPRESSOR TAB 50 MG PO SCH (08:52)
[2021-09-15] MEDS: FLOMAX PO SCH (08:52)
[2021-09-15] MEDS: LOVENOX INJ 40 MG SYR SC SCH (08:52)
[2021-09-15] MEDS: INVANZ INJ 1 GM VIAL 1 GM in NS 100 ML IV + SPIKE MINIBAG* 100 ML IV SCH (08:52)
[2021-09-15] MEDS: LIPITOR TAB 40 MG PO SCH (08:52)
[2021-09-15] MEDS: PULMICORT NEB TX 0.5 MG NEB SCH (08:55)
[2021-09-15 15:47] VITALS: BP 158/73
--- NOTE | 2021-09-15 17:18 | PCM.PROG ---
Progress Note - Progress Note for Day of Date of Exam: 09/14/21 - Subjective Subjective: Patient is a 76 year old WM admitted as per HPI. Patient is alert and oriented. Patient states he has a stern cath due to urinary retention. States he sees Dr. Barros outpatient for this. Patient's urine culture was positive for bacteria which is resistant to Rocephin; Rocephin d/c'd, Invanz o rdered. Will admin todays dose and tomorrows dose of Invanz and plan for dc in am. No other concerns at present. - Past Medical Family Social History Past Med/Fam/Surg Hx: No changes since H&P Allergies: Allergies No Known Drug Allergies Allergy (Verified 10/28/20 08:59) - Review of Systems ROS: No change since H&P - Vital Signs and I&O's Vital Signs: Temperature 97.3 F Pulse Rate [Right Radial] 71 Pulse Rate 82 Respiratory Rate 23 Blood Pressure [Left Arm] 132/60 Blood Pressure [Right Arm] 158/73 Blood Pressure 133/73 O2 Sat by Pulse Oximetry 98 Intake and Output: Intake & Output 09/12/21 09/13/21 09/14/21 09/15/21 23:59 23:59 23:59 23:59 Intake Total 6588 / 6588 4379 / 4379 4175 / 4175 2815 / 2815 Output Total 5125 / 5125 4000 / 4000 4275 / 4275 2600 / 2600 Balance 1463 / 1463 379 / 379 -100 / -100 215 / 215 - Physical Exam Oriented: Normal Eyes: Normal Ear: Normal Nose: Normal Throat: Normal Respiratory: Normal Cardiovascular: Normal : Other (chronic indwelling stern due to urinary retention) Auscultation: Bowel Sounds: Normal Tenderness: Normal Skin: Red, Tender, Wound (PENILE ULCER, EXCORIATION TO SCROTUM ) Musculoskeletal: Normal Psychiatric: Normal Mood Description: Calm Affect: Normal Speech Pattern: Clear, Appropriate - Laboratory and Diagnostics Result Diagrams: 09/14/21 05:06 09/14/21 05:06 Labs: 09/11/21 16:00 Urine,Catheterized Urine Culture - Final Proteus Mirabilis 09/11/21 12:45 Blood Blood Culture - Preliminary 09/11/21 12:36 Blood Blood Culture - Preliminary Laboratory WBC 7.3 X10^3/uL (3.6-10.0) 09/14/21 05:06 RBC 3.65 X10^6/uL (4.7-6.0) L 09/14/21 05:06 Hgb 10.8 g/dL (13.5-18.0) L 09/14/21 05:06 Hct 31.7 % (42.0-54.0) L 09/14/21 05:06 MCV 86.8 fL (80.0-100.0) 09/14/21 05:06 MCH 29.5 pg (27.0-34.0) 09/14/21 05:06 MCHC 34.0 g/dL (33.0-35.0) 09/14/21 05:06 RDW 14.7 % (11.6-16.5) 09/14/21 05:06 Plt Count 230 X10^3/uL (150.0-450.0) 09/14/21 05:06 MPV 7.6 fL (7.4-11.0) 09/14/21 05:06 Neut % (Auto) 59.0 % (42.0-75.0) 09/14/21 05:06 Lymph % (Auto) 22.0 % (21.0-51.0) 09/14/21 05:06 [place] % (Auto) 9.1 % (0.0-13.0) 09/14/21 05:06 Eos % (Auto) 9.2 % (0.9-2.9) H 09/14/21 05:06 Baso % (Auto) 0.7 % (0.2-1.0) 09/14/21 05:06 Neut # (Auto) 4.3 x10^3/uL (2.2-4.8) 09/14/21 05:06 Lymph # (Auto) 1.6 X10^3/uL (1.3-2.9) 09/14/21 05:06 [place] # (Auto) 0.7 x10^3/uL (0.3-0.8) 09/14/21 05:06 Eos # (Auto) 0.7 x10^3/uL (0.0-0.2) H 09/14/21 05:06 Baso # (Auto) 0.0 X10^3/uL (0.0-0.1) 09/14/21 05:06 Absolute Nucleated RBC 0.0 /100WBC 09/14/21 05:06 Sodium 138 mmol/L (136-145) 09/14/21 05:06 Corrected Sodium 139 mmol/L (136-145) 09/14/21 05:06 Potassium 3.7 mmol/L (3.5-5.1) 09/14/21 05:06 Chloride 104 mmol/L (98-107) 09/14/21 05:06 Carbon Dioxide 24.6 mmol/L (21-32) 09/14/21 05:06 BUN 9 mg/dL (7-18) 09/14/21 05:06 Creatinine 0.84 mg/dL (0.70-1.30) 09/14/21 05:06 Est GFR (MDRD) Af Amer > 60 (>60) 09/14/21 05:06 Est GFR (MDRD) Non-Af > 60 (>60) 09/14/21 05:06 Glucose 135 mg/dL (65-99) H 09/14/21 05:06 Lactic Acid 1.9 mmol/L (0.4-2.0) 09/11/21 12:36 Calcium 8.1 mg/dL (8.5-10.1) L 09/14/21 05:06 Corrected Calcium 9.4 mg/dL (8.5-10.1) 09/14/21 05:06 Total Bilirubin 0.30 mg/dL (0.2-1.0) 09/14/21 05:06 AST 31 Units/L (15-37) 09/14/21 05:06 ALT 19 Units/L (12-78) 09/14/21 05:06 Alkaline Phosphatase 89 Units/L (46-116) 09/14/21 05:06 Total Protein 6.9 g/dL (6.4-8.2) 09/14/21 05:06 Albumin 2.4 g/dL (3.4-5.0) L 09/14/21 05:06 Globulin 4.5 g/dL (2.5-4.5) 09/14/21 05:06 Albumin/Globulin Ratio 0.5 Ratio (1.1-2.1) L 09/14/21 05:06 Specimen Type Catherized urine 09/11/21 16:00 Urine Color [place] (YELLOW) 09/11/21 16:00 Urine Appearance Turbid (CLEAR) 09/11/21 16:00 Urine pH 6.0 (5.0 - 8.0) 09/11/21 16:00 Ur Specific [place] 1.015 (1.000-1.030) 09/11/21 16:00 Urine Protein 3+ (NEGATIVE) 09/11/21 16:00 Urine Glucose (UA) Negative (NEGATIVE) 09/11/21 16:00 Urine Ketones Negative (NEGATIVE) 09/11/21 16:00 Urine Occult Blood 5+ (NEGATIVE) 09/11/21 16:00 Urine Nitrite Positive (NEGATIVE) 09/11/21 16:00 Urine Bilirubin Negative (NEGATIVE) 09/11/21 16:00 Urine Urobilinogen 1+ (NORMAL) 09/11/21 16:00 Ur Leukocyte Esterase 3+ (NEGATIVE) 09/11/21 16:00 Urine RBC Tntc /HPF (0-3) A 09/11/21 16:00 Urine WBC Tntc /HPF (0-5) A 09/11/21 16:00 Ur Squamous Epith Cells Few /HPF (NEGATIVE) 09/11/21 16:00 Urine Bacteria 2+ /HPF (NEGATIVE) 09/11/21 16:00 Hyaline Casts Few /LPF (NEGATIVE) 09/11/21 16:00 Urine Mucus Moderate /HPF (NEGATIVE) 09/11/21 16:00 Ur Culture Indicated? Yes/culture set up 09/11/21 16:00 Urine Opiates Screen Negative (NEG=<300) 09/11/21 16:03 Urine Methadone Screen Negative (NEG=<300) 09/11/21 16:03 Ur Barbiturates Screen Negative (NEG=<200) 09/11/21 16:03 Ur Phencyclidine Scrn Negative (NEG=<25) 09/11/21 16:03 Ur Amphetamines Screen Negative (NEG=<1000) 09/11/21 16:03 U Benzodiazepines Scrn Positive (NEG=<200) 09/11/21 16:03 Urine Cocaine Screen Negative (NEG=<300) 09/11/21 16:03 U Marijuana (THC) Screen Negative (NEG=<50) 09/11/21 16:03 SARS-CoV-2 (PCR) Negative (NEGATIVE) 09/11/21 16:00 Influenza Type A (PCR) Negative (NEGATIVE) 09/11/21 16:00 Influenza Type B (PCR) Negative (NEGATIVE) 09/11/21 16:00 RSV (PCR) Negative (NEGATIVE) 09/11/21 16:00 - Plan (1) Acute UTI Status: Acute Plan: D/C Rocephin. Start Invanz. Plan for dc on Augmentin in am (2) BPH (benign prostatic hyperplasia) Status: Chronic (3) Overdose of analgesic Status: Acute Qualifiers: Encounter type: initial encounter Injury intent: accidental or unintentional Qualified Code(s): T39.91XA - Poisoning by unspecified nonopioid analgesic, antipyretic and antirheumatic, accidental (unintentional), initial encounter Plan: Educated regarding medication safety (4) Acute renal insufficiency Status: Acute Plan: IV hydration (5) Urinary retention with incomplete bladder emptying Status: Acute Plan: Follow up outpatiet with urology. Keep Stern
== END 2021-09-15 15:40 | disposition home health service (06) ==
LOC: ER 11:37 → INTOOBSV 17:03 → ICU 17:03
PROVIDERS: ADMIT Internal Medicine; ATTEND Internal Medicine
DX: I95.89 Other hypotension; N17.8 Other acute kidney failure; R41.82 Altered mental status, unspecified; T42.4X1A Poisoning by benzodiazepines, accidental (unintentional), initial encounter; I25.10 Atherosclerotic heart disease of native coronary artery without angina pectoris; Z20.822 Contact with and (suspected) exposure to COVID-19; J44.9 Chronic obstructive pulmonary disease, unspecified; N40.1 Benign prostatic hyperplasia with lower urinary tract symptoms; R33.8 Other retention of urine; Z99.81 Dependence on supplemental oxygen; N39.0 Urinary tract infection, site not specified; B96.4 Proteus (mirabilis) (morganii) as the cause of diseases classified elsewhere

== ENCOUNTER 2022-05-17 18:27 | Observation (INO) ==
[2022-05-17] MEDS ORDERED: NS 1,000 ML IV 1,000 ML IV ONE (20:20)
--- NOTE | 2022-05-17 20:20 | DR.HEADACH ---
HPI Time Seen Time Seen by Provider: 05/17/22 20:20 Primary Care Physician Primary Care Physician: MARCELA HPI Comment HPI Comment: cough, congestion and headache for the past four to five days which seems to worsening; daughter is concerned that is a litte confused; no fever, chills, abd pain, n/v/d; he admits copd and uses oxygen at night; he also has a stern. Complaint/Symptoms Chief Complaint:: PT IN ED VIA WHEELCHAIR WITH C/O HEAD PRESSURE, COUGH AND CONGESTION SINCE MONDAY AND JERKING STARTING TODAY. Self Treatment fo Chief Complaint: PT HAS STERN CATH FROM HOME ATTACHED TO LEG BAG. COVID-19 Coronavirus risk:travel/contact w/high risk person: No Has patient experienced Coronavirus symptoms: Yes Coronavirus symptoms experienced: Coughing Source History Provided: Patient and Family Member Mode of Arrival Mode of Arrival: Wheelchair Timing Onset of Chief Complaint: 05/12/22 PMH PMH Past Medical History: Yes Past Medical History: Anxiety, Arthritis, CHF, COPD, Coronary Artery Disease, CVA, Depression and Hypertension Past Medical History Comment: BPH Past Surgical History: Yes Surgical History: CABG/Valve Surgery and Ortho Surgery Past Surgical History Comment: BACK Family History History of Family Medical Conditions: Yes Family Medical History: Diabetes Mellitus, Cancer, [place], Coronary Artery Disease, Heart Failure, Sudden Cardiac and Hypertension Social History Does patient currently use any type of tobacco product: No Have you used tobacco products in the last 12 months: No Type of Tobacco Use: None Does any household member use tobacco: No Alcohol Use: None Do you use any recreational Drugs:: No Lives With: Family Lives Where: Home Travel Risk Coronavirus risk:travel/contact w/high risk person: No Has patient experienced Coronavirus symptoms: Yes Coronavirus symptoms experienced: Coughing Infectious screening In the last 2 months have you had wt loss of >10#?: NO Have you had fever, night sweats or hemotysis?: No Have you traveled outside the country in the last 6 months?: No Isolation: Droplet ROS Review of Systems Constitutional: No Symptoms Reported Eyes: No Symptoms Reported ENTM: No Symptoms Reported Respiratoy: No Symptoms Reported Cardiovascular: No Symptoms Reported Gastrointestinal/Abdominal: No Symptoms Reported Neurological: No Symptoms Reported Musculoskeletal: No Symptoms Reported Integumentary: No Symptoms Reported Hematologic/Lymphatic: No Symptoms Reported Endocrine: No Symptoms Reported PE Vital Signs Vitals: Temperature 97.4 F Pulse Rate 92 Respiratory Rate 22 Blood Pressure [Left Arm] 132/60 Blood Pressure [Right Arm] 158/73 Blood Pressure 123/72 O2 Sat by Pulse Oximetry 91 General Limitations: No Limitations General Appearance: Alert and In No Apparent Distress Head Head Exam: Normal Inspection Eyes Eye exam: Normal Appearance Eyelids: Normal Inspection: Bilateral Pupils: Regular, Round: Bilateral Sclera/Conjunctival: Normal Inspection: Bilateral ENT ENT Exam: Normal Exam External Ear Exam: Normal External Inspection TM/Canal Exam: Bilateral: Normal Nose Exam: Normal Nose Exam Mouth Exam: Normal Inspection Teeth Exam: Normal Inspection Throat Exam: Normal Inspection Neck Neck Exam: Normal Inspection Chest Chest Inspection: Normal Inspection Respiratory Respiratory Exam: Normal Lung Sounds Bilat Respiratory Exam: Bilateral: Clear to Auscultation Cardiovascular Cardiovascular Exam: Regular Rate Abdominal Exam Abdominal Exam: Normal Inspection, Normal Bowel Sounds and Soft Extremities Extremities Exam: Normal Inspection Back Back Exam: Normal Inspection Neurologic Neurological Exam: Alert and Oriented X3 Psychiatric Psychiatric Exam: Normal Affect and Normal Mood Skin Skin Exam: Warm, Dry, Normal Color and Other (scattered abrasions to ble) ROR Labs Reviewed Laboratory Results Reviewed?: Yes Result Diagrams: 05/17/22 20:50 05/17/22 20:50 Laboratory: WBC 14.1 X10^3/uL (3.6-10.0) H 05/17/22 20:50 RBC 4.30 X10^6/uL (4.7-6.0) L 05/17/22 20:50 Hgb 12.8 g/dL (13.5-18.0) L 05/17/22 20:50 Hct 38.5 % (42.0-54.0) L 05/17/22 20:50 MCV 89.5 fL (80.0-100.0) 05/17/22 20:50 MCH 29.9 pg (27.0-34.0) 05/17/22 20:50 MCHC 33.4 g/dL (33.0-35.0) 05/17/22 20:50 RDW 13.9 % (11.6-16.5) 05/17/22 20:50 Plt Count 275 X10^3/uL (150.0-450.0) 05/17/22 20:50 MPV 7.8 fL (7.4-11.0) 05/17/22 20:50 Neut % (Auto) 67.2 % (42.0-75.0) 05/17/22 20:50 Lymph % (Auto) 17.3 % (21.0-51.0) L 05/17/22 20:50 [place] % (Auto) 8.3 % (0.0-13.0) 05/17/22 20:50 Eos % (Auto) 6.1 % (0.9-2.9) H 05/17/22 20:50 Baso % (Auto) 1.1 % (0.2-1.0) H 05/17/22 20:50 Neut # (Auto) 9.5 x10^3/uL (2.2-4.8) H 05/17/22 20:50 Lymph # (Auto) 2.4 X10^3/uL (1.3-2.9) 05/17/22 20:50 [place] # (Auto) 1.2 x10^3/uL (0.3-0.8) H 05/17/22 20:50 Eos # (Auto) 0.9 x10^3/uL (0.0-0.2) H 05/17/22 20:50 Baso # (Auto) 0.2 X10^3/uL (0.0-0.1) H 05/17/22 20:50 Absolute Nucleated RBC 0.0 /100WBC 05/17/22 20:50 Sample Site Rr 05/17/22 20:20 ABG pH 7.340 (7.35-7.45) L 05/17/22 20:20 ABG pCO2 53.0 mmHg (35.0-45.0) H* 05/17/22 20:20 ABG pO2 57.0 mmHg (80.0-100.0) L 05/17/22 20:20 ABG HCO3 28.6 mmol/L (22-26) H 05/17/22 20:20 ABG O2 Saturation 87.0 % (90-100) L 05/17/22 20:20 ABG Base Excess 1.9 mmol/L (-2.0-2.0) 05/17/22 20:20 Abdirashid Test Pos 05/17/22 20:20 A-a Gradient 26.0 mmHg 05/17/22 20:20 FiO2 21.0 05/17/22 20:20 Blood Gas Comments Niall well sw 05/17/22 20:20 Sodium 133 mmol/L (136-145) L 05/17/22 20:50 Corrected Sodium TNP 05/17/22 20:50 Potassium 5.4 mmol/L (3.5-5.1) H 05/17/22 20:50 Chloride 96 mmol/L (98-107) L 05/17/22 20:50 Carbon Dioxide 27.3 mmol/L (21-32) 05/17/22 20:50 BUN 33 mg/dL (7-18) H 05/17/22 20:50 Creatinine 3.01 mg/dL (0.70-1.30) H 05/17/22 20:50 Est GFR (MDRD) Af Amer 26 (>60) L 05/17/22 20:50 Est GFR (MDRD) Non-Af 22 (>60) L 05/17/22 20:50 Glucose 83 mg/dL (65-99) 05/17/22 20:50 Calcium 8.5 mg/dL (8.5-10.1) 05/17/22 20:50 Corrected Calcium TNP 05/17/22 20:50 Total Bilirubin 0.50 mg/dL (0.2-1.0) 05/17/22 20:50 AST 70 Units/L (15-37) H 05/17/22 20:50 ALT 33 Units/L (12-78) 05/17/22 20:50 Alkaline Phosphatase 117 Units/L (46-116) H 05/17/22 20:50 Total Protein 8.7 g/dL (6.4-8.2) H 05/17/22 20:50 Albumin 3.6 g/dL (3.4-5.0) 05/17/22 20:50 Globulin 5.1 g/dL (2.5-4.5) H 05/17/22 20:50 Albumin/Globulin Ratio 0.7 Ratio (1.1-2.1) L 05/17/22 20:50 Specimen Type Clean catch urine 05/17/22 23:36 Urine Color Yellow (YELLOW) 05/17/22 23:36 Urine Appearance Hazy (CLEAR) 05/17/22 23:36 Urine pH 7.0 (5.0 - 8.0) 05/17/22 23:36 Ur Specific [place] 1.010 (1.000-1.030) 05/17/22 23:36 Urine Protein 2+ (NEGATIVE) 05/17/22 23:36 Urine Glucose (UA) Negative (NEGATIVE) 05/17/22 23:36 Urine Ketones Negative (NEGATIVE) 05/17/22 23:36 Urine Blood 5+ (NEGATIVE) 05/17/22 23:36 Urine Nitrite Negative (NEGATIVE) 05/17/22 23:36 Urine Bilirubin Negative (NEGATIVE) 05/17/22 23:36 Urine Urobilinogen Normal (NORMAL) 05/17/22 23:36 Ur Leukocyte Esterase 3+ (NEGATIVE) 05/17/22 23:36 Urine RBC 5-10 /HPF (0-3) A 05/17/22 23:36 Urine WBC 20-30 /HPF (0-5) A 05/17/22 23:36 Ur Squamous Epith Cells Moderate /HPF (NEGATIVE) 05/17/22 23:36 Amorphous Sediment 1+ /HPF (NEGATIVE) 05/17/22 23:36 Urine Bacteria 2+ /HPF (NEGATIVE) 05/17/22 23:36 Urine Mucus Moderate /HPF (NEGATIVE) 05/17/22 23:36 Ur Culture Indicated? Yes/culture set up 05/17/22 23:36 SARS-CoV-2 (PCR) Negative (NEGATIVE) 05/17/22 20:20 Influenza Type A (PCR) Negative (NEGATIVE) 05/17/22 20:20 Influenza Type B (PCR) Negative (NEGATIVE) 05/17/22 20:20 RSV (PCR) Negative (NEGATIVE) 05/17/22 20:20 XRAY XRAY Interpreted by: Radiologist X-ray Results: pcxr: No focal infiltrate or effusion. Opioid Opioid Risk Tool Age (Adrián box if 16-45): No History of Preadolescent Sexual Abuse: No Total: 0 Total Score Risk Category: Low Risk Copyright: Joseph NEIL predicting aberrant behaviors Discharge Plan Diagnosis Discharge Problem: Acute UTI, Altered mental status, Hypoxia, Bronchitis, Acute hyperkalemia Discharge Plan Patient Disposition: 09 ADMITTED INPATIENT Condition: Stable Prescriptions: No Action atorvastatin 40 mg Tablet 40 mg PO QDAY oxybutynin chloride 10 mg Tablet Extended Release 24hr 10 mg PO QDAY tamsulosin 0.4 mg Capsule 0.4 mg PO QDAY pantoprazole [Protonix] 40 mg Tablet,Delayed Release (Dr/Ec) 40 mg PO QDAY lisinopril 5 mg Tablet 5 mg PO QDAY trazodone 50 mg Tablet 100 mg PO QHS gabapentin 800 mg Tablet 800 mg PO TID oxycodone-acetaminophen 10-325 mg tablet 1 tab PO QID PRN (Reason: Pain) furosemide 20 mg tablet 20 mg PO DAILY PRN memantine 10 mg tablet 10 mg PO BID Linzess 290 mcg capsule 290 mcg PO DAILY metoprolol tartrate 50 mg tablet 50 mg PO BID diclofenac sodium 1 % gel 1 % TOPICAL QID PRN tizanidine 4 mg tablet 4 mg PO Q8H PRN potassium chloride 10 mEq capsule, extended release 10 meq PO DAILY PRN venlafaxine 150 mg capsule,extended release 24hr 1 cap PO DAILY budesonide-formoterol [Symbicort] 160-4.5 mcg/actuation HFA aerosol inhaler 2 inh INHALATION BID buspirone 15 mg tablet 15 mg PO BID olanzapine 5 mg tablet 1 tab PO DAILY Health Concerns: Post Hospitalization: new medications and changes needed to prevent readmission or further decline. Pt educated and given instructions on all concerns. Plan of Treatment: Continue with present treatment and follow up plan. Pt is to keep follow up appointment as instructed and take medications as ordered. Follow ups/Referrals Follow ups/Referrals: LUIS MEDRANO [Primary Care Provider] - 3 days Instructions Stand Alone Forms: [facility], Patient Portal, Social Distancing
[2022-05-17] MEDS ORDERED: NS 1,000 ML IV 1,000 ML ONE (20:25)
[2022-05-17 21:00] LABS: ABG BASE EXCESS 1.9 mmol/L (-2.0-2.0); ABG HCO3 28.6 mmol/L (22-26)
[2022-05-17 21:01] LABS: ABG ALLEN TEST POS
[2022-05-17 21:05] LABS: BASOPHILS # (AUTO) 0.2 X10^3/uL (0.0-0.1); BASOPHILS % (AUTO) 1.1 % (0.2-1.0); EOSINOPHILS # (AUTO) 0.9 x10^3/uL (0.0-0.2); EOSINOPHILS % (AUTO) 6.1 % (0.9-2.9); HEMATOCRIT 38.5 % (42.0-54.0); HEMOGLOBIN 12.8 g/dL (13.5-18.0); LYMPHOCYTES # (AUTO) 2.4 X10^3/uL (1.3-2.9); LYMPHOCYTES % (AUTO) 17.3 % (21.0-51.0); MEAN CORPUSCULAR HEMOGLOBIN 29.9 pg (27.0-34.0); MEAN CORPUSCULAR HGB CONC 33.4 g/dL (33.0-35.0); MEAN CORPUSCULAR VOLUME 89.5 fL (80.0-100.0); MEAN PLATELET VOLUME 7.8 fL (7.4-11.0); MONOCYTES # (AUTO) 1.2 x10^3/uL (0.3-0.8); MONOCYTES % (AUTO) 8.3 % (0.0-13.0); NEUTROPHILS # (AUTO) 9.5 x10^3/uL (2.2-4.8); NEUTROPHILS % (AUTO) 67.2 % (42.0-75.0); RED CELL DISTRIBUTION WIDTH 13.9 % (11.6-16.5); WHITE BLOOD COUNT 14.1 X10^3/uL (3.6-10.0)
[2022-05-17 21:14] LABS: BLOOD UREA NITROGEN 33 mg/dL (7-18); CALCIUM 8.5 mg/dL (8.5-10.1); CARBON DIOXIDE 27.3 mmol/L (21-32); CHLORIDE 96 mmol/L (98-107); CREATININE 3.01 mg/dL (0.70-1.30); SODIUM 133 mmol/L (136-145); eGFR NON BLACK RACES 22 (>60)
[2022-05-17 21:28] LABS: ALANINE AMINOTRANSFERASE 33 Units/L (12-78); ALBUMIN 3.6 g/dL (3.4-5.0); ALKALINE PHOSPHATASE 117 Units/L (46-116); ASPARTATE AMINO TRANSFERASE 70 Units/L (15-37); TOTAL PROTEIN 8.7 g/dL (6.4-8.2)
--- NOTE | 2022-05-17 22:15 | CT ---
History: C/O HEAD PRESSURE, COUGH AND CONGESTION SINCE MONDAY AND JERKING STARTING TODAY. Relevant Clinical InformationExam :BRAIN W/O CONTechnique: Thin section axial ct images of the brain were obtained from the foramen magnum to the vertex without contrast. Sagittal and coronal reconstructions were also performed.Comparison: 07/31/2020Findings:The ventricles are within normal limits in size. No midline shift, mass effect or extra-axial fluid collections. No evidence of acute hemorrhage or acute macroinfarction. Mild cortical atrophy compatible with patient's age. Decreased attenuation in the periventricular and subcortical white matter consistent with microvascular ischemic white matter changes. IsThe visualized paranasal sinuses and mastoids are unremarkable. The calvarium is intact.Impression:Mild cortical atrophy with microvascular ischemic white matter changes.No acute intracranial pathology. IsElectronically signed by: Ryan Hebert (May 17, 2022 22:13:15)
[2022-05-17 23:57] LABS: BILIRUBIN,URINE NEGATIVE (NEGATIVE); BLOOD/HEMOGLOBIN,URINE 5+ (NEGATIVE); GLUCOSE, URINE NEGATIVE (NEGATIVE); KETONES,URINE NEGATIVE (NEGATIVE); LEUKOCYTE ESTERASE ,URINE 3+ (NEGATIVE); NITRITES,URINE NEGATIVE (NEGATIVE); PROTEIN,URINE 2+ (NEGATIVE); UROBILINOGEN,URINE NORMAL (NORMAL)
[2022-05-17 23:59] LABS: APPEARANCE,URINE HAZY (CLEAR); COLOR,URINE YELLOW (YELLOW)
[2022-05-18 00:07] LABS: BACTERIA,URINE 2+ /HPF (NEGATIVE); SQUAMOUS EPITHELIAL CELL,UR MODERATE /HPF (NEGATIVE)
--- NOTE | 2022-05-18 00:07 | RAD ---
HISTORYC/O HEAD PRESSURE, COUGH AND CONGESTION SINCE MONDAY AND JERKING STARTING TODAY.STUDYCHEST, 1 VIEWCOMPARISONOctober 2020.TECHNIQUEA single frontal view of the chest was obtained.FINDINGSThe patient is s/p median sternotomy. The heart is normal in size. There is no focal infiltrate. There is no effusion. There is no pneumothorax. The osseous structures are intact.IMPRESSIONNo focal infiltrate or effusion.Electronically signed by: Rossy Vazquez (May 18, 2022 00:05:42)
[2022-05-18] MEDS ORDERED: KAYEXALATE SUSP PO NR (01:00)
[2022-05-18] MEDS ORDERED: ROCEPHIN VIAL 1 GRAM ONE (01:17)
[2022-05-18] MEDS: ROCEPHIN VIAL 1 GRAM 1 G in NS 100 ML IV 100 ML IV SCH (01:25)
[2022-05-18] MEDS ORDERED: NS 1,000 ML IV 1,000 ML ONE (01:26)
[2022-05-18] MEDS: NS 1,000 ML IV 1,000 ML IV SCH ×2 (01:29→14:43)
[2022-05-18 03:31] VITALS: BMI 40.8
[2022-05-18 04:42] LABS: ALANINE AMINOTRANSFERASE 28 Units/L (12-78); ALKALINE PHOSPHATASE 101 Units/L (46-116); ASPARTATE AMINO TRANSFERASE 67 Units/L (15-37); BLOOD UREA NITROGEN 30 mg/dL (7-18); CARBON DIOXIDE 28.4 mmol/L (21-32); CHLORIDE 99 mmol/L (98-107); COR CA(FOR HYPOALB) 8.8 mg/dL (8.5-10.1); CREATININE 2.26 mg/dL (0.70-1.30); SODIUM 135 mmol/L (136-145); TOTAL PROTEIN 7.7 g/dL (6.4-8.2); eGFR NON BLACK RACES 30 (>60)
[2022-05-18 04:56] LABS: BASOPHILS # (AUTO) 0.1 X10^3/uL (0.0-0.1); BASOPHILS % (AUTO) 0.7 % (0.2-1.0); EOSINOPHILS # (AUTO) 0.7 x10^3/uL (0.0-0.2); EOSINOPHILS % (AUTO) 6.4 % (0.9-2.9); HEMATOCRIT 35.4 % (42.0-54.0); HEMOGLOBIN 12.1 g/dL (13.5-18.0); LYMPHOCYTES # (AUTO) 1.9 X10^3/uL (1.3-2.9); LYMPHOCYTES % (AUTO) 17.2 % (21.0-51.0); MEAN CORPUSCULAR HEMOGLOBIN 30.4 pg (27.0-34.0); MEAN CORPUSCULAR HGB CONC 34.1 g/dL (33.0-35.0); MEAN CORPUSCULAR VOLUME 89.3 fL (80.0-100.0); MEAN PLATELET VOLUME 8.7 fL (7.4-11.0); MONOCYTES # (AUTO) 0.9 x10^3/uL (0.3-0.8); MONOCYTES % (AUTO) 8.1 % (0.0-13.0); NEUTROPHILS # (AUTO) 7.3 x10^3/uL (2.2-4.8); NEUTROPHILS % (AUTO) 67.6 % (42.0-75.0); RED BLOOD COUNT 3.96 X10^6/uL (4.7-6.0); RED CELL DISTRIBUTION WIDTH 14.3 % (11.6-16.5); WHITE BLOOD COUNT 10.8 X10^3/uL (3.6-10.0)
[2022-05-18] MEDS: DUONEB 0.5 MG/3 MG (3 mL) NEB SCH ×4 (06:00→20:20)
[2022-05-18] MEDS: PULMICORT NEB TX 0.5 MG NEB SCH ×2 (09:30→20:20)
[2022-05-18] MEDS: LOVENOX INJ 30 MG SYR SC SCH (14:42)
[2022-05-18] MEDS ORDERED: MILK OF MAGNESIA ONE (19:47)
[2022-05-18] MEDS ORDERED: COLACE CAP 100 MG PO ONE (19:47)
[2022-05-18] MEDS ORDERED: TYLENOL 325 MG TAB PO PRN (20:27)
[2022-05-18] MEDS: COLACE CAP 100 MG PO SCH (20:34)
[2022-05-18] MEDS: MILK OF MAGNESIA PO SCH (20:35)
--- NOTE | 2022-05-19 00:53 | DR.H&P ---
H&P - History & Physical for Day of: H&P Date: 05/17/22 - Chief Complaint Chief Complaint: cough congestion, confusion - History of Present Illness History of Present Illness: Patient is a 77 yo wm who was admitted due to uti, bronchitis, copd, ams. Patients spouse provides history. Reports patient has had cough, congestion, and confusion for 3 days. Patient has a pmh of copd and wears oxygen at night. Patient also is not ambulatory due to history of chronic lbp and history of spine surgery. Patient also has in indwelling stern. Denies fever, chills, n/v/d appetite changes. Reports confusion. Patient alert but sleepy; easily arousable but quickly falls aslpee. No unilateral weakness. PMH COPD, chronic lbp, bph, chf, multiple other conditions. - Past Medical History Past Medical History: Coronary Artery Disease, Hypertension, Depression, Anxiety, CVA, COPD, Arthritis, CHF Additional Medical History: HIATAL HERNIA, BPH, DDD - Past Surgical History Surgical History: CABG/Valve Surgery, Ortho Surgery - Family History Family Medical History: Diabetes Mellitus, Cancer, [place], Hypertension - Social History Does patient currently use any type of tobacco product: No Have you used tobacco products in the last 12 months: No Type of Tobacco Use: None Does any household member use tobacco: No Alcohol Use: None Drug Use: Prescription Drugs - Medications Home Medications: No Known Drug Allergies Allergy (Verified 10/28/20 08:59) CONTINUE taking the following medications budesonide-formoterol HFA 160 mcg-4.5 mcg/actuation aerosol inhaler (Symbicort) 2 inh inhalation BID 05/17/22 [History] buspirone 15 mg tablet 15 mg PO BID 05/17/22 [History] olanzapine 5 mg tablet 1 tab PO DAILY 05/17/22 [History] venlafaxine 150 mg capsule,extended release 24 hr 1 cap PO DAILY 05/17/22 [History] - Review of Systems Constitutional: See HPI Eyes: See HPI ENT: See HPI Respiratory: See HPI Cardiovascular: See HPI Gastrointestinal: See HPI Genitourinary: See HPI Musculoskeletal: See HPI Skin: See HPI Neurological: See HPI - Physical Exam Vital Signs: Temperature 98.2 F Pulse Rate [Left Brachial] 89 Pulse Rate 85 Respiratory Rate 14 Blood Pressure [Left Arm] 132/60 Blood Pressure [Right Arm] 158/73 Blood Pressure 162/75 O2 Sat by Pulse Oximetry 97 Oriented: Normal Eyes: Normal Ear: Normal Nose: Normal Throat: Normal Respiratory: Rhonchi Throughout Cardiovascular: Normal : Other (stern) Auscultation: Bowel Sounds: Normal Palpation: Normal Tenderness: Normal Skin: Normal Musculoskeletal: Back:Lumbar (uses motorized wheelchair for mobilization, history of cva with left sided weakness), Tender, Instability Psychiatric: Normal Mood Description: Calm Affect: Normal Speech Pattern: Clear, Appropriate (alert, oriented, sleepy, arousable, falls asleep quickly) - Assessment/Plan (1) COPD exacerbation Status: Acute Plan: admit, iv abx, cultures, duo nebs, iv fluids, oxygen prn. See EMR for further orders (2) History of CVA (cerebrovascular accident) Status: Chronic (3) CAD (coronary artery disease) Status: Chronic (4) BPH (benign prostatic hyperplasia) Status: Chronic (5) Respiratory distress Status: Acute (6) Acute UTI Status: Acute (7) SOB (shortness of breath) Status: Acute (8) Altered mental status Status: Acute (9) Acute renal insufficiency Status: Acute (10) Hypoxia Status: Acute - Allergies Allergies/Adverse Reactions: Allergies Allergy/AdvReac Type Severity Reaction Status Date / Time No Known Drug Allergies Allergy Verified 10/28/20 08:59
[2022-05-19] MEDS ORDERED: ZANAFLEX PO PRN (01:01)
[2022-05-19] MEDS ORDERED: BUSPAR PO PRN (01:01)
[2022-05-19] MEDS ORDERED: MICRO K EXTEN CAP 10 MEQ PO PRN (01:01)
[2022-05-19] MEDS ORDERED: VOLTAREN 1 % GEL MULTI DOSE TUBE TOP PRN (01:01)
[2022-05-19] MEDS ORDERED: LASIX PO PRN (01:01)
[2022-05-19] MEDS ORDERED: OXYBUTYNIN CHLORIDE 10 MG PO SCH (01:15)
[2022-05-19] MEDS: ROCEPHIN VIAL 1 GRAM 1 G in NS 100 ML IV 100 ML IV SCH (01:17)
[2022-05-19] MEDS: FLOMAX PO SCH ×2 (01:18→09:04)
[2022-05-19] MEDS: LIPITOR TAB 40 MG PO SCH ×2 (01:18→09:05)
[2022-05-19] MEDS: ZESTRIL TAB 5 MG PO SCH ×2 (01:25→09:07)
[2022-05-19] MEDS: OXYBUTYNIN CHLORIDE ER PO SCH ×2 (01:25→09:07)
[2022-05-19] MEDS: PROTONIX TAB 40 MG PO SCH ×2 (01:26→09:06)
[2022-05-19] MEDS: NS 1,000 ML IV 1,000 ML IV SCH ×3 (03:10→18:09)
[2022-05-19 04:50] LABS: BASOPHILS # (AUTO) 0.1 X10^3/uL (0.0-0.1); EOSINOPHILS # (AUTO) 0.5 x10^3/uL (0.0-0.2); EOSINOPHILS % (AUTO) 6.7 % (0.9-2.9); HEMATOCRIT 34.8 % (42.0-54.0); HEMOGLOBIN 11.8 g/dL (13.5-18.0); LYMPHOCYTES # (AUTO) 0.9 X10^3/uL (1.3-2.9); LYMPHOCYTES % (AUTO) 12.7 % (21.0-51.0); MEAN CORPUSCULAR HEMOGLOBIN 30.3 pg (27.0-34.0); MEAN CORPUSCULAR HGB CONC 34.1 g/dL (33.0-35.0); MEAN PLATELET VOLUME 8.2 fL (7.4-11.0); MONOCYTES # (AUTO) 0.7 x10^3/uL (0.3-0.8); MONOCYTES % (AUTO) 10.4 % (0.0-13.0); NEUTROPHILS # (AUTO) 4.9 x10^3/uL (2.2-4.8); NEUTROPHILS % (AUTO) 69.2 % (42.0-75.0); RED BLOOD COUNT 3.91 X10^6/uL (4.7-6.0); RED CELL DISTRIBUTION WIDTH 14.2 % (11.6-16.5); WHITE BLOOD COUNT 7.1 X10^3/uL (3.6-10.0)
[2022-05-19 04:51] LABS: ALANINE AMINOTRANSFERASE 27 Units/L (12-78); ALBUMIN 2.8 g/dL (3.4-5.0); ALKALINE PHOSPHATASE 105 Units/L (46-116); ASPARTATE AMINO TRANSFERASE 47 Units/L (15-37); BLOOD UREA NITROGEN 14 mg/dL (7-18); CALCIUM 8.3 mg/dL (8.5-10.1); CARBON DIOXIDE 30.9 mmol/L (21-32); CHLORIDE 103 mmol/L (98-107); COR CA(FOR HYPOALB) 9.3 mg/dL (8.5-10.1); COR NA(FOR HYPERGLY) 138 mmol/L (136-145); SODIUM 137 mmol/L (136-145); TOTAL PROTEIN 7.4 g/dL (6.4-8.2); eGFR NON BLACK RACES 57 (>60)
[2022-05-19] MEDS: DUONEB 0.5 MG/3 MG (3 mL) NEB SCH ×3 (05:45→21:17)
[2022-05-19 05:47] LABS: ABG ALLEN TEST POS; ABG HCO3 29.4 mmol/L (22-26)
--- NOTE | 2022-05-19 06:08 | RAD ---
HISTORYCOPD, bronchitisSTUDYChest AP [id number] ent is status post median sternotomy and CABG. Heart size is normal. Nisreen are normal. Lungs are well inflated and free of acute infiltrates. No pleural effusions are identified. Bony thorax is unremarkable.IMPRESSIONNo significant abnormality identifiedElectronically signed by: STEFFEN CONTRERAS (May 19, 2022 06:07:21)
[2022-05-19] MEDS: PULMICORT NEB TX 0.5 MG NEB SCH ×2 (08:30→21:17)
[2022-05-19] MEDS ORDERED: PATIENT'S HOME MEDICATION (Budesonide-Formoterol [Symbicort] 160-4.5 mcg/actuation HFA aer IN SCH (09:00)
[2022-05-19] MEDS ORDERED: SYMBICORT INH 160/4.5 mcg IN SCH (09:00)
[2022-05-19] MEDS: EFFEXOR XR 150 MG CAP 24-HR PO SCH (09:03)
[2022-05-19] MEDS: LINZESS PO SCH (09:04)
[2022-05-19] MEDS: LOPRESSOR TAB 50 MG PO SCH ×2 (09:05→20:07)
[2022-05-19] MEDS: LOVENOX INJ 30 MG SYR SC SCH (09:05)
[2022-05-19] MEDS: ZyPREXA TAB 5 MG PO SCH (09:06)
[2022-05-19] MEDS: PERCOCET TAB 5/325 MG PO PRN (09:07)
[2022-05-19] MEDS: NAMENDA TAB 10 MG PO SCH ×2 (09:07→20:07)
[2022-05-19] MEDS: MILK OF MAGNESIA PO SCH (20:07)
[2022-05-19] MEDS: COLACE CAP 100 MG PO SCH (20:07)
[2022-05-20] MEDS: ROCEPHIN VIAL 1 GRAM 1 G in NS 100 ML IV 100 ML IV SCH (01:03)
[2022-05-20] MEDS: NS 1,000 ML IV 1,000 ML IV SCH ×2 (01:04→05:58)
--- NOTE | 2022-05-20 03:47 | PCM.PROG ---
Progress Note - Progress Note for Day of Date of Exam: 05/18/22 - Subjective Subjective: Patient is a 77 yo wm who was admitted as per hpi. Patient continues to AMS. Patient is arousable upon touch but not voice. Patient falls asleep quickly. Urine culture pending. Patient gets frequent UTIs due to chronic indwelling stern. - Past Medical Family Social History Past Med/Fam/Surg Hx: No changes since H&P Allergies: Allergies No Known Drug Allergies Allergy (Verified 10/28/20 08:59) - Review of Systems ROS: No change since H&P - Vital Signs and I&O's Vital Signs: Temperature 97.7 F Pulse Rate [Left Brachial] 89 Pulse Rate 55 Respiratory Rate 12 Blood Pressure [Left Arm] 132/60 Blood Pressure [Right Arm] 158/73 Blood Pressure 117/60 O2 Sat by Pulse Oximetry 96 Intake and Output: Intake & Output 05/17/22 05/18/22 05/19/22 05/20/22 23:59 23:59 23:59 23:59 Intake Total 3047 / 3047 3004 / 3004 Output Total 5025 / 5025 1880 / 1880 200 / 200 Balance -1977 / -1977 1124 / 1124 -200 / -200 - Physical Exam Oriented: Normal Eyes: Normal Ear: Normal Nose: Normal Throat: Normal Respiratory: Rhonchi Cardiovascular: Normal : Other (stern) Auscultation: Bowel Sounds: Normal Palpation: Normal Tenderness: Normal Skin: Normal Musculoskeletal: Back:Lumbar (uses motorized wheelchair for mobilization, history of cva with left sided weakness), Tender, Instability Psychiatric: Normal Mood Description: Calm Affect: Normal Speech Pattern: Clear, Appropriate - Laboratory and Diagnostics Result Diagrams: 05/19/22 04:00 05/19/22 04:00 Labs: 05/17/22 23:36 Urine,Clean Catch Urine Culture - Preliminary Laboratory WBC 7.1 X10^3/uL (3.6-10.0) 05/19/22 04:00 RBC 3.91 X10^6/uL (4.7-6.0) L 05/19/22 04:00 Hgb 11.8 g/dL (13.5-18.0) L 05/19/22 04:00 Hct 34.8 % (42.0-54.0) L 05/19/22 04:00 MCV 89.0 fL (80.0-100.0) 05/19/22 04:00 MCH 30.3 pg (27.0-34.0) 05/19/22 04:00 MCHC 34.1 g/dL (33.0-35.0) 05/19/22 04:00 RDW 14.2 % (11.6-16.5) 05/19/22 04:00 Plt Count 195 X10^3/uL (150.0-450.0) 05/19/22 04:00 MPV 8.2 fL (7.4-11.0) 05/19/22 04:00 Neut % (Auto) 69.2 % (42.0-75.0) 05/19/22 04:00 Lymph % (Auto) 12.7 % (21.0-51.0) L 05/19/22 04:00 [place] % (Auto) 10.4 % (0.0-13.0) 05/19/22 04:00 Eos % (Auto) 6.7 % (0.9-2.9) H 05/19/22 04:00 Baso % (Auto) 1.0 % (0.2-1.0) 05/19/22 04:00 Neut # (Auto) 4.9 x10^3/uL (2.2-4.8) H 05/19/22 04:00 Lymph # (Auto) 0.9 X10^3/uL (1.3-2.9) L 05/19/22 04:00 [place] # (Auto) 0.7 x10^3/uL (0.3-0.8) 05/19/22 04:00 Eos # (Auto) 0.5 x10^3/uL (0.0-0.2) H 05/19/22 04:00 Baso # (Auto) 0.1 X10^3/uL (0.0-0.1) 05/19/22 04:00 Absolute Nucleated RBC 0.0 /100WBC 05/19/22 04:00 Sample Site Lr 05/19/22 05:42 ABG pH 7.360 (7.35-7.45) 05/19/22 05:42 ABG pCO2 52.0 mmHg (35.0-45.0) H* 05/19/22 05:42 ABG pO2 84.0 mmHg (80.0-100.0) 05/19/22 05:42 ABG HCO3 29.4 mmol/L (22-26) H 05/19/22 05:42 ABG O2 Saturation 96.0 % (90-100) 05/19/22 05:42 ABG Base Excess 3.0 mmol/L (-2.0-2.0) H 05/19/22 05:42 Abdirashid Test Pos 05/19/22 05:42 A-a Gradient 51.0 mmHg 05/19/22 05:42 FiO2 28.0 05/19/22 05:42 Blood Gas Comments Niall well ae 05/19/22 05:42 Sodium 137 mmol/L (136-145) 05/19/22 04:00 Corrected Sodium 138 mmol/L (136-145) 05/19/22 04:00 Potassium 4.4 mmol/L (3.5-5.1) 05/19/22 04:00 Chloride 103 mmol/L (98-107) 05/19/22 04:00 Carbon Dioxide 30.9 mmol/L (21-32) 05/19/22 04:00 BUN 14 mg/dL (7-18) 05/19/22 04:00 Creatinine 1.30 mg/dL (0.70-1.30) 05/19/22 04:00 Est GFR (MDRD) Af Amer > 60 (>60) 05/19/22 04:00 Est GFR (MDRD) Non-Af 57 (>60) L 05/19/22 04:00 Glucose 155 mg/dL (65-99) H 05/19/22 04:00 POC Glucose (mg/dL) 166 mg/dL (65-99) H 05/18/22 20:33 Calcium 8.3 mg/dL (8.5-10.1) L 05/19/22 04:00 Corrected Calcium 9.3 mg/dL (8.5-10.1) 05/19/22 04:00 Total Bilirubin 0.40 mg/dL (0.2-1.0) 05/19/22 04:00 AST 47 Units/L (15-37) H 05/19/22 04:00 ALT 27 Units/L (12-78) 05/19/22 04:00 Alkaline Phosphatase 105 Units/L (46-116) 05/19/22 04:00 Total Protein 7.4 g/dL (6.4-8.2) 05/19/22 04:00 Albumin 2.8 g/dL (3.4-5.0) L 05/19/22 04:00 Globulin 4.6 g/dL (2.5-4.5) H 05/19/22 04:00 Albumin/Globulin Ratio 0.6 Ratio (1.1-2.1) L 05/19/22 04:00 Specimen Type Clean catch urine 05/17/22 23:36 Urine Color Yellow (YELLOW) 05/17/22 23:36 Urine Appearance Hazy (CLEAR) 05/17/22 23:36 Urine pH 7.0 (5.0 - 8.0) 05/17/22 23:36 Ur Specific [place] 1.010 (1.000-1.030) 05/17/22 23:36 Urine Protein 2+ (NEGATIVE) 05/17/22 23:36 Urine Glucose (UA) Negative (NEGATIVE) 05/17/22 23:36 Urine Ketones Negative (NEGATIVE) 05/17/22 23:36 Urine Blood 5+ (NEGATIVE) 05/17/22 23:36 Urine Nitrite Negative (NEGATIVE) 05/17/22 23:36 Urine Bilirubin Negative (NEGATIVE) 05/17/22 23:36 Urine Urobilinogen Normal (NORMAL) 05/17/22 23:36 Ur Leukocyte Esterase 3+ (NEGATIVE) 05/17/22 23:36 Urine RBC 5-10 /HPF (0-3) A 05/17/22 23:36 Urine WBC 20-30 /HPF (0-5) A 05/17/22 23:36 Ur Squamous Epith Cells Moderate /HPF (NEGATIVE) 05/17/22 23:36 Amorphous Sediment 1+ /HPF (NEGATIVE) 05/17/22 23:36 Urine Bacteria 2+ /HPF (NEGATIVE) 05/17/22 23:36 Urine Mucus Moderate /HPF (NEGATIVE) 05/17/22 23:36 Ur Culture Indicated? Yes/culture set up 05/17/22 23:36 SARS-CoV-2 (PCR) Negative (NEGATIVE) 05/17/22 20:20 Influenza Type A (PCR) Negative (NEGATIVE) 05/17/22 20:20 Influenza Type B (PCR) Negative (NEGATIVE) 05/17/22 20:20 RSV (PCR) Negative (NEGATIVE) 05/17/22 20:20 - Plan (1) COPD exacerbation Status: Acute Plan: admit, iv abx, cultures, duo nebs, iv fluids, oxygen prn. See EMR for further orders (2) History of CVA (cerebrovascular accident) Status: Chronic (3) CAD (coronary artery disease) Status: Chronic (4) BPH (benign prostatic hyperplasia) Status: Chronic (5) Respiratory distress Status: Acute (6) Acute UTI Status: Acute Plan: Culture pending, continue iv abx. (7) SOB (shortness of breath) Status: Acute (8) Altered mental status Status: Acute (9) Acute renal insufficiency Status: Acute (10) Hypoxia Status: Acute
--- NOTE | 2022-05-20 03:50 | PCM.PROG ---
Progress Note - Progress Note for Day of Date of Exam: 05/19/22 - Subjective Subjective: Patient is a 77 yo wm who was admitted as per hpi. Patient is alert and oriented x 4. Report he remembers me rounding yesterday. Mentation is at baseline. Patient sitting up in chair. SPouse at bedside. Urine culture pending; growing gram negative rods > 100k colony count. Patient gets frequent UTIs due to chronic indwelling stern. Once urine culture returns plan for dc home pending results. - Past Medical Family Social History Past Med/Fam/Surg Hx: No changes since H&P Allergies: Allergies No Known Drug Allergies Allergy (Verified 10/28/20 08:59) - Review of Systems ROS: No change since H&P - Vital Signs and I&O's Vital Signs: Temperature 97.7 F Pulse Rate [Left Brachial] 89 Pulse Rate 55 Respiratory Rate 12 Blood Pressure [Left Arm] 132/60 Blood Pressure [Right Arm] 158/73 Blood Pressure 117/60 O2 Sat by Pulse Oximetry 96 Intake and Output: Intake & Output 05/17/22 05/18/22 05/19/22 05/20/22 23:59 23:59 23:59 23:59 Intake Total 3047 / 3047 3004 / 3004 Output Total 5025 / 5025 1880 / 1880 200 / 200 Balance -1977 / -1977 1124 / 1124 -200 / -200 - Physical Exam Oriented: Normal Eyes: Normal Ear: Normal Nose: Normal Throat: Normal Respiratory: Rhonchi Cardiovascular: Normal : Other (stern) Auscultation: Bowel Sounds: Normal Tenderness: Normal Skin: Normal Musculoskeletal: Back:Lumbar (uses motorized wheelchair for mobilization, history of cva with left sided weakness), Tender, Instability Psychiatric: Normal Mood Description: Calm Affect: Normal Speech Pattern: Clear, Appropriate - Laboratory and Diagnostics Result Diagrams: 05/19/22 04:00 05/19/22 04:00 Labs: 05/17/22 23:36 Urine,Clean Catch Urine Culture - Preliminary Laboratory WBC 7.1 X10^3/uL (3.6-10.0) 05/19/22 04:00 RBC 3.91 X10^6/uL (4.7-6.0) L 05/19/22 04:00 Hgb 11.8 g/dL (13.5-18.0) L 05/19/22 04:00 Hct 34.8 % (42.0-54.0) L 05/19/22 04:00 MCV 89.0 fL (80.0-100.0) 05/19/22 04:00 MCH 30.3 pg (27.0-34.0) 05/19/22 04:00 MCHC 34.1 g/dL (33.0-35.0) 05/19/22 04:00 RDW 14.2 % (11.6-16.5) 05/19/22 04:00 Plt Count 195 X10^3/uL (150.0-450.0) 05/19/22 04:00 MPV 8.2 fL (7.4-11.0) 05/19/22 04:00 Neut % (Auto) 69.2 % (42.0-75.0) 05/19/22 04:00 Lymph % (Auto) 12.7 % (21.0-51.0) L 05/19/22 04:00 [place] % (Auto) 10.4 % (0.0-13.0) 05/19/22 04:00 Eos % (Auto) 6.7 % (0.9-2.9) H 05/19/22 04:00 Baso % (Auto) 1.0 % (0.2-1.0) 05/19/22 04:00 Neut # (Auto) 4.9 x10^3/uL (2.2-4.8) H 05/19/22 04:00 Lymph # (Auto) 0.9 X10^3/uL (1.3-2.9) L 05/19/22 04:00 [place] # (Auto) 0.7 x10^3/uL (0.3-0.8) 05/19/22 04:00 Eos # (Auto) 0.5 x10^3/uL (0.0-0.2) H 05/19/22 04:00 Baso # (Auto) 0.1 X10^3/uL (0.0-0.1) 05/19/22 04:00 Absolute Nucleated RBC 0.0 /100WBC 05/19/22 04:00 Sample Site Lr 05/19/22 05:42 ABG pH 7.360 (7.35-7.45) 05/19/22 05:42 ABG pCO2 52.0 mmHg (35.0-45.0) H* 05/19/22 05:42 ABG pO2 84.0 mmHg (80.0-100.0) 05/19/22 05:42 ABG HCO3 29.4 mmol/L (22-26) H 05/19/22 05:42 ABG O2 Saturation 96.0 % (90-100) 05/19/22 05:42 ABG Base Excess 3.0 mmol/L (-2.0-2.0) H 05/19/22 05:42 Abdirashid Test Pos 05/19/22 05:42 A-a Gradient 51.0 mmHg 05/19/22 05:42 FiO2 28.0 05/19/22 05:42 Blood Gas Comments Niall well ae 05/19/22 05:42 Sodium 137 mmol/L (136-145) 05/19/22 04:00 Corrected Sodium 138 mmol/L (136-145) 05/19/22 04:00 Potassium 4.4 mmol/L (3.5-5.1) 05/19/22 04:00 Chloride 103 mmol/L (98-107) 05/19/22 04:00 Carbon Dioxide 30.9 mmol/L (21-32) 05/19/22 04:00 BUN 14 mg/dL (7-18) 05/19/22 04:00 Creatinine 1.30 mg/dL (0.70-1.30) 05/19/22 04:00 Est GFR (MDRD) Af Amer > 60 (>60) 05/19/22 04:00 Est GFR (MDRD) Non-Af 57 (>60) L 05/19/22 04:00 Glucose 155 mg/dL (65-99) H 05/19/22 04:00 POC Glucose (mg/dL) 166 mg/dL (65-99) H 05/18/22 20:33 Calcium 8.3 mg/dL (8.5-10.1) L 05/19/22 04:00 Corrected Calcium 9.3 mg/dL (8.5-10.1) 05/19/22 04:00 Total Bilirubin 0.40 mg/dL (0.2-1.0) 05/19/22 04:00 AST 47 Units/L (15-37) H 05/19/22 04:00 ALT 27 Units/L (12-78) 05/19/22 04:00 Alkaline Phosphatase 105 Units/L (46-116) 05/19/22 04:00 Total Protein 7.4 g/dL (6.4-8.2) 05/19/22 04:00 Albumin 2.8 g/dL (3.4-5.0) L 05/19/22 04:00 Globulin 4.6 g/dL (2.5-4.5) H 05/19/22 04:00 Albumin/Globulin Ratio 0.6 Ratio (1.1-2.1) L 05/19/22 04:00 Specimen Type Clean catch urine 05/17/22 23:36 Urine Color Yellow (YELLOW) 05/17/22 23:36 Urine Appearance Hazy (CLEAR) 05/17/22 23:36 Urine pH 7.0 (5.0 - 8.0) 05/17/22 23:36 Ur Specific [place] 1.010 (1.000-1.030) 05/17/22 23:36 Urine Protein 2+ (NEGATIVE) 05/17/22 23:36 Urine Glucose (UA) Negative (NEGATIVE) 05/17/22 23:36 Urine Ketones Negative (NEGATIVE) 05/17/22 23:36 Urine Blood 5+ (NEGATIVE) 05/17/22 23:36 Urine Nitrite Negative (NEGATIVE) 05/17/22 23:36 Urine Bilirubin Negative (NEGATIVE) 05/17/22 23:36 Urine Urobilinogen Normal (NORMAL) 05/17/22 23:36 Ur Leukocyte Esterase 3+ (NEGATIVE) 05/17/22 23:36 Urine RBC 5-10 /HPF (0-3) A 05/17/22 23:36 Urine WBC 20-30 /HPF (0-5) A 05/17/22 23:36 Ur Squamous Epith Cells Moderate /HPF (NEGATIVE) 05/17/22 23:36 Amorphous Sediment 1+ /HPF (NEGATIVE) 05/17/22 23:36 Urine Bacteria 2+ /HPF (NEGATIVE) 05/17/22 23:36 Urine Mucus Moderate /HPF (NEGATIVE) 05/17/22 23:36 Ur Culture Indicated? Yes/culture set up 05/17/22 23:36 SARS-CoV-2 (PCR) Negative (NEGATIVE) 05/17/22 20:20 Influenza Type A (PCR) Negative (NEGATIVE) 05/17/22 20:20 Influenza Type B (PCR) Negative (NEGATIVE) 05/17/22 20:20 RSV (PCR) Negative (NEGATIVE) 05/17/22 20:20 - Plan (1) COPD exacerbation Status: Acute Plan: admit, iv abx, cultures, duo nebs, iv fluids, oxygen prn. See EMR for further orders (2) History of CVA (cerebrovascular accident) Status: Chronic (3) CAD (coronary artery disease) Status: Chronic (4) BPH (benign prostatic hyperplasia) Status: Chronic (5) Respiratory distress Status: Acute (6) Acute UTI Status: Acute Plan: Culture pending, continue iv abx. (7) SOB (shortness of breath) Status: Acute (8) Altered mental status Status: Acute (9) Acute renal insufficiency Status: Acute (10) Hypoxia Status: Acute
[2022-05-20 05:15] LABS: BASOPHILS % (AUTO) 0.7 % (0.2-1.0); EOSINOPHILS # (AUTO) 0.7 x10^3/uL (0.0-0.2); EOSINOPHILS % (AUTO) 13.6 % (0.9-2.9); HEMATOCRIT 30.5 % (42.0-54.0); HEMOGLOBIN 10.5 g/dL (13.5-18.0); LYMPHOCYTES # (AUTO) 1.2 X10^3/uL (1.3-2.9); LYMPHOCYTES % (AUTO) 22.3 % (21.0-51.0); MEAN CORPUSCULAR HEMOGLOBIN 30.5 pg (27.0-34.0); MEAN CORPUSCULAR HGB CONC 34.3 g/dL (33.0-35.0); MEAN CORPUSCULAR VOLUME 88.9 fL (80.0-100.0); MEAN PLATELET VOLUME 8.3 fL (7.4-11.0); MONOCYTES # (AUTO) 0.6 x10^3/uL (0.3-0.8); MONOCYTES % (AUTO) 10.9 % (0.0-13.0); NEUTROPHILS # (AUTO) 2.7 x10^3/uL (2.2-4.8); NEUTROPHILS % (AUTO) 52.5 % (42.0-75.0); RED BLOOD COUNT 3.43 X10^6/uL (4.7-6.0); RED CELL DISTRIBUTION WIDTH 13.9 % (11.6-16.5); WHITE BLOOD COUNT 5.2 X10^3/uL (3.6-10.0)
[2022-05-20 05:22] LABS: ALANINE AMINOTRANSFERASE 24 Units/L (12-78); ALBUMIN 2.4 g/dL (3.4-5.0); ALKALINE PHOSPHATASE 90 Units/L (46-116); ASPARTATE AMINO TRANSFERASE 36 Units/L (15-37); BLOOD UREA NITROGEN 15 mg/dL (7-18); CARBON DIOXIDE 28.2 mmol/L (21-32); CHLORIDE 105 mmol/L (98-107); COR CA(FOR HYPOALB) 9.3 mg/dL (8.5-10.1); COR NA(FOR HYPERGLY) 138 mmol/L (136-145); SODIUM 137 mmol/L (136-145); TOTAL PROTEIN 6.4 g/dL (6.4-8.2); eGFR NON BLACK RACES > 60 (>60)
[2022-05-20] MEDS: DUONEB 0.5 MG/3 MG (3 mL) NEB SCH ×2 (06:22→14:20)
[2022-05-20] MEDS: EFFEXOR XR 150 MG CAP 24-HR PO SCH (08:29)
[2022-05-20] MEDS: LIPITOR TAB 40 MG PO SCH (08:30)
[2022-05-20] MEDS: LINZESS PO SCH (08:30)
[2022-05-20] MEDS: PULMICORT NEB TX 0.5 MG NEB SCH (08:30)
[2022-05-20] MEDS: FLOMAX PO SCH (08:30)
[2022-05-20] MEDS: NAMENDA TAB 10 MG PO SCH (08:31)
[2022-05-20] MEDS: OXYBUTYNIN CHLORIDE ER PO SCH (08:31)
[2022-05-20] MEDS: ZyPREXA TAB 5 MG PO SCH (08:32)
[2022-05-20] MEDS: ZESTRIL TAB 5 MG PO SCH (08:32)
[2022-05-20] MEDS: PROTONIX TAB 40 MG PO SCH (08:32)
[2022-05-20] MEDS: LOPRESSOR TAB 50 MG PO SCH (08:34)
[2022-05-20] MEDS: LOVENOX INJ 30 MG SYR SC SCH (08:48)
[2022-05-20] MEDS: PERCOCET TAB 5/325 MG PO PRN (09:00)
[2022-05-20] MEDS ORDERED: BUTT CREAM (COMPOUND) ONE (12:34)
[2022-05-20 15:27] VITALS: BP 140/61
[2022-05-20] MEDS ORDERED: INVanz INJ 1 GRAM VIAL 1 G in NS 100 ML IV 100 ML IV SCH (15:39)
[2022-05-20] MEDS ORDERED: LIPITOR TAB 40 MG PO SCH (21:00)
== END 2022-05-20 17:08 | disposition home or self-care (01) ==
LOC: ER 18:27 → ICU 18:27
PROVIDERS: ADMIT Internal Medicine; ATTEND Internal Medicine
DX: I25.10 Atherosclerotic heart disease of native coronary artery without angina pectoris; J44.1 Chronic obstructive pulmonary disease with (acute) exacerbation; R41.82 Altered mental status, unspecified; R26.89 Other abnormalities of gait and mobility; R06.02 Shortness of breath; N40.0 Benign prostatic hyperplasia without lower urinary tract symptoms; Z86.73 Personal history of transient ischemic attack (TIA), and cerebral infarction without residual deficits; R06.03 Acute respiratory distress; B96.89 Other specified bacterial agents as the cause of diseases classified elsewhere; B96.5 Pseudomonas (aeruginosa) (mallei) (pseudomallei) as the cause of diseases classified elsewhere; Z20.822 Contact with and (suspected) exposure to COVID-19; N39.0 Urinary tract infection, site not specified; E87.5 Hyperkalemia; J20.8 Acute bronchitis due to other specified organisms; Z99.81 Dependence on supplemental oxygen; N17.8 Other acute kidney failure

== ENCOUNTER 2025-09-27 21:01 | Observation (INO) ==
[2025-09-27 21:53] LABS: MEAN PLATELET VOLUME 7.6 fL (7.4-11.0); RED CELL DISTRIBUTION WIDTH 13.5 % (11.6-16.5)
[2025-09-27 21:54] LABS: COR CA(FOR HYPOALB) 9.3 mg/dL (8.5-10.1); COR NA(FOR HYPERGLY) 135 mmol/L (136-145); CREATININE 1.37 mg/dL (0.70-1.30); eGFR NON BLACK RACES 53 (>60)
--- NOTE | 2025-09-27 22:57 | DR.EXTPAIN ---
HPI Time seen Time Seen by Provider: 09/27/25 22:45 PCP Primary Care Physician: Kt HPI Comment HPI Comment: According to pt he ahs hx of decubitus buttock for over 3 years. Has been working with her FP to help heal it .Has noticed that over the past 3-4 days it has become more painful ..he has not been eating and drinking well.Did not feel welll .called EMS and came to ER Complaint/Symptoms Chief Complaint Doctor Comments: not feeling well ,decubitus Chief Complaint:: pt in ed via ems pt states since yesterday he has increased weakness, and problems with his decubitis ulcer. ems reports pts 02 on arrival was 88%, and pt is noted to have an indwelling stern in place. COVID-19 Coronavirus risk:travel/contact w/high risk person: No Has patient experienced Coronavirus symptoms: No Nurses notes reviewed Nurses Notes Review: Yes Source History Provided: Patient Mode of arrival Mode of Arrival: Stretcher Timing Onset of Chief Complaint: 09/26/25 Context History of: None Associated signs and symptoms Associated Signs and Symptoms: Pain PMH PMH Past Medical History: Yes Past Medical History: CHF, COPD, Coronary Artery Disease, Dyslipidemia, Hypertension and ID Past Surgical History: Yes Surgical History: Angioplasty/Stents and CABG/Valve Surgery Past Surgical History Comment: Wound Debridement Family History History of Family Medical Conditions: Yes Family Medical History: ID and Coronary Artery Disease Social History Do you use any recreational Drugs:: No Travel Risk Coronavirus risk:travel/contact w/high risk person: No Has patient experienced Coronavirus symptoms: No Infectious screening Have you traveled outside the country in the last 6 months?: No Isolation: Standard ROS Review of Systems Constitutional: Malaise and Fatigue Eyes: No Symptoms Reported ENTM: No Symptoms Reported Respiratoy: Non-Productive Cough Cardiovascular: No Symptoms Reported Gastrointestinal/Abdominal: No Symptoms Reported Genitourinary: Other (stern catheter in place ) Neurological: No Symptoms Reported Musculoskeletal: Hip Integumentary: Wound Hematologic/Lymphatic: No Symptoms Reported Endocrine: No Symptoms Reported PE Vital Signs Vitals: Vital Signs Temperature 98.2 F Pulse Rate 77 Pulse Rate 165 Pulse Rate 74 Pulse Rate 73 Pulse Rate 163 Pulse Rate 83 Pulse Rate 82 Pulse Rate 87 Pulse Rate 88 Pulse Rate 88 Pulse Rate 93 Respiratory Rate 22 Blood Pressure 122/58 Blood Pressure 122/58 Blood Pressure 92/51 Blood Pressure 102/57 Blood Pressure 83/51 Blood Pressure 76/49 Blood Pressure 80/49 O2 Sat by Pulse Oximetry 96 O2 Sat by Pulse Oximetry 82 O2 Sat by Pulse Oximetry 97 O2 Sat by Pulse Oximetry 97 O2 Sat by Pulse Oximetry 96 O2 Sat by Pulse Oximetry 83 O2 Sat by Pulse Oximetry 85 O2 Sat by Pulse Oximetry 98 O2 Sat by Pulse Oximetry 97 O2 Sat by Pulse Oximetry 97 O2 Sat by Pulse Oximetry 97 O2 Sat by Pulse Oximetry 97 O2 Sat by Pulse Oximetry 95 General Limitations: No Limitations General Appearance: Alert and Anxious Head Head Exam: Normal Inspection, Atraumatic and Normocephalic Eyes Eye exam: Normal Appearance, PERRL and EOMI ENT ENT Exam: Mucous Membranes Dry and Other (low lying oropharynx ) Neck Neck Exam: Normal Inspection Chest Chest Inspection: Normal Inspection and Symmetric Chest Wall Rise Respiratory Respiratory Exam: Bilateral: Clear to Auscultation Cardiovascular Cardiovascular Exam: +S1 and +S2 Abdominal Exam Abdominal Exam: Normal Inspection, Normal Bowel Sounds and Soft Extremities Extremities Exam: Normal Inspection Other Exam Other Exam: buttock large indurated decubitus MDM Differential Diagnosis Differential Diagnosis: Other (decubitus ,sepsis, osteomyelitis ,sleep apnea, indwelling stern catheter ,dehydration) COURSE Treatment Treatment: labs ct pelvis ,iv fluids ROR Labs Reviewed Laboratory Results Reviewed?: Yes 09/27/25 21:27 09/27/25 21:27 Laboratory: WBC 11.5 X10^3/uL (3.6-10.0) H 09/27/25 21:27 RBC 3.75 X10^6/uL (4.7-6.0) L 09/27/25 21:27 Hgb 11.0 g/dL (13.5-18.0) L 09/27/25 21:27 Hct 32.3 % (42.0-54.0) L 09/27/25 21:27 MCV 86.2 fL (80.0-100.0) 09/27/25 21:27 MCH 29.4 pg (27.0-34.0) 09/27/25 21:27 MCHC 34.2 g/dL (33.0-35.0) 09/27/25 21:27 RDW 13.5 % (11.6-16.5) 09/27/25 21:27 Plt Count 418 X10^3/uL (150.0-450.0) 09/27/25 21: MPV 7.6 fL (7.4-11.0) 09/27/25 21: Neut % (Auto) 71.7 % (42.0-75.0) 09/27/25 21: Lymph % (Auto) 14.4 % (21.0-51.0) L 09/27/25 21: [place] % (Auto) 10.8 % (0.0-13.0) 09/27/25 21: Eos % (Auto) 2.7 % (0.9-2.9) 09/27/25: Baso % (Auto) 0.4 % (0.2-1.0) 09/27/25: Neut # (Auto) 8.3 x10^3/uL (2.2-4.8) H 09/27/25 21: Lymph # (Auto) 1.7 X10^3/uL (1.3-2.9) 09/27/25 21:27 [place] # (Auto) 1.2 x10^3/uL (0.3-0.8) H 09/27/25 21:27 Eos # (Auto) 0.3 x10^3/uL (0.0-0.2) H 09/27/25 21:27 Baso # (Auto) 0.0 X10^3/uL (0.0-0.1) 09/27/25: Absolute Nucleated RBC 0.0 /100WBC 09/27/25 21: Sodium 134 mmol/L (136-145) L 09/27/25 21:27 Corrected Sodium 135 mmol/L (136-145) L 09/27/25 21: Potassium 3.2 mmol/L (3.5-5.1) L 09/27/25 21: Chloride 98 mmol/L (98-107) 09/27/25: Carbon Dioxide 26.5 mmol/L (21-32) 09/27/25 21: BUN 16 mg/dL (7-18) 09/27/25: Creatinine 1.37 mg/dL (0.70-1.30) H 09/27/25 21:27 Est GFR (MDRD) Af Amer > 60 (>60) 09/27/25 21:27 Est GFR (MDRD) Non-Af 53 (>60) L 09/27/25 21:27 Glucose 133 mg/dL (65-99) H 09/27/25 21:27 Lactic Acid 1.3 mmol/L (0.4-2.0) 09/27/25 21:27 Calcium 7.9 mg/dL (8.5-10.1) L 09/27/25 21:27 Corrected Calcium 9.3 mg/dL (8.5-10.1) 09/27/25 21:27 Total Bilirubin 0.90 mg/dL (0.2-1.0) 09/27/25 21:27 AST 17 Units/L (15-37) 09/27/25 21:27 ALT 8 Units/L (12-78) L 09/27/25 21:27 Alkaline Phosphatase 101 Units/L (46-116) 09/27/25 21:27 B-Natriuretic Peptide 26.8 pg/mL (0-79) 09/27/25 21:27 Total Protein 7.1 g/dL (6.4-8.2) 09/27/25 21:27 Albumin 2.2 g/dL (3.4-5.0) L 09/27/25 21:27 Globulin 4.9 g/dL (2.5-4.5) H 09/27/25 21:27 Albumin/Globulin Ratio 0.4 Ratio (1.1-2.1) L 09/27/25 21:27 Opioid Opioid Risk Tool Age (Adrián box if 16-45): No History of Preadolescent Sexual Abuse: No Total: 0 Total Score Risk Category: Low Risk Copyright: Joseph NEIL predicting aberrant behaviors Discharge Plan Diagnosis Discharge Problem: Decubitus ulcer, Hypokalemia, Chronic indwelling Stern catheter Discharge Plan Patient Disposition: 09 ADMITTED INPATIENT Condition: Stable Prescriptions: No Action atorvastatin 40 mg Tablet 40 mg PO QDAY oxybutynin chloride 10 mg Tablet Extended Release 24hr 10 mg PO QDAY oxycodone-acetaminophen 10-325 mg tablet 1 tab PO QID PRN (Reason: Pain) doxycycline hyclate 100 mg capsule 100 mg PO BID Rx Instructions: x 7 days - started on 06/16/25 olanzapine 5 mg tablet 5 mg PO QPM tamsulosin 0.4 mg capsule 0.4 mg PO DAILY gabapentin 800 mg tablet 800 mg PO TID nystatin 100,000 unit/gram cream 1 applic TOPICAL BID lisinopril 5 mg tablet 5 mg PO QDAY furosemide 20 mg tablet 20 mg PO QDAY buspirone 15 mg tablet 15 mg PO TID memantine 10 mg tablet 10 mg PO BID metoprolol tartrate 25 mg tablet 25 mg PO BID insulin glargine [Lantus Solostar U-100 Insulin] 100 unit/mL (3 mL) insulin pen See Rx Instructions .ROUTE .COMPLEX Patient Comments: [NO ORIGINAL SIG] Rx Instructions: as directed Linzess 290 mcg capsule 290 mcg PO QDAY Combivent Respimat 20-100 mcg/actuation mist 1 puff inhalation QID Trelegy Ellipta 200-62.5-25 mcg blister with device 1 ea inhalation QDAY Mounjaro 5 mg/0.5 mL pen injector 5 mg SUBCUT WEEKLY Patient Comments: [NO ORIGINAL SIG] potassium chloride 10 mEq capsule, extended release 10 meq PO DAILY PRN olanzapine 5 mg tablet 5 mg PO DAILY cyclobenzaprine 10 mg tablet 10 mg PO TID PRN (Reason: Muscle Pain) ropinirole 1 mg tablet 1 mg PO QPM Health Concerns: Post Hospitalization: new medications and changes needed to prevent readmission or further decline. Pt educated and given instructions on all concerns. Plan of Treatment: Continue with present treatment and follow up plan. Pt is to keep follow up appointment as instructed and take medications as ordered. Orders to Discharge Patient Discharge Orders: Transfer (Routine); Ordered 09/28/25 Ordered By: Yusuf Toscano Follow ups/Referrals Follow ups/Referrals: [facility],None [STAFF PHYSICIAN] - 3 days Instructions Stand Alone Forms: Find Help Web Site, Post Hospital Follow Up Care Print Language: TELUGU
--- NOTE | 2025-09-27 23:52 | CT ---
EXAM: CT PELVIS WITHOUT CONTRAST HISTORY: decubitis ulcer; COMPARISON: None. TECHNIQUE: Axial CT images were obtained through the pelvis without contrast. Oral contrast was administered. Coronal reformatted images were included. All CT scans at this facility use dose modulation, iterative reconstruction, and/or weight based dosing when appropriate to reduce radiation dose to as low as reasonably achievable. FINDINGS: Please note that without the use of intravenous contrast, evaluation of organ parenchyma is limited. GI TRACT: Normal Diffuse bladder wall thickening may represent cystitis. Correlate with UA.: Normal GENITALS: Normal LYMPH NODES: No enlarged nodes VESSELS: Normal PERITONEUM / RETROPERITONEUM: No free fluid BONES: Normal Decubitus shallow ulcer overlying the coccygeal region. Ulcer measures approximately 9 cm in with and a proximally 0.6 cm in depth. The underlying superficial soft tissues demonstrate diffuse edema inflammation and small pockets of gas. The adjacent coccygeal bone demonstrates questionable areas of erosion. Correlate with MRI. IMPRESSION: Decubitus shallow ulcer overlying the coccygeal region. Ulcer measures approximately 9 cm in with and a proximally 0.6 cm in depth. The underlying superficial soft tissues demonstrate diffuse edema inflammation and small pockets of gas. The adjacent coccygeal bone demonstrates questionable areas of erosion. Correlate with MRI. Diffuse bladder wall thickening may represent cystitis. Correlate with UA.: THIS IS AN ELECTRONICALLY VERIFIED FINAL REPORT 09/27/2025 11:48 PM - Electronically signed by Cornelia Farris MD
[2025-09-28] MEDS: K-DUR TAB 20 MEQ PO ONE (00:59)
[2025-09-28] MEDS ORDERED: XYLOCAINE 2 % (PLAIN) ONE (01:00)
[2025-09-28] MEDS ORDERED: KETAMINE HCL ONE (01:00)
[2025-09-28] MEDS ORDERED: PRECEDEX INJ VIAL ONE (01:00)
[2025-09-28] MEDS ORDERED: NovoLIN R (or HumuLIN R) SUBCUT PRN (01:11)
[2025-09-28 05:40] LABS: MEAN PLATELET VOLUME 7.7 fL (7.4-11.0); RED CELL DISTRIBUTION WIDTH 13.8 % (11.6-16.5)
[2025-09-28 05:55] LABS: COR CA(FOR HYPOALB) 9.7 mg/dL (8.5-10.1); COR NA(FOR HYPERGLY) 137 mmol/L (136-145); CREATININE 1.23 mg/dL (0.70-1.30); eGFR NON BLACK RACES > 60 (>60)
[2025-09-28] MEDS ORDERED: TYLENOL 325 MG TAB PO PRN (06:59)
[2025-09-28] MEDS: OFIRMEV IV 1000 MG VIAL 1,000 MG/100 ML VIAL IV ONE (07:19)
[2025-09-28] MEDS: DUONEB 0.5 MG/3 MG (3 mL) NEB SCH (08:33)
[2025-09-28] MEDS: PULMICORT NEB TX 0.5 MG NEB SCH (08:33)
[2025-09-28] MEDS: LR 1,000 ML IV 1,000 ML IV SCH (10:53)
[2025-09-28] MEDS: ZOSYN VIAL 3.375 GRAMS 3.375 G in NS 100 ML IV 100 ML IV SCH (10:53)
--- NOTE | 2025-09-28 12:43 | DR.CONSULT ---
CONSULT Consultation for Day of: Date: 09/28/25 Chief Complaint Chief Complaint: Chronic decubitus ulcer over the coccyx, now more painful. Allergies Allergies Allergy/AdvReac Type Severity Reaction Status Date / Time No Known Drug Allergies Allergy Verified 09/28/25 01:10 History of Present Illness History of Present Illness: This is a 80-year-old male whose had history of congestive heart failure, COPD, coronary artery disease, hyperlipidemia, CVA with no permanent deficits hypertension and history myocardial infarction who is bed ridden but I am unsure as to why. He is noted to have a decubitus ulcer over the coccyx for many years presents now with it being more painful. Evaluated emergency room no obvious signs of sepsis clinically. Past Medical History Past Medical History: CHF, COPD, Coronary Artery Disease, CVA (No persistent neurological deficit), Dyslipidemia, Hypertension and OR Additional Medical History: HIATAL HERNIA, BPH, DDD Past Surgical History Surgical History: Angioplasty/Stents, CABG/Valve Surgery and Ortho Surgery Family History Family Medical History: Diabetes Mellitus, Cancer, [place] and Hypertension Social History Does patient currently use any type of tobacco product: No Type of Tobacco Use: Cigarettes Alcohol Use: None Drug Use: Prescription Drugs Medications Home Medications: No Known Drug Allergies Allergy (Verified 09/28/25 01:10) CONTINUE taking the following medications brexpiprazole 0.5 mg tablet (Rexulti) 0.5 mg PO QDAY 09/28/25 [History] fluticasone fur. 200 mcg-umeclid 62.5 mcg-vilant 25 mcg inhalat.powder (Trelegy Ellipta) 1 ea inhalation QDAY 09/28/25 [History] furosemide 20 mg tablet 20 mg PO QDAY 09/28/25 [History] gabapentin 600 mg tablet 600 mg PO TID 09/28/25 [History] ipratropium 20 mcg-albuterol 100 mcg/actuation mist for inhalation (Combivent Respimat) 1 puff inhalation QID 09/28/25 [History] levofloxacin 500 mg tablet 500 mg PO QDAY 09/28/25 [History] pantoprazole 40 mg tablet,delayed release 40 mg PO BID 09/28/25 [History] tamsulosin 0.4 mg capsule 0.4 mg PO DAILY 09/28/25 [History] trazodone 50 mg tablet 100 mg PO QPM PRN 09/28/25 [History] Review of Systems Constitutional: See HPI Eyes: No Symptoms Reported ENT: No Symptoms Reported Respiratory: No Symptoms Reported Gastrointestinal: No Symptoms Reported Genitourinary: No Symptoms Reported and Other (Has indwelling Lacey all of the time) Musculoskeletal: No Symptoms Reported Skin: See HPI (Return of skin full thickness over the coccyx with some dark discoloration and new superficial pressure wounds to the left buttock measuring 4 x 2 x 0.2 cm. The wound over the coccyx measures 3 cm in diameter but has no significant depth to it at this time) Neurological: See HPI (History of CVA but unsure as to why he is bedridden. I believe this is just due to overall weakness.) Physical Exam Vital Signs: Vital Signs Temperature 97.8 F Temperature 98.4 F Temperature 101.9 F Temperature 101.9 F Pulse Rate 107 Pulse Rate 105 Pulse Rate 111 Pulse Rate 115 Pulse Rate 120 Pulse Rate 77 Respiratory Rate 22 Respiratory Rate 23 Respiratory Rate 23 Respiratory Rate 26 Respiratory Rate 19 Blood Pressure 90/58 Blood Pressure 89/52 Blood Pressure 118/53 Blood Pressure 130/83 Blood Pressure 98/51 O2 Sat by Pulse Oximetry 96 O2 Sat by Pulse Oximetry 98 O2 Sat by Pulse Oximetry 97 O2 Sat by Pulse Oximetry 98 O2 Sat by Pulse Oximetry 100 Micro cell count equals 11,500, hemoglobin equals 11 g. Basic metabolic profile shows hypokalemia of 3.2 and mild elevation of creatinine to 1.37 Oriented: Normal, Time, Person and Place Eyes: Normal Ear: Normal Nose: Normal Throat: Normal Respiratory: Clear Throughout : Normal (Does have persistent indwelling Lacey catheter) Palpation: Normal Tenderness: Normal Skin: Wound (Full tjhickness area to the coccyx with duskiness but no obvious full-thickness necrosis as of yet and no obvious fluctuance) Musculoskeletal: Normal Psychiatric: Normal Mood Description: Depressed Affect: Normal Speech Pattern: Clear Plan (1) Decubitus ulcer: Status: Acute Plan: Patient on antibiotics as per the admitting service. Will recommend Santyl be applied to the sacral wound. May require surgical debridement.
--- NOTE | 2025-09-28 13:06 | DR.H&P ---
H&P History & Physical for Day of: H&P Date: 09/28/25 Chief Complaint Chief Complaint: decubitus ulcer History of Present Illness History of Present Illness: Patient presented to the ER with worsening pain around his coccyx. Longstanding decubitus Stayer due to bedbound status. Uncertain why patient is bedbound but does have prior history of CVA without known residual deficits, CAD, and CHF. Currently reports that his pain is well- controlled but still hurting. Nurses deny any acute events overnight. Surgery has evaluated and currently recommending continued wound care without surgical debridement. ROS: 12 point ROS negative except as noted above. PE: Elderly male in no acute distress, obese. Heart regular rate and rhythm, lungs clear, belly soft and nontender with bowel sounds present. Mood and affect appropriate. Able to move all extremities but very weak in his legs. Past Medical History Past Medical History: CHF, COPD, Coronary Artery Disease, Dyslipidemia, Hypertension and [place] Additional Medical History: HIATAL HERNIA, BPH, DDD Past Surgical History Surgical History: Angioplasty/Stents, CABG/Valve Surgery and Ortho Surgery Family History Family Medical History: Diabetes Mellitus, Cancer, [place] and Hypertension Social History Does patient currently use any type of tobacco product: No Type of Tobacco Use: Cigarettes Alcohol Use: None Drug Use: Prescription Drugs Medications Home Medications: Home Medications Medication Instructions Recorded Confirmed Type atorvastatin 40 mg tablet 40 mg PO QDAY 07/09/1809/28 History oxybutynin chloride 10 mg 10 mg PO QDAY 07/09/1809/28 History tablet,extended release 24 hr potassium chloride 10 mEq 10 meq PO DAILY PRN 07/31/20 09/28/25 History capsule,extended release oxycodone-acetaminophen 10 mg-325 1 tab PO QID PRN Domenica n 09/11/21 09/28/25 History mg tablet cyclobenzaprine 10 mg tablet 10 mg PO TID PRN Muscle P ain 10/03/24 09/28/25 History ropinirole 1 mg tablet 1 mg PO QPM 10/03/24 5 History insulin glargine 100 unit/mL (3 14 unit subcut BID 09/28/25 History mL) subcutaneous pen (Lantus Solostar U-100 Insulin) memantine 10 mg tablet 10 mg PO DAILY 06/17/2508/14 History metoprolol tartrate 25 mg tablet 25 mg PO BID 06/17/25 09/28/25 History nystatin 100,000 unit/gram topical 1 applic topical BI D 06/17/25 09/28/25 History cream olanzapine 5 mg tablet 5 mg PO QPM 06/17/25 5 History tirzepatide 5 mg/0.5 mL 5 mg subcut WEEKLY 06/17/25 09/28/25 History subcutaneous pen injector (Maxunmartín) brexpiprazole 0.5 mg tablet 0.5 mg PO QDAY 09/28/25 History (Rexulti) fluticasone fur. 200 mcg-umeclid 1 ea inhalation QDAY 09/28/25 09/28/25 History 62.5 mcg-vilant 25 mcg inhalat.powder (Trelegy Ellipta) furosemide 20 mg tablet 20 mg PO QDAY 09/28/2509/28 History gabapentin 600 mg tablet 600 mg PO TID 09/28/2509/28 History ipratropium 20 mcg-albuterol 100 1 puff inhalation QID 09/28/25 09/28/25 History mcg/actuation mist for inhalation (Combivent Respimat) levofloxacin 500 mg tablet 500 mg PO QDAY 09/28/2508/14 History pantoprazole 40 mg tablet,delayed 40 mg PO BID 5 09/28/25 History release tamsulosin 0.4 mg capsule 0.4 mg PO DAILY 09/28/2508/14 History trazodone 50 mg tablet 100 mg PO QPM PRN 09/28/25 1 11/28/24 History Allergies Allergies Allergy/AdvReac Type Severity Reaction Status Date / Time No Known Drug Allergies Allergy Verified 09/28/25 01:10 Labs 09/28/25 05:11 09/28/25 05:11 Labs: Laboratory WBC 11.7 X10^3/uL (3.6-10.0) H 09/28/25 05:11 RBC 3.90 X10^6/uL (4.7-6.0) L 09/28/25 05:11 Hgb 11.7 g/dL (13.5-18.0) L 09/28/25 05:11 Hct 34.0 % (42.0-54.0) L 09/28/25 05:11 MCV 87.1 fL (80.0-100.0) 09/28/25 05:11 MCH 30.0 pg (27.0-34.0) 09/28/25 05:11 MCHC 34.4 g/dL (33.0-35.0) 09/28/25 05:11 RDW 13.8 % (11.6-16.5) 09/28/25 05:11 Plt Count 404 X10^3/uL (150.0-450.0) 09/28/25 05:11 MPV 7.7 fL (7.4-11.0) 09/28/25 05:11 Neut % (Auto) 78.2 % (42.0-75.0) H 09/28/25 05:11 Lymph % (Auto) 12.5 % (21.0-51.0) L 09/28/25 05:11 Starr % (Auto) 7.0 % (0.0-13.0) 09/28/25 05:11 Eos % (Auto) 1.9 % (0.9-2.9) 09/28/25 05:11 Baso % (Auto) 0.4 % (0.2-1.0) 09/28/25 05:11 Neut # (Auto) 9.2 x10^3/uL (2.2-4.8) H 09/28/25 05:11 Lymph # (Auto) 1.5 X10^3/uL (1.3-2.9) 09/28/25 05:11 Starr # (Auto) 0.8 x10^3/uL (0.3-0.8) 09/28/25 05:11 Eos # (Auto) 0.2 x10^3/uL (0.0-0.2) 09/28/25 05:11 Baso # (Auto) 0.0 X10^3/uL (0.0-0.1) 09/28/25 05:11 Absolute Nucleated RBC 0.0 /100WBC 09/28/25 05:11 Sodium 137 mmol/L (136-145) 09/28/25 05:11 Corrected Sodium 137 mmol/L (136-145) 09/28/25 05:11 Potassium 3.9 mmol/L (3.5-5.1) 09/28/25 05:11 Chloride 100 mmol/L (98-107) 09/28/25 05:11 Carbon Dioxide 29.8 mmol/L (21-32) 09/28/25 05:11 BUN 17 mg/dL (7-18) 09/28/25 05:11 Creatinine 1.23 mg/dL (0.70-1.30) 09/28/25 05:11 Est GFR (MDRD) Af Amer > 60 (>60) 09/28/25 05:11 Est GFR (MDRD) Non-Af > 60 (>60) 09/28/25 05:11 Glucose 119 mg/dL (65-99) H 09/28/25 05:11 Lactic Acid 1.3 mmol/L (0.4-2.0) 09/27/25 21:27 Calcium 8.3 mg/dL (8.5-10.1) L 09/28/25 05:11 Corrected Calcium 9.7 mg/dL (8.5-10.1) 09/28/25 05:11 Magnesium 1.9 mg/dL (2.0-2.9) L 09/28/25 05:11 Total Bilirubin 1.10 mg/dL (0.2-1.0) H 09/28/25 05:11 AST 18 Units/L (15-37) 09/28/25 05:11 ALT 10 Units/L (12-78) L 09/28/25 05:11 Alkaline Phosphatase 107 Units/L (46-116) 09/28/25 05:11 B-Natriuretic Peptide 26.8 pg/mL (0-79) 09/27/25 21:27 Total Protein 7.3 g/dL (6.4-8.2) 09/28/25 05:11 Albumin 2.3 g/dL (3.4-5.0) L 09/28/25 05:11 Globulin 5.0 g/dL (2.5-4.5) H 09/28/25 05:11 Albumin/Globulin Ratio 0.5 Ratio (1.1-2.1) L 09/28/25 05:11 Physical Exam Vital Signs: Vital Signs Temperature 98.0 F Temperature 98.0 F Pulse Rate 77 Pulse Rate 71 Pulse Rate 75 Pulse Rate 77 Pulse Rate 84 Pulse Rate 82 Pulse Rate 85 Pulse Rate 91 Pulse Rate 87 Pulse Rate 84 Pulse Rate 79 Pulse Rate 77 Pulse Rate 165 Respiratory Rate 19 Respiratory Rate 15 Respiratory Rate 15 Respiratory Rate 24 Blood Pressure 98/51 Blood Pressure 94/51 Blood Pressure 97/55 Blood Pressure 116/52 Blood Pressure 97/58 Blood Pressure 94/50 Blood Pressure 97/55 Blood Pressure 122/58 O2 Sat by Pulse Oximetry 100 O2 Sat by Pulse Oximetry 100 O2 Sat by Pulse Oximetry 3 O2 Sat by Pulse Oximetry 100 O2 Sat by Pulse Oximetry 83 O2 Sat by Pulse Oximetry 100 O2 Sat by Pulse Oximetry 98 O2 Sat by Pulse Oximetry 97 O2 Sat by Pulse Oximetry 98 O2 Sat by Pulse Oximetry 91 O2 Sat by Pulse Oximetry 97 O2 Sat by Pulse Oximetry 96 O2 Sat by Pulse Oximetry 82 Assessment/Plan (1) Decubitus ulcer: Qualifiers: Pressure injury location: buttock Pressure injury stage: unspecified pressure injury stage Laterality: unspecified laterality Qualified Code(s): L 89.309 - Pressure ulcer of unspecified buttock, unspecified stage Narrative Support Text: Resume home medications. Appreciate surgery input. Continue antibiotics and wound care. May need placement. Status: Acute (2) Chronic indwelling Lacey catheter: Status: Acute (3) Hypokalemia: Status: Acute (4) Apnea, sleep: Qualifiers: Sleep apnea type: obstructive Qualified Code(s): G47.33 - Obstructive sleep apnea (adult) (pediatric) Status: Acute (5) COPD (chronic obstructive pulmonary disease): Qualifiers: COPD type: chronic bronchitis Chronic bronchitis type: simple Q ualified Code(s): J41.0 - Simple chronic bronchitis Status: Chronic (6) DDD (degenerative disc disease): Qualifiers: Spinal region: lumbosacral Disc-related pain type: discogenic back pain and lower extremity pain Qualified Code(s): M51.372 - Other intervertebral disc degeneration, lumbosacral region with discogenic back pain and lower extremity pain Status: Chronic (7) Fibromyalgia: Status: Chronic (8) BPH (benign prostatic hyperplasia): Qualifiers: Lower urinary tract symptom presence: symptoms present Lower urinary tract symptom detail: urinary obstruction Qualified Code(s): N40.1 - Benign prostatic hyperplasia with lower urinary tract symptoms; N13.8 - Other obstructive and reflux uropathy Status: Chronic (9) Cardiomyopathy: Qualifiers: Cardiomyopathy type: ischemic Qualified Code(s): I25.5 - Ischemic cardiomyopathy Status: Chronic (10) CAD (coronary artery disease): Qualifiers: Coronary Disease-Associated Artery/Lesion type: [place] artery [place] vs. transplanted heart: r[place] heart Associated angina: without angina Q ualified Code(s): I25.10 - Atherosclerotic heart disease of rincon coronary artery without angina pectoris Status: Chronic (11) History of CVA (cerebrovascular accident): Status: Chronic
[2025-09-28] MEDS: VANCOMYCIN IV *PREMIX 1.25 G/250 ML BAG 1.25 G/250 ML PIGGYBACK IV SCH (14:05)
[2025-09-28] MEDS ORDERED: DESYREL PO PRN (15:17)
[2025-09-28] MEDS: PROTONIX TAB 40 MG PO SCH (15:45)
[2025-09-28] MEDS: NAMENDA TAB 10 MG PO SCH (15:45)
[2025-09-28] MEDS: DITROPAN TAB 5 MG PO SCH (15:45)
[2025-09-28] MEDS: NEURONTIN TAB 600 MG PO SCH (15:45)
[2025-09-28] MEDS: MAG-OX TAB PO ONE (17:11)
[2025-09-28] MEDS ORDERED: PULMICORT NEB TX 0.5 MG NEB ONE (18:58)
[2025-09-28] MEDS ORDERED: SNACK - Diabetic Appropriate PO SCH (20:00)
[2025-09-28] MEDS: SANTYL EXT SCH (21:39)
[2025-09-28] MEDS: REQUIP PO SCH (21:42)
[2025-09-29 05:04] LABS: MEAN PLATELET VOLUME 7.5 fL (7.4-11.0); RED CELL DISTRIBUTION WIDTH 13.8 % (11.6-16.5)
[2025-09-29 05:18] LABS: COR CA(FOR HYPOALB) 9.7 mg/dL (8.5-10.1); CREATININE 0.87 mg/dL (0.70-1.30); eGFR NON BLACK RACES > 60 (>60)
[2025-09-29] MEDS ORDERED: CONSULT PHARMACY - POTASSIUM & MAGNESIUM XX SCH (07:00)
[2025-09-29] MEDS ORDERED: PATIENT'S HOME MEDICATION (Fluticasone-Umeclidin-Vilanter [Trelegy Ellipta] 200-62.5-25 mc IN SCH (09:00)
[2025-09-29] MEDS: PERCOCET TAB 5/325 MG PO PRN (09:11)
[2025-09-29] MEDS: FLOMAX PO SCH (09:13)
[2025-09-29] MEDS: MAG-OX TAB PO SCH (09:13)
[2025-09-29] MEDS: K-DUR TAB 20 MEQ PO SCH (09:13)
[2025-09-29] MEDS: LASIX PO SCH (09:14)
[2025-09-29] MEDS: LIPITOR TAB 40 MG PO SCH (09:14)
[2025-09-29] MEDS: LOVENOX INJ 40 MG SYR SC SCH (10:00)
--- NOTE | 2025-09-29 10:00 | RAD ---
EXAMINATION: CHEST, 1 VIEW HISTORY: SOB, CHF, COPD; . COMPARISON STUDY: 10/03/2024 TECHNIQUE: One view FINDINGS: Patient is rotated to the right. Previous median sternotomy. Heart size is normal for technique. Tortuous ectatic aorta. Perihilar infiltrates may represent interstitial edema. No pneumothorax. Hilar and mediastinal structures and bony structures are unchanged. EKG leads overlie the chest. IMPRESSION: Kelle hilar opacities which may represent interstitial edema. Follow-up recommended. Hilar and mediastinal structures are unchanged THIS IS AN ELECTRONICALLY VERIFIED FINAL REPORT 09/29/2025 9:57 AM - Electronically signed by Atif Pryor MD
[2025-09-29] MEDS: ZOFRAN INJ 4 MG VIAL IVP PRN (16:53)
[2025-09-29] MEDS: LASIX IVP SCH (18:29)
--- NOTE | 2025-09-29 18:49 | NOTE.SOAP ---
Soap Note Note for Day of Date of Exam: 09/29/25 Subjective Data Subjective Data: Patient stable. Afebrile but remains tachycardic. I have reviewed pictures of the sacral decubitus which appears to be necrotic now and nurses notes small area of undermining. Wound approximately 2.5 cm in diameter Objective Data Temperature: 97.4 F Pulse Rate: 112 Respiratory Rate: 28 Blood Pressure: 122/56 O2 Sat by Pulse Oximetry: 93 Objective Data: Wound as described as above Assessment Assessment: Sacral decubitus ulcer. Plan Plan: Plan debridement of this wound tomorrow possible wound VAC and placement.
[2025-09-29] MEDS: XOPENEX 1.25 MG/3 ML NEBULE NEB SCH (21:43)
[2025-09-30 05:03] LABS: MEAN PLATELET VOLUME 7.5 fL (7.4-11.0); RED CELL DISTRIBUTION WIDTH 13.8 % (11.6-16.5)
[2025-09-30 05:20] LABS: COR CA(FOR HYPOALB) 9.9 mg/dL (8.5-10.1); COR NA(FOR HYPERGLY) 137 mmol/L (136-145); CREATININE 1.07 mg/dL (0.70-1.30); eGFR NON BLACK RACES > 60 (>60)
[2025-09-30] MEDS: HIBICLENS WASH EXT ONE (05:23)
[2025-09-30] MEDS: VANCOMYCIN IV *PREMIX 1.25 G/250 ML BAG 1.25 G/250 ML PIGGYBACK IV SCH (08:27)
--- NOTE | 2025-09-30 08:28 | RAD ---
EXAMINATION: CHEST, 1 VIEW HISTORY: F/U; . COMPARISON STUDY: 09/29/2025 TECHNIQUE: One view FINDINGS: Previous median sternotomy. Heart size normal for technique. Decrease in perihilar infiltrates. No pneumothorax, new infiltrate or other change noted. IMPRESSION: Decrease in perihilar infiltrates. Follow-up recommended THIS IS AN ELECTRONICALLY VERIFIED FINAL REPORT 09/30/2025 8:18 AM - Electronically signed by Atif Pryor MD
[2025-09-30] MEDS ORDERED: CONSULT PHARMACY - POTASSIUM & MAGNESIUM XX SCH (09:00)
[2025-09-30] MEDS: LOPRESSOR TAB 25 MG PO SCH (11:30)
[2025-09-30] MEDS: MAGNESIUM SULFATE 1 GRAM/100 mL PREMIX 1 G/100 ML BAG IV SCH (11:30)
[2025-09-30] MEDS: K-RIDER 10 MEQ/100 ML WATER 10 MEQ/100 ML BAG IV SCH (12:45)
[2025-09-30] MEDS: PEPCID 20 MG VIAL ONE (13:40)
[2025-09-30] MEDS: NS 1,000 ML IV 400 ML IV PRN (13:55)
[2025-09-30] MEDS: PEPCID 20 MG VIAL IVP PRN (13:56)
[2025-09-30] MEDS: VERSED IVP PRN (13:56)
[2025-09-30] MEDS: ZOFRAN INJ 4 MG VIAL IVP PRN (13:56)
[2025-09-30] MEDS: NS 1,000 ML IV 1,000 ML ONE (13:57)
[2025-09-30] MEDS: ANCEF VIAL 1 GRAM ONE (13:58)
[2025-09-30] MEDS: NS 100 ML IV 100 ML ONE (13:59)
[2025-09-30] MEDS: FENTANYL VIAL INJ 100 mcg ONE (14:04)
[2025-09-30] MEDS: DIPRIVAN VIAL 20 ML ONE (14:04)
[2025-09-30] MEDS: VERSED ONE (14:04)
[2025-09-30] MEDS: ANCEF VIAL 1 GRAM IV PRN (14:11)
[2025-09-30] MEDS: BETADINE SOLN ONE (14:11)
[2025-09-30] MEDS: KETAMINE HCL IVP PRN (14:16)
[2025-09-30] MEDS: DIPRIVAN VIAL 100 ML IVP PRN (14:16)
[2025-09-30] MEDS: PRECEDEX INJ VIAL IVP PRN (14:16)
[2025-09-30] MEDS: XYLOCAINE 2 % (PLAIN) IVP PRN (14:16)
[2025-09-30] MEDS: ZOFRAN INJ 4 MG VIAL ONE (14:17)
[2025-09-30] MEDS: MARCAINE/EPINEPHRINE ONE (14:28)
[2025-09-30] MEDS: FENTANYL VIAL INJ 100 mcg IVP PRN (14:34)
[2025-09-30] MEDS: NEO-SYNEPHRINE INJ IVP PRN (14:48)
--- NOTE | 2025-09-30 14:52 | OR.IMMED ---
IMMEDIATE POST-OP NOTE Immediate Post-Op Note Date of surgery/procedure: 09/30/25 Pre-Op Diagnosis: sacral decubitus ulcer with necrosis / abscess Post-Op Diagnosis: same see findings below Procedure: excision sacral decubitis with placement of wound vacuum, wound measured 6x6x 1cm Description of Procedure: dictated Surgeon/Nutritional Chemist: Napoleon Vaughan MD, FACS Findings: as above Estimated Blood Loss: 0cc Complications: none Progress Notes: to CCU, renew orders and diet, woiund vacuum to continuous suction
[2025-09-30] MEDS: KLOR-CON 10 MEQ TAB PO ONE (17:39)
[2025-09-30] MEDS: MAGNESIUM SULFATE 1 GRAM/100 mL PREMIX 1 G/100 ML BAG IV ONE (18:03)
[2025-10-01 05:02] LABS: MEAN PLATELET VOLUME 7.2 fL (7.4-11.0); RED CELL DISTRIBUTION WIDTH 13.9 % (11.6-16.5)
[2025-10-01 05:09] LABS: COR CA(FOR HYPOALB) 9.4 mg/dL (8.5-10.1); CREATININE 1.12 mg/dL (0.70-1.30); eGFR NON BLACK RACES > 60 (>60)
--- NOTE | 2025-10-01 10:22 | RAD ---
EXAM: CHEST, 1 VIEW HISTORY: COPD, SOB, CHF; COMPARISON: 09/30/2025 TECHNIQUE: AP r.br.br.br CABG. Stable cardiac silhouette. Decreased streaky right infrahilar/basilar opacities. No large pleural effusion or visible pneumothorax. IMPRESSION: Decreased streaky right infrahilar/basilar opacities. THIS IS AN ELECTRONICALLY VERIFIED FINAL REPORT 10/01/2025 10:18 AM - Electronically signed by Omar Morales MD
[2025-10-01] MEDS: NS 250 ML IV 250 ML IV ONE (14:16)
[2025-10-01 18:52] VITALS: BMI 33.7
--- NOTE | 2025-10-01 20:56 | NOTE.SOAP ---
Soap Note Note for Day of Date of Exam: 10/01/25 Subjective Data Subjective Data: Postoperative day 1 after excision of sacral decubitus and placement of wound vacuum. Patient is afebrile and otherwise doing well. No leak of the wound VAC in. Objective Data Temperature: 97.4 F Pulse Rate: 89 Respiratory Rate: 17 Blood Pressure: 98/56 O2 Sat by Pulse Oximetry: 96 Objective Data: Tolerating diet. Otherwise stable. Wound VAC in place without leak Assessment Assessment: Sacral decubitus ulcer after debridement and wound VAC in place. Plan Plan: Continue IV antibiotics and wound vacuum. May be able to consider plastics closure in the future to speed recovery along
[2025-10-01] MEDS: PHARMACY COMMENT IV NR (21:19)
[2025-10-01 21:27] LABS: CREATININE 1.11 mg/dL (0.70-1.30)
[2025-10-02 04:58] LABS: MEAN PLATELET VOLUME 7.2 fL (7.4-11.0); RED CELL DISTRIBUTION WIDTH 13.8 % (11.6-16.5)
[2025-10-02 05:04] LABS: COR CA(FOR HYPOALB) 9.7 mg/dL (8.5-10.1); CREATININE 1.08 mg/dL (0.70-1.30); eGFR NON BLACK RACES > 60 (>60)
[2025-10-02] MEDS ORDERED: VANCOMYCIN HCL 1 G in D5W 250 ML IV 250 ML IV SCH (09:00)
[2025-10-02 09:14] LABS: CREATININE 1.04 mg/dL (0.70-1.30)
[2025-10-02] MEDS: VANCOMYCIN IV *PREMIX 1 G/200 ML BAG 1 G/200 ML PIGGYBACK IV SCH (10:52)
[2025-10-03] MEDS: NS 250 ML IV 25 ML IV PRN (05:31)
[2025-10-03 06:32] LABS: MEAN PLATELET VOLUME 6.9 fL (7.4-11.0); RED CELL DISTRIBUTION WIDTH 14.1 % (11.6-16.5)
[2025-10-03 06:42] LABS: CREATININE 1.10 mg/dL (0.70-1.30); eGFR NON BLACK RACES > 60 (>60)
[2025-10-03 06:55] LABS: COR CA(FOR HYPOALB) 10.2 mg/dL (8.5-10.1)
[2025-10-03 08:03] VITALS: BP 92/52; PULSE 84; TEMP 97.9; O2SAT 94
--- NOTE | 2025-10-03 10:38 | NOTE.SOAP ---
Soap Note Note for Day of Date of Exam: 10/03/25 Subjective Data Subjective Data: Patient with sacral decubitus with necrosis status post excision and placement of wound VAC in. Patient to be discharged today to custodial facility. I am unsure as to whether they will have a wound VAC in. In the meantime we will do wet-to-dry dressings. Follow-up to see me in 2 weeks Objective Data Temperature: 97.9 F Pulse Rate: 84 Respiratory Rate: 18 Blood Pressure: 92/52 O2 Sat by Pulse Oximetry: 94 Objective Data: Patient awake and alert eating diet. No air leak of wound VAC Assessment Assessment: Sacral decubitus ulcer, status post excision Plan Plan: Follow-up in office 2 weeks. May consider Z-plasty closure in the future to speed along the healing.
[2025-10-03 11:47] VITALS: RESP 21
[2025-10-03] MEDS ORDERED: PHARMACY COMMENT IV NR (20:00)
--- NOTE | 2025-10-06 14:33 | DR.OPNOTE ---
OP NOTE Pre-Op Diagnosis: sacral decubitus ulcer Post-Op Diagnosis: same Procedure Date Date Of Procedure: 10/06/25 Procedure: PROCEDURE : Excsion sacral decubitus ulcer and place wound vacuum NARRATIVE: The patient was taken to the operating suite placed in the supine position in the prone position given IV sedation and the entire sacral area prepped and draped in sterile fashion. The wound was over the coccyx and the sacrum and was injected with 10 cc of 0.5 % Marcaine with epinephrine and excised with a circular incision with a # 15 blade and cautery used to remove all necrotic material. Ultimately the wound measured 6 x 6 x 1 cm. There was no active bleeding. Black foam placed the wound and covered with adhesive. Adhesive sheet taken all the way to the right flank and incision made over the foam and foam placed over the adhesive going to the right flank and covered with a piece of adhesive creating a bridge laterally. Foam exposed laterally and track pad connected top this and all placed to suction. Patient tolerated this well. Type of Anesthesia: Local Anesthesia Comment: plus MAC Findings: as above Specimen/Pathology: noner Type of Fluids Used:: Lactated Ringers EBL: minimal Complications:: none Needle/Sponge Count:: correct Disposition/Condition: Pt. tolerated procedure without difficulty. Taken to CCU in stable condition.
== END 2025-10-03 12:00 ==
LOC: SUPCPDRO → ICU 21:01 → ER 21:01 → ICU 09-28 01:41
PROVIDERS: ADMIT Family Medicine; ATTEND Internal Medicine
DX: Z86.73 Personal history of transient ischemic attack (TIA), and cerebral infarction without residual deficits; E80.6 Other disorders of bilirubin metabolism; L89.322 Pressure ulcer of left buttock, stage 2; Z97.8 Presence of other specified devices; Z16.23 Resistance to quinolones and fluoroquinolones; D64.89 Other specified anemias; N40.1 Benign prostatic hyperplasia with lower urinary tract symptoms; I25.810 Atherosclerosis of coronary artery bypass graft(s) without angina pectoris; M51.372 Other intervertebral disc degeneration, lumbosacral region with discogenic back pain and lower extremity pain; I25.5 Ischemic cardiomyopathy; L89.153 Pressure ulcer of sacral region, stage 3; Z79.4 Long term (current) use of insulin; E87.6 Hypokalemia; E78.5 Hyperlipidemia, unspecified; E11.65 Type 2 diabetes mellitus with hyperglycemia; F32.89 Other specified depressive episodes; E83.51 Hypocalcemia; N36.8 Other specified disorders of urethra; L89.312 Pressure ulcer of right buttock, stage 2; G47.33 Obstructive sleep apnea (adult) (pediatric); R79.89 Other specified abnormal findings of blood chemistry; E87.1 Hypo-osmolality and hyponatremia; J20.8 Acute bronchitis due to other specified organisms; E83.42 Hypomagnesemia; Z95.2 Presence of prosthetic heart valve; Z16.29 Resistance to other single specified antibiotic; R00.0 Tachycardia, unspecified; I25.2 Old myocardial infarction; D72.828 Other elevated white blood cell count; I50.9 Heart failure, unspecified; R94.4 Abnormal results of kidney function studies; I11.0 Hypertensive heart disease with heart failure; Z59.868 Other specified financial insecurity; R53.1 Weakness; R06.02 Shortness of breath; B96.4 Proteus (mirabilis) (morganii) as the cause of diseases classified elsewhere; R26.89 Other abnormalities of gait and mobility; Z79.899 Other long term (current) drug therapy; B96.5 Pseudomonas (aeruginosa) (mallei) (pseudomallei) as the cause of diseases classified elsewhere; J44.89 Other specified chronic obstructive pulmonary disease; R62.7 Adult failure to thrive; N13.8 Other obstructive and reflux uropathy; M19.90 Unspecified osteoarthritis, unspecified site; F41.8 Other specified anxiety disorders; E86.0 Dehydration; J18.8 Other pneumonia, unspecified organism; Z16.12 Extended spectrum beta lactamase (ESBL) resistance; M79.7 Fibromyalgia

== ENCOUNTER 2025-10-27 09:37 | Observation (INO) ==
[2025-10-27 10:17] LABS: MEAN PLATELET VOLUME 7.0 fL (7.4-11.0); RED CELL DISTRIBUTION WIDTH 14.7 % (11.6-16.5)
--- NOTE | 2025-10-27 10:25 | DR.GENAD ---
HPI Time Seen Time Seen by Provider: 10/27/25 10:21 PCP Primary Care Physician: NATAN Zepeda Complaint/Symptoms Chief Complaint Doctors Comments: Patient with a history of sacral decubitus ulcer chronic indwelling Stern catheter, Renal insufficiency hyponatremia UTIs, COPD, coronary artery disease, history of CVA, CAD OPD, CHF. The patient was recently in [facility] [place] [facility] and was discharged home in the past few weeks. The concern today possible UTI secondary to the long the stern has been in place vs the color of the urine in the stern bag. Also the patient sacral decubiti is not covered or appear recently treated. The patient states he did have a home health nurse come to see him this week and put a dressing on the sacral decubiti. Chief Complaint:: EMS states that pt had surgery on a pilonidal cyst about a month ago and had a wound vac placed on it but it came off and was never put back on.Family also stated to EMS that he has been more confused than usual. COVID-19 Coronavirus risk:travel/contact w/high risk person: No Has patient experienced Coronavirus symptoms: No Source History Provided: Patient and EMS Mode of Arrival Mode of Arrival: EMS Timing Onset of Chief Complaint: 10/26/25 PMH PMH Past Medical History: Yes Past Medical History: Asthma, CHF, COPD, Coronary Artery Disease, CVA, Diabetes, Dyslipidemia, Hypertension and [place] Past Surgical History: Yes Surgical History: Angioplasty/Stents, CABG/Valve Surgery, Ortho Surgery and Other Past Surgical History Comment: pilonidal cyst debriedment Family History History of Family Medical Conditions: Yes Family Medical History: Diabetes Mellitus, Cancer, [place] and Hypertension Social History Does patient currently use any type of tobacco product: No Type of Tobacco Use: None Alcohol Use: None Do you use any recreational Drugs:: No Lives With: Friend Lives Where: Home Travel Risk Coronavirus risk:travel/contact w/high risk person: No Has patient experienced Coronavirus symptoms: No Infectious screening Have you traveled outside the country in the last 6 months?: No Isolation: Standard ROS Review of Systems Constitutional: See HPI and Other (Family said that the patient was somewhat confused today and they are worried about a urine infection that might be the cause.) Eyes: No Symptoms Reported Respiratoy: No Symptoms Reported Cardiovascular: No Symptoms Reported Gastrointestinal/Abdominal: No Symptoms Reported Genitourinary: See HPI and Other (Urinary tract infection will. Will change out Stern catheter secondary to the current Stern catheter has been in for unknown number of months.) Neurological: No Symptoms Reported Musculoskeletal: No Symptoms Reported Integumentary: negative Other (Large sacral decubitus ulcer) All Other Systems: Reviewed and Negative PE Vital Signs Vitals: Vital Signs Temperature 97.9 F Pulse Rate [Left Radial] 95 Pulse Rate 102 Respiratory Rate 18 Respiratory Rate 18 Respiratory Rate 18 Blood Pressure [Right Arm] 114/59 Blood Pressure 121/57 O2 Sat by Pulse Oximetry 100 O2 Sat by Pulse Oximetry 91 General Limitations: No Limitations General Appearance: Alert and Other (Patient denies headache and does answer appropriate questions about his name and his age where he is live where he is now. The patient does sometimes in giving details about his medical history is a little confused as to dates and times) Head Head Exam: Normal Inspection Eyes Eye exam: Normal Appearance ENT ENT Exam: Normal Exam External Ear Exam: Normal External Inspection TM/Canal Exam: Bilateral: Normal Nose Exam: Normal Nose Exam Mouth Exam: Normal Inspection Throat Exam: Normal Inspection Neck Neck Exam: Normal Inspection Chest Chest Inspection: Normal Inspection Respiratory Respiratory Exam: Normal Lung Sounds Bilat Respiratory Exam: Bilateral: Clear to Auscultation Cardiovascular Cardiovascular Exam: Regular Rate and Normal Rhythm Abdominal Exam Abdominal Exam: Normal Inspection, Normal Bowel Sounds and Soft Extremities Extremities Exam: Normal Inspection Back Back Exam: Other (Large sacral decubitus ulcer); negative (R) CVA Tenderness Neurologic Neurological Exam: Alert, Oriented X3 and Other (Patient is alert and oriented x 3. He is confused about some of the dates and events in his medical history that are previously documented. The patient has a large sacral decubitus ulcer. He also has an indwelling Stern catheter that is great need of replacement it was. Urine obtained after Fole); negative Motor Sensory Deficit Psychiatric Psychiatric Exam: Normal Affect and Normal Mood Skin Skin Exam: Warm, Dry, Intact, Normal Color and Other (Large sacral decubitus ulcer.) COURSE Treatment Treatment: Patient has an acute urinary tract infection that is was cloudy and very foul-smelling the patient was started on antibiotics and the urine was sent for cultures. The patient also has a large decubitus ulcer the tissue is pink in color but is left open to the environment and the patient cannot give me any details about the ulcer and why it is there but he did say he has been recently in a nursing or rehab facility he is not certain and that somebody is supposed to be coming to the house and changing the dressing on the decubitus ulcer. Reevaluation 1st: Unchanged 2nd: Improved ROR Labs Reviewed 10/27/25 10:09 10/27/25 10:09 Laboratory: 10/27/25 09:58 Buttock Wound Gram Stain - Final WBC 10.2 X10^3/uL (3.6-10.0) H 10/27/25 10:09 RBC 3.94 X10^6/uL (4.7-6.0) L 10/27/25 10:09 Hgb 11.3 g/dL (13.5-18.0) L 10/27/25 10:09 Hct 34.3 % (42.0-54.0) L 10/27/25 10:09 MCV 87.2 fL (80.0-100.0) 10/27/25 10:09 MCH 28.8 pg (27.0-34.0) 10/27/25 10:09 MCHC 33.0 g/dL (33.0-35.0) 10/27/25 10:09 RDW 14.7 % (11.6-16.5) 10/27/25 10:09 Plt Count 346 X10^3/uL (150.0-450.0) 10/27/25 10:09 MPV 7.0 fL (7.4-11.0) L 10/27/25 10:09 Neut % (Auto) 80.2 % (42.0-75.0) H 10/27/25 10:09 Lymph % (Auto) 10.0 % (21.0-51.0) L 10/27/25 10:09 [place] % (Auto) 5.7 % (0.0-13.0) 10/27/25 10:09 Eos % (Auto) 3.4 % (0.9-2.9) H 10/27/25 10:09 Baso % (Auto) 0.7 % (0.2-1.0) 10/27/25 10:09 Neut # (Auto) 8.2 x10^3/uL (2.2-4.8) H 10/27/25 10:09 Lymph # (Auto) 1.0 X10^3/uL (1.3-2.9) L 10/27/25 10:09 [place] # (Auto) 0.6 x10^3/uL (0.3-0.8) 10/27/25 10:09 Eos # (Auto) 0.4 x10^3/uL (0.0-0.2) H 10/27/25 10:09 Baso # (Auto) 0.1 X10^3/uL (0.0-0.1) 10/27/25 10:09 Absolute Nucleated RBC 0.0 /100WBC 10/27/25 10:09 Sodium 135 mmol/L (136-145) L 10/27/25 10:09 Corrected Sodium 136 mmol/L (136-145) 10/27/25 10:09 Potassium 3.1 mmol/L (3.5-5.1) L 10/27/25 10:09 Chloride 97 mmol/L (98-107) L 10/27/25 10:09 Carbon Dioxide 30.2 mmol/L (21-32) 10/27/25 10:09 BUN 11 mg/dL (7-18) 10/27/25 10:09 Creatinine 0.91 mg/dL (0.70-1.30) 10/27/25 10:09 Est GFR (MDRD) Af Amer > 60 (>60) 10/27/25 10:09 Est GFR (MDRD) Non-Af > 60 (>60) 10/27/25 10:09 Glucose 127 mg/dL (65-99) H 10/27/25 10:09 Lactic Acid 1.2 mmol/L (0.4-2.0) 10/27/25 10:44 Calcium 8.5 mg/dL (8.5-10.1) 10/27/25 10:09 Corrected Calcium 9.9 mg/dL (8.5-10.1) 10/27/25 10:09 Total Bilirubin 1.10 mg/dL (0.2-1.0) H 10/27/25 10:09 AST 46 Units/L (15-37) H 10/27/25 10:09 ALT 13 Units/L (12-78) 10/27/25 10:09 Alkaline Phosphatase 121 Units/L (46-116) H 10/27/25 10:09 C-Reactive Protein 149.70 mg/L (0-3.0) H 10/27/25 10:09 Total Protein 7.8 g/dL (6.4-8.2) 10/27/25 10:09 Albumin 2.3 g/dL (3.4-5.0) L 10/27/25 10:09 Globulin 5.5 g/dL (2.5-4.5) H 10/27/25 10:09 Albumin/Globulin Ratio 0.4 Ratio (1.1-2.1) L 10/27/25 10:09 Specimen Type Catherized urine 10/27/25 11:01 Urine Color Yellow (YELLOW) 10/27/25 11:01 Urine Appearance Cloudy (CLEAR) 10/27/25 11:01 Urine pH 5.0 (5.0 - 8.0) 10/27/25 11:01 Ur Specific [place] 1.020 (1.000-1.030) 10/27/25 11:01 Urine Protein 2+ (NEGATIVE) 10/27/25 11:01 Urine Glucose (UA) Negative (NEGATIVE) 10/27/25 11:01 Urine Ketones Negative (NEGATIVE) 10/27/25 11:01 Urine Blood 2+ (NEGATIVE) 10/27/25 11:01 Urine Nitrite Negative (NEGATIVE) 10/27/25 11:01 Urine Bilirubin Negative (NEGATIVE) 10/27/25 11:01 Urine Urobilinogen 3+ (NORMAL) 10/27/25 11:01 Ur Leukocyte Esterase 3+ (NEGATIVE) 10/27/25 11:01 Urine RBC 5-10 /HPF (0-3) A 10/27/25 11:01 Urine WBC Tntc /HPF (0-5) A 10/27/25 11:01 Ur Squamous Epith Cells Rare /HPF (NEGATIVE) 10/27/25 11:01 Urine Bacteria Trace /HPF (NEGATIVE) 10/27/25 11:01 Ur Culture Indicated? Yes/culture set up 10/27/25 11:01 Opioid Opioid Risk Tool Age (Adrián box if 16-45): No History of Preadolescent Sexual Abuse: No Total: 0 Total Score Risk Category: Low Risk Copyright: Joseph NEIL predicting aberrant behaviors Discharge Plan Discharge Plan Patient Disposition: ADMITTED INPATIENT Condition: Stable
[2025-10-27 10:31] LABS: COR CA(FOR HYPOALB) 9.9 mg/dL (8.5-10.1); COR NA(FOR HYPERGLY) 136 mmol/L (136-145); CREATININE 0.91 mg/dL (0.70-1.30); eGFR NON BLACK RACES > 60 (>60)
[2025-10-27 11:19] LABS: BLOOD/HEMOGLOBIN,URINE 2+ (NEGATIVE); LEUKOCYTE ESTERASE ,URINE 3+ (NEGATIVE); NITRITES,URINE NEGATIVE (NEGATIVE)
[2025-10-27 11:40] LABS: APPEARANCE,URINE CLOUDY (CLEAR); SQUAMOUS EPITHELIAL CELL,UR RARE /HPF (NEGATIVE)
[2025-10-27] MEDS: PERCOCET TAB 5/325 MG PO PRN (11:58)
[2025-10-27] MEDS: ROCEPHIN VIAL 2 GRAMS IVP ONE (12:16)
[2025-10-27] MEDS: ROCEPHIN VIAL 2 GRAMS 2 G in NS 100 ML IV 100 ML IV ONE (12:16)
--- NOTE | 2025-10-27 13:31 | CT ---
EXAM: BRAIN W/O CON HISTORY: increased confusion per family; COMPARISON: Head CT examination dated October 03 TECHNIQUE: Multiple axial images of the head were obtained from the skull base to the vertex without administration of IV contrast. Sagittal and coronal reformatted images were performed. Automated exposure control (AEC) was utilized to adjust the MA and/or kV. FINDINGS: There is moderate sulcal and cisternal prominence as well as atherosclerotic change in the proximal intracranial carotid and vertebral arteries, which is not out of proportion to the patient's stated age. There is diffuse CT density alteration seen in the periventricular white matter of the high and mid-convexity, which is likely in the setting of small vessel disease and not out of proportion to the patient's stated age. There is mild bilateral ex vacuo ventricular dilatation without evidence for hydrocephalus or herniation syndrome. No midline shift is evident. No acute intraparenchymal hemorrhage or mass can be identified. If there remains a strong concern for any intra-cranial neoplasm, then follow-up with CT or MR imaging of the brain would be more sensitive to exclude any intra-cranial mass lesion. No extra-axial fluid collections are seen. No alteration in the attenuation of the brain parenchyma can be identified to suggest acute or subacute ischemic change. Also, if clinical symptoms are concerning for an acute CVA, then follow-up MRI with DWI sequencing is recommended. The extracranial structures are unremarkable. The paranasal sinuses and mastoid air cells are relatively clear. IMPRESSION: 1. No acute intracranial process or acute bleed identified. Chronic appearing, age-appropriate, cerebral senescent changes and chronic appearing periventricular white matter microvascular disease is noted within the high and mid convexity of the centrum semiovale bilaterally. Overall, the examination is stable compared to the prior study. . THIS IS AN ELECTRONICALLY VERIFIED FINAL REPORT 10/27/2025 1:28 PM - Electronically signed by Yash Lema MD
[2025-10-27] MEDS ORDERED: ZOFRAN INJ 4 MG VIAL IVP PRN (16:05)
[2025-10-27] MEDS: ROCEPHIN VIAL 1 GRAM 1 G in NS 100 ML IV 100 ML IV SCH (16:30)
[2025-10-27] MEDS: NS 1,000 ML IV 1,000 ML IV SCH (16:36)
[2025-10-27] MEDS: K-DUR TAB 20 MEQ PO SCH (16:36)
[2025-10-27] MEDS: ULTRAM PO PRN (19:25)
[2025-10-27] MEDS: ROCEPHIN VIAL 2 GRAMS ONE (20:35)
[2025-10-27] MEDS: CONSULT PHARMACY - POTASSIUM & MAGNESIUM XX SCH ×2 (20:36)
[2025-10-27] MEDS: NYSTATIN POWDER ONE (20:36)
[2025-10-27] MEDS: PULMICORT NEB TX 0.5 MG NEB SCH (21:00)
[2025-10-27] MEDS: BROVANA IN SCH (21:00)
[2025-10-27] MEDS: COLACE CAP 100 MG PO SCH (21:05)
[2025-10-27] MEDS: MAG-OX TAB PO SCH (21:05)
[2025-10-27] MEDS: KLOR-CON PO SCH (21:05)
[2025-10-27] MEDS: NYSTATIN POWDER TOP SCH (21:07)
[2025-10-27] MEDS: NORCO 5/325 MG TAB PO PRN (22:00)
[2025-10-28] MEDS: TYLENOL 325 MG TAB PO PRN (03:45)
[2025-10-28 04:52] LABS: MEAN PLATELET VOLUME 7.0 fL (7.4-11.0); RED CELL DISTRIBUTION WIDTH 14.7 % (11.6-16.5)
[2025-10-28 05:06] LABS: COR CA(FOR HYPOALB) 9.8 mg/dL (8.5-10.1); CREATININE 0.79 mg/dL (0.70-1.30); eGFR NON BLACK RACES > 60 (>60)
[2025-10-28] MEDS ORDERED: CONSULT PHARMACY - POTASSIUM & MAGNESIUM XX SCH ×2 (06:00→08:00)
[2025-10-28] MEDS: NS 1,000 ML IV 1,000 ML with MAGNESIUM SULFATE 50% INJ VIAL 1 G IV SCH (08:33)
--- NOTE | 2025-10-28 08:38 | DR.H&P ---
H&P History & Physical for Day of: H&P Date: 10/27/25 Chief Complaint Chief Complaint: "PAIN AND WEAK ALL OVER, CANNOT MOVE OR WALK" History of Present Illness History of Present Illness: PT IS 80 WM, ER ADMISSION WITH PT REPORT TO MYSELF HE WAS SO WEAK AND HURTING ALL OVER. PT REPORT HE COULD NOT WALK AT HOME. PT WAS DC FROM DENT IN [place] ON MONDAY. PT NEEDS HOSPITAL BED, HE STATES HE CANNOT TURN IN HIS BED FOR WOUND CARE. PT HAS CHRONIC INDWELLING SINGH AND HAD DEBRIDEMENT OF SACRAL DECUBITUS LAST MONTH WITH WOUND VAC WHICH HAS BEEN DC. PT ADMITTED FOR EVALUATION Past Medical History Past Medical History: Asthma, CHF, COPD, Coronary Artery Disease, CVA, Diabetes, Dyslipidemia, Hypertension and [place] Additional Medical History: HIATAL HERNIA, BPH, DDD Past Surgical History Surgical History: Angioplasty/Stents, CABG/Valve Surgery and Ortho Surgery Family History Family Medical History: Diabetes Mellitus, Cancer, [place] and Hypertension Social History Does patient currently use any type of tobacco product: No Type of Tobacco Use: Cigarettes Alcohol Use: None Drug Use: Prescription Drugs Medications Home Medications: Home Medications Medication Instructions Recorded Confirmed Type atorvastatin 40 mg tablet 40 mg PO QDAY 07/09/1810/27 History oxybutynin chloride 10 mg 10 mg PO QDAY 07/09/1810/27 History tablet,extended release 24 hr potassium chloride 10 mEq 10 meq PO DAILY PRN 07/31/20 10/27/25 History capsule,extended release oxycodone-acetaminophen 10 mg-325 1 tab PO QID PRN Domenica n 09/11/21 10/27/25 History mg tablet cyclobenzaprine 10 mg tablet 10 mg PO TID PRN Muscle P ain 10/03/24 10/27/25 History ropinirole 1 mg tablet 1 mg PO QPM 10/03/24 5 History insulin glargine 100 unit/mL (3 14 unit subcut BID 10/27/25 History mL) subcutaneous pen (Lantus Solostar U-100 Insulin) memantine 10 mg tablet 10 mg PO DAILY 06/17/25 12/07/14 History metoprolol tartrate 25 mg tablet 25 mg PO BID 06/17/25 10/27/25 History nystatin 100,000 unit/gram topical 1 applic topical BI D 06/17/25 10/27/25 History cream olanzapine 5 mg tablet 5 mg PO QPM 06/17/25 5 History tirzepatide 5 mg/0.5 mL 5 mg subcut WEEKLY 06/17/25 10/27/25 History subcutaneous pen injector (Flaquito) brexpiprazole 0.5 mg tablet 0.5 mg PO QDAY 09/28/25 History (Rexulti) fluticasone fur. 200 mcg-umeclid 1 ea inhalation QDAY 09/28/25 10/27/25 History 62.5 mcg-vilant 25 mcg inhalat.powder (Trelegy Ellipta) furosemide 20 mg tablet 20 mg PO QDAY 09/28/2510/27 History gabapentin 600 mg tablet 600 mg PO TID 09/28/2510/27 History ipratropium 20 mcg-albuterol 100 1 puff inhalation QID 09/28/25 10/27/25 History mcg/actuation mist for inhalation (Combivent Respimat) pantoprazole 40 mg tablet,delayed 40 mg PO BID 5 10/27/25 History release tamsulosin 0.4 mg capsule 0.4 mg PO DAILY 09/28/2507/14 History trazodone 50 mg tablet 100 mg PO QPM PRN 09/28/25 1 12/28/24 History Allergies Allergies Allergy/AdvReac Type Severity Reaction Status Date / Time No Known Drug Allergies Allergy Verified 10/27/25 09:43 Labs 10/28/25 04:31 10/28/25 04:31 Labs: 10/27/25 17:15 Sputum - Expectorated Sputum - Final 10/27/25 09:58 Buttock Wound Gram Stain - Final Laboratory WBC 10.3 X10^3/uL (3.6-10.0) H 10/28/25 04:31 RBC 3.50 X10^6/uL (4.7-6.0) L 10/28/25 04:31 Hgb 10.2 g/dL (13.5-18.0) L 10/28/25 04:31 Hct 30.0 % (42.0-54.0) L 10/28/25 04:31 MCV 85.8 fL (80.0-100.0) 10/28/25 04:31 MCH 29.3 pg (27.0-34.0) 10/28/25 04:31 MCHC 34.1 g/dL (33.0-35.0) 10/28/25 04:31 RDW 14.7 % (11.6-16.5) 10/28/25 04:31 Plt Count 329 X10^3/uL (150.0-450.0) 10/28/25 04:31 MPV 7.0 fL (7.4-11.0) L 10/28/25 04:31 Neut % (Auto) 71.6 % (42.0-75.0) 10/28/25 04:31 Lymph % (Auto) 14.3 % (21.0-51.0) L 10/28/25 04:31 [place] % (Auto) 8.7 % (0.0-13.0) 10/28/25 04:31 Eos % (Auto) 4.7 % (0.9-2.9) H 10/28/25 04:31 Baso % (Auto) 0.7 % (0.2-1.0) 10/28/25 04:31 Neut # (Auto) 7.4 x10^3/uL (2.2-4.8) H 10/28/25 04:31 Lymph # (Auto) 1.5 X10^3/uL (1.3-2.9) 10/28/25 04:31 [place] # (Auto) 0.9 x10^3/uL (0.3-0.8) H 10/28/25 04:31 Eos # (Auto) 0.5 x10^3/uL (0.0-0.2) H 10/28/25 04:31 Baso # (Auto) 0.1 X10^3/uL (0.0-0.1) 10/28/25 04:31 Absolute Nucleated RBC 0.0 /100WBC 10/28/25 04:31 Sodium 135 mmol/L (136-145) L 10/28/25 04:31 Corrected Sodium TNP 10/28/25 04:31 Potassium 4.3 mmol/L (3.5-5.1) 10/28/25 04:31 Chloride 99 mmol/L (98-107) 10/28/25 04:31 Carbon Dioxide 30.0 mmol/L (21-32) 10/28/25 04:31 BUN 10 mg/dL (7-18) 10/28/25 04:31 Creatinine 0.79 mg/dL (0.70-1.30) 10/28/25 04:31 Est GFR (MDRD) Af Amer > 60 (>60) 10/28/25 04:31 Est GFR (MDRD) Non-Af > 60 (>60) 10/28/25 04:31 Glucose 96 mg/dL (65-99) 10/28/25 04:31 POC Glucose (mg/dL) 100 mg/dL (65-99) H 10/28/25 05:17 Lactic Acid 1.2 mmol/L (0.4-2.0) 10/27/25 10:44 Calcium 8.2 mg/dL (8.5-10.1) L 10/28/25 04:31 Corrected Calcium 9.8 mg/dL (8.5-10.1) 10/28/25 04:31 Magnesium 1.7 mg/dL (2.0-2.9) L 10/28/25 04:31 Total Bilirubin 0.80 mg/dL (0.2-1.0) 10/28/25 04:31 AST 49 Units/L (15-37) H 10/28/25 04:31 ALT 12 Units/L (12-78) 10/28/25 04:31 Alkaline Phosphatase 104 Units/L (46-116) 10/28/25 04:31 C-Reactive Protein 149.70 mg/L (0-3.0) H 10/27/25 10:09 Total Protein 6.8 g/dL (6.4-8.2) 10/28/25 04:31 Albumin 2.0 g/dL (3.4-5.0) L 10/28/25 04:31 Globulin 4.8 g/dL (2.5-4.5) H 10/28/25 04:31 Albumin/Globulin Ratio 0.4 Ratio (1.1-2.1) L 10/28/25 04:31 Specimen Type Catherized urine 10/27/25 11:01 Urine Color Yellow (YELLOW) 10/27/25 11:01 Urine Appearance Cloudy (CLEAR) 10/27/25 11:01 Urine pH 5.0 (5.0 - 8.0) 10/27/25 11:01 Ur Specific [place] 1.020 (1.000-1.030) 10/27/25 11:01 Urine Protein 2+ (NEGATIVE) 10/27/25 11:01 Urine Glucose (UA) Negative (NEGATIVE) 10/27/25 11:01 Urine Ketones Negative (NEGATIVE) 10/27/25 11:01 Urine Blood 2+ (NEGATIVE) 10/27/25 11:01 Urine Nitrite Negative (NEGATIVE) 10/27/25 11:01 Urine Bilirubin Negative (NEGATIVE) 10/27/25 11:01 Urine Urobilinogen 3+ (NORMAL) 10/27/25 11:01 Ur Leukocyte Esterase 3+ (NEGATIVE) 10/27/25 11:01 Urine RBC 5-10 /HPF (0-3) A 10/27/25 11:01 Urine WBC Tntc /HPF (0-5) A 10/27/25 11:01 Ur Squamous Epith Cells Rare /HPF (NEGATIVE) 10/27/25 11:01 Urine Bacteria Trace /HPF (NEGATIVE) 10/27/25 11:01 Ur Culture Indicated? Yes/culture set up 10/27/25 11:01 Review of Systems Constitutional: Weakness Eyes: No Symptoms Reported ENT: No Symptoms Reported Respiratory: Shortness of Breath Cardiovascular: No Symptoms Reported Gastrointestinal: No Symptoms Reported Genitourinary: Incontinence Musculoskeletal: Back Pain and Leg Pain Skin: Wound Neurological: Weakness Physical Exam Vital Signs: Vital Signs Temperature 97.9 F Temperature 99.7 F Pulse Rate [Left Radial] 111 Pulse Rate [Left Radial] 101 Respiratory Rate 16 Respiratory Rate 20 Respiratory Rate 17 Respiratory Rate 20 Respiratory Rate 17 Respiratory Rate 17 Blood Pressure [Right Arm] 110/61 Blood Pressure [Right Arm] 113/59 O2 Sat by Pulse Oximetry 94 O2 Sat by Pulse Oximetry 98 Oriented: Normal Eyes: Normal Ear: Normal Nose: Normal Throat: Dry Respiratory: RLL Diminished and LLL Diminished Cardiovascular: Normal and Edema Auscultation: Bowel Sounds: Normal Tenderness: Normal Skin: Decreased Turgur and Wound Musculoskeletal: Motor Deficit and Instability Mood Description: Depressed Speech Pattern: Clear and Appropriate Assessment/Plan (1) Hypokalemia: Status: Acute Plan: ADMIT, IV HYDRATION PAIN CONTROL. CATH CARE VERIFY HOME MEDICATIONBS RESP THERAPY, WOUND CARE CONSULT CASE MANAGEMENT FOR NH PLACEMENT (2) Dehydration: Status: Acute (3) Dislodged Singh catheter: Status: Acute (4) Decubitus ulcer: Qualifiers: Laterality: unspecified laterality Pressure injury location: buttock P ressure injury stage: unspecified pressure injury stage Qualified Code(s): L 89.309 - Pressure ulcer of unspecified buttock, unspecified stage Status: Acute (5) DDD (degenerative disc disease): Qualifiers: Spinal region: lumbosacral Disc-related pain type: discogenic back pain and lower extremity pain Qualified Code(s): M51.372 - Other intervertebral disc degeneration, lumbosacral region with discogenic back pain and lower extremity pain Status: Chronic (6) COPD (chronic obstructive pulmonary disease): Qualifiers: COPD type: chronic bronchitis Chronic bronchitis type: simple Q ualified Code(s): J41.0 - Simple chronic bronchitis Status: Chronic
[2025-10-28] MEDS ORDERED: PATIENT'S HOME MEDICATION (Fluticasone-Umeclidin-Vilanter [Trelegy Ellipta] 200-62.5-25 mc IN SCH (09:00)
[2025-10-28] MEDS: LOPRESSOR TAB 25 MG PO SCH ×2 (09:20→21:18)
[2025-10-28] MEDS: LASIX PO SCH (09:20)
[2025-10-28] MEDS: LIPITOR TAB 40 MG PO SCH (09:20)
[2025-10-28] MEDS: FLOMAX PO SCH (09:20)
[2025-10-28] MEDS: PROTONIX TAB 40 MG PO SCH (09:20)
[2025-10-28] MEDS: NAMENDA TAB 10 MG PO SCH (09:21)
[2025-10-28] MEDS: KLOR-CON 10 MEQ TAB PO SCH (09:21)
[2025-10-28] MEDS: LANTUS SC SCH (09:21)
[2025-10-28] MEDS: LOVENOX INJ 40 MG SYR SC SCH (09:22)
[2025-10-28] MEDS: NEURONTIN TAB 600 MG PO SCH (13:49)
[2025-10-28] MEDS: MAALOX or MYLANTA PO PRN (17:24)
[2025-10-28] MEDS: PERCOCET TAB 5/325 MG PO PRN (17:24)
[2025-10-28] MEDS: DESYREL PO SCH (21:18)
[2025-10-29 05:39] LABS: MEAN PLATELET VOLUME 6.9 fL (7.4-11.0); RED CELL DISTRIBUTION WIDTH 14.7 % (11.6-16.5)
[2025-10-29 05:52] LABS: COR CA(FOR HYPOALB) 9.8 mg/dL (8.5-10.1); CREATININE 0.75 mg/dL (0.70-1.30); eGFR NON BLACK RACES > 60 (>60)
[2025-10-29] MEDS ORDERED: CONSULT PHARMACY - POTASSIUM & MAGNESIUM XX SCH (07:00)
[2025-10-29 08:38] VITALS: BMI 31.1
[2025-10-29] MEDS: NS 1,000 ML IV 1,000 ML IV SCH (08:39)
[2025-10-29] MEDS: K-DUR TAB 20 MEQ PO SCH (08:51)
[2025-10-29] MEDS: DIFLUCAN PO SCH (09:41)
[2025-10-30] MEDS: MORPHINE SULFATE INJ 2 MG INJ IVP PRN (03:52)
[2025-10-30 05:04] VITALS: BP 120/58
[2025-10-30 06:15] LABS: COR CA(FOR HYPOALB) 9.7 mg/dL (8.5-10.1); CREATININE 0.71 mg/dL (0.70-1.30); eGFR NON BLACK RACES > 60 (>60)
[2025-10-30 06:20] LABS: MEAN PLATELET VOLUME 6.7 fL (7.4-11.0); RED CELL DISTRIBUTION WIDTH 15.0 % (11.6-16.5)
[2025-10-30 10:28] VITALS: PULSE 105; RESP 19; TEMP 98.4; O2SAT 96
== END 2025-10-30 09:55 | disposition hospice, home (50) ==
LOC: MED/SURG 09:37 → ER 09:37 → MED/SURG 15:48
PROVIDERS: ADMIT Internal Medicine; ATTEND Internal Medicine
DX: R06.2 Wheezing; R74.8 Abnormal levels of other serum enzymes; Z79.4 Long term (current) use of insulin; M19.90 Unspecified osteoarthritis, unspecified site; R41.0 Disorientation, unspecified; I11.0 Hypertensive heart disease with heart failure; R79.89 Other specified abnormal findings of blood chemistry; M51.372 Other intervertebral disc degeneration, lumbosacral region with discogenic back pain and lower extremity pain; E80.6 Other disorders of bilirubin metabolism; J44.9 Chronic obstructive pulmonary disease, unspecified; Z29.89 Encounter for other specified prophylactic measures; A00-B99 Certain infectious and parasitic diseases; E87.6 Hypokalemia; R62.7 Adult failure to thrive; R53.1 Weakness; E86.0 Dehydration; Z16.12 Extended spectrum beta lactamase (ESBL) resistance; Z95.2 Presence of prosthetic heart valve; E78.5 Hyperlipidemia, unspecified; E11.65 Type 2 diabetes mellitus with hyperglycemia; N39.0 Urinary tract infection, site not specified; Z79.899 Other long term (current) drug therapy; Z86.73 Personal history of transient ischemic attack (TIA), and cerebral infarction without residual deficits; K21.9 Gastro-esophageal reflux disease without esophagitis; L89.153 Pressure ulcer of sacral region, stage 3; I50.9 Heart failure, unspecified; I25.810 Atherosclerosis of coronary artery bypass graft(s) without angina pectoris; R26.89 Other abnormalities of gait and mobility; E87.1 Hypo-osmolality and hyponatremia; B96.5 Pseudomonas (aeruginosa) (mallei) (pseudomallei) as the cause of diseases classified elsewhere; J41.0 Simple chronic bronchitis; Z16.23 Resistance to quinolones and fluoroquinolones; R79.82 Elevated C-reactive protein (CRP); Z59.868 Other specified financial insecurity